=== PATIENT | male | born 1940 | race Caucasian/White ===

== ENCOUNTER 2019-07-31 06:43 | Inpatient (IN) ==
[2019-07-31 07:33] LABS: BASO# 0.02 X1000 (0.0-0.2); BASO% 0.3 % (0.0-0.8); EOS# 0.06 X1000 (0.0-0.7); EOS% 0.9 % (0.0-10.0); HEMATOCRIT 27.9 % (42.0-52.0); IMM GRAN# 0.03 X1000 (0.0-0.04); IMM GRAN% 0.4 % (0.0-0.5); LYMPH# 0.63 X1000 (1.2-3.4); LYMPH% 9.3 % (20.5-51.1); MCH 22.9 PG (27-31); MCHC 28.7 g/dL (33-37); MCV 79.7 FL (81-99); MONO# 0.43 X1000 (0.11-0.59); MONO% 6.3 % (1.7-9.3); MPV 9.4 FL (7.4-10.4); NEUT# 5.62 X1000 (1.4-6.5); NEUT% 82.8 % (42.2-75.2); PLT 240 X1000 (130-400); RDW 16.1 % (11.5-14.5); WBC 6.79 X1000 (4.8-10.8)
[2019-07-31 07:47] LABS: AGAP 15; ALBUMIN 4.1 g/dL (3.5-5.0); ALKALINE PHOSPHATASE 143 U/L (32-122); BUN 10 mg/dL (8-22); CALCIUM 9.1 mg/dL (8.8-10.2); CHLORIDE 101 mmol/L (98-107); COSMO 281; CREATININE 0.9 mg/dL (0.7-1.2); ESTIMATED GFR > 60; GLUCOSE 211 mg/dL (70-104); GOT 110 U/L (10-34); GPT 36 U/L (10-44); LIPASE 82 U/L (13-60); POTASSIUM 3.7 mmol/L (3.5-5.1); SODIUM 138 mmol/L (136-145); TCO2 22 mmol/L (25-35); TOTAL PROTEIN 7.9 g/dL (6.3-8.3)
[2019-07-31] MEDS ORDERED: PHENERGAN IV ONE ×2 (07:57→11:27)
[2019-07-31] MEDS ORDERED: SODIUM CHLORIDE 0.9% INJ ONE ×2 (07:57→11:27)
[2019-07-31] MEDS ORDERED: DEMEROL IV ONE ×2 (07:58→11:27)
--- NOTE | 2019-07-31 08:03 | PROVIDER DOCUMENTATION ---
HPI-Abdominal Pain/GI Problem - General Chief Complaint: Abdominal Pain Stated Complaint: INDIGESTION Time Seen by Provider: 07/31/19 07:41 Source: patient, family Allergies/Adverse Reactions: Patient Allergies Allergy/AdvReac Type Severity Reaction Status Date / Time No Known Allergies Allergy Verified 07/31/19 07:40 Home Medications: Home Medication List Medication Instructions Recorded Confirmed Last Taken Type Allopurinol [Zyloprim] 300 mg PO HS 07/19/12 07/31/19 12/20/13 07:00 History Metoprolol [Lopressor] 50 mg PO DAILY 07/19/12 07/31/19 12/20/13 07:00 History Omeprazole [Prilosec] 20 mg PO DAILY@0700 07/19/12 07/31/19 12/20/13 07:00 Histo ry PRAVAstatin [Pravachol] 40 mg PO DAILY 12/14/12 07/31/19 12/19/13 17:00 History Acetaminophen with Codeine 1 ea PO Q6H PRN PRN #30 tab 07/18/17 07/31/19 Unknown Rx [Tylenol with Codeine #3 Tablet] Cilostazol 100 mg PO DAILY 10/17/17 07/31/19 Unknown History Amlodipine Besylate 2.5 mg PO DAILY 07/31/19 07/31/19 Unknown History Apixaban [Eliquis] 5 mg PO BID 07/31/19 07/31/19 Unknown History - History of Present Illness-ABD Nature of Presenting Problems: had diarrhea a couple of daysmthen went to bed last night fine woke up with gaseous ness and pain Abdominal Pain Onset Location: reports: epigastric Pain Radiation: reports: no radiation Quality of Pain: reports: fullness, pressure Severity in ED: reports: moderate Onset/Duration: reports: 4-6 hours ago Timing: reports: still present Activities at Onset: reports: sleep Exposure to sick contacts?: No Associated Symptoms: reports: loss of appetite, nausea, weakness Last BM: 24 hours ago Dark Stools Present?: reports: none noticed Rectal Bleeding: reports: none # of Diarrhea Episodes: 0 Rectal Pain: reports: none # of Vomiting Episodes: 0 Emesis Description: reports: none Bruising or Bleeding Gums?: No Similar Symptoms Previously?: No Recently seen or treated by another doctor?: No Review of Systems - Adult - REVIEW OF SYSTEMS - ADULT Constitutional: reports: no symptoms reported Eyes: reports: no symptoms reported Ears, Nose, Mouth & Throat: reports: no symptoms reported Cardiovascular: denies: chest pain Respiratory: denies: cough, shortness of breath, wheezing Gastrointestinal: reports: abdominal pain, nausea Genitourinary: reports: no symptoms reported Musculoskeletal: reports: no symptoms reported Integumentary: reports: no symptoms reported Neurological: reports: no symptoms reported Psychiatric: reports: no symptoms reported Endocrine: reports: no symptoms reported Hematologic/Lymphatic: reports: no symptoms reported Allergic/Immunologic: reports: no symptoms reported Past History - Adult - PAST MEDICAL HISTORY-ADULT Review of Records: reports: Old Records Reviewed, Nursing Assessment Review, Medications Reviewed, Social history reviewed & non-contributory. Major Childhood Illnesses: reports: denies history Cardiovascular: reports: CAD - IMMUNIZATION STATUS Childhood Immunizations: See Nurse Assessment Flu Vaccine: See Nurse Assessment Physical Exam-General - PHYSICAL EXAM-ADULT Initial Vital Signs Reviewed: Yes - CONSTITUTIONAL General Appearance: moderate distress - EYES Eyes: pale conjunctivae - HEAD, EARS, NOSE, MOUTH & THROAT HENMT: normocephalic/atraumatic - NECK Neck: supple - RESPIRATORY Respiratory: lungs clear, decreased breath sounds - CARDIOVASCULAR Cardiovascular: regular rate, rhythm - GASTROINTESTINAL (ABDOMEN) Abdominal Exam: soft, distended, tenderness. negative: guarding, rigid, rebound - LYMPHATIC Lymphatic: no adenopathy - MUSCULOSKELETAL Back Exam: normal inspection, no CVA tenderness Extremity: normal range of motion, non-tender, normal gait - SKIN Integumentary: normal color, normal turgor - NEUROLOGIC Neurologic: grossly normal - PSYCHIATRIC Psych/Mental Status: oriented x 3 Progress - PLAN OF CARE/RESULTS Progress/Plan/Lab Results: Vital Signs - 8 hr 07/31/19 06:50 Temperature 97.6 F Pulse Rate 80 Respiratory Rate 16 Blood Pressure 134/69 O2 Sat by Pulse Oximetry 99 Laboratory Results - last 24 hr 07/31/19 07/31/19 07/31/19 07:08 07:08 07:08 WBC 6.79 RBC 3.50 L Hgb 8.0 L Hct 27.9 L MCV 79.7 L MCH 22.9 L MCHC 28.7 L RDW Std Deviation 16.1 H Plt Count 240 MPV 9.4 Immature Gran % (Auto) 0.4 Neut % (Auto) 82.8 H Lymph % (Auto) 9.3 L [place] % (Auto) 6.3 Eos % (Auto) 0.9 Baso % (Auto) 0.3 Immature Gran # (Auto) 0.03 Neut # (Auto) 5.62 Lymph # (Auto) 0.63 L [place] # (Auto) 0.43 Eos # (Auto) 0.06 Baso # (Auto) 0.02 Segmented Neutrophils Not Reportable Sodium Potassium Chloride Carbon Dioxide Anion Gap BUN Creatinine Estimated GFR/1.73 m2 BUN/Creatinine Ratio Glucose Calculated Osmolality Calcium Total Bilirubin AST ALT Alkaline Phosphatase Creatine Kinase 128 Troponin T High Sens Total Protein Albumin Globulin Albumin/Globulin Ratio Amylase 157 Lipase 07/31/19 07/31/19 07:08 07:08 WBC RBC Hgb Hct MCV MCH MCHC RDW Std Deviation Plt Count MPV Immature Gran % (Auto) Neut % (Auto) Lymph % (Auto) [place] % (Auto) Eos % (Auto) Baso % (Auto) Immature Gran # (Auto) Neut # (Auto) Lymph # (Auto) [place] # (Auto) Eos # (Auto) Baso # (Auto) Segmented Neutrophils Sodium 138 Potassium 3.7 Chloride 101 Carbon Dioxide 22 L Anion Gap 15 BUN 10 Creatinine 0.9 Estimated GFR/1.73 m2 > 60 BUN/Creatinine Ratio 11 Glucose 211 H Calculated Osmolality 281 Calcium 9.1 Total Bilirubin 1.70 H AST 110 H ALT 36 Alkaline Phosphatase 143 H Creatine Kinase Troponin T High Sens 19 Total Protein 7.9 Albumin 4.1 Globulin 4.0 Albumin/Globulin Ratio 1.0 Amylase Lipase 82 H Orders Category Date Time Status AMYLASE [CHEM] Stat Lab 07/31/19 07:08 Completed CBC WITH DIFF [HEME] Stat Lab 07/31/19 07:08 Completed CK PROFILE [SP CHEM] Stat Lab 07/31/19 07:08 Completed COMPREHENSIVE METABOLIC PANEL [CHEM] Stat Lab 07/31/19 07:08 Completed LIPASE [CHEM] Stat Lab 07/31/19 07:08 Completed TROPONIN T HIGH SENSITIVITY Stat Lab 07/31/19 07:08 Completed EKG [EKG] Stat Ther 07/31/19 06:59 Ordered Result Diagrams: 07/31/19 07:08 07/31/19 07:08 - EKG 1 Time of EKG reading by physician:: 06:57 EKG Read and Signed by:: Cristhian Bardales EKG Interpretation (*Must complete 3 of following elements*): Abnormal Rate: 78 Rhythm: Afib [place]: normal QRS: other (possible inferior infarct) MI Interval: normal ST Wave: normal - CT/MRI 1 CT Study: Abdomen, Pelvis Impression: See EMR Report ([facility] - [address], [address], [place] [address] [facility] - [address] [place] [address] Department of Imaging Patient: KEVIN BRYAN Date: 07/31/19MR#: [id number] : 1940DM Status: REG [facility]#: [id number] Age/Sex: 78/MRoom/Bed: Loc: P.ED Ordering Physician: Juan Bardales MD Family Physician: Cristhian Bardales MD Reason for Procedure: pain Signed EXAM: CT ABD/PELVIS W/IV CONT ONLY INDICATION: pain TECHNIQUE: This exam was performed using automated exposure control, adjustment of mA or kV according to patient size, and/or use of iterative reconstruction technique. COMPARISON: 12/13/2012 FINDINGS: There is right basilar atelectasis +/- superimposed mild infiltrate. The liver is enlarged, heterogeneous, and exhibits a nodular contour consistent with cirrhosis. No well-defined hepatic mass can be identified on this study. There are multiple layering stones in the gallbladder lumen. There is no pericholecystic inflammatory change. The spleen is mildly prominent measuring up to 14.6 cm craniocaudally. The pancreas, adrenal glands, kidneys, and urinary bladder are essentially unremarkable. There is uncomplicated sigmoid colonic diverticulosis. There is no focal bowel wall thickening or bowel obstruction. The remainder of the GI tract is essentially unremarkable. No focal inflammatory changes, significant free fluid, or free abdominal gas is appreci ated. There is fairly extensive aortoiliac atherosclerotic disease and upper lower extremity atherosclerotic disease similar to the previous study. There is no evidence of acute osseous abnormality. IMPRESSION: 1.Focal atelectasis +/- mild infiltrate at the right lung base. 2.Cirrhotic liver. 3.Mild hepatomegaly. 4.Cholelithiasis. 5.Uncomplicated diverticulosis coli. 6.No definite acute abdominal or pelvic pathology by CT. Electronically signed by Raman Jiang 07/31/2019 9:01 AM 07/31/19 0901 Interpreting Physician: Raman Jiang MD Dictated Date/Time: 07/31/19 0852 cc: Cristhian Bardales MD; Cristhian Bardales MD) - ULTRASOUND (By Radiology) 1 US Study: Gallbladder Impression: See EMR Report ([facility] - [address] [facility] [address], [place] [address] [facility] - [address] [place] [address] Department of [facility] Date: 07/31[facility]MR#: [id number] : 1940DM Status: [facility] ERAcct#: [id number] Age/Sex: 78/MRoom/Bed: Loc: P.ED Ordering Physician: Cristhian Bardales MD Family Physician: Cristhian Bardales MD Reason for Procedure: pain Signed EXAM: US GB < RUQ (LIMITED) INDICATION: pain COMPARISON: None. FINDINGS: The gallbladder is somewhat obscured. However, there is evidence of layering gallbladder sludge and stones in the gallbladder lumen. There is no gallbladder wall thickening and no evidence of pericholecystic fluid. The common bile duct is normal in diameter. Sonographic Davis's sign was reported to be negative. The liver echotexture is vaguely heterogeneous suggesting cirrhosis. No discrete hepatic mass is identified. Portal venous flow is hepatopetal. The pancreas is largely obscured. The aorta is obscured. The visualized portion of the IVC is unremarkable. The right kidney is grossly unremarkable. IMPRESSION: 1.Sludge and stones in the lumen of the gallbladder but no wall thickening is appreciated. 2.Daily heterogeneous liver echotexture suggesting cirrhosis. Electronically signed by Raman Jiang 07/31/2019 11:29 AM 07/31/19 1129 Interpreting Physician: Raman Jiang MD Dictated Date/Time: 07/31/19 1126 cc: Cristhian Bardales MD; Cristhian Bardales MD) - CONSULTS/PCP/HOSPITALIST Notification #1 *Consult/PCP/Hospitalist*: Dr. Murphy Time Discussed: 12:00 Reason/Comments: ruq pain; + davis's sign; cholelithiasis Consult Disposition: Admit (at [facility]) #2 Consult: Dr. Rodríguez Time Discussed: 12:01 Reason/Comments: liver cirrhosis; ruq pain; + davis's sign; cholelithiasis Consult Disposition: Admit (at [facility]) Departure - Departure Date of Disposition Decision: 07/31/19 Time of Disposition Decision: 12:02 DIAGNOSIS: Liver cirrhosis, RUQ abdominal pain, Cholelithiasis, History of atrial fibrillation Disposition: ADMITTED INPATIENT 09 Certified Medical Emergency: Emergent Condition: Stable Referrals and Follow-Ups: Cristhian Bardales MD [Primary Care Provider] - - Critical Care Note This patient required my direct & personal management of CC.: No Attestation - Physician/ MIKE Attestation The physician spent face to face time with patient:: Yes Advanced Practice Provider documentation review:: Supervising physician onsite and consulted in the evaluation and care of this patient. The physician did have a face to face encounter with the patient.
[2019-07-31 08:11] LABS: OCCULT BLOOD 1 POSITIVE (NEGATIVE)
--- NOTE | 2019-07-31 09:03 | Diag Imaging Result Doc PS360 ---
EXAM: CT ABD/PELVIS W/IV CONT ONLY INDICATION: pain TECHNIQUE: This exam was performed using automated exposure control, adjustment of mA or kV according to patient size, and/or use of iterative reconstruction technique. COMPARISON: 12/13/2012 FINDINGS: There is right basilar atelectasis +/- superimposed mild infiltrate. The liver is enlarged, heterogeneous, and exhibits a nodular contour consistent with cirrhosis. No well-defined hepatic mass can be identified on this study. There are multiple layering stones in the gallbladder lumen. There is no pericholecystic inflammatory change. The spleen is mildly prominent measuring up to 14.6 cm craniocaudally. The pancreas, adrenal glands, kidneys, and urinary bladder are essentially unremarkable. There is uncomplicated sigmoid colonic diverticulosis. There is no focal bowel wall thickening or bowel obstruction. The remainder of the GI tract is essentially unremarkable. No focal inflammatory changes, significant free fluid, or free abdominal gas is appreciated. There is fairly extensive aortoiliac atherosclerotic disease and upper lower extremity atherosclerotic disease similar to the previous study. There is no evidence of acute osseous abnormality. IMPRESSION: 1.Focal atelectasis +/- mild infiltrate at the right lung base. 2.Cirrhotic liver. 3.Mild hepatomegaly. 4.Cholelithiasis. 5.Uncomplicated diverticulosis coli. 6.No definite acute abdominal or pelvic pathology by CT. Electronically signed by Raman Jiang 07/31/2019 9:01 AM
--- NOTE | 2019-07-31 10:24 | EKG Report ---
Test Performed on : 07/31/2019 06:57:16 AM Test Reason : Indigestion Blood Pressure : / mmHG Vent. Rate : 078 BPM Atrial Rate : 258 BPM P-R Int : 000 ms QRS Dur : 090 ms QT Int : 408 ms P-R-T Axes : 000 -07 019 degrees QTc Int : 465 ms Atrial fibrillation. Possible Inferior infarct (cited on or before 19-JUL-2012) Abnormal ECG When compared with ECG of 20-JUL-2012 14:52, Atrial fibrillation. has replaced Sinus rhythm. Unconfirmed Result
--- NOTE | 2019-07-31 11:32 | Diag Imaging Result Doc PS360 ---
EXAM: US GB < RUQ (LIMITED) INDICATION: pain COMPARISON: None. FINDINGS: The gallbladder is somewhat obscured. However, there is evidence of layering gallbladder sludge and stones in the gallbladder lumen. There is no gallbladder wall thickening and no evidence of pericholecystic fluid. The common bile duct is normal in diameter. Sonographic Davis's sign was reported to be negative. The liver echotexture is vaguely heterogeneous suggesting cirrhosis. No discrete hepatic mass is identified. Portal venous flow is hepatopetal. The pancreas is largely obscured. The aorta is obscured. The visualized portion of the IVC is unremarkable. The right kidney is grossly unremarkable. IMPRESSION: 1.Sludge and stones in the lumen of the gallbladder but no wall thickening is appreciated. 2.Daily heterogeneous liver echotexture suggesting cirrhosis. Electronically signed by Raman Jiang 07/31/2019 11:29 AM
[2019-07-31] MEDS ORDERED: TYLENOL WITH CODEINE #3 PO PRN (12:24)
[2019-07-31] MEDS ORDERED: ZOFRAN IV PRN ×2 (12:25→22:42)
[2019-07-31] MEDS ORDERED: NS 1,000 ML IV SCH (12:30)
[2019-07-31] MEDS: ZOSYN 3.375 GM in NS 50 ML IV SCH ×2 (12:55→20:21)
--- NOTE | 2019-07-31 14:18 | HISTORY AND PHYSICAL ---
CHIEF COMPLAINT: Abdominal pain. HISTORY OF PRESENT ILLNESS: The patient is a pleasant, elderly male, who presented to the hospital with chief complaint of abdominal pain, nausea. He has had some indigestion and diarrhea for the past several days to a week. Continues to get worse. He has had increased gas, increased bloating in his abdomen, decreased oral intake. ALLERGIES: No known drug allergies. MEDICATIONS: Allopurinol 300, Lopressor 50, Prilosec 20, Pravachol 40, Pletal 100, amlodipine 2.5, and Eliquis 5 b.i.d., although he has been off Eliquis for, I believe, 3 days. REVIEW OF SYSTEMS: As noted above. Denies any fevers, chills, cough, congestion. Does have abdominal pain with distention. Denies hematemesis, hematochezia, or melena, but does have diarrhea and has increased nausea, increased vomiting, and abdominal pain with some bloating. Denies any weight loss, but also notes he has not checked his weight in some time. Denies headaches, blurred vision, change in vision. Denies focalized numbness, tingling, weakness in his extremities PAST MEDICAL HISTORY: Significant for coronary artery disease, high cholesterol, chronic reflux, and hypertension. FAMILY HISTORY: Noncontributory. SOCIAL HISTORY: The patient does not smoke or drink. He lives at home. He is cared for by his family. PHYSICAL EXAMINATION: VITAL SIGNS: Reviewed. Temp 97.6 degrees, pulse 80, respiratory rate 16, BP 134/69, satting 99% on room air. GENERAL: The patient is pleasant. He is lying in the bed. He has received pain medicine, so the history basically is per his family. HEENT: Normocephalic. NECK: Supple. CARDIOVASCULAR: Regular rate. CHEST: Clear. Nonlabored. No wheezing. ABDOMEN: Soft, slightly distended, slightly tender diffusely. Decreased bowel sounds times all 4 quadrants. EXTREMITIES: Moves all extremities. NEUROLOGIC: No focal neurological changes. SKIN: Warm and dry. No rashes. IMAGING AND LABORATORY DATA: CBC, CMP effectively normal with glucose 211. CT abnormal as noted below. ASSESSMENT: 1. Bibasilar atelectasis versus infiltrate. 2. Multiple gallstones. 3. Cirrhosis. 4. Abdominal distention with pain. 5. History of atrial fibrillation. 6. Hypertension. 7. Known coronary artery disease. 8. High cholesterol. PLAN: We are going to admit the patient to the hospital. Given that he has sludge and stones in his gallbladder, we are going to ask Surgery to evaluate. He does have cirrhosis. We are going to ask GI to evaluate his persistent nausea as he certainly may need an EGD as well. We are going to continue his home medications, place him on Zosyn, and will follow. cc: Pepe Rodríguez MD
[2019-07-31] MEDS ORDERED: DEMEROL IV PRN ×2 (20:39→22:41)
[2019-07-31] MEDS ORDERED: PHENERGAN IV PRN ×3 (20:40→22:43)
[2019-07-31] MEDS ORDERED: SODIUM CHLORIDE 0.9% INJ PRN ×2 (20:40→22:43)
[2019-07-31] MEDS ORDERED: OFIRMEV 1000 MG/ISOTONIC SOLN 1,000 MG/100 ML BOTTLE IV ONE (20:42)
[2019-07-31] MEDS ORDERED: ZYLOPRIM PO SCH (21:00)
[2019-08-01] MEDS: ZOSYN 3.375 GM in NS 50 ML IV SCH ×2 (03:04→07:43)
[2019-08-01] MEDS: NS 1,000 ML IV SCH ×3 (03:04→17:30)
[2019-08-01] MEDS ORDERED: PRILOSEC PO SCH (07:00)
[2019-08-01 07:42] LABS: AGAP 16; ALBUMIN 3.6 g/dL (3.5-5.0); ALKALINE PHOSPHATASE 182 U/L (32-122); BUN 12 mg/dL (8-22); CHLORIDE 100 mmol/L (98-107); COSMO 281; ESTIMATED GFR > 60; GLUCOSE 162 mg/dL (70-104); GOT 310 U/L (10-34); GPT 218 U/L (10-44); MAGNESIUM 1.7 mg/dL (1.5-2.7); POTASSIUM 3.8 mmol/L (3.5-5.1); SODIUM 139 mmol/L (136-145); TCO2 23 mmol/L (25-35); TOTAL BILIRUBIN 6.12 mg/dL (0.20-1.00); TOTAL PROTEIN 7.3 g/dL (6.3-8.3)
[2019-08-01] MEDS: PRILOSEC PO SCH (07:43)
[2019-08-01] MEDS: PLETAL PO SCH ×2 (07:56→09:30)
[2019-08-01] MEDS: LOPRESSOR PO SCH ×2 (07:56→09:29)
[2019-08-01] MEDS: TYLENOL WITH CODEINE #3 PO PRN (07:57)
[2019-08-01] MEDS: NORVASC PO SCH ×2 (07:57→09:30)
[2019-08-01 08:01] LABS: HEMATOCRIT 30.9 % (42.0-52.0); HEMOGLOBIN 8.9 g/dL (14.0-18.0); MCH 22.6 PG (27-31); MCHC 28.8 g/dL (33-37); MCV 78.6 FL (81-99); MPV 9.3 FL (7.4-10.4); RBC 3.93 XMIL (4.7-6.1); RDW 16.6 % (11.5-14.5); WBC 22.44 X1000 (4.8-10.8)
[2019-08-01] MEDS ORDERED: LOPRESSOR PO SCH (09:00)
[2019-08-01] MEDS ORDERED: NORVASC PO SCH (09:00)
[2019-08-01] MEDS ORDERED: PLETAL PO SCH (09:00)
[2019-08-01] MEDS ORDERED: VANCOMYCIN IV PER PHARMACY MISC SCH (09:30)
[2019-08-01] MEDS: DILAUDID IV PRN ×2 (09:42→20:18)
[2019-08-01] MEDS: SODIUM CHLORIDE 0.9% INJ SCH (09:45)
[2019-08-01] MEDS: PEPCID IV SCH ×2 (09:45→20:19)
[2019-08-01] MEDS: MERREM 1 GM in NS 50 ML IV SCH ×2 (09:48→18:49)
--- NOTE | 2019-08-01 09:55 | PROGRESS NOTE ---
DATE: 08/01/2019 SUBJECTIVE: The patient reports still having abdominal pain in the right upper quadrant that was getting worse in the last few hours. Also started spiking fever yesterday. Not nauseated at this point. OBJECTIVE: Vital Signs: Temperature 98.6 degrees this morning at 7 a.m., but last night he was spiking 101.0 and 101.1 at 8 and 9 p.m., heart rate 104, respiratory rate 18, blood pressure 146/71, O2 saturation 96% on 2 L nasal cannula. General: This is a 78-year-old, male, lying in bed in no acute distress. HEENT: Head is normocephalic, atraumatic. Icteric sclerae. Face is also jaundiced. Mucous membranes dry. Neck: No JVD noted. No carotid bruits. No lymphadenopathy. No thyromegaly. Cardiovascular: S1, S2 heard. Tachycardic, but no murmurs, gallops, or rubs noted. Respiratory: Clear bilaterally to auscultation. Minimal coarse breath sounds in the right base. The patient is not using any accessory muscles or having work of breathing. Abdomen: Soft. Very tender to palpation in the right upper quadrant. Davis positive. Bowel sounds present, but decreased. No organomegaly noted. Extremities: No clubbing, cyanosis, or edema. Peripheral pulses present in both legs. Neurological: The patient is alert and oriented x3. Moves all 4 extremities. LABORATORY DATA: White cell count 22.44, hemoglobin 8.9, hematocrit 30.9, platelets 256,000. BMP remarkable for total bilirubin of 6.12, AST 310, ALT 218, alkaline phosphatase 182. ASSESSMENT AND PLAN: 1. Ascending cholangitis. The patient started having fever, right upper quadrant pain, and bilirubin is elevated. I think he has passed one stone into the common bile duct, so bilirubin is much more elevated today with elevation of transaminases and also alkaline phosphatase. At this time, I am planning to change antibiotics to meropenem 1 gram intravenously every 8 hours. General Surgery and Gastroenterology have been consulted, and will follow recommendations. The patient has gallstone and sludge in the gallbladder. Will continue to monitor. 2. Right lower lobe pneumonia. Will continue with current antibiotics, and will add vancomycin to his current treatment. White cell count is very elevated today in comparing with yesterday. Will continue to monitor. 3. Paroxysmal atrial fibrillation. At this point, the patient is in sinus rhythm. He is supposed to be on Eliquis, but he has been off of that for the last 3 to 4 days. 4. Hypertension. Blood pressure is under control. Will continue with the same management. 5. Coronary artery disease. The patient is not complaining of any chest pain. Will continue to monitor. 6. Hypercholesteremia. Aware. Will continue home medications. 7. Disposition. At this point, we are awaiting consult from General Surgery and Gastroenterology. Will see what they have to say. cc: aDve Benson MD
[2019-08-01] MEDS ORDERED: VANCOMYCIN 2,000 MG in NS 500 ML IV ONE ×2 (10:00→11:00)
--- NOTE | 2019-08-01 10:58 | GENERAL SURGERY CONSULTATION ---
DATE: 08/01/2019 TIME: 1017 hours. HISTORY OF PRESENT ILLNESS: Mr. Iqbal is a 78-year-old gentleman who presents yesterday with abdominal pain and nausea. He was found to have multiple gallstones. Upon admission, his white count was normal. His total bilirubin was 1.7, alkaline phosphatase 143. Since last night, he has developed fever. His white count has gone to 22,000; his bilirubin has jumped to 6, AST up to 310, ALT up to 218, alkaline phosphatase up to 182. He continues to be tender in his right upper quadrant. PAST MEDICAL AND SURGICAL HISTORY: Pertinent for coronary disease, hypercholesterolemia, chronic gastroesophageal reflux, and hypertension. He has had peripheral vascular disease. He has had a previous incarcerated hernia repair. MEDICATIONS: His medications at home include Allopurinol, Lopressor, Prilosec, Pravachol, Pletal, amlodipine, Eliquis, but he has been off Eliquis for 3 days. ALLERGIES: He has no known drug allergies. FAMILY HISTORY: Unknown. SOCIAL HISTORY: He denies smoking, currently denies drinking. He is . He is cared for by his family. REVIEW OF SYSTEMS: Negative in all 14 subsystems except as noted in his history of present illness. PHYSICAL EXAMINATION: Vital Signs: He is currently afebrile. Heart rate 104, blood pressure 146/71. Neck: No cervical adenopathy. Lungs: Bilateral breath sounds. Heart: Regular rate and rhythm. Abdomen: He is tender in the right upper quadrant. His abdomen is somewhat distended. Extremities: No peripheral edema. Neurologic: He is awake and alert. He is comfortable after having had pain medicine. DIAGNOSTIC DATA: White count 22,000, hemoglobin 8.9, hematocrit 30. Bilirubin 6.1, AST 310, ALT 218, alkaline phosphatase 182. ASSESSMENT: Acute calculous cholecystitis with cholangitis. PLAN: A laparoscopic cholecystectomy with cholangiogram. I have discussed the benefits and risks. They understand and agree to proceed. cc: Mason Murphy MD
[2019-08-01] MEDS ORDERED: DIPRIVAN 1% ONE (11:15)
[2019-08-01] MEDS ORDERED: FENTANYL ONE (11:15)
[2019-08-01] MEDS ORDERED: XYLOCAINE-MPF 2% ONE (11:16)
[2019-08-01] MEDS ORDERED: ROBINUL ONE (11:16)
[2019-08-01] MEDS ORDERED: QUELICIN (DOSE) ONE (11:16)
[2019-08-01] MEDS ORDERED: LR 1,000 ML ONE (11:42)
[2019-08-01] MEDS ORDERED: SENSORCAINE 0.25%/EPI 1:200,000 ONE (11:42)
[2019-08-01] MEDS ORDERED: SODIUM CHLORIDE 0.9% ONE (11:42)
[2019-08-01] MEDS ORDERED: EPHEDRINE ONE (12:18)
[2019-08-01] MEDS ORDERED: ZEMURON ONE (12:18)
[2019-08-01] MEDS ORDERED: KETAMINE ONE (12:26)
[2019-08-01] MEDS ORDERED: VENTOLIN HFA ONE (12:29)
[2019-08-01] MEDS ORDERED: NEO-SYNEPHRINE ONE (12:29)
[2019-08-01] MEDS ORDERED: ZOFRAN ONE (12:30)
[2019-08-01] MEDS ORDERED: DECADRON ONE (12:30)
--- NOTE | 2019-08-01 12:41 | Diag Imaging Result Doc PS360 ---
EXAM: OPERATIVE CHOLANGIOGRAM HISTORY: CHO TECHNIQUE: Two films submitted COMPARISON: None. FINDINGS: Contrast fills the common bile duct and has emptied into the duodenum. On one of the views there appears to be an air bubble or stone in the common bile duct. No abnormality identified on the other view. IMPRESSION: Apparent air bubble in the common bile duct. Electronically signed by Xavier Valladares 08/01/2019 12:39 PM
[2019-08-01] MEDS ORDERED: BRIDION ONE (12:44)
[2019-08-01] MEDS ORDERED: ALBUMIN 25% ONE (12:44)
[2019-08-01] MEDS: DILAUDID ONE ×2 (13:50→15:22)
--- NOTE | 2019-08-01 13:55 | Diag Imaging Result Doc PS360 ---
EXAM: CHEST-PORTABLE 08/01/2019 HISTORY: POST OP TECHNIQUE: AP portable upright at 1347 COMMENT: The inspiration is less optimal than on 12/13/2012. The pulmonary vascularity is prominent. Otherwise are has been no significant change in the appearance of the chest considering differences in technique and inspiration. IMPRESSION: Pulmonary vascular prominence. Electronically signed by Jude Conley 08/01/2019 1:53 PM
--- NOTE | 2019-08-01 13:58 | OPERATIVE NOTE ---
PROCEDURE DATE: 08/01/2019 NAME OF PROCEDURE PERFORMED: Laparoscopic cholecystectomy with operative cholangiogram. SURGEON: Mason Murphy MD. MARKET RISK ANALYST: Dr. Bustamante. PREOPERATIVE DIAGNOSES: 1. Acute and chronic calculous cholecystitis with acute cholangitis. 2. Cirrhosis. POSTOPERATIVE DIAGNOSES: 1. Acute and chronic calculous cholecystitis with acute cholangitis. 2. Cirrhosis. FINDINGS: No intraluminal filling defects were seen. There was free flow into the duodenum. DESCRIPTION OF PROCEDURE: Satisfactory general endotracheal anesthesia was achieved. The abdomen was prepped and draped in a sterile fashion. We anesthetized the skin in the right mid abdomen and midaxillary line. Used a 5 trocar Optiview technique to enter the abdominal cavity. We insufflated through this trocar. We looked underneath the umbilicus and there was noted a PTFE mesh so we went outside that mesh and inferior to it, and introduced a 5 trocar there. We then switched our 5 camera to that trocar and then used put an 11 trocar in the midepigastrium and another 5 trocar near the anterior axillary line. We placed the patient in reverse Trendelenburg and turned him to the left. The gallbladder was very dilated. It was distended and discolored. We had to aspirate it in order to decompress it enough to grab it. The liver was very cirrhotic and abnormal-appearing. We then grasped the fundus of the gallbladder, reflected it cephalad, and began dissecting the triangle of Calot. We identified the cystic duct and was able to clip it, incised the cystic duct, introduced a Jenn catheter, and shot the cholangiogram. The findings above were noted. We then removed the cholangiogram catheter, clipped the cystic duct on the opposite side of the cystic duct ductotomy, and transected the cystic duct. The cystic artery was identified. It was clipped proximally x2, distally x1, and divided. We then basically bluntly dissected the gallbladder out of the gallbladder fossa. We did make a hole in the gallbladder and some stones escaped. We were able to just basically peel the gallbladder out of the gallbladder fossa. We introduced the EndoCatch through the epigastric trocar site, placed the gallbladder within it, and delivered it out of the abdominal cavity. We had to enlarge the fascial incision enough to deliver it from the abdominal cavity. We then switched to a 15 trocar. We placed a pursestring around it in the epigastrium to try to get another seal. We then spent the next amount of time aspirating the blood from the gallbladder fossa and removing the stones that had spilled out of the gallbladder. We used large suction cannulas as well as a stone cup to remove all the stones we could identify. We irrigated out the gallbladder fossa and achieved acceptable hemostasis with electrocautery. Then we used 3 g of Chan into the gallbladder fossa. I felt that the hemostasis was acceptable. I chose not to do a liver biopsy because it was obviously cirrhotic and then the risk of bleeding was high. I then placed a Tacho drain within the abdominal cavity, bringing it out the mid axillary, midclavicular line trocar site and positioning in the right upper quadrant. All the trocars were removed and desufflation was accomplished. Then 3-0 nylon was used to secure the drain at the skin level. We closed the fascia at the epigastrium with a 2-0 Polysorb running stitch. Then 4-0 Polysorb subcuticular stitches were used to close the skin at each of the other trocar sites. Sterile dressings were applied. He tolerated it well, was sent to the recovery room in satisfactory condition. cc: Mason Murphy MD MTDVivienne
--- NOTE | 2019-08-01 14:28 | GASTROENTEROLOGY CONSULTATION ---
DATE: 08/01/2019 REASON FOR CONSULT: Nausea and abdominal pain. HISTORY OF PRESENT ILLNESS: Mr. Mcgowan is a 78-year-old, male with a history of cirrhosis of the liver, gallstones, gout. He had been to [facility] yesterday morning with complaints of abdominal pain and nausea. The patient was then sent to [facility] last night. He has denied any fever but he does complain of shortness of breath and chills. The patient says that for the last 2 days onwards, he has been having diarrhea. The patient does take Tylenol with codeine for his gout. He was also started on Eliquis for his atrial fibrillation in January but he has mentioned that he has not been taking it from 07/14/2019 onwards. He has been complaining of itching on his abdomen. The patient's hemoglobin and hematocrit on admission were 8.0 and 27.9. Today, they are 8.9 and 30.9. The patient's abdomen and pelvis CT has shown that he has focal atelectasis plus/minus mild infiltrates at the right lung base, cirrhotic liver, mild hepatomegaly, cholelithiasis, uncomplicated diverticulosis coli, and no acute abdomen or pelvic pathology. His abdominal ultrasound has showed sludge and stones in the lumen of the gallbladder but no wall thickening and daily heterogenous liver echotexture suggesting cirrhosis. The patient's cholangiogram has shown apparent air bubbles in the common bile duct. The patient's liver enzymes were elevated on admission. Total bilirubin was 1.70, AST 110, ALT 36, alkaline phosphatase is 143. Today, they have all trended upwards. His total bilirubin is 6.12, AST 310, ALT 218, alkaline phosphatase is 182. The patient's abdomen is distended and it is tender all over. He is a patient of Dr. Hernandez, and was las seen by him on 12/26/13. He had a colonoscopy done and it showed diverticulosis, and a single polyp, polypectomy was done, biopsy revealed tubular adenoma with no high-grade dysplasia. PAST MEDICAL HISTORY: Cirrhosis of the liver, hyperlipidemia, chronic reflux, hypertension, gout and atrial fibrillation. ALLERGIES: No known drug allergies. PAST SURGICAL HISTORY: Hernia repair and polypectomy FAMILY HISTORY: Dad had lung cancer and her mom had heart problems. PAST SOCIAL HISTORY: Patient is , has 3 kids. He used to smoke and drink in the past, but denies any illicit drug use. REVIEW OF SYSTEMS: As per HPI. Otherwise, 12 point review of systems is negative. PHYSICAL EXAMINATION: Vital Signs: Temperature 98.6 degrees, pulse 104, respirations 18, blood pressure 146/71, oxygen saturation 96% on 2 L nasal cannula. The patient's weight is 168 pounds. BMI is 26.3 kg/m2. General: He is alert, oriented x3, in no acute distress. HEENT: Pale conjunctivae. Scleral icterus. PERRL. Neck: Supple. Lungs: Clear to auscultation. Cardiovascular: Patient is tachycardic. Abdomen: Firm, distended, tender. Hypoactive bowel sounds heard in all 4 quadrants. Extremities: No clubbing, no cyanosis, no edema. Pedal pulses 2+ present bilaterally. Neurologic: He is alert, oriented x3. Nonfocal. Cranial nerves 2-12 grossly intact. LABORATORY DATA: WBCs are 22.44, RBCs 3.93, hemoglobin 8.9, hematocrit is 30.9, platelet count is 256,000. Sodium 139, potassium 3.8, chloride 100, carbon dioxide 23, anion gap 16, BUN 12, creatinine 1.0, glucose 162, calcium 9.0, magnesium 1.7. Total bilirubin 6.12, AST 310, ALT 218, alkaline phosphatase is 182, albumin is 3.6. TSH is 2.4. Stool for occult blood is positive. IMPRESSION AND PLAN: 1. Gallstones. 2. 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 3. Abdominal pain. 4. Coronary artery disease. 5. History of atrial fibrillation. 6. Anemia. 7. Elevated liver enzymes. PLAN: Mr. Mcgowan is a 78-year-old, male with a history of cirrhosis of the liver, gout, and atrial fibrillation. GI has been consulted for his nausea and abdominal pain. We currently do not plan to do any EGD or colonoscopy. Surgery has been consulted for his gallbladder. They plan to do a laparoscopic cholecystectomy with intra-operative cholangiogram. The patient is currently receiving IV fluids at 75 mL per hour. He is on Pepcid 20 mg IV. He is receiving antibiotic Merrem 100 mL per hour. The patient can follow up for his cirrhosis workup as an outpatient with Dr. Hernandez in 4 to 6 weeks. This plan has been discussed with Dr. Aldrich. Thank you for the consult and please call us for any further questions or concerns. Dictated by PEGGY Gomez for Elder Aldrich MD cc: Elder Aldrich MD I have seen and examined the patient myself and I agree with the above plan of care. Please call us with any questions or concerns. LUZ
[2019-08-01] MEDS ORDERED: NS 1,000 ML ONE (15:10)
[2019-08-01 15:57] LABS: ALLEN TEST YES; BLOOD TYPE ARTERIAL; HCO3-(ACT) 19.3 mmoll (20.0-26.0); METHB 0.4 % (0.0-1.5); O2(CT) 14.7 mL/dL (15.0-23.0); O2HB 91.6 % (95.0-99.0); PCO2(98.6) 41 mmHg (35-45); PO2(98.6) 72 mmHg (60-100); SAMPLE BLOOD; SAO2 93.9 % (95.0-100.0); THB 11.4 g/dL (11.5-17.4); pH(98.6) 7.28 (7.35-7.45)
[2019-08-01 15:58] LABS: MODALITY NRB
[2019-08-01] MEDS ORDERED: NORCO-10 PO PRN (17:19)
[2019-08-01 18:00] LABS: INR 1.65; PROTIME 19.8 Seconds (11.0-16.0)
[2019-08-01 18:01] LABS: PTT 45.7 Seconds (22.3-41.8)
[2019-08-01] MEDS: ZYLOPRIM PO SCH (20:19)
[2019-08-02] MEDS: PEPCID IV SCH ×3 (00:45→20:58)
[2019-08-02] MEDS: MERREM 1 GM in NS 50 ML IV SCH ×3 (00:56→17:39)
[2019-08-02] MEDS: DILAUDID IV PRN ×2 (06:22→20:47)
[2019-08-02] MEDS: NS 1,000 ML IV SCH ×3 (06:22→20:50)
[2019-08-02] MEDS: PRILOSEC PO SCH (06:23)
[2019-08-02 06:47] LABS: ALB/GLOB RATIO 1.1; CREATININE 2.6 mg/dL (0.7-1.2); POTASSIUM 4.5 mmol/L (3.5-5.1); TOTAL BILIRUBIN 3.9 mg/dL (0.20-1.00); TOTAL PROTEIN 5.8 g/dL (6.3-8.3)
--- NOTE | 2019-08-02 07:44 | Diag Imaging Result Doc PS360 ---
CHEST-PORTABLE - 08/02/2019 INDICATION: poss. aspiration COMPARISON: 08/01/2019 FINDINGS: There is new dense bilateral perihilar infiltrates. Stable right hemidiaphragm elevation. Stable small bilateral pleural effusions. Stable cardiomegaly. IMPRESSION: New dense central infiltrates concerning for aspiration. Electronically signed by Max Andre 08/02/2019 7:42 AM
[2019-08-02] MEDS: NORVASC PO SCH (08:29)
[2019-08-02] MEDS: LOPRESSOR PO SCH (08:30)
[2019-08-02 10:31] LABS: HEMATOCRIT 21.4 % (42.0-52.0); HEMOGLOBIN 6.1 g/dL (14.0-18.0); IMM GRAN# 0.02 X1000 (0.0-0.04); IMM GRAN% 0.2 % (0.0-0.5); LYMPH# 0.32 X1000 (1.2-3.4); LYMPH% 2.9 % (20.5-51.1); MCH 22.4 PG (27-31); MCHC 28.5 g/dL (33-37); MCV 78.7 FL (81-99); MONO% 8.1 % (1.7-9.3); MPV 9.2 FL (7.4-10.4); NEUT# 9.88 X1000 (1.4-6.5); NEUT% 88.8 % (42.2-75.2); PLT 191 X1000 (130-400); RBC 2.72 XMIL (4.7-6.1); RDW 16.6 % (11.5-14.5); WBC 11.12 X1000 (4.8-10.8)
[2019-08-02 10:53] LABS: ANISOCYTOSIS 1+; BANDS 14 % (0-1); HYPOCHROM 1+; LYMPHS 6 % (21-51); MONO 6 % (1-9); POIKILOCYTOSIS 1+; SEGS 74 % (42-75)
[2019-08-02] MEDS ORDERED: VANCOMYCIN 1,700 MG in NS 250 ML IV SCH (11:00)
[2019-08-02] MEDS ORDERED: DULCOLAX PR PRN (11:49)
[2019-08-02] MEDS ORDERED: NS 500 ML IV ONE (12:16)
--- NOTE | 2019-08-02 12:38 | PROGRESS NOTE ---
DATE: 08/02/2019 SUBJECTIVE: This morning Mr. Iqbal refers to be doing slightly better. He said he is not hurting like before. Mr. Iqbal got admitted 3 days ago through [facility] because of severe abdominal pain, was found to have multiple gallstones with acute on chronic cholecystitis and possible choledocholithiasis with cholangitis. He was sent to OR yesterday by Dr. Murphy. laparoscopic cholecystectomy with intraoperative cholangiogram was done. This morning he feels a lot better. OBJECTIVE: Vital Signs: Blood pressure is 102/64, pulse of 90 to 110, respirations 17, temperature is 98.1 degrees, patient is saturating 98%. General: Mr. Iqbal is a 78-year-old gentleman. He is in bed. HEENT: Mucosa is slightly pale. Anicteric. Acyanotic. Neck: Supple. Chest: Good air entry bilaterally. There are no crepitations, no rhonchi. Cardiovascular: Irregularly irregular. I think there is a 2/6 TR murmur and possibly 2/6 AR murmur as well. Gastrointestinal: The abdomen is soft. It is distended. There is a MARY drain on the right upper quadrant. There is also some incision on the lower abdomen from the laparoscopic procedure. Bowel sounds are somehow hypoactive. Central Nervous System: The patient is awake, alert, oriented to person and to place. Patient follows commands. LABORATORY DATA: WBC is down to 11.12, hemoglobin is 6.1, platelet count 191,000. There is 14% of bands on the peripheral smear. Chemistry is also reviewed. Creatinine is up to 2.6. Total bilirubin is 3.9, AST is 96, ALT is 108. IMAGING STUDIES: The patient had a CT scan of the abdomen and pelvis with IV contrast at the beginning, which was 07/31/2019. A chest x-ray this morning seems to show new dense central infiltrates concerning for aspiration. ASSESSMENT AND PLAN: 1. Abdominal pain on admission secondary to cholelithiasis with choledocholithiasis associated with ascending cholangitis. The patient is status post laparoscopic cholecystectomy with intraoperative cholangiogram, which seems to have shown free flowing contrast into the duodenum. However, the intraoperative cholangiogram separate report seems to document air bubble in the common bile duct. The patient's liver enzymes are trending down, and he feels much better. 2. Acute on chronic anemia. Patient's hemoglobin is down to 6.1 this morning. According to the , Mr. Iqbal normally gets iron infusion with Dr. Yoon almost on yearly basis. He is known to have chronic anemia. However, this seems to have worsened probably with blood loss during surgery and dilution as well. We are going to give him 2 units of packed red blood cells today. 3. History of paroxysmal atrial fibrillation. The patient is currently in atrial fibrillation, and the rate goes anywhere between 93 to about 110. I understand when he gets up and moves, it goes up to even 140. He is on metoprolol. We are going to add Cardizem to it. 4. Eliquis anticoagulant therapy. This has been withheld after the surgery, but we will reinitiate this maybe tomorrow. 5. Hypertension. 6. History of coronary artery disease. The patient is currently asymptomatic. 7. Acute kidney injury. The patient's creatinine has gone up to 2.6. He has gotten IV contrast, so contrast-induced could be possible. We are going to check a CK level as well to rule out any rhabdomyolysis, and we will also do an ultrasound of the abdomen to rule out any obstructive uropathy, and urinalysis have all been ordered, and we will consult Nephrology tomorrow if there is no significant improvement. The patient tells me that he has been making adequate urine. cc: Nithin Lyons MD
[2019-08-02] MEDS: ZYVOX 600 MG/D5W 600 MG/300 ML IVPB IV SCH (13:23)
[2019-08-02] MEDS: CARDIZEM PO SCH ×2 (13:24→20:58)
[2019-08-02 13:35] LABS: UR CREAT RANDOM 74.2 mg/dL (14-26)
--- NOTE | 2019-08-02 14:58 | GASTROENTEROLOGY PROGRESS NOTE ---
DATE: 08/02/2019 SUBJECTIVE: Mr. Mcgowan is a 78-year-old male resting in bed. Family is at the bedside. The patient had a laparoscopic cholecystectomy done yesterday. He has some tenderness in the incision area. The patient has denied having any bowel movements today and denied any nausea or vomiting. OBJECTIVE: Vital Signs: Temperature 98.1 degrees, pulse 90, respirations 17, blood pressure 102/64, oxygen saturation 98%. He is on a nonrebreather mask. The patient's weight is 168 pounds, BMI is 26.3 kg/m2. General: He is alert, oriented x3, and in no acute distress. HEENT: Pale conjunctivae. No icterus. PERRL. Neck: Supple. Lungs: Clear to auscultation. Cardiovascular: Regular rate and rhythm. Abdomen: Mildly distended, tender. two small incisions in the mid abdominal area and Steri-Strips intact and he has a MARY drain on the right quadrant draining serosanguineous fluid. Active bowel sounds heard in all 4 quadrants. Extremities: No clubbing, no cyanosis, no edema. Pedal pulses 2+ present bilaterally. Neurologic: He is alert, oriented x3. LABORATORY DATA: WBCs 11.12, RBCs 2.72, hemoglobin 6.1, hematocrit is 21.4, Sodium 138, potassium 4.5, chloride 103, carbon dioxide 22, anion gap 13, BUN 32, creatinine 2.6, glucose 177, calcium 8.0, total bilirubin is 3.90, AST 96, ALT 108, alkaline phos 94. IMAGING: Chest x-ray today showed new dense central infiltrates concerning for aspiration. IMPRESSION AND PLAN: - Decompensated ETOH cirrhosis with PSE - Acute cholecystitis s/p CCY - AFIB - Acute blood loss abemia - MEDARDO - Hepatic encephalopathy - Abnormal LFTs PLAN: Mr. Mcgowan is a 78-year-old male with a history of cirrhosis of the liver. We are following him for his abdominal pain and nausea. The patient had a laparoscopic cholecystectomy done yesterday. His hemoglobin and hematocrit today is 6.1 and 21.4. It has trended downward. We will transfuse 1 unit of blood with a goal of 7 to 8 g/dL. The patient is currently on normal saline at 75 mL/hour. He is receiving Prilosec 20 mg p.o. daily. He is also on antibiotic Merrem at 100 mL/hour and Zyvox. We will continue to monitor his hemoglobin and hematocrit, and follow the plan of care per PCP. This plan was discussed with Dr. Arriola. Please call us for any further questions or concerns. Dictated by PEGGY Gomez for Cristhian Arriola MD Physician Attestation I have seen and examined the patient. I have discussed and reviewed the note by Loni WOODS and agree with findings and plan as documented. In brief Mr. Mcgowan is a 78 year old man admitted with acute cholecystitis s/p CCY who presents to GI service with decompensated ETOH cirrhosis with PSE and MEDARDO. He was given albumin and lasix. Recommend holding diuretics and giving albumin 25g q6h. Starting lactulose, titrate to 2-3 BMs daily, and transfusing for goal hgb 7-8. Minimize sedating meds. Trend Cr, LFTs, CBC, INR daily. MTDD
--- NOTE | 2019-08-02 15:46 | Diag Imaging Result Doc PS360 ---
US RENAL 2 (RETROPER) COMPLETE - 08/02/2019 INDICATION: saturnino/arf TECHNIQUE: COMPARISON: CT with contrast from 07/31/2019 FINDINGS: The kidneys are normal and unchanged from prior. The right kidney measures 11.1 x 5.2 x 5.6 cm. The left kidney measures 11.7 x 5.5 x 5.6 cm. IMPRESSION: Negative exam. Electronically signed by Max Andre 08/02/2019 3:43 PM
[2019-08-02] MEDS: TYLENOL WITH CODEINE #3 PO PRN (17:38)
--- NOTE | 2019-08-02 20:37 | GENERAL SURGERY PROGRESS NOTE ---
DATE: 08/02/2019 He is afebrile. Heart rate 90. Blood pressure 102/64. States he feels a little bit better. His drain put out about 80 mL of mostly serous fluid. He has taken some liquids. White count is down to 11,000, hemoglobin fell to 6.1, hematocrit 21.4. BUN jumped up to 32, creatinine 2.6, bilirubin down to 3.9. AST, ALT, alkaline phosphatase all improved. This is probably typical for a mild hepatic renal syndrome. He is improved from his cholangitis. He is anemic and I ordered 2 units of blood. cc: Mason Murphy MD
[2019-08-02] MEDS: ZYLOPRIM PO SCH (20:58)
[2019-08-02] MEDS: SODIUM CHLORIDE 0.9% INJ SCH (20:59)
[2019-08-03] MEDS: ZYVOX 600 MG/D5W 600 MG/300 ML IVPB IV SCH ×3 (00:05→23:45)
[2019-08-03] MEDS: MERREM 1 GM in NS 50 ML IV SCH ×3 (02:07→17:16)
[2019-08-03] MEDS: CARDIZEM PO SCH ×2 (02:48→09:46)
[2019-08-03] MEDS: PRILOSEC PO SCH ×2 (06:22→06:24)
[2019-08-03 06:58] LABS: EOS# 0.03 X1000 (0.0-0.7); EOS% 0.2 % (0.0-10.0); HEMOGLOBIN 8.9 g/dL (14.0-18.0); IMM GRAN# 0.03 X1000 (0.0-0.04); IMM GRAN% 0.2 % (0.0-0.5); LYMPH# 0.29 X1000 (1.2-3.4); MCH 24.7 PG (27-31); MCHC 30.7 g/dL (33-37); MCV 80.3 FL (81-99); MONO# 1.08 X1000 (0.11-0.59); MONO% 7.5 % (1.7-9.3); MPV 9.7 FL (7.4-10.4); NEUT# 12.99 X1000 (1.4-6.5); NEUT% 90.1 % (42.2-75.2); PLT 214 X1000 (130-400); RBC 3.61 XMIL (4.7-6.1); RDW 17.9 % (11.5-14.5); WBC 14.42 X1000 (4.8-10.8)
[2019-08-03 07:23] LABS: ALB/GLOB RATIO 0.7; ALBUMIN 2.9 g/dL (3.5-5.0); CALCIUM 8.4 mg/dL (8.8-10.2); CREATININE 3.8 mg/dL (0.7-1.2); TOTAL BILIRUBIN 3.15 mg/dL (0.20-1.00); TOTAL PROTEIN 6.8 g/dL (6.3-8.3)
[2019-08-03 07:48] LABS: ALLEN TEST YES; BE -7.1 mmoll (-3.0-3.0); BLOOD TYPE ARTERIAL; HCO3-(ACT) 19.3 mmoll (20.0-26.0); METHB 0.2 % (0.0-1.5); MODALITY NRB; O2(CT) 12.2 mL/dL (15.0-23.0); O2HB 90.6 % (95.0-99.0); PCO2(98.6) 30 mmHg (35-45); PO2(98.6) 61 mmHg (60-100); SAMPLE BLOOD; SAO2 92.4 % (95.0-100.0); THB 9.5 g/dL (11.5-17.4); pH(98.6) 7.37 (7.35-7.45)
--- NOTE | 2019-08-03 07:53 | Diag Imaging Result Doc PS360 ---
EXAM: CHEST-1 VIEW HISTORY: low oxygen sat TECHNIQUE: Single view COMPARISON: 08/02/2019 FINDINGS: Poor inspiratory effort although the lungs are better expanded than on the prior study. There are dense midlung infiltrates. The heart is enlarged. There are tiny pleural effusions. IMPRESSION: Persistent dense bilateral infiltrates. Electronically signed by Xavier Valladares 08/03/2019 7:51 AM
[2019-08-03] MEDS ORDERED: LASIX IV ONE (08:31)
[2019-08-03] MEDS ORDERED: ALBUMIN 25% IV ONE (08:34)
[2019-08-03] MEDS ORDERED: ELIQUIS PO SCH (09:00)
--- NOTE | 2019-08-03 09:26 | EKG Report ---
Test Performed on : 08/03/2019 09:16:59 AM Test Reason : Afib Blood Pressure : / mmHG Vent. Rate : 101 BPM Atrial Rate : 096 BPM P-R Int : 000 ms QRS Dur : 078 ms QT Int : 328 ms P-R-T Axes : 000 -05 001 degrees QTc Int : 425 ms Atrial fibrillation. with rapid ventricular response. Cannot rule out Inferior infarct (cited on or before 19-JUL-2012) Abnormal ECG When compared with ECG of 31-JUL-2019 06:57, (Unconfirmed) No significant change was found Confirmed by Keny ZAMBRANO MAcosta Pulido ([id number]) on 08/03/2019 12:16:28 PM
--- NOTE | 2019-08-03 09:29 | PROGRESS NOTE ---
DATE: 08/03/2019 SUBJECTIVE: This morning Mr. Iqbal refers to be doing okay. However, the nurses called early on and related that he has been quite lethargic and he was having more difficulty breathing. A colleague of vick (Dr. Chester) evaluated the patient early this morning, put him on BiPAP because of hypoxemia. When I came to evaluate him, he said he is doing well, but most of the encounter his eyes were closed. The was at the bedside. OBJECTIVE: Vital Signs: Current vital signs, blood pressure is 148/93, pulse of 98, respirations 20, temperature 98.3 degrees. General: Mr. Iqbal is a 78-year-old gentleman. He is in bed. He is on a non-rebreather. HEENT: Mucosa is pink and moist. Anicteric. Acyanotic. Neck: Supple. I did not see any JVD. Chest: Air entry is bilaterally reduced. There are crackles in posterior lung ventura and also expiratory wheezing and rhonchi. Cardiovascular: Irregularly irregular. There is a 2/6 TR murmur. Gastrointestinal: The abdomen is soft, is distended. There is a MARY drain in the right upper quadrant. There are also some laparoscopic incisions in the anterior abdominal wall. Central Nervous System: The patient is drowsy. Eyes closed, but he is easily arousable, and he will follow basic commands. He was able to recognize the . However, he said he was McMinemon III, and the said he is the first. LABORATORY DATA: WBC is up to 14.42, hemoglobin is 8.9, platelet count 214,000. Chemistry is also reviewed. Sodium is 134, potassium is 4, chloride 98, bicarbonate is 18, BUN is 55, and creatinine is up to 3.8. AST and ALT are trending down. The patient's input and output, urine output documented was 800. The patient is currently positive balance for 3952. IMAGING STUDIES: A chest x-ray this morning continues to show persistent dense bilateral infiltrates. There are tiny pleural effusions. A telemonitor trace yesterday continues to show atrial fibrillation, but rate controlled. ASSESSMENT AND PLAN: 1. Abdominal pain on admission secondary to cholelithiasis with choledocholithiasis associated with ascending cholangitis. The patient is status post laparoscopic cholecystectomy with intraoperative cholangiogram. The Rogelio-Cobb drain is still in place. The patient seems to be quite stable from the surgery standpoint. Liver enzymes are trending down. 2. Paroxysmal atrial fibrillation. The patient continues to be in atrial fibrillation, but rate controlled. He is on oral Cardizem and metoprolol. 3. Suspected ascending cholangitis. The patient was started on antibiotics. Initially, he was on vancomycin, but this has been discontinued. He is on meropenem and Zyvox. 4. Acute hypoxemic respiratory failure. The patient was started on Venturi mask/nonrebreather this morning saturations were in the lower 90s. It has improved with the measures that were taken. A chest x-ray shows bilateral dense infiltrates concerning for pulmonary edema; however, a superimposed pneumonia cannot be completely ruled out. The patient is on meropenem with Zyvox, and we will give him a dose of Lasix to see if that improves his respiration. 5. History of coronary artery disease. The patient is asymptomatic. Chest x-ray shows cardiomegaly. He seems to be in congestive heart failure at this point. We are going to do an echocardiogram, check on his pro-B, give the patient diuretics, and follow up accordingly. 6. Acute kidney injury. Creatinine is up to 3.8 this morning. We think this is acute tubular necrosis. The fraction excretion of sodium was above 2. Etiology could be contrast-induced medication. The patient also ran a couple episodes of low blood pressure, so it could be multifactorial. We are going to get a Ovalles catheter to measure strict input and output. We will give the patient a dose of Lasix to see if that challenges the kidney enough. Ultrasound yesterday of the kidneys did not show any obstructive uropathy. We are going to also consult Nephrology today. 7. Anticoagulation therapy. Eliquis will be started today at renal dose 2.5 twice daily. SUMMARY: So, in general, this morning I have discontinue the IV fluids. We will give him 40 mg of IV Lasix. We will put in a Ovalles catheter. We will get an echocardiogram and pro-B to check the heart status, and we will get Nephrology to evaluate Mr. Iqbal. I think from surgery standpoint, the patient is doing well. He is also being followed up by General Surgery. TIME SPENT: The critical time spent is 45 minutes. cc: Nithin Lyons MD
[2019-08-03] MEDS: PEPCID IV SCH ×2 (09:45→21:18)
[2019-08-03] MEDS: LOPRESSOR PO SCH (09:46)
[2019-08-03] MEDS ORDERED: VANCOMYCIN 1,700 MG in NS 250 ML IV SCH (12:00)
[2019-08-03] MEDS ORDERED: MORPHINE IV ONE (12:54)
[2019-08-03] MEDS: ATIVAN IV PRN ×2 (12:55→22:13)
--- NOTE | 2019-08-03 12:59 | GASTROENTEROLOGY PROGRESS NOTE ---
DATE: 08/03/2019 SUBJECTIVE: Mr. Mcgowan is a 78-year-old, male resting in bed. The patient is confused. He can say his name and date of . He has periods of confusion. He was angry that his MARY drain was taken out and he said that it was hurting too much. The patient is currently on a clear liquid diet and he is tolerating his diet well. He has some mild abdominal tenderness in the incisional area and at the site of the MARY drain. OBJECTIVE: Vital Signs: Temperature 98.1 degrees, pulse 88, respirations 28, blood pressure 115/64, oxygen saturation is 92% on a nonrebreather mask. The patient's weight is 168 pounds. BMI is 26.3 kg/m2. General: He is alert, oriented x1, has periods of confusion. HEENT: Pale conjunctivae. Mild icterus. PERRL. Neck: Supple. Lungs: Clear to auscultation. Cardiovascular: Regular rate and rhythm. Abdomen: Mildly distended. Tender. Midline incision with 2 small midline incisions with Steri-Strips on. The MARY drain has been removed with a dressing on it. Active bowel sounds heard in all 4 quadrants. Extremities: No clubbing, no cyanosis, no edema. Pedal pulses 2+ present bilaterally. Neurologic: He is alert, oriented x1. Laboratory Data: WBCs are 14.42, RBCs 3.61, hemoglobin 8.9, hematocrit 29.0, platelet count is 214,000. Sodium 134, potassium 4.0, chloride 98, carbon dioxide 18, anion gap is 18, BUN is 55, creatinine is 3.8, glucose is 114, calcium is 8.4. Total bilirubin is 3.15, AST is 51, ALT is 77, alkaline phosphatase is 105, albumin is 2.9. The patient's urinalysis yesterday showed that his random creatinine was 74.2 and his random sodium was 98. IMAGING: The patient's renal ultrasound showed negative exam. Chest x-ray has shown persistent dense bilateral infiltrates. IMPRESSION AND PLAN: - Decompensated ETOH cirrhosis - Hepatic encephalopathy - Acute cholecystitis s/p CCY - AFIB - Acute blood loss anemia - MEDARDO - Hepatic encephalopathy - Abnormal LFTs - Pneumonia PLAN: Mr. Mcgowan is a 78-year-old, male status post cholecystectomy. The patient's liver enzymes have been elevated but they are still trending downward. The patient is still having periods of confusion. We have started him on lactulose 3 times a day and we will hold the lactulose if he has greater than 3 bowel movements in 24 hours. The patient is receiving antibiotics, Merrem and Zyvox. He is on Pepcid 20 mg IV twice a day. We will continue to monitor the patient and follow the plan of care per PCP. This plan was discussed with Dr. Arriola. Please call us for any further questions or concerns. Dictated by PEGGY Gomez for Cristhian Arriola MD Physician Attestation I have seen and examined the patient. I have discussed and reviewed the note by Loni WOODS and agree with findings and plan as documented. In brief Mr. Mcgowan is a 78 year old man admitted with acute cholecystitis s/p CCY who presents to GI service with decompensated ETOH cirrhosis with PSE and MEDARDO. Recommend continue albumin for worsening MEDARDO. Continue lactulose, titrate to 2-3 BMs daily, and transfusing for goal hgb 7-8. Minimize sedating meds. Trend Cr, LFTs, CBC, INR daily. MTDD
[2019-08-03] MEDS ORDERED: ATIVAN ONE (13:00)
[2019-08-03] MEDS ORDERED: MORPHINE ONE (13:02)
[2019-08-03] MEDS: LACTULOSE PO SCH ×2 (14:35→17:15)
--- NOTE | 2019-08-03 15:12 | NEPHROLOGY CONSULTATION ---
DATE: 08/03/2019 REASON FOR ADMISSION: Nausea with diarrhea stools x3 days and abdominal pain. REASON FOR CONSULT: Acute kidney injury. CONSULTING PHYSICIAN: Dr. Lyons. HISTORY OF PRESENT ILLNESS: Mr. Iqbal is a 78-year-old, white male, who has a history of underlying cirrhosis of the liver, history of gallstones, and gout. The patient had presented to [facility] on Thursday morning secondary to severe nausea and abdominal discomfort. He was transferred to [facility] after having a CT scan that showed focal atelectasis, plus or minus infiltrates to the right lung base. It also showed cirrhotic liver, mild hepatomegaly, cholelithiasis, uncomplicated diverticulosis, and no acute abdominal or pelvic pathology. Ultrasound showed sludge and stones in the lumen of the gallbladder, no wall thickening, and heterogeneous liver echotexture suggesting cirrhosis. The patient had a cholangiogram that showed apparent air bubbles in the common bile duct. The patient's liver enzymes were elevated on admission. At that time, total bilirubin was 1.7, AST 110, ALT 36, alkaline phosphatase of 143, which trended upward prior to surgery. The patient's abdomen was extended and tender. Subsequently, the patient has undergone a laparoscopic cholecystectomy with operative cholangiogram, now suspected that he has cholangitis. Liver enzymes are starting to trend downward. The patient had IV infusion initially postop. This was stopped yesterday evening secondary to increased work of breathing with questionable infiltrates versus pneumonia. He was given a dose of Lasix yesterday evening. He was found to have a baseline creatinine, prior to hospitalization, of 0.9 to 1.0. Creatinine is now up to 3.8 with a BUN of 55. Urine output had dropped off during this period of time. Ovalles catheter was placed this morning. Upon arrival to his room, the patient had been on 100% nonrebreather, now he is currently on BiPAP secondary to desaturations. He is lethargic. He has recently received Ativan and pain medication. PAST MEDICAL HISTORY: As dictated, positive for cirrhosis of the liver, hyperlipidemia, chronic reflux, history of gout, chronic atrial fibrillation, hypertension, and a history of gallstones. PAST SURGICAL HISTORY: Hernia repair and polypectomy. He has had an EGD and a colonoscopy in the past. FAMILY HISTORY: Father had lung cancer, . Mother had heart problems, . SOCIAL HISTORY: He is . He has children who are attentive to his care. He is unable to give review of systems. His is present. states he used to smoke and drink in the past. Denies any illicit drug use. No current tobacco or alcohol at this time. ALLERGIES: Listed as no known drug allergies. HOME MEDICATIONS: Lopressor, Prilosec, Zyloprim, Pravachol, Tylenol with codeine, cilostazol, Eliquis, and amlodipine. REVIEW OF SYSTEMS: Unable to obtain per patient. Most information obtained per spouse at the bedside and review of charts. PHYSICAL EXAMINATION: Current Vital Signs: Temperature 98.3 degrees, blood pressure 148/93, heart rate 98, respirations 22. He is currently on BiPAP, 15 L. He is saturating 92% at the bedside. General: This is a 78-year-old, elderly male. He is very lethargic. He does open his eyes to verbal stimuli. Otherwise, drifts back off to sleep during exam. HEENT: Normocephalic, atraumatic. Conjunctiva is pale pink. He has HUMPHREY. Mucous membranes are dry. Neck: Supple. Trachea midline. No evidence of JVD in the upright position. Cardiovascular: Regular rate and rhythm. No appreciable murmur or gallop. Lungs: Poor inspiratory effort. Clear to auscultation anterior. Diminished posterior bases. Remains on O2 support. Abdomen: Tender to palpation. Quiet bowel sounds. Dressings remain intact to a five point area secondary to laparoscopic cholecystectomy. Genitourinary: Ovalles catheter is in place, dark yellow urine out. He has greater than 250 mL in the urometer at this time. Extremities: Have no edema, no clubbing or cyanosis. He does have some dependent hip edema, slightly pitting. Neurological: As mentioned above. LABORATORY DATA: This a.m. sodium 134, potassium 4, chloride 98, CO2 18, BUN 55, creatinine 3.8, glucose 114, anion gap 18, calcium 9.4, albumin 2.9. White count 14.4, hemoglobin 8.9, hematocrit is 29, platelet count 214,000. ABGs this a.m., pH 7.37, CO2 80, pO2 61, bicarb 19.3 with a plasma lactate of 1.7. ASSESSMENT AND PLAN: 1. Acute kidney injury (ATN) in the context of laparoscopic cholecystectomy with operative cholangitis. The patient has had a CT scan with contrast on 07/31/2019. He did appear to have a drop in his blood pressure on two separate episodes, one during surgery and one postop, possibly contributing to his acute kidney injury. Renal ultrasound is stable. We will check urine electrolytes and reevaluate if patient needs further fluid resuscitation. Continue to monitor labs. Check for any nephrotoxic medications. 2. Electrolytes. These are acceptable. 3. Acid-base balance. These are acceptable with a mild anion gap acidosis. 4. Anemia. This has remained stable. 5. Cholangitis. The patient's white count remains elevated at 14.4. He remains on renal dosed antibiotics. Now currently on Merrem and Zyvox. 6. Increased work of breathing. Patient's intravenous fluids have been stopped. He received a dose of Lasix yesterday evening. He is now on BiPAP 40%, saturations are stable. 7. Elevated liver function tests. These are currently trending downward with Gastroenterology and General Surgery following along with the primary care. 8. I think he is volume contracted. I will reevaluate and give IV fluids in the morning. I would like to thank you for allowing us to follow with this patient. Dictated by PEGGY Sandra for Moris Montero MD Face to face encounter, data reviewed, discussed with Grazyna Lazar on 08/03/19. I agree with the above assessment and plan of care. cc: PEGGY Sandra MD [facility]
[2019-08-03] MEDS: LOPRESSOR IV SCH ×2 (15:17→20:01)
[2019-08-03] MEDS ORDERED: XOPENEX NEB INH SCH (15:30)
[2019-08-03] MEDS: XOPENEX NEB INH PRN (16:04)
--- NOTE | 2019-08-03 16:11 | ECHO REPORT ---
ORDER DATE: 08/03/2019 INTERPRETING PHYSICIAN: Dr. Jose Freitas. ECHOCARDIOGRAPHIC MEASUREMENTS: 1. Interventricular septum: 1.0 cm. 2. Left ventricular posterior wall: 1.5 cm. 3. Diastolic diameter: 5.3 cm. 4. Left atrium: 3.9 cm. 5. Aorta: 2.5 cm. SUMMARY OF THE 2-DIMENSIONAL IMAGIN. Technically suboptimal study. Very poor acoustic window. 2. Aortic valve leaflets not well visualized, were calcified. 3. Pulmonic valve not well visualized. 4. Tricuspid valve was normal. 5. There is mitral annular calcification. 6. Mitral valve leaflet was normal. 7. There is left atrial enlargement. 8. There is mild tricuspid regurgitation. 9. Peak velocity across the tricuspid valve was 2.8 meters per second. 10. Pulmonary artery systolic pressure of 41 mmHg. 11. There is mild mitral regurgitation. 12. There is moderate mitral annular calcification. 13. Peak velocity across the aortic valve less than 2 meters per second. 14. There is no aortic stenosis or regurgitation. 15. Normal left ventricular cavity size. 16. Estimated ejection fraction of 50%. 17. Endocardium not well visualized in all views. 18. Technically suboptimal study. 19. There is anterior echo-free space suggestive of pericardial fat pad. There is no pericardial effusion. cc: MD Nithin Victoria MD
[2019-08-03] MEDS ORDERED: HALDOL IV ONE (17:03)
[2019-08-03] MEDS ORDERED: HALDOL ONE (17:19)
[2019-08-03 18:26] LABS: URINE SOURCE CATH
[2019-08-03 18:32] LABS: BILIRUBIN URINE NEGATIVE (NEGATIVE); BLOOD URINE MODERATE (NEGATIVE); COLOR YELLOW; GLUCOSE URINE NEGATIVE (NEGATIVE); KETONE URINE NEGATIVE (NEGATIVE); LEUKOCYTES URINE NEGATIVE (NEGATIVE); NITRITE URINE NEGATIVE (NEGATIVE); PROTEIN URINE TRACE mg/dL (NEGATIVE); TURBIDITY URINE HAZY (CLEAR); UROBILINOGEN URINE NORMAL (NORMAL)
[2019-08-03 18:35] LABS: UR EPITHELIAL CELLS <10 /HPF (<10); URINE BACTERIA NEGATIVE /HPF; URINE RBC TNTC /HPF (<10); URINE WBC <10 /HPF (<10)
[2019-08-03 18:42] LABS: URINE YEAST NONE SEEN
[2019-08-03 18:47] LABS: UR CREAT RANDOM 32.8 mg/dL (14-26)
[2019-08-03 19:34] LABS: IRON SATURATION 10 %; TIBC 218 ug/dL; TOTAL IRON 22 ug/dL (53-167); UNBOUND IRON 196 ug/dL (112-346)
[2019-08-03] MEDS: ELIQUIS PO SCH (20:16)
[2019-08-03] MEDS: ZYLOPRIM PO SCH (20:17)
[2019-08-03] MEDS: SODIUM CHLORIDE 0.9% INJ SCH (21:18)
[2019-08-04] MEDS: MORPHINE IV PRN ×3 (01:51→09:33)
[2019-08-04] MEDS ORDERED: LASIX IV ONE (01:55)
[2019-08-04] MEDS ORDERED: DUONEB (A & A) INH ONE (01:55)
[2019-08-04] MEDS ORDERED: MUCOMYST 20% INH ONE (01:55)
[2019-08-04] MEDS ORDERED: ATIVAN IV ONE ×2 (01:56→09:46)
[2019-08-04] MEDS ORDERED: LASIX ONE (02:06)
[2019-08-04] MEDS: MERREM 1 GM in NS 50 ML IV SCH ×4 (02:54→17:11)
[2019-08-04] MEDS: LOPRESSOR IV SCH ×4 (02:54→21:41)
[2019-08-04] MEDS: ATIVAN IV PRN (05:21)
[2019-08-04 06:09] LABS: HEMATOCRIT 28.1 % (42.0-52.0); HEMOGLOBIN 8.8 g/dL (14.0-18.0); MCHC 31.3 g/dL (33-37); MCV 79.8 FL (81-99); MPV 9.4 FL (7.4-10.4); RBC 3.52 XMIL (4.7-6.1); RDW 18.9 % (11.5-14.5); WBC 16.63 X1000 (4.8-10.8)
[2019-08-04 06:10] LABS: ALLEN TEST YES; BE -8.2 mmoll (-3.0-3.0); BLOOD TYPE ARTERIAL; HCO3-(ACT) 18.5 mmoll (20.0-26.0); METHB 0.4 % (0.0-1.5); MODALITY BI PAP; O2(CT) 9.5 mL/dL (15.0-23.0); O2HB 94.4 % (95.0-99.0); PCO2(98.6) 29 mmHg (35-45); PO2(98.6) 73 mmHg (60-100); SAMPLE BLOOD; THB 7.1 g/dL (11.5-17.4); pH(98.6) 7.36 (7.35-7.45)
[2019-08-04] MEDS: PRILOSEC PO SCH (06:14)
[2019-08-04 06:30] LABS: ALBUMIN 3.1 g/dL (3.5-5.0); CALCIUM 8.7 mg/dL (8.8-10.2); CREATININE 4.9 mg/dL (0.7-1.2); PHOSPHORUS 5.9 mg/dL (2.7-4.5); POTASSIUM 3.9 mmol/L (3.5-5.1)
--- NOTE | 2019-08-04 06:34 | Diag Imaging Result Doc PS360 ---
CHEST-PORTABLE - 08/04/2019 INDICATION: dyspnea COMPARISON: 08/03/2019 FINDINGS: There is minimal change in the dense bilateral infiltrates. Stable right hemidiaphragm elevation. Heart size remains top normal. No pneumothorax or large pleural effusion. IMPRESSION: No significant change from prior. Electronically signed by Max Andre 08/04/2019 6:31 AM
[2019-08-04] MEDS: XOPENEX NEB INH PRN (08:13)
[2019-08-04] MEDS: ALBUMIN 25% IV SCH ×3 (08:32→17:49)
[2019-08-04] MEDS: ELIQUIS PO SCH (08:33)
[2019-08-04] MEDS: LACTULOSE PO SCH (08:34)
[2019-08-04] MEDS: PEPCID IV SCH ×2 (09:52→21:51)
[2019-08-04] MEDS ORDERED: DIPRIVAN 1% ONE (10:25)
[2019-08-04] MEDS ORDERED: QUELICIN (DOSE) ONE (10:26)
[2019-08-04] MEDS: DIPRIVAN 1% 1,000 MG/100 ML BOTTLE IV SCH ×2 (10:40→16:23)
[2019-08-04] MEDS ORDERED: NS 1,000 ML IV ONE (10:46)
--- NOTE | 2019-08-04 10:50 | Diag Imaging Result Doc PS360 ---
CHEST-PORTABLE - 08/04/2019 10:39 AM INDICATION: ETT placement COMPARISON: 08/04/2019 5:44 AM FINDINGS: There has been placement of an endotracheal tube in good position at T4-T5. There has been severe worsening in the dense central alveolar infiltrates/pulmonary edema. There are small pleural effusions. There is cardiomegaly. IMPRESSION: Good endotracheal tube placement. Severe worsening infiltrates. Electronically signed by Max Andre 08/04/2019 10:48 AM
--- NOTE | 2019-08-04 10:57 | PROGRESS NOTE ---
DATE: 08/04/2019 SUBJECTIVE: This morning Mr. Iqbal continues to be quite agitated. He is not tolerating very well the BiPAP. Per the family, he has been like this throughout the night. He was evaluated early on by Nephrology, discussed with Dr. Montero, who also think that at this point it would be reasonable to intubate Mr. Iqbal and protect his airway. OBJECTIVELY: Vital Signs: Current vital signs, blood pressure is 97/55, pulse of 99, respiration is 18, temperature is 99.1 degrees. General: Mr. Iqbal is a 78-year-old elderly gentleman. He is in bed. He is very agitated and thrashing extremities all over. HEENT: Mucosa is slightly dry. Anicteric. Acyanotic. Neck: Supple. Chest: Air entry is reduced. I did not hear any transmitted sounds or crackles. Cardiovascular: Irregularly irregular. There is a 2/6 TR murmur. Gastrointestinal: Abdomen is soft. MARY drain is still in the right upper quadrant. There are some laparoscopic incisions in the anterior abdominal wall. Central Nervous System: Patient is lethargic and drowsy. Will not really follow any commands. LABORATORY DATA: WBC is 16.63, hemoglobin is 8.8, platelet count of 222. Chemistry is also reviewed. Creatinine continues to go up to 4.9. DIAGNOSTIC STUDIES: Chest x-ray this morning continues to show minimally changed dense bilateral infiltrate, stable right hemidiaphragm elevation. No pneumothorax or large pleural effusion. ASSESSMENT AND PLAN: 1. Altered mental status, multifactorial. It looks more of a global encephalopathy with no focalization. 2. Respiratory failure. Patient will be intubated and also to protect the airway. 3. Abdominal pain on admission secondary to cholelithiasis with choledocholithiasis associated with ascending cholangitis. The patient is status post laparoscopic cholecystectomy with intraoperative cholangiogram. 4. History of coronary artery disease. 5. Acute kidney injury. This continues to be worsen. Nephrology is on board. 6. Mild gap acidosis. SUMMARY: In general, Mr. Iqbal looks more confused, agitated, is not tolerating the BiPAP. Chest x-ray continues to show diffuse bilateral infiltrate concerning for aspiration pneumonitis. We are going to get him intubated to protect the airway and also to continue with his critical care management. Nephrology is on board and we will consult Pulmonary Medicine. TIME SPENT: Critical care time is 1 hour. cc: Nithin Lyons MD
[2019-08-04] MEDS: NS 1,000 ML IV ONE ×2 (11:07→17:54)
[2019-08-04] MEDS: NS 1,000 ML IV SCH ×2 (11:07→17:55)
[2019-08-04] MEDS: ZYVOX 600 MG/D5W 600 MG/300 ML IVPB IV SCH (11:18)
--- NOTE | 2019-08-04 11:29 | Diag Imaging Result Doc PS360 ---
CHEST/ABD TUBE PLACEMENT - 08/04/2019 11:14 AM INDICATION: ngt placement COMPARISON: 10:39 AM FINDINGS: There is a nasogastric tube in good position with the tip in the stomach. IMPRESSION: Nasogastric tube in the stomach. Electronically signed by Max Andre 08/04/2019 11:27 AM
--- NOTE | 2019-08-04 11:29 | NEPHROLOGY PROGRESS NOTE ---
DATE: 08/04/2019 DATE AND TIME SEEN: On 08/04/2019 at 0700 hours. SUBJECTIVE: Mr. Iqbal has just been sedated at 0530 hours this morning with Ativan and morphine. He is very restless. His O2 saturations had dropped into the 88 to 91 range. He remains on 100% BiPAP. He is receiving a breathing treatment. Family states that he has been restless all evening long and all night. OBJECTIVE: Vital signs: Temperature 98.3 degrees, blood pressure 120/77, heart rate 98, respirations 23. He is currently on 100% BiPAP. Last recorded saturation is 92%. He has had 0 recorded in; he has had 1100 out to Ovalles catheter. LABORATORY DATA: Sodium 137, potassium 3.9, chloride 99, CO2 of 17, BUN 73, creatinine 4.9, glucose 127 anion gap 21, calcium is 8.7 phosphorus 5.9, albumin 3.1. White count 16.67, hemoglobin 8.8, hematocrit 28.1, with a platelet count of 222,000. The patient had iron studies indicating a total saturation iron 10% with a ferritin of 133. FENa score was 7.87% based upon his urine electrolytes. ABGs, pH 7.36, CO2 of 29, PO2 of 73, bicarbonate 18.5 with a lactate of 1.1 on 100% BiPAP. PHYSICAL EXAMINATION: General: This is a 78-year-old white male. He opens his eyes randomly. He is unable to follow commands. His restless in bed. HEENT: Normocephalic, atraumatic. Conjunctiva is pale pink. Mucous membranes are dry. Neck: Supple. Trachea midline. No evidence of JVD. Cardiovascular: Regular rate and rhythm with ectopy noted on the monitor. Lungs: Coarse breath sounds bilateral. Equal excursion. Remains on BiPAP support. Abdomen: Tender to palpation. Quiet bowel sounds. Dressing remains dry and intact at 5 point areas. Genitourinary: Not inspected. Ovalles catheter is in place. Extremities: Have no edema. No clubbing or cyanosis. Neurological: As mentioned above. ASSESSMENT AND PLAN: 1. Acute kidney injury, Acute tubular necrosis in the context of laparoscopic cholecystectomy with operative cholangitis. The patient did have a CT with intravenous contrast on 07/31/2019. We had discussed possible infusion of intravenous fluid today. Unfortunately, the patient has respiratory distress. We have contacted Dr. Lyons for transfer to the intensive care unit for possible intubation. Family is at the bedside. They are in agreement. Once he is intubated, then we will attempt resuscitation with intravenous fluids. Chest x-ray shows no changes. Will require dialysis. rg 2. Electrolytes and acid-base balance. The patient has a widening anion gap with continued metabolic acidosis. Will require dialysis. 3. Anemia. This remains low but stable. 4. Cholangitis. The patient's white count remains elevated now at 16.6. He remains on renal dosed antibiotics of Merrem and Zyvox. 5. Respiratory distress. We have spoken with the primary care. The patient received Lasix during the night. No changes to his urinary output. No changes to his respiratory status. We will attempt to move him to the intensive care unit for possible intubation this morning. 6. Elevated liver function tests. They continue to trend downward, followed by gastroenterology and primary and surgery. I would like to thank you for allowing us to follow with this patient. Dictated by PEGGY Sandra for Moris Montero MD Face to face encounter, data reviewed, discussed with Grazyna Lazar on 08/04/19. I agree with the above assessment and plan of care. rg cc: PEGGY Sandra MD [facility]
[2019-08-04 11:34] LABS: ALLEN TEST YES; BE -8.9 mmoll (-3.0-3.0); BLOOD TYPE ARTERIAL; METHB 1.3 % (0.0-1.5); O2(CT) 7.3 mL/dL (15.0-23.0); O2HB 92.8 % (95.0-99.0); PCO2(98.6) 33 mmHg (35-45); PO2(98.6) 71 mmHg (60-100); SAMPLE BLOOD; SRATE 15 BPM; THB 5.5 g/dL (11.5-17.4); TVOL 500 mL; pH(98.6) 7.31 (7.35-7.45)
[2019-08-04 11:35] LABS: MODALITY VENTILATOR
[2019-08-04 11:42] LABS: HEPATITIS PROFILE ACUTE SEE COMMENTS
--- NOTE | 2019-08-04 13:49 | CARDIOLOGY CONSULTATION ---
DATE: 08/04/2019 CHIEF COMPLAINT ON PRESENTATION: Abdominal pain. HISTORY OF PRESENT ILLNESS: Mr. Iqbal is a 78-year-old, white male with a history of hypertension and hyperlipidemia who presented for evaluation of abdominal pain on the . He subsequently was evaluated by surgery, felt to have acute calculous cholecystitis. He subsequently had an operative intervention with a laparoscopic cholecystectomy on the . Since that time, he has developed worsening renal function, worsening hypoxia resulting in intubation today. His proBNP yesterday was checked and was 10,000. He has had limited urine output over the last several days with 780 mL out on the , 950 mL out on the , and 1100 mL out today. He is not able to provide any history today as he is currently intubated and sedated. PAST MEDICAL HISTORY: 1. Through chart review is significant for reported coronary artery disease. I do not have any objective data to support this. 2. Hypertension. 3. Hyperlipidemia. 4. Peripheral vascular disease. 5. Gastroesophageal reflux. SOCIAL HISTORY: Per chart review, does not smoke cigarettes or drink alcohol. FAMILY HISTORY: Unable to be obtained secondary to the patient's current intubated and sedated status. REVIEW OF SYSTEMS: Unable to be obtained secondary to the patient's current intubated and sedated status. PHYSICAL EXAMINATION: He has been afebrile more recently. Last fever was on the at 101.1. His heart rate is in the 90s to low 100s. His blood pressure is 98/57. General: He is sedated. He responds to physical stimuli with generalized movements. HEENT: Oropharynx is moist. Poor dentition. Eye examination shows pink conjunctivae and white sclerae. Neck: Examination shows no obvious thyromegaly or thyroid tenderness. Cardiovascular: He is in a regular rate and rhythm. He has a soft 2/6 systolic murmur heard diffusely throughout the chest. He has warm and well perfused extremities. Chest: Examination has wheezes heard throughout the chest. He has mechanical breath sounds heard throughout as well as crackles. Abdomen: Protuberant. Laparoscopic incision sites are noted and bandaged. Skin Examination: Warm and dry throughout. Neurological: He is responding to physical stimuli but, again, is sedated. PERTINENT DATA: His chest x-ray shows endotracheal tube interval placement, severe worsening infiltrates. He had an echocardiogram on the demonstrating an ejection fraction of 50%. It was a poor study. Mild mitral regurgitation. No evidence of significant aortic valve disease. No pericardial effusion. His white count is 16.6, his hematocrit is 28, his platelet count is 222,000. His ABG shows a pH of 7.31, pCO2 of 33, PO2 of 71. That is on an FiO2 of 75%, giving him an A-a gradient of 423. His lactate was 2. His sodium is 137, potassium is 3.9, his bicarb level was 17, his BUN and creatinine are 73 and 4.9 which have steadily increased since the 3rd when they were 12 and 1.0. His LFTs yesterday demonstrated an AST and ALT of 51 and 77 respectively. His albumin today is 31. His proBNP yesterday was 10,919. ASSESSMENT: Mr. Iqbal is a 78-year-old gentleman who presented with cholecystitis and subsequently underwent laparoscopic cholecystectomy. He since appears to be septic, has had issues with hypotension as well as hypoxia. He has been intubated and has developed progressive renal failure. PLAN: At this point, this clinically does not appear to be heart failure. His ejection fraction is preserved and considering that finding, it would not support heart failure as the etiology of these issues. His volume status seems to be elevated given his Is and Os which are 2.8 L positive this hospitalization, as well as his chest x-ray findings. He is acidotic and has worsening renal function. Will discuss with nephrology regarding further plans. At this point, I do not have any acute cardiovascular recommendations. cc: Antonio Cantu MD
--- NOTE | 2019-08-04 14:06 | GASTROENTEROLOGY PROGRESS NOTE ---
DATE: 08/04/2019 SUBJECTIVE: Mr. Mcgowan is a 77-year-old, male. confused and agitated. nursing staff was at the bedside trying to calm the patient. He is on a BiPAP machine. He was receiving Ativan to calm him down and there was transfer orders for him to go to the ICU. OBJECTIVE: Vital Signs: Temperature 99.1 degrees, pulse 94, respirations 15, blood pressure 98/57, oxygen saturation 95%. He is on BiPAP machine. General: Patient is confused, agitated. Unable to assess. HEENT: Pale conjunctivae, no icterus. PERRL. Neck: Supple. Lungs: Diminished breath sounds heard in the anterior ventura. Cardiovascular: Patient is tachycardic. Abdomen: Mildly distended, has a dressing that is dry and intact where the MARY drain was removed. He has got 2 small incisions with Steri-Strips on it. Extremities: No clubbing, no cyanosis. Generalized edema in the lower extremities. Neurologic: The patient is confused, agitated and lethargic. LABORATORY DATA: WBC are 16.63, RBC is 3.52, hemoglobin is 8.8, hematocrit is 28.1, platelet count is 222,000. Sodium is 137, potassium is 3.9, chloride is 99, carbon dioxide is 17, anion gap is 21, BUN is 73, creatinine is 4.9, glucose is 127, calcium is 8.7, phosphorus is 5.9, albumin is 3.1. IMPRESSION AND PLAN: Gallstones status post cholecystectomy Alcoholic cirrhosis A-fib Abdominal pain Confusion likely Delirium Anemia Leukocytosis-? stress reponse vs sepsis PLAN: Mr. Mcgowan is a 78 year male with s/p cholecystomy. He is being followed by General surgery and primary care team. We have ordered the chronic liver disease panel and so far the patient's hepatitis panel was nonreactive. His SAULO with reflex antibodies was negative. The patient is currently transferred to the ICU. We will continue him with PPI's twice a day. Patient has anemia and may need transfusion as needed. No evidence of overt GI bleeding. He is also on antibiotics, Zyvox and Merrem for possible sepsis. This plan was discussed with Dr. Aldrich. We will sign off for now. Patient will follow up in clinic in 4-6 weeks to discuss the lab results from chronic liver disease work up. Please call us for any further questions or concerns. Dictated by PEGGY Gomez for Elder Aldrich MD cc: Elder Aldrich MD I have seen and examined the patient myself and I agree with the above plan of care. Spoke in detail with the patient's family at bedside. Please call us with any questions or concerns.Follow up in clinic in 4-6 weeks. MTDD
[2019-08-04 14:21] LABS: URINE SOURCE CATH
[2019-08-04 14:28] LABS: BILIRUBIN URINE NEGATIVE (NEGATIVE); BLOOD URINE MODERATE (NEGATIVE); COLOR YELLOW; GLUCOSE URINE NEGATIVE (NEGATIVE); KETONE URINE NEGATIVE (NEGATIVE); LEUKOCYTES URINE NEGATIVE (NEGATIVE); NITRITE URINE NEGATIVE (NEGATIVE); PH URINE 5.5; PROTEIN URINE 30 mg/dL (NEGATIVE); SP GRAVITY URINE 1.014; TURBIDITY URINE HAZY (CLEAR); UROBILINOGEN URINE 4 mg/dL (NORMAL)
[2019-08-04 14:31] LABS: UR EPITHELIAL CELLS <10 /HPF (<10); URINE BACTERIA NEGATIVE /HPF; URINE RBC TNTC /HPF (<10); URINE WBC TNTC /HPF (<10)
[2019-08-04 14:33] LABS: URINE YEAST NONE SEEN
[2019-08-04] MEDS: ZYLOPRIM PO SCH (21:50)
[2019-08-04] MEDS: HEPARIN SUBQ SCH (21:50)
--- NOTE | 2019-08-04 23:17 | CONSULTATION ---
DATE OF CONSULTATION: 08/04/2019 CHIEF COMPLAINT: Abdominal pain. HISTORY OF PRESENT ILLNESS: This is a 78-year-old male with a history of coronary artery disease, hypertension, hyperlipidemia and a recent diagnosis of heart failure with proBNP being more than 10,000. Recent chest x-ray reveals persistent dense bilateral infiltrates. ALLERGIES: No known drug allergies. MEDICATIONS: Please see home reconciliation list. REVIEW OF SYSTEMS: A 10-point review of systems was obtained and the pertinent is listed within the HPI, otherwise noncontributory. PAST MEDICAL HISTORY: Significant for coronary artery disease, high cholesterol, chronic reflux and hypertension. FAMILY HISTORY: Noncontributory. SOCIAL HISTORY: Does not smoke or drink. Lives at home. His family takes care of him. PHYSICAL EXAMINATION: VITAL SIGNS: Temperature 98.9, pulse rate 85, respiratory rate 17, blood pressure 92/52, O2 saturation 94 is on ventilatory support. HEENT: Head is atraumatic, normocephalic. NECK: Supple. CARDIOVASCULAR: Regular rate and rhythm. CHEST: Reduced air entry. ABDOMEN: Soft, slightly distended. Decreased bowel sounds in all 4 quadrants. EXTREMITIES: Without edema. No cyanosis. SKIN: Warm and dry. No rashes. LABORATORY DATA: White blood cells 16.63. Red blood cells 3.52. Hemoglobin 8.8. Hematocrit 28.1. Platelets 222. Blood gases: pH 7.31, PCO2 of 33, PO2 of 71, HCO3 of 18.0, oxyhemoglobin 92.8. Sodium 137. Potassium 3.9. Chloride 99. Carbon dioxide 17. BUN 73. Creatinine 4.9. Glucose 127. Calcium 8.7. Phosphorus 5.9. Albumin 3.1. Urine lab showed moderate blood. DIAGNOSTIC DATA: Chest x-ray mentioned in the HPI. ASSESSMENT AND PLAN: 1. Bilateral pneumonia. Continue antibiotics and bronchodilators. 2. Acute respiratory failure. Continue ventilatory support. We will titrate according to patient response and condition per protocol. 3. Congestive heart failure. We will consult Cardiology. We will discontinue IV fluids. 4. Ascending cholangitis. 5. Continue gastrointestinal prophylaxis with Pepcid 20 mg intravenous every 12 hours. TIME: Spent 35 minutes on this patient. Thank you for the courtesy of this consult. Dictated by PEGGY Neil for Baltazar Roth MD cc: PEGGY Neil MD
[2019-08-05] MEDS: ALBUMIN 25% IV SCH ×4 (01:30→17:38)
[2019-08-05] MEDS: ZYVOX 600 MG/D5W 600 MG/300 ML IVPB IV SCH ×3 (01:30→22:33)
[2019-08-05] MEDS: MERREM 1 GM in NS 50 ML IV SCH ×3 (01:30→17:38)
[2019-08-05] MEDS: DIPRIVAN 1% 1,000 MG/100 ML BOTTLE IV SCH ×4 (02:29→22:48)
[2019-08-05] MEDS: LOPRESSOR IV SCH ×4 (02:30→20:32)
[2019-08-05 04:42] LABS: ALLEN TEST YES; BE -6.8 mmoll (-3.0-3.0); BLOOD TYPE ARTERIAL; HCO3-(ACT) 19.6 mmoll (20.0-26.0); METHB 0.7 % (0.0-1.5); O2(CT) 7.6 mL/dL (15.0-23.0); O2HB 93.4 % (95.0-99.0); PCO2(98.6) 30 mmHg (35-45); PO2(98.6) 67 mmHg (60-100); SAMPLE BLOOD; SAO2 95.7 % (95.0-100.0); SRATE 15 BPM; THB 5.7 g/dL (11.5-17.4); TVOL 500 mL; pH(98.6) 7.38 (7.35-7.45)
[2019-08-05 04:43] LABS: MODALITY VENTILATOR
--- NOTE | 2019-08-05 06:37 | Diag Imaging Result Doc PS360 ---
CHEST-1 VIEW - 08/05/2019 INDICATION: SOB COMPARISON: 08/04/2019 FINDINGS: Support tubes are stable and in good position. There has been perhaps slight improvement in the dense central infiltrates. Stable cardiomegaly. Stable small pleural effusions. IMPRESSION: Slight improvement in the dense central infiltrates/pulmonary edema. Electronically signed by Max Andre 08/05/2019 6:35 AM
[2019-08-05 07:01] LABS: ALBUMIN 3.1 g/dL (3.5-5.0); CALCIUM 7.8 mg/dL (8.8-10.2); CREATININE 5.5 mg/dL (0.7-1.2); PHOSPHORUS 6.3 mg/dL (2.7-4.5); POTASSIUM 3.7 mmol/L (3.5-5.1)
[2019-08-05] MEDS: PRILOSEC PO SCH (07:09)
[2019-08-05] MEDS ORDERED: NS 2,000 ML MISC PRN (07:14)
[2019-08-05 07:52] LABS: HEMATOCRIT 22.8 % (42.0-52.0); HEMOGLOBIN 7.1 g/dL (14.0-18.0); MCH 24.8 PG (27-31); MCHC 31.1 g/dL (33-37); MCV 79.7 FL (81-99); MPV 10.1 FL (7.4-10.4); RBC 2.86 XMIL (4.7-6.1); RDW 18.9 % (11.5-14.5); WBC 7.95 X1000 (4.8-10.8)
[2019-08-05] MEDS: XOPENEX NEB INH PRN ×5 (08:07→23:22)
[2019-08-05] MEDS: PEPCID IV SCH ×2 (08:26→20:31)
[2019-08-05] MEDS: HEPARIN SUBQ SCH ×2 (08:26→22:44)
[2019-08-05] MEDS: MORPHINE IV PRN ×3 (08:26→18:29)
[2019-08-05] MEDS ORDERED: NS 500 ML IV ONE (10:38)
--- NOTE | 2019-08-05 13:33 | ECHO REPORT ---
ORDER DATE: 08/05/2019 INDICATION: Evaluate the ejection fraction and IVC. Patient with respiratory failure. Evaluate volume status. This is a limited study. Limited Doppler evaluation was performed. FINDINGS: 1. the left ventricle appears to have normal LV systolic function with an estimated EF greater than or equal to 55%. This was a limited study. Wall motion analysis was challenging in this patient. 2. The right ventricle on some views appeared to be somewhat enlarged but overall there appears to be normal RV systolic function from the subcostal views. 3. There is mitral annular calcification noted. 4. No pericardial effusion seen. 5. The IVC appears to be normal to slightly enlarged. The patient is on the ventilator so assessment for collapse is challenging but it did appear to a partially collapse during respirations. 6. Again, this is a limited study. cc: Antonio Cantu MD
--- NOTE | 2019-08-05 15:05 | PROGRESS NOTE ---
DATE: 08/05/2019 SUBJECTIVE: This morning Mr. Iqbal is in the Critical Care Unit, continues to be intubated and sedated on propofol. OBJECTIVE: Vital signs: Blood pressure is 101/53, pulse of 92, respiration is 16, temperature 97.8 degrees. Patient was saturating 95% on mechanical ventilation. General: Mr. Iqbal is a 78-year-old elderly gentleman. He is in bed, currently intubated and sedated. HEENT: Mucosa is pink and moist. Anicteric. Acyanotic. Neck: Supple. No JVD. Chest: Air entry is bilaterally reduced. Some crackles in the posterior lung ventura. There is also some transmitted sounds from the ventilator. Cardiovascular: Regular rate with extrasystolic beats. There is a 2/6 TR murmur. GI/Abdomen: Soft. There is a MARY drain in the right upper quadrant. Laparoscopic scars on the anterior abdominal wall have been noted. GOLF RANGE ATTENDANT: Patient will grimace to painful stimulation. Will withdraw to pain. Pupils are pinpoint, but they are reactive. LABORATORY DATA: WBC is down to 7.95, hemoglobin is 7.1, platelet count of 115. Chemistry is also reviewed. Creatinine is 5.5 with a BUN of 85. IMAGING STUDIES: A chest x-ray this morning shows slight improvement in the dense central infiltrates/pulmonary edema. INTAKE/OUTPUT: Urine output was 970; is currently positive balance of 4161. ASSESSMENT: 1. Altered mental status due to global encephalopathy. Etiology multifactorial, including toxic metabolic encephalopathy. 2. Acute hypoxemic respiratory failure. Patient is currently intubated. Today is day 1 on the ventilator. 3. Abdominal pain on admission secondary to cholelithiasis with choledocholithiasis associated with mild ascending cholangitis. The patient is status post laparoscopic cholecystectomy with intraoperative cholangiogram. 4. History of coronary artery disease. 5. Acute kidney injury, presumably acute tubular necrosis. Kidney function continues to be worsening. The patient is positive balance. I have spoken with Dr. Montero this morning. The plan will be to get him a vascular access for slow, low efficiency dialysis. 6. Mild gap acidosis secondary to the degree of acute kidney failure. 7. Pulmonary edema secondary to a combination of possible diastolic heart failure and worsening kidney failure. The patient has not responded to diuretics. There is a plan to ultrafiltrate today. There is also concern that the patient could have developed a superimposed pneumonia. He is being empirically treated with Zyvox and meropenem. 8. Microcytic anemia with underlying iron deficiency. Patient has acutely dropped his hemoglobin and hematocrit to about 7.1 from yesterday. He has been group and crossmatched for 2 units packed red blood cells today. The concern will also be if he is bleeding in the abdomen. We are going to keep a very close eye on the hemoglobin and hematocrit. If there is no adequate response after the transfusion, we will scan his abdomen. 9. Hypotension over the course of last night seems to have improved. So far repeat blood cultures from 3 days ago has been negative. Urine culture has also been negative. This could be related to the sedative that we are using. The patient will put Levophed on standby if needed. cc: Nithin Lyons MD critical time : 45 minutes [facility]
--- NOTE | 2019-08-05 18:02 | NEPHROLOGY PROGRESS NOTE ---
DATE: 08/05/2019 SUBJECTIVE: He is sedated on the ventilator. OBJECTIVE: Vital Signs: Blood pressure 85/50, heart rate 87, respirations 17, afebrile. Intake. 2.3 L. Output 1 L. General: Again, sedated. Unresponsive. Skin: Warm and dry. Pale. Eyes: Conjunctivae are pale. Neck: Neck veins are not visible. Trachea is midline. Mouth: Oropharynx is dry. Heart: Regular. No gallops. Lungs: Equal. Crackles are present throughout. Abdomen: Soft, nontender. Bowel sounds are present. Extremities: With trace edema. No clubbing or cyanosis. IMPRESSION: Acute kidney injury. Ischemic acute tubular necrosis in the context of cholangitis. No improvement. Nonoliguric. Given his progression we will proceed with dialysis today. Dr. Sanders has been consulted for access placement. I discussed volume status with Dr. Cantu and based on echocardiographic findings we believe his volume status is at least euvolemic or perhaps moderately volume expanded. We will not therefore add any further intravenous fluids. 4K bath, 30 bicarbonate. His hemoglobin is. 7.1 today so we will plan for two units packed red blood cells. cc: Moris Montero MD
[2019-08-05] MEDS: ZYLOPRIM PO SCH (20:31)
--- NOTE | 2019-08-05 20:47 | CARDIOLOGY PROGRESS NOTE ---
DATE: 08/05/2019 SUBJECTIVE: Mr. Iqbal continues on the ventilator with sedation. OBJECTIVE: Vital signs: He is afebrile. His heart rate presently is 95, blood pressure 94/49. General: He is in no acute distress. Cardiovascular: He sounds to be in a rate controlled rhythm. He is irregular consistent with his history of atrial fibrillation. He has warm and well perfused extremities. Respiratory: His chest exam is coarse with rales noted throughout all lung ventura. He has no increased work of breathing. Gastrointestinal: His abdomen is soft, nontender. PERTINENT DATA: His white count is 7.9, which is significantly improved. His hematocrit is 22.8, which has dropped since 29 on the fifth. His platelet count is 115,000, which is down from 222. His sodium is 138, potassium 3.7, his BUN and creatinine are 85 and 5.5, which are up from 73 and 4.9 and have steadily climbed since the . ASSESSMENT: Mr. Iqbal is a 78-year-old gentleman who is septic and has acute kidney injury. PLAN: His heart failure is not the etiology of his volume overload. He does have evidence of volume overload based on his echocardiogram and the appearance of the IVC. At this point, he is undergoing hemodialysis. He continues on full ventilatory support. Presently, I do not have any acute cardiovascular recommendations. cc: Antonio Cantu MD
--- NOTE | 2019-08-05 20:55 | OPERATIVE NOTE ---
PROCEDURE DATE: 08/05/2019 PREOPERATIVE DIAGNOSIS: Hepatorenal syndrome. POSTOPERATIVE DIAGNOSIS: Hepatorenal syndrome. PROCEDURE PERFORMED: Ultrasound-guided left femoral vein Vas-Cath placement. ANESTHESIA: ICU sedation protocol. FINDINGS: Ultrasound the left groin showed a compressible femoral vein with no evidence of intraluminal thrombus. OPERATIVE NOTE: Risks, benefits, and alternatives were discussed with patient's family and they consented to the procedure. His legs were secured and his left groin was prepped with chlorhexidine solution and draped in the usual fashion. After time-out, focused ultrasound was performed, and after a satisfactory conduit, we accessed the femoral vein on first pass. Dark, nonpulsatile venous blood was noted on return. The wire threaded easily and was confirmed with ultrasound to course directly into the vein. At this point, we made a skin mimi, serially dilated the tract, and placed a preflushed triple-lumen Trialysis catheter, removing the wire, securing it with silk suture, and confirmed that all ports withdrew blood and flushed without resistance. Sterile cap and sterile dressing were applied. He tolerated it well. No complications. cc: Gela Sanders MD
[2019-08-05 21:51] LABS: EOS# 0.13 X1000 (0.0-0.7); EOS% 1.6 % (0.0-10.0); HEMATOCRIT 25.8 % (42.0-52.0); HEMOGLOBIN 8.1 g/dL (14.0-18.0); IMM GRAN# 0.05 X1000 (0.0-0.04); IMM GRAN% 0.6 % (0.0-0.5); LYMPH# 0.37 X1000 (1.2-3.4); LYMPH% 4.7 % (20.5-51.1); MCHC 31.4 g/dL (33-37); MCV 79.6 FL (81-99); MONO# 0.49 X1000 (0.11-0.59); MONO% 6.2 % (1.7-9.3); MPV 9.6 FL (7.4-10.4); NEUT# 6.86 X1000 (1.4-6.5); NEUT% 86.9 % (42.2-75.2); PLT 116 X1000 (130-400); RBC 3.24 XMIL (4.7-6.1); RDW 18.8 % (11.5-14.5)
--- NOTE | 2019-08-05 22:07 | GENERAL SURGERY PROGRESS NOTE ---
DATE: 08/05/2019 SUBJECTIVE: No acute events recorded today. He remains intubated and not able to follow commands. OBJECTIVE: Temperature 98.2 degrees, pulse is in the 90s, blood pressure 104/58, O2 saturation 98%. General: He is awake. He does seem to respond to verbal stimuli, but not able to track with his eyes or follow commands. CV: Tachycardic. GI: Soft, mildly distended. Incisional dressings are clean and dry. LABORATORY: White blood cell count is normal, hemoglobin 7.1, hematocrit 22.8, platelet count 115,000. PH 7.38, pCO2 30, PaO2 67, bicarb 19.6, BUN 85, creatinine 5.5. Liver function tests are not checked today. IMAGING: Chest x-ray this morning shows dense central infiltrates or pulmonary edema and stable small pleural effusions. ASSESSMENT AND PLAN: 78-year-old male status post laparoscopic cholecystectomy for acute cholecystitis and possible cholangitis. He has subsequently had multiple organ failure, now intubated. He has encephalopathy. He has acute kidney injury. He is making urine. It appears probably acute tubular necrosis. Tomorrow we will recheck his liver function tests and follow that trend as they had not normalized yet. Any increasing liver function test abnormalities may require further biliary imaging to rule out ongoing cholangitis. cc: Luciano Cervantes MD
--- NOTE | 2019-08-05 22:43 | PROGRESS NOTE ---
DATE: 08/05/2019 We appreciated progress of care, complications, change in diagnosis and instructions to the patient. SUBJECTIVE: We note the level of consciousness, bed/chair position, family presence if any, level of lethargy, feelings of symptoms and changes from baseline condition/symptoms. OBJECTIVE: Patient is lying in bed receiving mechanical ventilatory support, sedated. Vital Signs: Temperature 98.2, blood pressure 131/84, pulse 106, respirations 21, O2 saturation 96 per mechanical ventilation. We reviewed EMR, current values for pulse rate, blood pressure, respiratory rate and pulse oximetry. Also noted other values and trends if present. HEENT: Head is atraumatic, normocephalic. Neck: Supple. Cardiovascular: Regular rate and rhythm. Chest: Reduced air entry. Abdomen: Soft, slightly distended, decreased bowel sounds in all 4 quadrants. Extremities: Without edema. No cyanosis. Skin: Warm, dry. No rashes. MANAGEMENT: Anpc-np-lakt evaluation completed by Dr. Roth. SOCIAL SERVICE DIRECTOR did scribing only. LABORATORY DATA: White blood cells 7.95. Red blood cells 2.86. Hemoglobin 7.1. Hematocrit 22.8. MCV 79.7. Platelet count 115. PH 7.38. PCO2 of 30. PO2 of 67. HCO3 of 19.6. Base excess -6.8. Oxyhemoglobin 93.4. Total hemoglobin 5.7. AC settings: FIO2 percent 65.0, tidal volume 500, PEEP 5.0, spontaneous rate 15. Sodium 138. Potassium 3.7. Chloride 101. Carbon dioxide 17. BUN 85. Creatinine 5.5. Glucose 105. Calcium 7.8. Albumin 3.1. DIAGNOSTICS: Chest x-ray impression revealed slight improvement in the dense central infiltrate/pulmonary edema, stable cardiomegaly, stable small pleural effusions. PLAN: Continue current treatment and supportive care per admitting and other teams on the case. Continue AC as tolerated. Ventilator settings checked and titrated to patient's needs for clinical protocols with close monitoring. Pressors also titrated to patient needs per clinical protocols and close monitoring. May require pressors on dialysis, if happens discontinue Diprivan. Continue antibiotics and bronchodilators. Cardiology following. Continue gastrointestinal prophylaxis with Pepcid 20 mg IV every 12 hours. TIME: Spent 34 minutes on this patient. Input was appreciated from admitting MD and other teams on the case. Dictated by PEGGY Neil for Baltazar Roth MD cc: PEGGY Neil MD
[2019-08-06] MEDS: ALBUMIN 25% IV SCH ×4 (01:51→18:53)
[2019-08-06] MEDS: LOPRESSOR IV SCH ×5 (01:52→20:39)
[2019-08-06] MEDS: DIPRIVAN 1% 1,000 MG/100 ML BOTTLE IV SCH ×5 (03:25→22:20)
[2019-08-06 04:30] LABS: ALLEN TEST YES; BE -6.7 mmoll (-3.0-3.0); BLOOD TYPE ARTERIAL; HCO3-(ACT) 19.7 mmoll (20.0-26.0); METHB 0.5 % (0.0-1.5); O2(CT) 5.4 mL/dL (15.0-23.0); O2HB 95.5 % (95.0-99.0); PCO2(98.6) 27 mmHg (35-45); PO2(98.6) 69 mmHg (60-100); SAMPLE BLOOD; SAO2 98.5 % (95.0-100.0); SRATE 15 BPM; THB 3.9 g/dL (11.5-17.4); TVOL 500 mL; pH(98.6) 7.42 (7.35-7.45)
[2019-08-06 04:31] LABS: MODALITY VENTILATOR
[2019-08-06] MEDS: MERREM 500 MG in NS 50 ML IV SCH ×2 (05:26→17:31)
--- NOTE | 2019-08-06 05:51 | Diag Imaging Result Doc PS360 ---
EXAM: CHEST-1 VIEW HISTORY: SOB TECHNIQUE: Single view COMPARISON: 08/05/2019 FINDINGS: No change in the endotracheal tube or nasogastric tube. There are dense bilateral infiltrates. These are fairly stable on the left, but have worsened on the right. Small pleural effusions. IMPRESSION: Mild interval worsening Electronically signed by Xavier Valladares 08/06/2019 5:49 AM
[2019-08-06] MEDS: PRILOSEC PO SCH (06:33)
[2019-08-06 07:29] LABS: ALB/GLOB RATIO 1.8; TOTAL BILIRUBIN 1.88 mg/dL (0.20-1.00); TOTAL PROTEIN 6.2 g/dL (6.3-8.3)
[2019-08-06 07:31] LABS: CALCIUM 8.6 mg/dL (8.8-10.2); CREATININE 3.4 mg/dL (0.7-1.2)
[2019-08-06] MEDS: NS NEB INH SCH ×3 (07:33→15:39)
[2019-08-06] MEDS: XOPENEX NEB INH PRN ×4 (07:33→19:29)
[2019-08-06] MEDS ORDERED: NS 2,000 ML MISC PRN (08:04)
[2019-08-06] MEDS ORDERED: HEPARIN IV PRN ×2 (08:04)
[2019-08-06] MEDS: SODIUM CHLORIDE 0.9% INJ SCH (08:22)
[2019-08-06] MEDS: HEPARIN SUBQ SCH ×2 (08:23→20:38)
[2019-08-06] MEDS: PEPCID IV SCH ×2 (08:23→20:38)
[2019-08-06 08:26] LABS: HEMATOCRIT 24.4 % (42.0-52.0); HEMOGLOBIN 7.7 g/dL (14.0-18.0); MCH 25.5 PG (27-31); MCHC 31.6 g/dL (33-37); MCV 80.8 FL (81-99); MPV 10.7 FL (7.4-10.4); RBC 3.02 XMIL (4.7-6.1); RDW 19.3 % (11.5-14.5); WBC 7.43 X1000 (4.8-10.8)
[2019-08-06] MEDS: ZYVOX 600 MG/D5W 600 MG/300 ML IVPB IV SCH ×2 (10:15→23:24)
--- NOTE | 2019-08-06 13:21 | PROGRESS NOTE ---
DATE: 08/06/2019 SUBJECTIVE: I have seen and examined Mr. Iqbal today. He continues to be in the Critical Care Unit. He is intubated and sedated. Per the nursing staff, the night was uneventful. Mr. Iqbal got dialyzed yesterday and I understand 3000 mL of fluid was ultrafiltrated and he did tolerate it well. OBJECTIVE: Vital signs: Blood pressure is 119/63, pulse of 91, respiration is 26, temperature is 99.0 degrees. General exam: Mr. Iqbal is a 78-year-old elderly gentleman. He is in bed, currently intubated and sedated on propofol. He is synchronizing well with the ventilator. HEENT: Mucosa is pink and moist. Anicteric. Acyanotic. Neck: Supple. No JVD. Chest: There is good air entry bilateral, some transmitted sounds from the ventilator. Cardiovascular: Regular rate and rhythm. There is a 2/6 TR murmur. GI/Abdomen: Soft, minimally distended, but nontender. Bowel sounds present, but hypoactive. MARY drain has been removed. There are some laparoscopic scars on anterior abdominal wall. There is a left femoral Vas-Cath catheter noted. The patient will grimace to painful stimulation and will withdraw to pain. Ovalles catheter is also in place. Intake/output: Urine output was 550. The patient was ultrafiltrated 3000, currently positive balance of 2257. IMAGING STUDIES: A chest x-ray showed mild interval worsening. CULTURES: [place] blood cultures have been 48 hours negative. Urine culture is negative. CURRENT MEDICATIONS: 1. Albumin. 2. Pepcid 20 mg IV q. 12 hours. 3. Dilaudid p.r.n. as needed. 4. Zyvox 600 mg IV q. 12 hours; today is day 4. 5. Meropenem 500 q. 12 hours, renally dosed. 6. Lopressor 5 mg IV q. 6 hours. 7. Morphine. ASSESSMENT: 1. Acute hypoxemic respiratory failure, patient is intubated. Today is day 2 under the ventilator. 2. Altered mental status secondary to global encephalopathy. Etiologies include toxic metabolic encephalopathy. 3. Abdominal pain on admission secondary to cholelithiasis with choledocholithiasis associated with mild ascending cholangitis. The patient is status post laparoscopic cholecystectomy with intraoperative cholangiogram. Today is day 5 postoperatively. This was done by Dr. Murphy. 4. Acute kidney injury, presumably acute tubular necrosis. Nephrology is on board. The patient has been started on renal replacement therapy since yesterday. 5. Pulmonary edema secondary to a combination of diastolic heart failure and worsening kidney function. The patient's chest x-ray this morning continues to show some mild worsening. We will continue to follow further recommendations from Nephrology. 6. Microcytic anemia with underlying iron deficiency anemia. The patient is status post 2 packed red blood cell transfusions. Hemoglobin and hematocrit this morning is up to 8.1. The patient is not showing any obvious signs of external bleeding. 7. Levophed for hypotension, improved. PLAN: So, in general, I think Mr. Iqbal continues to be critically sick, but stable. He continues to be under the ventilator. He is on antimicrobial support, and he started on renal replacement therapy yesterday. Will be pending further recommendations from the other subspecialties involved. cc: Nithin Lyons MD
--- NOTE | 2019-08-06 16:01 | PROVIDER PROGRESS NOTE ---
Progress Note Progress Note Dr. Roth Progress Note/Pulmonary and or critical care We appreciated progress of care, Complications, change in diagnosis, and instructions to patient. Subjective: We note the level of consciousness, bed (chair) position, family presence (if any), level of lethargy, feeling of symptoms, and changes from baseline condition/symptom. Patient is lying in bed. Ventilatory support. Receiving dialysis. Objective: Vital Signs: We reviewed EMR current values for Pulse rate, Blood pressure, Pulse rate, respiratory rate and Pulse oximetry. Also noted other values and trends if present (e.g. I/O, CVP). T 98.0 , FL 105 , RR 24 , BP 112/60, and SaO2 100% with mechanical ventilation. Physical Examination: General: Lying in bed having sleeping with no acute distress noted. Family at bedside. HEENT: Normocephalic. Trachea midline. ETT in place. Mucosa pink and moist. Chest: Reduced entry. Symmetrical chest movement. On AC. CVS: S1 and S2 appreciated. Abdomen: soft, bowel sounds present x4. Extremities: without edema,clubbing or cyanosis. Neuro: Sedated. Management, face to face evaluation by Dr. Roth. PEGGY Neil did scribing only. Labs and Radiology: Reviewed available labs and radiology values available at time of EMR reviewed Laboratory Results 08/02/19 08/03/19 08/03/19 12:55 19:30 19:30 WBC RBC Hgb Hct MCV MCH MCHC RDW Std Deviation Plt Count MPV Immature Gran % (Auto) Neut % (Auto) Lymph % (Auto) Swain % (Auto) Eos % (Auto) Baso % (Auto) Immature Gran # (Auto) Neut # (Auto) Lymph # (Auto) Swain # (Auto) Eos # (Auto) Baso # (Auto) PTT (Actin FS) Specimen Type Sample Site pH pCO2 pO2 HCO3 Base Excess Oxyhemoglobin ABG O2 Sat (Calculated) ABG O2 Saturation ABG Carboxyhemoglobin ABG Methemoglobin Hunter Test A-a O2 Difference Total Hemoglobin Lactate Blood Gas Modality Spontaneous Rate FiO2 % Tidal Volume PEEP Sodium Potassium Chloride Carbon Dioxide Anion Gap BUN Creatinine Estimated GFR/1.73 m2 BUN/Creatinine Ratio Glucose Calculated Osmolality Calcium Phosphorus Total Bilirubin Direct Bilirubin AST ALT Alkaline Phosphatase Total Protein Albumin Globulin Albumin/Globulin Ratio [id number] SEE COMMENTS Anti-Smooth Muscle Ab SEE COMMENTS Crossmatch See Detail 08/05/19 08/06/19 08/06/19 21:37 04:15 05:30 WBC 7.90 RBC 3.24 L Hgb 8.1 L Hct 25.8 L MCV 79.6 L MCH 25.0 L MCHC 31.4 L RDW Std Deviation 18.8 H Plt Count 116 L MPV 9.6 Immature Gran % (Auto) 0.6 H Neut % (Auto) 86.9 H Lymph % (Auto) 4.7 L Swain % (Auto) 6.2 Eos % (Auto) 1.6 Baso % (Auto) 0.0 Immature Gran # (Auto) 0.05 H Neut # (Auto) 6.86 H Lymph # (Auto) 0.37 L Swain # (Auto) 0.49 Eos # (Auto) 0.13 Baso # (Auto) 0.00 PTT (Actin FS) Specimen Type ARTERIAL Sample Site R RADIAL pH 7.42 pCO2 27 L pO2 69 HCO3 19.7 L Base Excess -6.7 L Oxyhemoglobin 95.5 ABG O2 Sat (Calculated) 5.4 L ABG O2 Saturation 98.5 ABG Carboxyhemoglobin 2.40 ABG Methemoglobin 0.5 Hunter Test YES A-a O2 Difference 182.0 Total Hemoglobin 3.9 L Lactate 1.60 Blood Gas Modality VENTILATOR Spontaneous Rate 15 FiO2 % 40.0 Tidal Volume 500 PEEP 5.0 Sodium 141 Potassium 4.0 Chloride 105 Carbon Dioxide 17 L Anion Gap 19 BUN 51 H Creatinine 3.4 H Estimated GFR/1.73 m2 18 BUN/Creatinine Ratio 15 Glucose 103 Calculated Osmolality 295 Calcium 8.6 L Phosphorus 4.0 Total Bilirubin Direct Bilirubin AST ALT Alkaline Phosphatase Total Protein Albumin 4.0 Globulin Albumin/Globulin Ratio [id number] Anti-Smooth Muscle Ab Crossmatch 08/06/19 08/06/19 08/06/19 05:30 05:30 07:50 WBC 7.43 RBC 3.02 L Hgb 7.7 L Hct 24.4 L MCV 80.8 L MCH 25.5 L MCHC 31.6 L RDW Std Deviation 19.3 H Plt Count 105 L MPV 10.7 H Immature Gran % (Auto) Neut % (Auto) Lymph % (Auto) Swain % (Auto) Eos % (Auto) Baso % (Auto) Immature Gran # (Auto) Neut # (Auto) Lymph # (Auto) Swain # (Auto) Eos # (Auto) Baso # (Auto) PTT (Actin FS) 45.0 H Specimen Type Sample Site pH pCO2 pO2 HCO3 Base Excess Oxyhemoglobin ABG O2 Sat (Calculated) ABG O2 Saturation ABG Carboxyhemoglobin ABG Methemoglobin Hunter Test A-a O2 Difference Total Hemoglobin Lactate Blood Gas Modality Spontaneous Rate FiO2 % Tidal Volume PEEP Sodium Potassium Chloride Carbon Dioxide Anion Gap BUN Creatinine Estimated GFR/1.73 m2 BUN/Creatinine Ratio Glucose Calculated Osmolality Calcium Phosphorus Total Bilirubin 1.88 H Direct Bilirubin 1.00 H AST 21 ALT 11 Alkaline Phosphatase 68 Total Protein 6.2 L Albumin 4.0 Globulin 2.2 Albumin/Globulin Ratio 1.8 [id number] Anti-Smooth Muscle Ab Crossmatch 08/06/19 09:23 WBC RBC Hgb Hct MCV MCH MCHC RDW Std Deviation Plt Count MPV Immature Gran % (Auto) Neut % (Auto) Lymph % (Auto) Swain % (Auto) Eos % (Auto) Baso % (Auto) Immature Gran # (Auto) Neut # (Auto) Lymph # (Auto) Swain # (Auto) Eos # (Auto) Baso # (Auto) PTT (Actin FS) 46.1 H Specimen Type Sample Site pH pCO2 pO2 HCO3 Base Excess Oxyhemoglobin ABG O2 Sat (Calculated) ABG O2 Saturation ABG Carboxyhemoglobin ABG Methemoglobin Hunter Test A-a O2 Difference Total Hemoglobin Lactate Blood Gas Modality Spontaneous Rate FiO2 % Tidal Volume PEEP Sodium Potassium Chloride Carbon Dioxide Anion Gap BUN Creatinine Estimated GFR/1.73 m2 BUN/Creatinine Ratio Glucose Calculated Osmolality Calcium Phosphorus Total Bilirubin Direct Bilirubin AST ALT Alkaline Phosphatase Total Protein Albumin Globulin Albumin/Globulin Ratio [id number]-[id number] Anti-Smooth Muscle Ab Crossmatch ASSESSMENT/ PLAN: Respiratory failure acute and multifactorial ARF on HD Sepsis Volume overload Cholangitis Metabolic acidosis Continue current treatment and supportive care per admitting and other teams on the case. Continue AC as tolerated. Ventilator settings checked and titrated to patient's needs for clinical protocols with close monitoring. Pressors also titrated to patient needs per clinical protocols and close monitoring. May require pressors on dialysis, if happens discontinue Diprivan. Continue antibiotics and bronchodilators. Cardiology following. Continue gastrointestinal prophylaxis with Pepcid 20 mg IV every 12 hours. TIME: Spent 35 minutes on this patient. Input was appreciated from admitting MD and other teams on the case.
[2019-08-06] MEDS: ZYLOPRIM PO SCH (20:39)
--- NOTE | 2019-08-06 22:30 | GENERAL SURGERY PROGRESS NOTE ---
DATE: 08/06/2019 SUBJECTIVE: The patient remains intubated and sedated overnight. No other acute events. OBJECTIVE: He is afebrile. Pulse 90s to 100s, blood pressure 115/65, O2 saturation 100%.General: He is sedated. Cardiovascular: Tachycardic and regular. Respiratory: Coarse bilateral breath sounds. GI: Soft, nondistended. Incisional dressing is clean and dry. IMAGING: His chest x-ray this morning shows dense bilateral infiltrates, worsening on the right. ASSESSMENT AND PLAN: A 78-year-old male status post laparoscopic cholecystectomy for acute cholecystitis and possible cholangitis. He has had multiple organ failure postoperatively with encephalopathy, acute kidney injury and respiratory failure. Of note, his liver function tests today did show a continued trend toward normal, so I do not think he has ongoing cholangitis. Continue supportive care. cc: Luciano Cervantes MD
--- NOTE | 2019-08-06 23:43 | NEPHROLOGY PROGRESS NOTE ---
DATE: 08/06/2019 SUBJECTIVE: He is sedated on the ventilator. OBJECTIVE: Vital Signs: Blood pressure 111/61, heart rate 95, respirations 24, afebrile. Intake 1.9 L. Output 3.8 L with 500 mL of urine output. General: No acute distress. Skin: Warm and dry. Neck: Neck veins are not appreciated. Heart: Regular. Lungs: Equal, no crackles. Abdomen: Soft, decreased bowel sounds, distended. Extremities: No edema, clubbing or cyanosis. IMPRESSION: Acute kidney injury. No recovery. Sustained low-efficiency dialysis (SLED) today, 8 hour treatment, 4K bath, 30 bicarbonate. Goal of 4 L ultrafiltration. cc: Moris Montero MD
[2019-08-07] MEDS: ALBUMIN 25% IV SCH ×5 (00:05→23:17)
[2019-08-07] MEDS: LOPRESSOR IV SCH ×4 (02:36→23:17)
[2019-08-07] MEDS: DIPRIVAN 1% 1,000 MG/100 ML BOTTLE IV SCH ×3 (03:23→15:08)
[2019-08-07] MEDS: XOPENEX NEB INH PRN ×6 (03:32→22:56)
[2019-08-07 05:14] LABS: ALLEN TEST YES; BE -7.3 mmoll (-3.0-3.0); BLOOD TYPE ARTERIAL; HCO3-(ACT) 19.2 mmoll (20.0-26.0); METHB 0.6 % (0.0-1.5); O2(CT) 16.4 mL/dL (15.0-23.0); O2HB 95.3 % (95.0-99.0); PCO2(98.6) 27 mmHg (35-45); PO2(98.6) 88 mmHg (60-100); SAMPLE BLOOD; SAO2 97.7 % (95.0-100.0); SRATE 15 BPM; THB 12.2 g/dL (11.5-17.4); TVOL 500 mL; pH(98.6) 7.39 (7.35-7.45)
[2019-08-07 05:15] LABS: MODALITY VENTILATOR
[2019-08-07] MEDS: MERREM 500 MG in NS 50 ML IV SCH ×2 (05:25→17:50)
[2019-08-07] MEDS: PRILOSEC PO SCH (06:28)
--- NOTE | 2019-08-07 07:11 | Diag Imaging Result Doc PS360 ---
EXAM: CHEST-1 VIEW 08/07/2019 HISTORY: SOB TECHNIQUE: AP portable at 0518 COMMENT: There is an endotracheal tube with its tip 2 cm above the kael. There is an NG tube which passes below the diaphragm. Compared to 08/06/2019 there has been some clearing of the alveolar opacities present in both upper lobes. There is also some clearing of the lower lobes particularly the right lower lobe. There may be less pleural fluid. IMPRESSION: Generally improved pulmonary edema and pleural effusions. Electronically signed by Jude Conley 08/07/2019 7:09 AM
[2019-08-07] MEDS: NS NEB INH SCH (07:25)
[2019-08-07 07:36] LABS: HEMATOCRIT 25.5 % (42.0-52.0); MCH 25.7 PG (27-31); MCHC 31.4 g/dL (33-37); MPV 10.6 FL (7.4-10.4); RBC 3.11 XMIL (4.7-6.1); RDW 19.7 % (11.5-14.5); WBC 7.29 X1000 (4.8-10.8)
[2019-08-07 08:04] LABS: ALBUMIN 4.5 g/dL (3.5-5.0); CALCIUM 9.1 mg/dL (8.8-10.2); CREATININE 2.5 mg/dL (0.7-1.2); PHOSPHORUS 3.8 mg/dL (2.7-4.5); POTASSIUM 4.2 mmol/L (3.5-5.1)
[2019-08-07] MEDS: SODIUM CHLORIDE 0.9% INJ SCH (08:24)
[2019-08-07] MEDS: PEPCID IV SCH ×2 (08:24→20:05)
[2019-08-07] MEDS: HEPARIN SUBQ SCH ×2 (08:24→20:05)
[2019-08-07] MEDS: ZYVOX 600 MG/D5W 600 MG/300 ML IVPB IV SCH ×2 (10:30→23:17)
--- NOTE | 2019-08-07 12:09 | PROGRESS NOTE ---
DATE: 08/07/2019 SUBJECTIVE: I have seen and examined Mr. Iqbal today. He continues to be in the critical care unit, intubated and sedated. The was at the bedside at the time of the encounter. Per the nursing staff, the night was uneventful. OBJECTIVE: Vital Signs: Blood pressure is 120/67, pulse of 100, respirations are 23, the patient is saturating 98% on mechanical ventilation, temperature is 98.2 degrees. General Examination: Mr. Iqbal is a 78-year-old, elderly, gentleman. He is in bed. He is currently intubated and sedated. HEENT: Mucosa is pink and moist. Anicteric. Acyanotic. Neck: Supple. No JVD. Respiratory System: Air entry is bilaterally reduced. There are transmitted sounds from the ventilator. There is also rhonchi. Cardiovascular: Regular rate and rhythm with occasional extrasystolic beats. There is a 2/6 TR murmur. GI: Abdomen is soft. Bowel sounds present. No hepatosplenomegaly. There is a left femoral Vas-Cath noted. SCIENTIFIC RESEARCH ASSOCIATE: The patient will grimace to painful stimulation and withdraw lower extremities. Lower Extremities: Distal pulses are remarkably low. 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 Laboratory Data: WBC is 7.29, hemoglobin is 8.0, platelet count of 111,000. ABGs have also been reviewed. Chemistry is stable. Patient's creatinine is 2.5. Is and Os: Urine output was only 95. The patient was dialyzed yesterday and 4000 were removed. Mr. Iqbal is currently negative balance of 644. Imaging Studies: A chest x-ray this morning shows generally improved pulmonary edema and pleural effusions. Medications have all been reviewed and no changes. ASSESSMENT: 1. Acute hypoxemic respiratory failure. The patient is day 3 under mechanical ventilation. Pulmonary medicine is on board. 2. Altered mental status secondary to global encephalopathy, presumably toxic metabolic encephalopathy. 3. Abdominal pain on admission secondary to cholelithiasis with choledocholithiasis, associated with ascending cholangitis. The patient is status post laparoscopic cholecystectomy with intraoperative cholangiogram. Today is day 6 postop. 4. Acute kidney injury secondary to acute tubular necrosis. Nephrology is on board. Patient has been started on renal replacement therapy. He has undergone 2 sessions already. 5. Pulmonary edema, improved. 6. Microcytic anemia. Patient is status post 2 units of packed red blood cell transfusion. Hemoglobin is 8.0. 7. Hypotension, improved. PLAN: In general, Mr. Iqbal continues to be critically sick. He is still under the mechanical ventilation. So far, his blood cultures have been 48 hours negative. Sputum culture is also negative. We are going to continue with ventilator support, antimicrobial therapy. We will address with pulmonary medicine if he has not been extubated soon, then we will start him on tube feedings. We will continue with DVT prophylaxis with heparin and GI prophylaxis with Protonix. cc: Nithin Lyons MD
--- NOTE | 2019-08-07 15:22 | GENERAL SURGERY PROGRESS NOTE ---
DATE: 08/07/2019 SUBJECTIVE: No acute changes or events overnight are recorded. OBJECTIVE: Vital Signs: He is afebrile. Pulse 90s to 100, blood pressure 112-120 systolic. O2 saturation 98 100%. General: He is sedated on propofol. Cardiovascular: Tachycardic and regular. Respiratory: Coarse bilateral breath sounds. He remains on the ventilator with FiO2 setting of 30%. Gastrointestinal: Soft, nondistended. Incisional dressings clean and dry. LABORATORY: White cell count 7, hemoglobin 8, hematocrit 25. ABG is reviewed and notable for bicarbonate of 19, base deficit -7 with a normal pH. Metabolic profile reviewed and notable for BUN 38, creatinine 2.5, potassium 4.2. ASSESSMENT AND PLAN: 78-year-old male status post laparoscopic cholecystectomy for acute cholecystitis and cholangitis. He has multiple organ failure postoperatively with respiratory failure acute kidney injury requiring dialysis and encephalopathy. We will continue to follow along. His abdominal exam is unremarkable at this time and again his liver function tests did show a trend toward normal yesterday. cc: Luciano Cervantes MD
--- NOTE | 2019-08-07 19:46 | PROVIDER PROGRESS NOTE ---
Progress Note Progress Note Dr. Roth Progress Note/Pulmonary and or critical care We appreciated progress of care, Complications, change in diagnosis, and instructions to patient. Subjective: We note the level of consciousness, bed (chair) position, family presence (if any), level of lethargy, feeling of symptoms, and changes from baseline condition/symptom. Patient is lying in bed. Ventilatory support. Receiving dialysis. Objective: Vital Signs: We reviewed EMR current values for Pulse rate, Blood pressure, Pulse rate, respiratory rate and Pulse oximetry. Also noted other values and trends if present (e.g. I/O, CVP). T 98.7 , DC 93 , RR 25 , BP 111/62 , and SaO2 98% with mechanical ventilation. Physical Examination: General: Lying in bed having sleeping with no acute distress noted. Family at bedside. HEENT: Normocephalic. Trachea midline. ETT in place. Mucosa pink and moist. Chest: Reduced entry. Symmetrical chest movement. On AC. CVS: S1 and S2 appreciated. Abdomen: soft, bowel sounds present x4. Extremities: without edema,clubbing or cyanosis. Neuro: Sedated. Management, face to face evaluation by Dr. Roth. PEGGY Neil did scribing only. Labs and Radiology: Reviewed available labs and radiology values available at time of EMR reviewed Laboratory Results 08/03/19 08/03/19 08/07/19 19:30 19:30 04:30 WBC RBC Hgb Hct MCV MCH MCHC RDW Std Deviation Plt Count MPV Specimen Type ARTERIAL Sample Site R RADIAL pH 7.39 pCO2 27 L pO2 88 HCO3 19.2 L Base Excess -7.3 L Oxyhemoglobin 95.3 ABG O2 Sat (Calculated) 16.4 ABG O2 Saturation 97.7 ABG Carboxyhemoglobin 1.90 ABG Methemoglobin 0.6 Hunter Test YES A-a O2 Difference 92.0 Total Hemoglobin 12.2 Lactate 2.00 Blood Gas Modality VENTILATOR Vent Mode A/C Spontaneous Rate 15 FiO2 % 30.0 Tidal Volume 500 PEEP 5.0 Sodium Potassium Chloride Carbon Dioxide Anion Gap BUN Creatinine Estimated GFR/1.73 m2 BUN/Creatinine Ratio Glucose Calculated Osmolality Calcium Phosphorus Albumin Ceruloplasmin SEE COMMENTS Anti-Mitochondrial Ab SEE COMMENTS 08/07/19 08/07/19 06:00 06:00 WBC 7.29 RBC 3.11 L Hgb 8.0 L Hct 25.5 L MCV 82.0 MCH 25.7 L MCHC 31.4 L RDW Std Deviation 19.7 H Plt Count 111 L MPV 10.6 H Specimen Type Sample Site pH pCO2 pO2 HCO3 Base Excess Oxyhemoglobin ABG O2 Sat (Calculated) ABG O2 Saturation ABG Carboxyhemoglobin ABG Methemoglobin Hunter Test A-a O2 Difference Total Hemoglobin Lactate Blood Gas Modality Vent Mode Spontaneous Rate FiO2 % Tidal Volume PEEP Sodium 138 Potassium 4.2 Chloride 101 Carbon Dioxide 18 L Anion Gap 19 BUN 38 H Creatinine 2.5 H Estimated GFR/1.73 m2 25 BUN/Creatinine Ratio 15 Glucose 109 H Calculated Osmolality 285 Calcium 9.1 Phosphorus 3.8 Albumin 4.5 Ceruloplasmin Anti-Mitochondrial Ab ASSESSMENT/ PLAN: Respiratory failure acute and multifactorial ARF on HD Sepsis Volume overload Cholangitis Metabolic acidosis Continue current treatment and supportive care per admitting and other teams on the case. Continue AC as tolerated. Ventilator settings checked and titrated to patient's needs for clinical protocols with close monitoring. Failed weaning trials. Pressors also titrated to patient needs per clinical protocols and close monitoring. May require pressors on dialysis, if happens discontinue Diprivan. Continue antibiotics and bronchodilators. Cardiology following. Continue gastrointestinal prophylaxis with Pepcid 20 mg IV every 12 hours. TIME: Spent 33 minutes on this patient. Input was appreciated from admitting MD and other teams on the case.
[2019-08-07] MEDS: ZYLOPRIM PO SCH (20:05)
[2019-08-08] MEDS: DIPRIVAN 1% 1,000 MG/100 ML BOTTLE IV SCH ×4 (00:46→19:20)
[2019-08-08] MEDS: LOPRESSOR IV SCH ×4 (02:48→20:49)
[2019-08-08] MEDS: XOPENEX NEB INH PRN ×4 (03:06→23:02)
[2019-08-08] MEDS: ALBUMIN 25% IV SCH ×3 (05:21→18:06)
[2019-08-08] MEDS: MERREM 500 MG in NS 50 ML IV SCH ×2 (05:21→17:12)
[2019-08-08] MEDS: PRILOSEC PO SCH (05:22)
[2019-08-08 05:51] LABS: ALLEN TEST YES; BE -11.1 mmoll (-3.0-3.0); BLOOD TYPE ARTERIAL; HCO3-(ACT) 16.3 mmoll (20.0-26.0); MODALITY VENTILATOR; O2(CT) 5.1 mL/dL (15.0-23.0); O2HB 97.1 % (95.0-99.0); PCO2(98.6) 24 mmHg (35-45); PO2(98.6) 81 mmHg (60-100); SAMPLE BLOOD; SAO2 98.1 % (95.0-100.0); SRATE 15 BPM; THB 3.6 g/dL (11.5-17.4); TVOL 500 mL; pH(98.6) 7.36 (7.35-7.45)
[2019-08-08 06:57] LABS: HEMOGLOBIN 8.3 g/dL (14.0-18.0); MCH 24.3 PG (27-31); MCHC 30.7 g/dL (33-37); MCV 79.2 FL (81-99); MPV 11.3 FL (7.4-10.4); RBC 3.41 XMIL (4.7-6.1); RDW 20.6 % (11.5-14.5); WBC 8.64 X1000 (4.8-10.8)
[2019-08-08] MEDS ORDERED: NS 2,000 ML MISC PRN (06:58)
[2019-08-08 07:43] LABS: ALBUMIN 4.5 g/dL (3.5-5.0); CALCIUM 9.2 mg/dL (8.8-10.2); PHOSPHORUS 7.4 mg/dL (2.7-4.5)
--- NOTE | 2019-08-08 07:56 | Diag Imaging Result Doc PS360 ---
EXAM: CHEST-1 VIEW INDICATION: SOB TECHNIQUE: One view COMPARISON: 08/07/2019 FINDINGS: Support tubes and lines are in stable positions. Interstitial and airspace infiltrates with a basilar predominance are approximately stable. No new consolidation is identified. Cardiac silhouette is stable. IMPRESSION: Stable chest. Electronically signed by Raman Jiang 08/08/2019 7:54 AM
[2019-08-08] MEDS: PEPCID IV SCH ×2 (08:43→20:49)
[2019-08-08] MEDS: HEPARIN SUBQ SCH ×2 (08:43→20:49)
[2019-08-08] MEDS: ZYVOX 600 MG/D5W 600 MG/300 ML IVPB IV SCH ×2 (11:07→23:45)
--- NOTE | 2019-08-08 11:09 | PROGRESS NOTE ---
DATE: 08/08/2019 SUBJECTIVE: This morning Mr. Iqbal continues to be intubated, sedated. He is still in the Critical Care Unit. was at the bedside at the time of the encounter. He was also going through a dialysis session. OBJECTIVE: Vital Signs: Blood pressure is 112/52, pulse of 92, respirations 12, temperature 98.2 degrees. General: Mr. Iqbal is a 78-year-old elderly gentleman. He is in bed, currently intubated and sedated. HEENT: Mucosa is pink and moist. Anicteric. Acyanotic. Neck: Supple. There is no JVD. Respiratory System: Good air entry bilateral. No crepitations. No rhonchi. Cardiovascular: Regular rate and rhythm. Occasional extrasystolic beat. There is a 2/6 TR murmur. Gastrointestinal: The abdomen is soft. Bowel sounds present. No hepatosplenomegaly. There is a left femoral vas catheter noted. Central Nervous System: The patient will grimace to painful stimulation and will withdraw lower extremities to pain. Extremities: Distal pulses are remarkably low. The left 3rd lower digit is surgically amputated. Input and Output: The patient's input and output, urine output was 95 in 24 hours and is currently a positive balance of 338. IMAGING STUDIES: Chest x-ray shows stable. No new consolidations. MEDICATIONS: Have all been reviewed. The patient is on Zyvox 600 every 24 hours, today is day 6; meropenem 500 every 12 hours, today is day 2 on the meropenem. ASSESSMENT: 1. Acute hypoxemic respiratory failure. The patient is day 4 on mechanical ventilation. Pulmonary Medicine is on board. 2. Altered mental status secondary to toxic metabolic encephalopathy. 3. Acute kidney injury secondary to acute tubular necrosis with no recovery yet. The patient is getting renal replacement therapy. Today will be the third session. Nephrology is on board. 4. Pulmonary edema, improved. 5. Microcytic anemia. Patient is status post 2 packed red blood cell transfusion. Hemoglobin and hematocrit are stable. 6. Transient Hypotension during the hospital course, resolved. 7. Abdominal pain on presentation secondary to cholelithiasis with choledocholithiasis. The patient is status post laparoscopic cholecystectomy with intraoperative cholangiogram. Today is day 7 postoperatively. Surgery is on board. PLAN: In general, Mr. McMinemon is critical but stable. He initially presented to the hospital because of abdominal pain, was found to have cholelithiasis with choledocholithiasis. He was started on Zosyn initially and underwent surgery post. After the surgery, he seems to be doing fairly stable. However, he began having altered mental status, developing respiratory symptoms and generalized pulmonary edema. He was transferred to the ICU and he was intubated today is day 4 on mechanical ventilation. His kidneys have not recover yet so he is on dialysis. Nephrology is on board. The patient is also being seen by Pulmonary Medicine and Surgery, and we will continue following their recommendations. We truly appreciate the input from the various subspecialties involved. Today we are going to start Mr. Iqbal on tube feedings. cc: Nithin Lyons MD MTDD
[2019-08-08 11:28] LABS: MAGNESIUM 2.4 mg/dL (1.5-2.7); PREALBUMIN 9.9 mg/dL (20-40)
--- NOTE | 2019-08-08 12:52 | GENERAL SURGERY PROGRESS NOTE ---
DATE: 08/08/2019 Mr. Iqbal is afebrile. He is sedated on the ventilator. His white count is 8600, hemoglobin is stable at 8.3, hematocrit 27. PH 7.36. Base excess negative 11. Lactate is 2.2. BUN 77, creatinine 4.0. He is being dialyzed regularly. His LFTs back on 08/06/2019 were essentially back to normal, indicating resolution of his cholangitis. His operative wounds look fine. No new recommendations. cc: Mason Murphy MD
--- NOTE | 2019-08-08 13:59 | PROVIDER PROGRESS NOTE ---
Progress Note Subjective: intubated and sedated. Objective: temperature 98.2, pulse 92, respirations 22, blood pressure 112/52, 02 sat 99% on 30% FiO2 mechanical ventilation. General: elderly white male lying in bed in no acute distress. HEENT: normocephalic, atraumatic. Pupils equal and reactive. Mucous membranes dry. Trachea midline. Skin: warm and dry. Multiple laparoscopic incisions on the abdomen. Neck: supple, 6 cm JVD Cardiovascular: distance heart tones. Regular rate and rhythm. No murmurs or gallops noted. Respiratory: coarse lung sounds anterioirly. Abdomen: slightly firm, nontender. protuberant. Scattered bowel sounds noted. : Ovalles in place with chuck urine. Extremities. No clubbing, sinuses, or edema noted. line placement left groin. Neurological: sedated with propofol. Labs: WBC 8.64, hemoglobin 8.3, hematocrit 27.0, platelet count 141, sodium 138, potassium 5.0, chloride 98, carbon dioxide 13, and I got 27, BUN 77, creatinine 4.0, intake 1192, output 210. Impression: Acute kidney injury without recovery. We will attempt slow low efficiency dialysis today, four hour treatment. Monitor for now. Blood pressure. Stable. Anemia. Low, does not mean transfusion criteria. Volume status. Euvolemic on exam. Metabolic acidosis. Stable. Management with SLED. rg Medication review. No changes
[2019-08-08 15:05] LABS: ALLEN TEST NO; BE -6.1 mmoll (-3.0-3.0); BLOOD TYPE ARTERIAL; HCO3-(ACT) 20.2 mmoll (20.0-26.0); METHB 1.1 % (0.0-1.5); MODALITY VENTILATOR; O2(CT) 12.6 mL/dL (15.0-23.0); O2HB 95.9 % (95.0-99.0); PCO2(98.6) 25 mmHg (35-45); PO2(98.6) 92 mmHg (60-100); SAMPLE BLOOD; SAO2 98.6 % (95.0-100.0); THB 9.2 g/dL (11.5-17.4); pH(98.6) 7.44 (7.35-7.45)
--- NOTE | 2019-08-08 17:51 | PROVIDER PROGRESS NOTE ---
Progress Note Dr. Roth Progress Note/Pulmonary and or critical care We appreciated progress of care, Complications, change in diagnosis, and instructions to patient. Subjective: We note the level of consciousness, bed (chair) position, family presence (if any), level of lethargy, feeling of symptoms, and changes from baseline condition/symptom. The patient is intubated and sedated with diprovan drip 45 mcg/kg/min. He is lying in bed with no acute distress noted. He failed weaning trials yesterday. He is currently on ventilator. Weaning trials will start soon. He is also on SLED at this time and is tolerating well. Family at the bedside. Objective: Vital Signs: We reviewed EMR current values for Pulse rate, Blood pressure, Pulse rate, respiratory rate and Pulse oximetry. Also noted other values and trends if present (e.g. I/O, CVP). T 97.6 (no fever in last 24 hours), MO 109, RR 20, BP 116/55 and SaO2 98% on AC 15, 30%, 500, 5. I/O +982 ml Physical Examination: General: Intubated. Lying in bed with no acute distress noted. HEENT: Normocephalic. Trachea midline. ET tube in place. Mucosa pink and moist. Chest: Mechanically ventilated. Symmetrical excursion. Clear to auscultation bilaterally. CVS: Tachycardia. Regular rate and rhythm with murmur noted. Abdomen: Soft. Bowel sounds in all 4 quadrants noted. Left femoral Vas-Cath in place and SLED on. Extremities: No pedal edema. No cyanosis. No clubbing. Dorsalis pedis diminished bilaterally. 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 Neuro: Sedated, but arousable with verbal stimuli. Facial grimacing with lower extremities withdrawal noted to painful stimuli. Not follow simple commands. Labs and Radiology: Reviewed available labs and radiology values available at time of EMR review. Laboratory Results 08/08/19 08/08/19 08/08/19 05:10 05:30 06:51 WBC RBC Hgb Hct MCV MCH MCHC RDW Std Deviation Plt Count MPV PTT (Actin FS) Specimen Type ARTERIAL Sample Site R RADIAL pH 7.36 pCO2 24 L pO2 81 HCO3 16.3 L Base Excess -11.1 L Oxyhemoglobin 97.1 ABG O2 Sat (Calculated) 5.1 L ABG O2 Saturation 98.1 ABG Carboxyhemoglobin 1.00 ABG Methemoglobin 0.0 Hunter Test YES A-a O2 Difference 103.0 Total Hemoglobin 3.6 L Lactate 2.20 Blood Gas Modality VENTILATOR Spontaneous Rate 15 FiO2 % 30.0 Tidal Volume 500 PEEP 5.0 Sodium 138 Potassium 5.0 D Chloride 98 Carbon Dioxide 13 L Anion Gap 27 BUN 77 H D Creatinine 4.0 H Estimated GFR/1.73 m2 15 BUN/Creatinine Ratio 19 Glucose 105 H Calculated Osmolality 299 Calcium 9.2 Phosphorus 7.4 H Magnesium 2.4 Albumin 4.5 Prealbumin 9.9 L 08/08/19 08/08/19 08/08/19 06:51 09:05 14:54 WBC 8.64 RBC 3.41 L Hgb 8.3 L Hct 27.0 L MCV 79.2 L MCH 24.3 L MCHC 30.7 L RDW Std Deviation 20.6 H Plt Count 141 MPV 11.3 H PTT (Actin FS) 40.6 Specimen Type ARTERIAL Sample Site R BRACHIAL pH 7.44 pCO2 25 L pO2 92 HCO3 20.2 Base Excess -6.1 L Oxyhemoglobin 95.9 ABG O2 Sat (Calculated) 12.6 L ABG O2 Saturation 98.6 ABG Carboxyhemoglobin 1.60 ABG Methemoglobin 1.1 Hunter Test NO A-a O2 Difference 162.0 Total Hemoglobin 9.2 L Lactate 1.70 Blood Gas Modality VENTILATOR Spontaneous Rate FiO2 % 40.0 Tidal Volume PEEP Sodium Potassium Chloride Carbon Dioxide Anion Gap BUN Creatinine Estimated GFR/1.73 m2 BUN/Creatinine Ratio Glucose Calculated Osmolality Calcium Phosphorus Magnesium Albumin Prealbumin Assessment: Acute respiratory failure. Intubated on 08/04/19. Pulmonary edema and pleural effusions. Improved. Acute kidney injury secondary to acute tubular necrosis. No recovery. On Sustained low-efficiency dialysis (SLED) since 08/05/[address] Montero. Altered mental status secondary to global encephalopathy. Cholelithiasis with choledocholithiasis, associated with ascending cholangitis. S/P laparoscopic cholecystectomy with operative cholangiogram on 08/01/19. Prognosis is guarded. Plan: Continue current treatment and supportive care per admitting and other teams on the case. Daily weaning trials started on 08/07/19. Ventilator settings checked and titrated to Patients needs per clinical protocols with closely monitoring. Sedation (Diprivan) titrated to the patients needs per clinical protocols with closely monitoring. Antibiotics, including Linezolid and Meropenem. Bronchodilators. Appropriate DVT and GI prophylaxis Discuss patient's condition and care plan with family at the bedside and all questions have been answered. Input was appreciated from Admitting MD and other teams on the case. Evaluation time in minutes: 33 minutes.
[2019-08-08] MEDS: ZYLOPRIM PO SCH (20:49)
--- NOTE | 2019-08-08 21:06 | CARDIOLOGY PROGRESS NOTE ---
DATE: 08/08/2019 SUBJECTIVE: Mr. Iqbal is sedated. He is on the ventilator. PHYSICAL EXAMINATION: Vital Signs: Afebrile. Heart rate is in the 90s to low 100s. Blood pressure 111/60. General: He is in no acute distress. Cardiovascular: He is in an irregularly irregular rhythm consistent with atrial fibrillation. He has warm and well perfused extremities with no edema. Chest: Coarse breath sounds diffusely. No increased work of breathing. Abdomen: Soft, nontender. PERTINENT DATA: Sodium is 138, potassium is 5, BUN 77, creatinine is 4. His hematocrit is 27. Platelet count 141,000. ASSESSMENT: Mr. Iqbal is a 78-year-old gentleman with respiratory failure, acute kidney injury, and cholecystitis with choledocholithiasis. PLAN: Patient continues on the ventilator. Volume status is being managed by Nephrology. He has a normal ejection fraction. His atrial fibrillation seems reasonably controlled at this point. I do not have any acute recommendations. We will plan on following him intermittently at this point. cc: Antonio Cantu MD
[2019-08-09] MEDS: ALBUMIN 25% IV SCH ×2 (00:48→06:19)
[2019-08-09] MEDS: DIPRIVAN 1% 1,000 MG/100 ML BOTTLE IV SCH ×2 (01:42→07:59)
[2019-08-09] MEDS: LOPRESSOR IV SCH ×2 (01:45→09:10)
[2019-08-09 05:06] LABS: ALLEN TEST YES; BE -9.5 mmoll (-3.0-3.0); BLOOD TYPE ARTERIAL; HCO3-(ACT) 17.5 mmoll (20.0-26.0); PCO2(98.6) 24 mmHg (35-45); PO2(98.6) 83 mmHg (60-100); SAMPLE BLOOD; SRATE 15 BPM; TVOL 500 mL; pH(98.6) 7.37 (7.35-7.45)
[2019-08-09 05:09] LABS: MODALITY VENTILATOR
[2019-08-09] MEDS: PRILOSEC PO SCH (06:19)
[2019-08-09] MEDS: MERREM 500 MG in NS 50 ML IV SCH ×2 (06:19→18:17)
[2019-08-09] MEDS ORDERED: NS 2,000 ML MISC PRN (06:42)
[2019-08-09 06:50] LABS: BASO# 0.02 X1000 (0.0-0.2); BASO% 0.2 % (0.0-0.8); EOS# 0.14 X1000 (0.0-0.7); EOS% 1.3 % (0.0-10.0); HEMATOCRIT 26.6 % (42.0-52.0); HEMOGLOBIN 8.4 g/dL (14.0-18.0); IMM GRAN# 0.05 X1000 (0.0-0.04); IMM GRAN% 0.5 % (0.0-0.5); LYMPH# 0.48 X1000 (1.2-3.4); LYMPH% 4.5 % (20.5-51.1); MCH 24.9 PG (27-31); MCHC 31.6 g/dL (33-37); MCV 78.7 FL (81-99); MONO# 0.76 X1000 (0.11-0.59); MONO% 7.2 % (1.7-9.3); MPV 10.8 FL (7.4-10.4); NEUT# 9.16 X1000 (1.4-6.5); NEUT% 86.3 % (42.2-75.2); PLT 131 X1000 (130-400); RBC 3.38 XMIL (4.7-6.1); RDW 20.6 % (11.5-14.5); WBC 10.61 X1000 (4.8-10.8)
--- NOTE | 2019-08-09 06:51 | Diag Imaging Result Doc PS360 ---
CHEST-1 VIEW - 08/09/2019 INDICATION: SOB COMPARISON: 08/08/2019 FINDINGS: Support tubes are stable. Stable cardiomegaly. Pulmonary vascularity remains grossly normal. There has been improvement in aeration of the right lower lobe with better visualization of the right hemidiaphragm. Stable opacification at the left lung base. Overall improvement in the background hazy interstitial pulmonary edema. IMPRESSION: Improvement from prior. Electronically signed by Max Andre 08/09/2019 6:48 AM
[2019-08-09 07:42] LABS: BANDS 2 % (0-1); LYMPHS 6 % (21-51); MONO 4 % (1-9); SEGS 86 % (42-75)
[2019-08-09 08:17] LABS: ALB/GLOB RATIO 1.6; ALBUMIN 4.9 g/dL (3.5-5.0); CALCIUM 9.9 mg/dL (8.8-10.2); CREATININE 3.6 mg/dL (0.7-1.2); POTASSIUM 4.6 mmol/L (3.5-5.1); TOTAL BILIRUBIN 1.42 mg/dL (0.20-1.00); TOTAL PROTEIN 7.9 g/dL (6.3-8.3)
[2019-08-09] MEDS: XOPENEX NEB INH PRN ×5 (08:32→23:33)
[2019-08-09] MEDS: HEPARIN SUBQ SCH ×2 (10:00→20:44)
[2019-08-09] MEDS: PEPCID IV SCH ×2 (10:00→20:44)
[2019-08-09] MEDS: SODIUM CHLORIDE 0.9% INJ SCH ×2 (10:00→20:44)
[2019-08-09] MEDS ORDERED: ATIVAN IV PRN (10:14)
[2019-08-09] MEDS ORDERED: MORPHINE IV PRN (10:14)
[2019-08-09] MEDS: ZYVOX 600 MG/D5W 600 MG/300 ML IVPB IV SCH ×2 (10:48→22:53)
[2019-08-09] MEDS: HALDOL IV PRN (10:49)
[2019-08-09] MEDS ORDERED: NEO-SYNEPHRINE 50 MG in NS 250 ML IV SCH (11:30)
[2019-08-09] MEDS: CARDIZEM 100 MG/NS 100 MG/100 ML IVPB IV SCH ×2 (11:38→19:32)
--- NOTE | 2019-08-09 12:23 | PROGRESS NOTE ---
DATE: 08/09/2019 OBJECTIVE: Vital Signs: Blood pressure is 81/52, heart rate of 90, respiratory rate 25, temperature was 99.2 degrees. She has been dialyzed. Urine output is still minimal, 110 to 150. Cardiovascular: Soft S1, S2 anteriorly. Pulmonary: Anterior breath sounds bilaterally, clear. GI: Soft, nontender. Some distention. Bowel sounds diminished. IMAGING AND LABORATORY DATA: White count is 10, hemoglobin and hematocrit 8 and 26, platelets 131,000. PH 7.37, pCO2 of 24, PaO2 of 83. Lactate 2.3. BUN and creatinine of 74 and 3.6. Total bilirubin 1.42, AST 47. Chest x-ray today showed improvement because he had diffuse interstitial infiltrates and elevated diaphragm on the right side. PROBLEM LIST: 1. Acute hypoxic respiratory failure, presumably due to flash pulmonary edema versus sepsis and acute lung injury. He is on very minimal settings. I think he has not tolerated weaning trials very well due to tachypnea, tachycardia, but hopefully we can progress towards that. They have stopped his propofol today because of hypotension, but he required propofol versus Ativan and morphine, which did not work apparently very well. 2. Acute kidney injury with oliguric acute tubular necrosis. We will continue to monitor. Urine output is still minimal. He is still on renal replacement therapy, which right now is continuous venovenous hemodialysis. 3. Microcytic anemia, stable. 4. Cholelithiasis, choledocholithiasis, and cholangitis. He is day 8 postoperative and doing well. Liver enzymes are trending downwards. 5. Disposition. Progressing next towards extubation. Hopefully, that will occur soon. cc: Earnest Blake MD
[2019-08-09] MEDS ORDERED: NARCAN IV ONE (12:33)
--- NOTE | 2019-08-09 12:38 | PROVIDER PROGRESS NOTE ---
Progress Note Subjective: intubated and sedated. Family at bedside and updated on plan of care. All questions were answered. Objective: temperature 98.2, pulse 92, respirations 22, blood pressure 112/52, 02 sat 99% on 30% FiO2 mechanical ventilation. General: elderly white male lying in bed in no acute distress. HEENT: normocephalic, atraumatic. Pupils equal and reactive. Mucous membranes dry. Trachea midline. Skin: warm and dry. Multiple laparoscopic incisions on the abdomen. Neck: supple, JVD noted on inspiration. Cardiovascular: distance heart tones. Regular rate and rhythm. No murmurs or gallops noted. Respiratory: coarse lung sounds anteriorly. Abdomen: slightly firm, nontender. protuberant. Scattered bowel sounds noted. : Ovalles in place with chuck urine. Extremities. No clubbing or cyanosis. Slight pitting to bilateral hips. Vas cath to the left groin. Neurological: sedated with propofol. Labs: WBC 10.61, hemoglobin 8.4, hematocrit 26.6, platelet count 131, sodium 140, potassium 4.6, chloride 100, carbon dioxide 13, anion gap 27, BUN 74, creatinine 3.6, intake 1998, output 2350. Impression: Acute kidney injury without recovery. Creatinine and BUN stable. He had a 2 L ultrafiltration yesterday with SLED and we will attempt another four hour treatment today for 2-4L as tolerated. Monitor for now. Blood pressure. Stable. Anemia. Low, does not mean transfusion criteria. Volume status. Euvolemic on exam. Metabolic acidosis. Stable. Managed with SLED. Medication review. Cardizem and haldol recently started. No changes.
[2019-08-09 13:27] LABS: ALLEN TEST YES; BE -9.1 mmoll (-3.0-3.0); BLOOD TYPE ARTERIAL; HCO3-(ACT) 17.8 mmoll (20.0-26.0); METHB 0.9 % (0.0-1.5); O2(CT) 13.6 mL/dL (15.0-23.0); O2HB 95.2 % (95.0-99.0); PCO2(98.6) 23 mmHg (35-45); PO2(98.6) 82 mmHg (60-100); SAMPLE BLOOD; SAO2 97.4 % (95.0-100.0); THB 10.1 g/dL (11.5-17.4)
[2019-08-09 13:29] LABS: MODALITY VENTILATOR
--- NOTE | 2019-08-09 15:38 | PROVIDER PROGRESS NOTE ---
Progress Note Dr. Roth Progress Note/Pulmonary and or critical care Subjective: The patient is intubated and sedated with diprovan drip. He has been on SLED about 2.5 hours with total of 4 hours. His blood pressure drops to 85/52. He is not on any pressor at this time. NG tube feeding is on with Ovalles and rectal tube in. He apparently developed some diarrhea since yesterday. at the bedside. Weaning trials will start after SLED completed. Objective: Vital Signs: T 99.2 (Highest temperature 99.8in last 24 hours), UT 90, RR 25, BP 81/52 and SaO2 97% on AC 15, 30%, 500, 5. I/O -351 ml Physical Examination: General: Intubated. Lying in bed with no acute distress noted. HEENT: Normocephalic. Trachea midline. ET tube in place. Mucosa pink and moist. Chest: Mechanically ventilated. Mild tachypnea. Symmetrical excursion. Clear to auscultation bilaterally. CVS: Regular rate and rhythm with murmur noted. Abdomen: Soft. Bowel sounds in all 4 quadrants noted. Left femoral Vas-Cath in place and SLED on. Extremities: No pedal edema. No cyanosis. No clubbing. Dorsalis pedis diminished bilaterally. 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 Neuro: Sedated. Unresponsive to verbal stimuli. Grimacing and withdrawal noted to painful stimuli. Labs and Radiology: Laboratory Results 08/09/19 08/09/19 08/09/19 04:56 06:00 06:00 WBC 10.61 RBC 3.38 L Hgb 8.4 L Hct 26.6 L MCV 78.7 L MCH 24.9 L MCHC 31.6 L RDW Std Deviation 20.6 H Plt Count 131 MPV 10.8 H Immature Gran % (Auto) 0.5 Neut % (Auto) 86.3 H Lymph % (Auto) 4.5 L [place] % (Auto) 7.2 Eos % (Auto) 1.3 Baso % (Auto) 0.2 Immature Gran # (Auto) 0.05 H Neut # (Auto) 9.16 H Lymph # (Auto) 0.48 L [place] # (Auto) 0.76 H Eos # (Auto) 0.14 Baso # (Auto) 0.02 Segmented Neutrophils 86 H Band Neutrophils 2 H Lymphocytes 6 L Monocytes 4 Unidentified Cells 2.0 PTT (Actin FS) Specimen Type ARTERIAL Sample Site R RADIAL pH 7.37 pCO2 24 L pO2 83 HCO3 17.5 L Base Excess -9.5 L Oxyhemoglobin ABG O2 Sat (Calculated) ABG O2 Saturation ABG Carboxyhemoglobin ABG Methemoglobin Hunter Test YES A-a O2 Difference 101.0 Total Hemoglobin Lactate 2.30 H Blood Gas Modality VENTILATOR Vent Mode A/C Spontaneous Rate 15 FiO2 % 30.0 Tidal Volume 500 PEEP 5.0 Pressure Support CPAP Sodium 140 Potassium 4.6 Chloride 100 Carbon Dioxide 13 L Anion Gap 27 BUN 74 H Creatinine 3.6 H Estimated GFR/1.73 m2 17 BUN/Creatinine Ratio 21 Glucose 129 H Calculated Osmolality 303 Calcium 9.9 Total Bilirubin 1.42 H AST 47 H ALT 9 L Alkaline Phosphatase 115 Total Protein 7.9 Albumin 4.9 Globulin 3.0 Albumin/Globulin Ratio 1.6 08/09/19 08/09/19 08:43 13:20 WBC RBC Hgb Hct MCV MCH MCHC RDW Std Deviation Plt Count MPV Immature Gran % (Auto) Neut % (Auto) Lymph % (Auto) [place] % (Auto) Eos % (Auto) Baso % (Auto) Immature Gran # (Auto) Neut # (Auto) Lymph # (Auto) [place] # (Auto) Eos # (Auto) Baso # (Auto) Segmented Neutrophils Band Neutrophils Lymphocytes Monocytes Unidentified Cells PTT (Actin FS) 36.7 Specimen Type ARTERIAL Sample Site L RADIAL pH 7.40 pCO2 23 L pO2 82 HCO3 17.8 L Base Excess -9.1 L Oxyhemoglobin 95.2 ABG O2 Sat (Calculated) 13.6 L ABG O2 Saturation 97.4 ABG Carboxyhemoglobin 1.50 ABG Methemoglobin 0.9 Hunter Test YES A-a O2 Difference 103.0 Total Hemoglobin 10.1 L Lactate 2.10 Blood Gas Modality VENTILATOR Vent Mode CPAP Spontaneous Rate FiO2 % 30.0 Tidal Volume PEEP Pressure Support 5.00 CPAP 5.0 Sodium Potassium Chloride Carbon Dioxide Anion Gap BUN Creatinine Estimated GFR/1.73 m2 BUN/Creatinine Ratio Glucose Calculated Osmolality Calcium Total Bilirubin AST ALT Alkaline Phosphatase Total Protein Albumin Globulin Albumin/Globulin Ratio Assessment: Acute respiratory failure. Intubated on 08/04/19. Pulmonary edema and pleural effusions. CXR this morning shows improving background hazy interstitial pulmonary edema. Acute kidney injury secondary to acute tubular necrosis. No recovery. On Sustained low-efficiency dialysis (SLED) since 08/05/[address] Montero. Altered mental status secondary to global encephalopathy. Cholelithiasis with choledocholithiasis, associated with ascending cholangitis. S/P laparoscopic cholecystectomy with operative cholangiogram on 08/01/19. Atrial fibrillation. High anion-gap metabolic acidosis and metabolic acidosis, compensated with respiratory alkalosis. Prognosis is guarded. Plan: Continue current treatment and supportive care per admitting and other teams on the case. Daily weaning trials started on 08/07/19. Ventilator settings checked and titrated to Patients needs per clinical protocols with closely monitoring. Sedation (discontinue Diprivan; start prn Ativan, Morphine and Haldol) titrated to the patients needs per clinical protocols with closely monitoring. Antibiotics, including Linezolid and Meropenem. Bronchodilators. Appropriate DVT and GI prophylaxis Discuss patients condition and care plan with Patients and daughter at the bedside. All questions have been answered. Evaluation time in minutes: 32 minutes.
[2019-08-09] MEDS ORDERED: OFIRMEV 1000 MG/ISOTONIC SOLN 1,000 MG/100 ML BOTTLE IV PRN (18:23)
[2019-08-09] MEDS: DILAUDID IV PRN ×2 (18:31→22:47)
[2019-08-09] MEDS ORDERED: DIPRIVAN 1% 1,000 MG/100 ML BOTTLE IV SCH (18:45)
[2019-08-09] MEDS: NS NEB INH SCH ×2 (19:19→23:33)
[2019-08-09] MEDS: ZYLOPRIM PO SCH (20:44)
[2019-08-10] MEDS: XOPENEX NEB INH PRN ×4 (03:14→23:08)
[2019-08-10] MEDS: NS NEB INH SCH (03:14)
[2019-08-10] MEDS: MERREM 500 MG in NS 50 ML IV SCH ×2 (04:50→18:30)
[2019-08-10] MEDS ORDERED: NS 50 ML ONE (04:51)
[2019-08-10 05:10] LABS: BASO# 0.03 X1000 (0.0-0.2); BASO% 0.2 % (0.0-0.8); EOS# 0.06 X1000 (0.0-0.7); EOS% 0.4 % (0.0-10.0); HEMATOCRIT 28.3 % (42.0-52.0); HEMOGLOBIN 8.9 g/dL (14.0-18.0); IMM GRAN# 0.07 X1000 (0.0-0.04); IMM GRAN% 0.4 % (0.0-0.5); LYMPH# 0.62 X1000 (1.2-3.4); LYMPH% 3.8 % (20.5-51.1); MCH 24.9 PG (27-31); MCHC 31.4 g/dL (33-37); MCV 79.1 FL (81-99); MONO# 1.03 X1000 (0.11-0.59); MONO% 6.3 % (1.7-9.3); MPV 10.4 FL (7.4-10.4); NEUT# 14.44 X1000 (1.4-6.5); NEUT% 88.9 % (42.2-75.2); PLT 137 X1000 (130-400); RBC 3.58 XMIL (4.7-6.1); RDW 20.8 % (11.5-14.5); WBC 16.25 X1000 (4.8-10.8)
[2019-08-10] MEDS: DILAUDID IV PRN (05:12)
[2019-08-10 05:25] LABS: CALCIUM 9.3 mg/dL (8.8-10.2); CREATININE 4.3 mg/dL (0.7-1.2)
[2019-08-10 05:26] LABS: ALLEN TEST YES; BE -12.9 mmoll (-3.0-3.0); BLOOD TYPE ARTERIAL; HCO3-(ACT) 14.9 mmoll (20.0-26.0); METHB 0.7 % (0.0-1.5); O2(CT) 15.8 mL/dL (15.0-23.0); O2HB 96.4 % (95.0-99.0); PCO2(98.6) 31 mmHg (35-45); PO2(98.6) 113 mmHg (60-100); SAMPLE BLOOD; SAO2 98.5 % (95.0-100.0); SRATE 15 BPM; THB 11.5 g/dL (11.5-17.4); TVOL 500 mL; pH(98.6) 7.24 (7.35-7.45)
[2019-08-10 05:29] LABS: MODALITY VENTILATOR
[2019-08-10] MEDS ORDERED: NS 2,000 ML MISC PRN (05:57)
[2019-08-10] MEDS: PRILOSEC PO SCH (06:07)
[2019-08-10] MEDS: CARDIZEM 100 MG/NS 100 MG/100 ML IVPB IV SCH ×2 (06:36→19:00)
--- NOTE | 2019-08-10 07:05 | Diag Imaging Result Doc PS360 ---
EXAM: CHEST-1 VIEW 08/10/2019 HISTORY: SOB TECHNIQUE: AP portable at 0451 COMMENT: There is an endotracheal tube with its tip 1 cm above the kael. There is an NG tube which passes below the diaphragm. Compared to 08/09/2019 there is clearing of the left lower lobe and the hemidiaphragm is now mostly visible. There is some atelectatic car changer the right base which is slightly worse than on the previous study however. The heart size remains enlarged. IMPRESSION: Improved atelectasis or pneumonia in the left lower lobe. Slightly worsened right basilar atelectasis. Electronically signed by Jude Conley 08/10/2019 7:03 AM
[2019-08-10] MEDS: HALDOL IV PRN ×2 (08:15→18:59)
[2019-08-10] MEDS: HEPARIN SUBQ SCH ×2 (10:00→20:32)
[2019-08-10] MEDS: SODIUM CHLORIDE 0.9% INJ SCH (10:00)
[2019-08-10] MEDS: ZYVOX 600 MG/D5W 600 MG/300 ML IVPB IV SCH ×2 (10:00→22:55)
[2019-08-10] MEDS: PEPCID IV SCH ×2 (10:00→21:00)
[2019-08-10] MEDS ORDERED: SODIUM BICARBONATE 8.4% 100 MEQ in D5W 500 ML IV SCH (12:45)
--- NOTE | 2019-08-10 13:33 | PROGRESS NOTE ---
DATE: 08/10/2019 SUBJECTIVE: Patient has no major complaints but he is intubated and sedated. OBJECTIVE: Cardiovascular: Regular rate and rhythm. Pulmonary: Bilateral breath sounds with rhonchi. Gastrointestinal: Soft, nontender, nondistended. Bowel sounds are positive. LABORATORY DATA: White count has jumped up to 16, hemoglobin and hematocrit 8.9 and 28, platelets 137,000. pH 7.24, pCO2 31, PaO2 113, bicarb is 13. BUN and creatinine is 93 and 4.6. Urine output is very small. PROBLEM LIST: 1. Acute hypoxic respiratory failure. We will continue weaning. He is not on a lot of support, but he is failing his spontaneous breathing trials because of tachycardia, tachypnea, agitation. 2. Acute kidney injury. We will continue to follow. He is still has acute tubular necrosis, oliguric. He is on renal replacement therapy. Nephrology is following. 3. Cholelithiasis, choledocholithiasis, ascending cholangitis. He is status post laparoscopic cholecystectomy and following, postop day 9. 4. Atrial fibrillation with rapid ventricular response which is not rate controlled. He is on Cardizem and we had to re-initiate Juwan-Synephrine, but he is not completely under control and he is not on Juwan-Synephrine now. 5. Biliary sepsis. He is on Merrem. He has been on that since the and he is also on Zyvox and that is been since the . We will continue to follow. His new white count is a bit concerning. We will continue to monitor. Chest x-ray looks about the same. Urine is minimal. We will continue to monitor closely. cc: Earnest Blake MD
--- NOTE | 2019-08-10 13:48 | PROVIDER PROGRESS NOTE ---
Progress Note Dr. Roth Progress Note/Pulmonary and or critical care Subjective: The patient is still intubated and weaning trials start several minutes ago. He underwent SLEDD this morning. He is tachycardiac and tachypneic with RR up to high 30s at this time. He is lethargic with eyes closed and unresponsive to verbal stimuli. I am aborting weaning trials now. There is no family at the bedside. Input is appreciated from Dr. Blake and other teams on the case. Objective: Vital Signs: T 97.3 (Low grade fever at 100.3 yesterday 1945), CA 112, RR 34, BP 150/73 and SaO2 97% on spontaneous breathing trials with PEEP 5 and FiO2 30%. I/O -958 ml Physical Examination: General: Intubated. Lying in bed with moderate cardiac and respiratory distress noted. HEENT: Normocephalic. Trachea midline. ET tube in place. Mucosa pink and moist. Chest: Tachypnea with increased work of breathing, but no accessory muscle use. Symmetrical excursion. Clear to auscultation bilaterally. CVS: Regular rate and rhythm with murmur noted. Abdomen: Soft. Bowel sounds in all 4 quadrants noted. Left femoral Vas-Cath in place and SLED on. Small amount of serosanguineous drainage continuously leaks out of the surgical incision on the right midabdominal area. Extremities: No pedal edema. No cyanosis. No clubbing. Dorsalis pedis diminished bilaterally. 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 Neuro: Sedated. Unresponsive to verbal stimuli. Grimacing and withdrawal noted t o painful stimuli. Labs and Radiology: Laboratory Results 08/10/19 08/10/19 08/10/19 04:00 04:00 05:15 WBC 16.25 H RBC 3.58 L Hgb 8.9 L Hct 28.3 L MCV 79.1 L MCH 24.9 L MCHC 31.4 L RDW Std Deviation 20.8 H Plt Count 137 MPV 10.4 Immature Gran % (Auto) 0.4 Neut % (Auto) 88.9 H Lymph % (Auto) 3.8 L [place] % (Auto) 6.3 Eos % (Auto) 0.4 Baso % (Auto) 0.2 Immature Gran # (Auto) 0.07 H Neut # (Auto) 14.44 H Lymph # (Auto) 0.62 L [place] # (Auto) 1.03 H Eos # (Auto) 0.06 Baso # (Auto) 0.03 PTT (Actin FS) Specimen Type ARTERIAL Sample Site R RADIAL pH 7.24 L pCO2 31 L pO2 113 H HCO3 14.9 L Base Excess -12.9 L Oxyhemoglobin 96.4 ABG O2 Sat (Calculated) 15.8 ABG O2 Saturation 98.5 ABG Carboxyhemoglobin 1.40 ABG Methemoglobin 0.7 Hunter Test YES A-a O2 Difference 62.0 Total Hemoglobin 11.5 Lactate 2.30 H Blood Gas Modality VENTILATOR Vent Mode A/C Spontaneous Rate 15 FiO2 % 30.0 Tidal Volume 500 PEEP 5.0 Sodium 135 L Potassium 5.0 Chloride 96 L Carbon Dioxide 13 L Anion Gap 26 BUN 93 H Creatinine 4.3 H Estimated GFR/1.73 m2 13 BUN/Creatinine Ratio 22 Glucose 169 H Calculated Osmolality 303 Calcium 9.3 08/10/19 06:15 WBC RBC Hgb Hct MCV MCH MCHC RDW Std Deviation Plt Count MPV Immature Gran % (Auto) Neut % (Auto) Lymph % (Auto) [place] % (Auto) Eos % (Auto) Baso % (Auto) Immature Gran # (Auto) Neut # (Auto) Lymph # (Auto) [place] # (Auto) Eos # (Auto) Baso # (Auto) PTT (Actin FS) 39.2 Specimen Type Sample Site pH pCO2 pO2 HCO3 Base Excess Oxyhemoglobin ABG O2 Sat (Calculated) ABG O2 Saturation ABG Carboxyhemoglobin ABG Methemoglobin Hunter Test A-a O2 Difference Total Hemoglobin Lactate Blood Gas Modality Vent Mode Spontaneous Rate FiO2 % Tidal Volume PEEP Sodium Potassium Chloride Carbon Dioxide Anion Gap BUN Creatinine Estimated GFR/1.73 m2 BUN/Creatinine Ratio Glucose Calculated Osmolality Calcium Assessment: Acute respiratory failure. Intubated on 08/04/19. Pulmonary edema and pleural effusions. CXR today shows improved atelectasis or pneumonia in the left lower lobe and slightly worsened right basilar atelectasis. Acute kidney injury secondary to acute tubular necrosis. No recovery. On Sustained low-efficiency dialysis (SLED) since 08/05/[address] Montero. Altered mental status secondary to global encephalopathy. Cholelithiasis with choledocholithiasis, associated with ascending cholangitis. S/P laparoscopic cholecystectomy with operative cholangiogram on 08/01/19. Atrial fibrillation. High anion-gap metabolic acidosis and metabolic acidosis, partially compensated with respiratory alkalosis. Prognosis is guarded. Plan: Continue current treatment and supportive care per admitting and other teams on the case. Daily weaning trials started on 08/07/19. Abort weaning trials today as patient is too acidotic and lethargic. If patient keeps acidotic, we will consider to repeat abdomen/pelvic CT scan. We check Ventilator settings and titrate to Patients needs per clinical protocols. We will keep closely monitoring patients clinical response. We titrate Sedation (prn Dilaudid and Haldol, discontinue prn Ativan and Morph ine) to the patients needs per clinical protocols. We will keep closely monitoring patients clinical response. Antibiotics, including Linezolid and Meropenem. Bronchodilators. Appropriate DVT and GI prophylaxis Evaluation time in minutes: 31 minutes.
--- NOTE | 2019-08-10 15:52 | PROVIDER PROGRESS NOTE ---
Progress Note Subjective: intubated and sedated. at bedside and updated on plan of care. All questions were answered. Objective: temperature 97.3, pulse 92, respirations 28, blood pressure 124/68, 02 sat 91% on 30% FiO2 mechanical ventilation. General: elderly white male lying in bed in no acute distress. HEENT: normocephalic, atraumatic. Pupils equal and reactive. Mucous membranes dry. Trachea midline. Skin: warm and dry. Multiple laparoscopic incisions on the abdomen. Neck: supple, JVD noted on inspiration. Cardiovascular: distance heart tones. Regular rate and rhythm. No murmurs or gallops noted. Respiratory: coarse lung sounds anteriorly. Improved from yesterday. Abdomen: slightly firm, nontender. protuberant. Scattered bowel sounds noted. : Ovalles in place with chuck urine. Extremities. No clubbing or cyanosis. Slight pitting to bilateral hips. Vas cath to the left groin. Neurological: sedated with propofol. Labs: WBC 16.25, hemoglobin 8.9, hematocrit 28.3, count 137, sodium 135, potassium 5.0, chloride 96, carbon dioxide 13, BUN 93, creatinine 4.3. Intake 1763, outfit 2721. Impression: Acute kidney injury without recovery. Creatinine and BUN stable. He had a 2.2 L ultrafiltration yesterday with SLED. He appears Euvolemic so we will not attempt any ultrafiltration today. Atrial fibrillation with recent RVR. Cardizem drip in place with current heart rate 70-90s. Blood pressure. Stable. Anemia. Low, does not mean transfusion criteria. Volume status. Euvolemic on exam. Anion gap acidosis. We will check an acetone level. Help with management with Hemodialysis. Medication reviewed.
--- NOTE | 2019-08-10 18:25 | GENERAL SURGERY PROGRESS NOTE ---
DATE: 08/10/2019 SUBJECTIVE: He is now 9 days after his laparoscopic cholecystectomy for cholangitis and cholecystitis. OBJECTIVE: He remains afebrile. Heart rate 104, blood pressure 126/68. Abdomen: Distended due to ascites. He remains on the ventilator and undergoing dialysis. LABORATORY DATA: White count is 16,000 today. ASSESSMENT/PLAN: I have no new surgical recommendations. We will be available if needed. cc: Mason Murphy MD
[2019-08-10] MEDS: ZYLOPRIM PO SCH (20:31)
[2019-08-10] MEDS: MYCOSTATIN POWDER TOP SCH (20:33)
[2019-08-11] MEDS: DILAUDID IV PRN ×2 (00:12→04:40)
[2019-08-11] MEDS: XOPENEX NEB INH PRN ×4 (03:25→15:39)
[2019-08-11] MEDS: MERREM 500 MG in NS 50 ML IV SCH ×2 (04:45→05:08)
[2019-08-11 05:06] LABS: BASO# 0.02 X1000 (0.0-0.2); BASO% 0.1 % (0.0-0.8); EOS# 0.13 X1000 (0.0-0.7); EOS% 0.9 % (0.0-10.0); HEMATOCRIT 25.5 % (42.0-52.0); HEMOGLOBIN 8.1 g/dL (14.0-18.0); IMM GRAN# 0.06 X1000 (0.0-0.04); IMM GRAN% 0.4 % (0.0-0.5); LYMPH% 3.6 % (20.5-51.1); MCH 24.7 PG (27-31); MCHC 31.8 g/dL (33-37); MCV 77.7 FL (81-99); MONO# 0.92 X1000 (0.11-0.59); MONO% 6.6 % (1.7-9.3); MPV 9.9 FL (7.4-10.4); NEUT# 12.21 X1000 (1.4-6.5); NEUT% 88.4 % (42.2-75.2); PLT 128 X1000 (130-400); RBC 3.28 XMIL (4.7-6.1); WBC 13.84 X1000 (4.8-10.8)
[2019-08-11 05:09] LABS: ALLEN TEST YES; BLOOD TYPE ARTERIAL; HCO3-(ACT) 22.6 mmoll (20.0-26.0); O2(CT) 5.2 mL/dL (15.0-23.0); O2HB 98.2 % (95.0-99.0); PCO2(98.6) 31 mmHg (35-45); PO2(98.6) 123 mmHg (60-100); SAMPLE BLOOD; SRATE 15 BPM; THB 3.5 g/dL (11.5-17.4); TVOL 500 mL; pH(98.6) 7.44 (7.35-7.45)
[2019-08-11 05:10] LABS: MODALITY VENTILATOR
[2019-08-11 05:35] LABS: CALCIUM 9.5 mg/dL (8.8-10.2); CREATININE 3.9 mg/dL (0.7-1.2)
[2019-08-11 05:44] LABS: SEGS 96 % (42-75)
[2019-08-11] MEDS: CARDIZEM 100 MG/NS 100 MG/100 ML IVPB IV SCH ×2 (06:09→11:28)
[2019-08-11] MEDS: PRILOSEC PO SCH (06:15)
[2019-08-11] MEDS ORDERED: NS 2,000 ML MISC PRN (06:21)
--- NOTE | 2019-08-11 06:46 | Diag Imaging Result Doc PS360 ---
CHEST-1 VIEW - 08/11/2019 INDICATION: SOB COMPARISON: 08/10/2019 FINDINGS: Support lines and tubes are stable. Stable severely low lung volumes. Stable hazy infiltrate in the left lower lobe. New opacity in the right lung apex appears to be artifactual. Heart size remains normal. IMPRESSION: No change from prior. Electronically signed by Max Andre 08/11/2019 6:44 AM
[2019-08-11] MEDS: HEPARIN SUBQ SCH (08:21)
[2019-08-11] MEDS: MYCOSTATIN POWDER TOP SCH (08:21)
[2019-08-11] MEDS: SODIUM CHLORIDE 0.9% INJ SCH (08:21)
[2019-08-11] MEDS: PEPCID IV SCH (08:21)
[2019-08-11 10:45] LABS: ALLEN TEST YES; BE 0.5 mmoll (-3.0-3.0); BLOOD TYPE ARTERIAL; HCO3-(ACT) 25.3 mmoll (20.0-26.0); O2(CT) 12.9 mL/dL (15.0-23.0); O2HB 97.5 % (95.0-99.0); PCO2(98.6) 29 mmHg (35-45); PO2(98.6) 100 mmHg (60-100); SAMPLE BLOOD; SAO2 100.4 % (95.0-100.0); THB 9.3 g/dL (11.5-17.4); pH(98.6) 7.51 (7.35-7.45)
[2019-08-11 10:47] LABS: MODALITY VENTILATOR
[2019-08-11] MEDS: ZYVOX 600 MG/D5W 600 MG/300 ML IVPB IV SCH (11:04)
[2019-08-11] MEDS ORDERED: DILAUDID IV PRN (12:34)
[2019-08-11 14:22] LABS: ALLEN TEST YES; BE 0.6 mmoll (-3.0-3.0); BLOOD TYPE ARTERIAL; HCO3-(ACT) 25.4 mmoll (20.0-26.0); METHB 0.8 % (0.0-1.5); O2(CT) 12.3 mL/dL (15.0-23.0); O2HB 95.5 % (95.0-99.0); PCO2(98.6) 30 mmHg (35-45); PO2(98.6) 80 mmHg (60-100); SAMPLE BLOOD; SAO2 98.2 % (95.0-100.0); THB 9.1 g/dL (11.5-17.4)
[2019-08-11 14:23] LABS: MODALITY COOL AEROSOL
--- NOTE | 2019-08-11 16:16 | PROVIDER PROGRESS NOTE ---
Progress Note Dr. Roth Progress Note/Pulmonary and or critical care Subjective: The patient is still intubated and has been on CPAP trial since 929. He is undergoing SLEDD at this time. He is mildly tachycardiac and tachypneic with RR up to low 30s at this time. He is lethargic with eyes closed and unresponsive to verbal stimuli. ABG at 10:35 shows some respiratory alkalosis. We do suction at the bedside and patient shows good cough effort. We are deciding to extubate him and will recheck ABG 2 hours later. Family at the bedside. Input is appreciated from Dr. Blake and other teams on the case. Objective: Vital Signs: T 99.9 (the highest temperature in last 24 hours), MI 110, RR 22, BP 130/70 and SaO2 100% on AC 15, 28%, 500, 5. I/O +1105 ml Physical Examination: General: Intubated. Lying in bed with moderate cardiac and respiratory distress noted. HEENT: Normocephalic. Trachea midline. ET tube in place. Mucosa pink and moist. Chest: Tachypnea with increased work of breathing, but no accessory muscle use. Symmetrical excursion. Clear to auscultation bilaterally. CVS: Regular rate and rhythm with murmur noted. Abdomen: Soft. Bowel sounds in all 4 quadrants noted. Left femoral Vas-Cath in place and SLED on. Dry and clean dressing on the surgical incision on the right midabdominal area. Extremities: No pedal edema. No cyanosis. No clubbing. Dorsalis pedis diminished bilaterally. 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 Neuro: Sedated. Unresponsive to verbal stimuli. Grimacing and withdrawal noted to painful stimuli. Labs and Radiology: Laboratory Results 08/11/19 08/11/19 08/11/19 04:45 04:45 04:45 WBC 13.84 H RBC 3.28 L Hgb 8.1 L Hct 25.5 L MCV 77.7 L MCH 24.7 L MCHC 31.8 L RDW Std Deviation 21.0 H Plt Count 128 L MPV 9.9 Immature Gran % (Auto) 0.4 Neut % (Auto) 88.4 H Lymph % (Auto) 3.6 L [place] % (Auto) 6.6 Eos % (Auto) 0.9 Baso % (Auto) 0.1 Immature Gran # (Auto) 0.06 H Neut # (Auto) 12.21 H Lymph # (Auto) 0.50 L [place] # (Auto) 0.92 H Eos # (Auto) 0.13 Baso # (Auto) 0.02 Segmented Neutrophils 96 H Unidentified Cells 4.0 PTT (Actin FS) Specimen Type Sample Site pH pCO2 pO2 HCO3 Base Excess Oxyhemoglobin ABG O2 Sat (Calculated) ABG O2 Saturation ABG Carboxyhemoglobin ABG Methemoglobin Hunter Test A-a O2 Difference Total Hemoglobin Lactate Liter Flow Blood Gas Modality Vent Mode Spontaneous Rate FiO2 % Tidal Volume PEEP Pressure Support CPAP Sodium 134 L Potassium 4.0 D Chloride 92 L Carbon Dioxide 19 L Anion Gap 23 BUN 92 H Creatinine 3.9 H Estimated GFR/1.73 m2 15 BUN/Creatinine Ratio 24 Glucose 169 H Calculated Osmolality 300 Calcium 9.5 Acetone Level NEGATIVE 08/11/19 08/11/19 08/11/19 04:59 07:35 10:35 WBC RBC Hgb Hct MCV MCH MCHC RDW Std Deviation Plt Count MPV Immature Gran % (Auto) Neut % (Auto) Lymph % (Auto) [place] % (Auto) Eos % (Auto) Baso % (Auto) Immature Gran # (Auto) Neut # (Auto) Lymph # (Auto) [place] # (Auto) Eos # (Auto) Baso # (Auto) Segmented Neutrophils Unidentified Cells PTT (Actin FS) 42.4 H Specimen Type ARTERIAL ARTERIAL Sample Site R RADIAL L RADIAL pH 7.44 7.51 H pCO2 31 L 29 L pO2 123 H 100 HCO3 22.6 25.3 Base Excess -3.0 0.5 Oxyhemoglobin 98.2 97.5 ABG O2 Sat (Calculated) 5.2 L 12.9 L ABG O2 Saturation 100.0 100.4 H ABG Carboxyhemoglobin 1.80 2.80 H ABG Methemoglobin 0.0 0.0 Hunter Test YES YES A-a O2 Difference 52.0 78.0 Total Hemoglobin 3.5 L 9.3 L Lactate 2.40 H 1.70 Liter Flow Blood Gas Modality VENTILATOR VENTILATOR Vent Mode A/C CPAP Spontaneous Rate 15 FiO2 % 30.0 30.0 Tidal Volume 500 PEEP 5.0 Pressure Support 5.00 CPAP 5.0 Sodium Potassium Chloride Carbon Dioxide Anion Gap BUN Creatinine Estimated GFR/1.73 m2 BUN/Creatinine Ratio Glucose Calculated Osmolality Calcium Acetone Level 08/11/19 14:10 WBC RBC Hgb Hct MCV MCH MCHC RDW Std Deviation Plt Count MPV Immature Gran % (Auto) Neut % (Auto) Lymph % (Auto) [place] % (Auto) Eos % (Auto) Baso % (Auto) Immature Gran # (Auto) Neut # (Auto) Lymph # (Auto) [place] # (Auto) Eos # (Auto) Baso # (Auto) Segmented Neutrophils Unidentified Cells PTT (Actin FS) Specimen Type ARTERIAL Sample Site L RADIAL pH 7.50 H pCO2 30 L pO2 80 HCO3 25.4 Base Excess 0.6 Oxyhemoglobin 95.5 ABG O2 Sat (Calculated) 12.3 L ABG O2 Saturation 98.2 ABG Carboxyhemoglobin 2.00 ABG Methemoglobin 0.8 Hunter Test YES A-a O2 Difference 168.0 Total Hemoglobin 9.1 L Lactate 2.70 H Liter Flow 10.0 Blood Gas Modality COOL AEROSOL Vent Mode Spontaneous Rate FiO2 % 40.0 Tidal Volume PEEP Pressure Support CPAP Sodium Potassium Chloride Carbon Dioxide Anion Gap BUN Creatinine Estimated GFR/1.73 m2 BUN/Creatinine Ratio Glucose Calculated Osmolality Calcium Acetone Level Assessment: Acute respiratory failure. Intubated on 08/04/19. Pulmonary edema and pleural effusions. CXR today shows stable severe low lung volume, stable hazy LLL infiltrate and new opacity in the right lung apex which appears to artifactual. Acute kidney injury secondary to acute tubular necrosis. No recovery. On Sustained low-efficiency dialysis (SLED) since 08/05/[address] Montero. Altered mental status secondary to global encephalopathy. Cholelithiasis with choledocholithiasis, associated with ascending cholangitis. S/P laparoscopic cholecystectomy with operative cholangiogram on 08/01/19. Atrial fibrillation. High anion-gap metabolic acidosis and metabolic alkalosis, compensated with respiratory alkalosis. Improving. Prognosis is guarded. Plan: Continue current treatment and supportive care per admitting and other teams on the case. Daily weaning trials started on 08/07/19. We are going to extubate the patient and will recheck ABG 2 hours later. We also decrease the frequency of IV Dilaudid. Antibiotics, including Linezolid and Meropenem. Bronchodilators. Appropriate DVT and GI prophylaxis We discuss patients condition and care plan with family at the bedside and all questions have been answered. Evaluation time in minutes: 32 minutes.
--- NOTE | 2019-08-11 18:16 | PROGRESS NOTE ---
DATE: 08/11/2019 SUBJECTIVE: Patient has no major complaints. OBJECTIVE: Blood pressure is 145/73, heart rate 115, respiratory rate of 31, temp was 99.8 degrees.Cardiovascular: Regular rate and rhythm. Pulmonary: Bilateral breath sounds clear to auscultation. GI: Soft, nontender, nondistended. Bowel sounds are positive. LABORATORY DATA: White count is 13 which is down from 16, hemoglobin and hematocrit are 8 and 25 which are down a little bit from yesterday but stable from August 09. Platelets are down to 128,000. PH 7.51, pCO2 29, PaO2 100, that is on 30%. BUN and creatinine are 92 and 3.9. Acetone is negative. His bicarb has come up a bit to 19, but his BUN is 92, so I think azotemia is most likely the cause of his acidosis but in any case. PROBLEM LIST: 1. Acute hypoxic respiratory failure. We will plan to extubate today. He is not really awake, but certainly his spontaneous breathing trial is stable and blood gases look okay, so the plan is most likely to extubate today. 2. Acute kidney injury, oliguric, likely acute tubular necrosis from sepsis. Kidney function is still poor. No urine output. He is on renal replacement therapy. 3. Ascending cholangitis with biliary sepsis, status post laparoscopic cholecystectomy and I believe endoscopic retrograde cholangiopancreatography, postop day 10. He is getting tube feeds. Continue to monitor. 4. Atrial fibrillation. We will continue Cardizem until his blood pressure stabilizes. 5. Biliary sepsis. He is on Merrem which is day 5 and Zyvox is day 9. White count has come down. 6. Metabolic acidosis. Again, I do not think this is hyperglycemia. His blood sugars have been fine, but his BUN is 92 and it has climbed from 74, 77, 38, that is despite dialysis. Certainly need to make sure there is no evidence of GI bleed, but we will continue to monitor closely. I am going to switch him from Pepcid to Protonix and we will follow. cc: Earnest Blake MD
--- NOTE | 2019-08-11 20:27 | PROVIDER PROGRESS NOTE ---
Progress Note Subjective: intubated without sedation. No family at bedside. Objective: temperature 99.9, pulse 110, respirations 22, blood pressure 130/70, O2 sat 100% on 30% FiO2 mechanical ventilation. General: elderly white male lying in bed in no acute distress. HEENT: normocephalic, atraumatic. Pupils equal and reactive. Mucous membranes dry. Trachea midline. Skin: warm and dry. Multiple laparoscopic incisions on the abdomen. Neck: supple, JVD noted with hepatojugular reflux. Cardiovascular: distance heart tones. Irregular rate and rhythm. No murmurs or gallops noted. Respiratory: clear lung sounds anteriorly. Abdomen: slightly firm, nontender. protuberant. Hypoactive bowel sounds noted. Rectal tube in place with brown liquid output. : Ovalles in place with chuck urine. Extremities. No clubbing or cyanosis. Slight pitting to bilateral hips. Vas cath to the left groin. Neurological: received a dose of dilaudid a few hours ago. He is off sedation but drowsy. Aroused to verbal and tactile stimuli. Remains intubated. Labs: WBC 13.84, hemoglobin 8.1, hematocrit 25.5, platelet count 128, sodium 134, Potassium 4.0, chloride 92, carbon dioxide 19, BUN 92, creatinine 3.9, acetone level negative, intake 2335, output 1230. Impression: Acute kidney injury without recovery. Creatinine and BUN slightly improved. He had an 828mL ultrafiltration yesterday with SLED. We will attempt SLED today with a 3K bath and 2L ultrafiltration. Atrial fibrillation with recent RVR. Cardizem drip in place with current heart rate 110s. Blood pressure. Stable. Anemia. Low, does not mean transfusion criteria. Volume status. Slightly expanded. Management with SLED. Anion gap acidosis. Resolved. Medication reviewed. Propofol discontinued, PRN dilaudid started.
[2019-08-12] MEDS: HEPARIN SUBQ SCH ×3 (00:41→20:00)
[2019-08-12] MEDS: PROTONIX IV SCH ×2 (00:42→20:00)
[2019-08-12] MEDS: SODIUM CHLORIDE 0.9% INJ SCH (00:42)
[2019-08-12] MEDS: CARDIZEM 100 MG/NS 100 MG/100 ML IVPB IV SCH ×2 (00:43→14:41)
[2019-08-12] MEDS: ZYLOPRIM PO SCH ×2 (00:49→20:00)
[2019-08-12] MEDS: ZYVOX 600 MG/D5W 600 MG/300 ML IVPB IV SCH ×3 (00:51→23:13)
[2019-08-12] MEDS: MYCOSTATIN POWDER TOP SCH ×3 (00:52→20:06)
[2019-08-12] MEDS: MERREM 500 MG in NS 50 ML IV SCH ×2 (04:44→18:17)
[2019-08-12 05:49] LABS: BASO# 0.02 X1000 (0.0-0.2); BASO% 0.2 % (0.0-0.8); EOS# 0.14 X1000 (0.0-0.7); EOS% 1.1 % (0.0-10.0); HEMATOCRIT 25.9 % (42.0-52.0); HEMOGLOBIN 8.1 g/dL (14.0-18.0); IMM GRAN# 0.06 X1000 (0.0-0.04); IMM GRAN% 0.5 % (0.0-0.5); LYMPH# 0.57 X1000 (1.2-3.4); LYMPH% 4.3 % (20.5-51.1); MCH 24.5 PG (27-31); MCHC 31.3 g/dL (33-37); MCV 78.5 FL (81-99); MONO# 1.21 X1000 (0.11-0.59); MONO% 9.1 % (1.7-9.3); MPV 10.6 FL (7.4-10.4); NEUT# 11.32 X1000 (1.4-6.5); NEUT% 84.8 % (42.2-75.2); PLT 154 X1000 (130-400); RDW 20.9 % (11.5-14.5); WBC 13.32 X1000 (4.8-10.8)
[2019-08-12] MEDS ORDERED: NS 2,000 ML MISC PRN (05:54)
[2019-08-12 06:48] LABS: ALLEN TEST YES; BE -2.6 mmoll (-3.0-3.0); BLOOD TYPE ARTERIAL; HCO3-(ACT) 22.9 mmoll (20.0-26.0); PCO2(98.6) 36 mmHg (35-45); PO2(98.6) 95 mmHg (60-100); SAMPLE BLOOD; pH(98.6) 7.39 (7.35-7.45)
[2019-08-12 06:49] LABS: MODALITY COOL AEROSOL
--- NOTE | 2019-08-12 07:25 | Diag Imaging Result Doc PS360 ---
EXAM: CHEST-1 VIEW INDICATION: SOB TECHNIQUE: One view COMPARISON: 08/11/2019 FINDINGS: There has been interval extubation. The NG tube is in stable position. There has been interval development of platelike atelectasis at the right lung base. The left lower lobe opacity has improved. No new consolidation is identified. Cardiac silhouette is stable. IMPRESSION: Improvement of left basilar opacity and development of platelike atelectasis at the right lung base. Electronically signed by Raman Jiang 08/12/2019 7:23 AM
[2019-08-12] MEDS: XOPENEX NEB INH PRN ×4 (07:48→19:37)
[2019-08-12 07:58] LABS: CALCIUM 9.5 mg/dL (8.8-10.2); CREATININE 3.6 mg/dL (0.7-1.2); POTASSIUM 3.9 mmol/L (3.5-5.1)
[2019-08-12] MEDS ORDERED: ZOFRAN IV PRN (12:04)
--- NOTE | 2019-08-12 12:51 | PROGRESS NOTE ---
DATE: 08/12/2019 SUBJECTIVE: He is still very lethargic, very confused, but overall improved. OBJECTIVE: Vital Signs: Blood pressure is 116/66, heart rate of 90, respiratory rate 26, temperature 97.6 degrees, 100% on 40%. Cardiovascular: Regular rate and rhythm. Pulmonary: Bilateral breath sounds clear to auscultation. GI: Soft, nontender, nondistended. Bowel sounds are positive. LABORATORY DATA: White count 13, hemoglobin and hematocrit 8 and 25, platelets 154,000. The pH was 7.39, pCO2 36, PaO2 95. Lactate is up a little at 2.9. BUN and creatinine are down fortunately, 85 and 3.6. Bicarb is up to 20. Acetone is still negative. I am wondering if maybe we could stop that. PROBLEM LIST: 1. Acute hypoxic respiratory failure. He is better. He has been extubated, although he still fairly confused. 2. Acute kidney injury/acute tubular necrosis. Kidney function is still poor. No urine output. He is on renal replacement therapy. 3. Ascending cholangitis with biliary sepsis, status post ERCP, laparoscopic cholecystectomy. He is still on antibiotics. This is postop day 11. We will need to advance diet when his mental status is better. 4. Atrial fibrillation. He is stable on Cardizem. Holding anticoagulation, but this will need to be resumed at some point. 5. Metabolic acidosis. Anion gap positive. I think it may be multifactorial, but I think most of it is azotemia. He does have a little bit of lactate acidosis. Sugars are not elevated enough for me to consider ketoacidosis. We will continue to follow. cc: Earnest Blake MD
--- NOTE | 2019-08-12 14:36 | Diag Imaging Result Doc PS360 ---
CT HEAD W/O CONTRAST - 08/12/2019 INDICATION: encephalopathy COMPARISON: None FINDINGS: There is moderate diffuse cerebral atrophy. No intracranial mass or hemorrhage. The skull is intact. The sinuses, mastoids, and middle ears are clear. There is dense vascular calcification of the carotid siphons bilaterally. IMPRESSION: Moderate cerebral atrophy. No acute process. This exam was performed using automated exposure control, adjustment of mA or kV according to patient size, and/or use of iterative reconstruction technique Electronically signed by Max Andre 08/12/2019 2:34 PM
[2019-08-12] MEDS ORDERED: BLISTEX MEDICATED BERRY LIP BALM TOP PRN (15:27)
--- NOTE | 2019-08-12 17:58 | PULMONOLOGY PROGRESS NOTE ---
DATE: 08/12/2019 SUBJECTIVE: The patient's eyes are open. He is arousable but does not follow commands. OBJECTIVE: The patient has been afebrile for the last 24 hours. Blood pressure 116/66, heart rate 90, respiratory rate 26, oxygen saturation 100% on 40% face mask. HEENT: Pupils are equal. Oropharynx appears dry but clear. Neck is supple. Chest reveals rhonchi bilaterally. Cardiac exam: S1, S2. Abdomen is soft. Extremities without edema. LABORATORY DATA: White blood count 13.3, hemoglobin 8.1, platelet count 154,000. Sodium 138, potassium 3.9, chloride 95, bicarbonate 20, BUN 85, creatinine 3.6. DIAGNOSTIC DATA: Chest x-ray reveals mild improvement in the left basilar opacity with new platelike atelectasis on the right. IMPRESSION: A 78-year-old with: 1. Acute hypoxemic respiratory failure, status post intubation and extubation. 2. Pneumonia. 3. Acute renal failure on replacement therapy. 4. Encephalopathy. 5. Ascending cholangitis, status post laparoscopic cholecystectomy. DISCUSSION: A 78-year-old with problems outlined above. He currently has no increased work of breathing but his cough effort appears to be diminished. Hopefully, with improving status his mental status will also improve. RECOMMENDATIONS: 1. Continue ICU monitoring pending improvement in mental status. 2. Continue current antibiotics. 3. Continue bronchial hygiene. 4. Continue DVT prophylaxis. cc: Familia Hinojosa MD
--- NOTE | 2019-08-12 18:00 | NEPHROLOGY PROGRESS NOTE ---
DATE: 08/12/2019 SUBJECTIVE: His states that he does make some purposeful movements and attempts to verbalize. At the time of my exam, he is staring off to the left, did not respond verbally. OBJECTIVE: Vital Signs: Blood pressure 116/66, heart rate 90, respirations 26, afebrile. General: No acute distress. Skin: Warm and dry. Neck: Veins are not appreciated. Heart: Regular. No gallops. Lungs: Equal. No crackles. Abdomen: Soft. Minimal bowel sounds. Nontender. Extremities: No edema. IMPRESSION/PLAN: Acute kidney injury. No recovery thus far. He had dialysis this morning, and we will hold this over the weekend and observe his response. Volume status, electrolytes acid- base, etc., all are in target. cc: Moris Montero MD
[2019-08-13] MEDS: XOPENEX NEB INH PRN ×5 (02:36→22:53)
[2019-08-13 04:48] LABS: ALLEN TEST YES; BE -2.3 mmoll (-3.0-3.0); BLOOD TYPE ARTERIAL; HCO3-(ACT) 23.1 mmoll (20.0-26.0); METHB 0.2 % (0.0-1.5); MODALITY ROOM AIR; O2(CT) 15.4 mL/dL (15.0-23.0); PCO2(98.6) 30 mmHg (35-45); PO2(98.6) 87 mmHg (60-100); SAMPLE BLOOD; SAO2 98.3 % (95.0-100.0); THB 11.3 g/dL (11.5-17.4); pH(98.6) 7.45 (7.35-7.45)
[2019-08-13] MEDS: CARDIZEM 100 MG/NS 100 MG/100 ML IVPB IV SCH ×2 (05:23→20:31)
[2019-08-13] MEDS: MERREM 500 MG in NS 50 ML IV SCH ×2 (05:36→18:14)
[2019-08-13 05:51] LABS: BASO# 0.03 X1000 (0.0-0.2); BASO% 0.3 % (0.0-0.8); EOS# 0.15 X1000 (0.0-0.7); EOS% 1.3 % (0.0-10.0); HEMATOCRIT 26.9 % (42.0-52.0); HEMOGLOBIN 8.3 g/dL (14.0-18.0); IMM GRAN# 0.05 X1000 (0.0-0.04); IMM GRAN% 0.4 % (0.0-0.5); LYMPH# 0.42 X1000 (1.2-3.4); LYMPH% 3.6 % (20.5-51.1); MCH 24.3 PG (27-31); MCHC 30.9 g/dL (33-37); MCV 78.7 FL (81-99); MONO# 1.11 X1000 (0.11-0.59); MONO% 9.5 % (1.7-9.3); MPV 10.1 FL (7.4-10.4); NEUT# 9.91 X1000 (1.4-6.5); NEUT% 84.9 % (42.2-75.2); PLT 164 X1000 (130-400); RBC 3.42 XMIL (4.7-6.1); RDW 21.2 % (11.5-14.5); WBC 11.67 X1000 (4.8-10.8)
[2019-08-13 06:35] LABS: CALCIUM 9.9 mg/dL (8.8-10.2); CREATININE 3.9 mg/dL (0.7-1.2); PHOSPHORUS 5.5 mg/dL (2.7-4.5); POTASSIUM 3.7 mmol/L (3.5-5.1)
--- NOTE | 2019-08-13 07:34 | Diag Imaging Result Doc PS360 ---
EXAM: CHEST-1 VIEW HISTORY: SOB TECHNIQUE: Single view COMPARISON: 08/12/2019 FINDINGS: No change in the nasogastric tube. Heart is borderline mildly prominent. Mild central vascular distention. There is atelectasis in the lung bases. There may be underlying infiltrates as well. Tiny effusions. IMPRESSION: No interval change. Electronically signed by Xavier Valladares 08/13/2019 7:32 AM
[2019-08-13] MEDS: HEPARIN SUBQ SCH ×2 (08:30→20:12)
[2019-08-13] MEDS: MYCOSTATIN POWDER TOP SCH ×2 (08:30→20:13)
[2019-08-13] MEDS: ZYVOX 600 MG/D5W 600 MG/300 ML IVPB IV SCH ×2 (11:42→22:43)
--- NOTE | 2019-08-13 14:11 | PULMONOLOGY PROGRESS NOTE ---
DATE: 08/13/2019 SUBJECTIVE: The patient is awake. He will intermittently answer questions. OBJECTIVE: Vital signs: The patient has been afebrile for the last 24 hours. Blood pressure 121/65, heart rate 100, respiratory rate 25, oxygen saturation 96%. HEENT: Pupils are equal and reactive. Oropharynx appears clear. Neck: Supple. Chest: Crackles bilaterally. Cardiac exam: S1, S2. Abdomen: Soft with no bowel sounds present. Extremities: Without edema. LABORATORY AND DIAGNOSTIC DATA: Chest x-ray reveals shallow inspiration with mild bibasilar infiltrates. Microbiology reveals no new data. Arterial blood gas reveals pH 7.45, pCO2 of 30, PO2 of 87. White blood count 11.67, hemoglobin 8.3, platelet count 164,000. Sodium 140, potassium 3.7, chloride 97, bicarbonate 20, BUN 81, creatinine 3.9. IMPRESSION: A 78-year-old with: 1. Acute hypoxemic respiratory failure. 2. Mild pneumonia. 3. Acute renal failure. 4. Encephalopathy with fluctuating mental status. 5. Ascending cholangitis status post laparoscopic cholecystectomy. PLAN: 1. Continue bronchial hygiene. 2. Continue current antibiotic regimen. 3. Continue DVT prophylaxis. 4. Discontinue daily arterial blood gases. cc: Familia Hinojosa MD
--- NOTE | 2019-08-13 14:38 | NEPHROLOGY PROGRESS NOTE ---
DATE: 08/13/2019 SUBJECTIVE: He is more alert today. Nods to my questions. Trying to talk but I cannot understand him. OBJECTIVE: Vital Signs: Blood pressure 109/56, heart rate 105, respirations 24, afebrile. General: No acute distress. Skin: Warm and dry. Neck: Neck veins are not distended. Heart: Regular and tachycardic. Lungs: Equal, no crackles, shallow. Abdomen: Soft. Bowel sounds are present. Extremities: Trace edema. No clubbing or cyanosis. IMPRESSION: Acute kidney injury. No recovery. Urine output is still very low. Holding dialysis over the weekend. cc: Moris Montero MD
--- NOTE | 2019-08-13 14:51 | PROGRESS NOTE ---
DATE: 08/13/2019 SUBJECTIVE: Patient has no major complaints, but he is awake today. He is at least following commands, although not speaking much. He is attempting to speak. I think some of this is just profound weakness. OBJECTIVE: Vital Signs: Blood pressure 109/56, heart rate of 105--he is still on a very low-dose Cardizem drip, respiratory rate of 24, temperature--I think he was afebrile, yes, temperature is 98 degrees. Cardiovascular: Regular rate and rhythm. Pulmonary: Bilateral breath sounds clear to auscultation. GI: Soft, nontender, nondistended. Bowel sounds are positive. LABORATORY DATA: White count 11, hemoglobin and hematocrit 8 and 26, platelets 164,000, pH 7.45, pCO2 30, PaO2 87, BUN and creatinine of 81 and 3.9, phos of 5.5, bicarb of 20. His acetone is negative. IMAGING: Chest x-ray is stable. Head CT showed atrophy, but no acute process. PROBLEM LIST: 1. Acute hypoxic respiratory failure. He has been extubated. He is very weak, but he is more arousable. 2. Acute kidney injury, acute tubular necrosis, dependent on renal replacement. We are holding off this weekend. His urine output though is marginal--he put out 40, 85, 20, there is just no urine output so he is still oliguric, so we will continue to monitor that. 3. Ascending cholangitis with sepsis, status post ERCP, laparoscopic cholecystectomy. He is on antibiotics, this is postop day 11. His antibiotics, he has been on linezolid since the August 02 11 days, and meropenem since August 06 for 7 days. DISPOSITION: He is still profoundly weak, we have not been able to sit him up or anything. I will get PT to see him and start working some passive resistance in the bed and follow. He will likely need rehab at discharge assuming he continues to progress. Prognosis still guarded. cc: Earnest Blake MD [facility]
[2019-08-13] MEDS: DILAUDID IV PRN (16:15)
[2019-08-13] MEDS: PROTONIX IV SCH (20:12)
[2019-08-13] MEDS: ZYLOPRIM PO SCH (20:12)
[2019-08-14] MEDS: CARDIZEM 100 MG/NS 100 MG/100 ML IVPB IV SCH (02:34)
[2019-08-14] MEDS: MERREM 500 MG in NS 50 ML IV SCH ×2 (04:55→16:51)
[2019-08-14 05:42] LABS: BASO# 0.04 X1000 (0.0-0.2); BASO% 0.4 % (0.0-0.8); EOS# 0.18 X1000 (0.0-0.7); EOS% 1.6 % (0.0-10.0); HEMATOCRIT 25.1 % (42.0-52.0); IMM GRAN# 0.06 X1000 (0.0-0.04); IMM GRAN% 0.5 % (0.0-0.5); LYMPH# 0.82 X1000 (1.2-3.4); LYMPH% 7.3 % (20.5-51.1); MCHC 31.9 g/dL (33-37); MCV 78.4 FL (81-99); MONO# 0.52 X1000 (0.11-0.59); MONO% 4.6 % (1.7-9.3); MPV 10.2 FL (7.4-10.4); NEUT# 9.59 X1000 (1.4-6.5); NEUT% 85.6 % (42.2-75.2); PLT 170 X1000 (130-400); RDW 21.1 % (11.5-14.5); WBC 11.21 X1000 (4.8-10.8)
[2019-08-14 06:19] LABS: ALBUMIN 3.9 g/dL (3.5-5.0); CALCIUM 9.9 mg/dL (8.8-10.2); CREATININE 5.4 mg/dL (0.7-1.2); PHOSPHORUS 7.1 mg/dL (2.7-4.5); POTASSIUM 3.4 mmol/L (3.5-5.1)
--- NOTE | 2019-08-14 07:42 | Diag Imaging Result Doc PS360 ---
EXAM: CHEST-1 VIEW 08/14/2019 HISTORY: SOB TECHNIQUE: AP portable at 0508 COMMENT: There is an NG tube with its tip below the diaphragm. There is minimal platelike atelectasis over the lung bases. The appearance of the chest has not changed appreciably since 08/13/2019. IMPRESSION: Stable chest. Electronically signed by Jude Conley 08/14/2019 7:39 AM
[2019-08-14] MEDS: XOPENEX NEB INH PRN ×3 (07:46→19:42)
[2019-08-14] MEDS: MYCOSTATIN POWDER TOP SCH ×2 (09:12→20:04)
[2019-08-14] MEDS: HEPARIN SUBQ SCH ×2 (09:12→20:04)
[2019-08-14] MEDS: ZYVOX 600 MG/D5W 600 MG/300 ML IVPB IV SCH ×2 (12:11→23:38)
[2019-08-14] MEDS ORDERED: RISPERDAL M-TAB PO PRN (14:29)
--- NOTE | 2019-08-14 14:49 | PROGRESS NOTE ---
DATE: 08/14/2019 SUBJECTIVE: Today, he seems like he is doing better. He is much more awake. He actually is a bit agitated and he is confused but he is much more awake. It looks like he has got strength. OBJECTIVE: Blood pressure 126/72, heart rate of 95, respiratory rate of 24, temperature 98 degrees, 97% on room air. Cardiovascular: Regular rate and rhythm. Pulmonary: Bilateral breath sounds clear to auscultation. GI: Soft, nontender, nondistended. Bowel sounds were positive. White count 11, hemoglobin and hematocrit 8 and 25, platelets 170,000. Potassium 3.4, BUN and creatinine 111 and 5.4. PROBLEM LIST: 1. Acute hypoxic respiratory failure. He seems better. Chest x-ray improving. 2. Acute kidney injury due to acute tubular necrosis but he is dialysis-dependent now. His BUN is up to 111. I think that is at least partially contributing to his confusion so plan most likely on dialysis. His urine output still has not picked up. 3. Ascending cholangitis, sepsis, status post laparoscopic cholecystectomy. He is on antibiotics, postoperative day 12. He is on linezolid 12 days and meropenem 8 days. 4. Encephalopathy, is likely multifactorial. PLAN: I think he is probably getting close to being able to get out of here. The only thing, the family is concerned that if he is not watched, he will have issues which is a concern but I also explained he may be able to rest a bit better out of the unit. We will continue to work with physical therapy and see how he does. cc: Earnest Blake MD
--- NOTE | 2019-08-14 15:06 | PULMONOLOGY PROGRESS NOTE ---
DATE: 08/14/2019 SUBJECTIVE: The patient is awake and alert. He is conversant for the 1st time. He denies specific complaints. OBJECTIVE: Vital Signs: The patient has been afebrile for the last 24 hours. Blood pressure 115/69, heart rate 90, respiratory rate 20, oxygen saturation 96% on room air. HEENT: Pupils are equal and reactive. Oropharynx appears clear. Neck: Supple. Chest: Reveals crackles in the lung bases. Cardiac: S1-S2. Abdomen: Soft with positive bowel sounds. Extremities: Without edema. LABORATORIES: Chest x-ray reveals mild atelectasis/residual infiltrates in the lung bases. IMPRESSION: A 78-year-old with: 1. Acute hypoxemic respiratory failure. This has resolved. 2. Mild bibasilar pneumonia with stable x-ray. 3. Acute renal failure. 4. Encephalopathy with clinical improvement. 5. Status post cholecystectomy for ascending cholangitis. PLAN: 1. Continue bronchial hygiene. 2. Agree with physical therapy evaluation and mobilize as tolerated. 3. Continue DVT prophylaxis. cc: Familia Hinojosa MD
[2019-08-14] MEDS: CARDIZEM PO SCH (16:19)
[2019-08-14] MEDS: PROTONIX IV SCH (20:04)
[2019-08-14] MEDS: ZYLOPRIM PO SCH (20:04)
[2019-08-14] MEDS: DILAUDID IV PRN (20:06)
[2019-08-15] MEDS: ZYVOX 600 MG/D5W 600 MG/300 ML IVPB IV SCH ×4 (00:15→22:47)
[2019-08-15] MEDS: XOPENEX NEB INH PRN (03:27)
[2019-08-15] MEDS: MERREM 500 MG in NS 50 ML IV SCH ×2 (04:40→17:28)
[2019-08-15 06:05] LABS: BASO# 0.03 X1000 (0.0-0.2); BASO% 0.3 % (0.0-0.8); EOS# 0.14 X1000 (0.0-0.7); EOS% 1.5 % (0.0-10.0); HEMATOCRIT 25.5 % (42.0-52.0); HEMOGLOBIN 8.1 g/dL (14.0-18.0); IMM GRAN# 0.06 X1000 (0.0-0.04); IMM GRAN% 0.6 % (0.0-0.5); LYMPH# 0.41 X1000 (1.2-3.4); LYMPH% 4.2 % (20.5-51.1); MCH 24.7 PG (27-31); MCHC 31.8 g/dL (33-37); MCV 77.7 FL (81-99); MONO# 0.76 X1000 (0.11-0.59); MONO% 7.9 % (1.7-9.3); MPV 10.2 FL (7.4-10.4); NEUT# 8.25 X1000 (1.4-6.5); NEUT% 85.5 % (42.2-75.2); PLT 180 X1000 (130-400); RBC 3.28 XMIL (4.7-6.1); WBC 9.65 X1000 (4.8-10.8)
[2019-08-15] MEDS ORDERED: NS 2,000 ML MISC PRN (06:24)
[2019-08-15] MEDS ORDERED: HEPARIN IV PRN (06:24)
[2019-08-15] MEDS ORDERED: TIGHT: 0.2 ML/HR FOR DIALYSIS MISC PRN (06:24)
[2019-08-15 06:40] LABS: ALBUMIN 3.8 g/dL (3.5-5.0); CALCIUM 9.4 mg/dL (8.8-10.2); PHOSPHORUS 7.1 mg/dL (2.7-4.5); POTASSIUM 3.1 mmol/L (3.5-5.1)
[2019-08-15 07:23] LABS: EOS 1 % (1-10); LYMPHS 6 % (21-51); MONO 8 % (1-9); SEGS 85 % (42-75)
[2019-08-15] MEDS: HEPARIN SUBQ SCH ×2 (07:59→20:20)
[2019-08-15] MEDS: CARDIZEM PO SCH ×3 (07:59→18:13)
[2019-08-15] MEDS: MYCOSTATIN POWDER TOP SCH ×2 (08:00→20:20)
--- NOTE | 2019-08-15 15:00 | PROGRESS NOTE ---
DATE: 08/15/2019 SUBJECTIVE: The patient has no major complaints but he seems very lethargic today. OBJECTIVE: Blood pressure 132/67, heart rate 109, respiratory rate of 24, temperature 97.6 degrees.Cardiovascular: Regular rate and rhythm. Pulmonary: Bilateral breath sounds clear to auscultation. GI: Soft, nontender, nondistended. Bowel sounds are positive. LABORATORY DATA: White count 9, hemoglobin and hematocrit 8 and 25, platelets 180,000. Potassium 3.1, creatinine 6.0 and a BUN of 140. PROBLEM LIST: 1. Acute kidney injury, acute tubular necrosis. I do think he needs dialysis. I think the azotemia is probably causing a lot of his confusion but that is just my opinion. We will see how he does after dialysis today. 2. Acute hypoxic respiratory failure. He is improving. That seems to be doing better, I think with continued ultrafiltration, volume removal that should get better. 3. Ascending cholangitis status post laparoscopic cholecystectomy, he is doing okay. He is on day 13 of linezolid. I think we could probably stop after 14 days. He is on meropenem. This will be day 9. We will consider continuing for 10 to 14 days. 4. Encephalopathy seems to be stable DISPOSITION: I think he is slowly progressing. I think once we kind of optimize his electrolytes I think his mental status should improve. I am going to continue watching him in the unit for the time being. cc: Earnest Blake MD [facility]
[2019-08-15] MEDS: DILAUDID IV PRN (17:29)
--- NOTE | 2019-08-15 19:22 | PROVIDER PROGRESS NOTE ---
Progress Note Subjective: patient opens his eyes to verbal stimuli however he does not speak. No family at bedside. Objective: temperature 97.6, pulse 109, respirations 24, blood pressure 132/67, 02 sat 97% on 2 L nasal cannula. General: elderly white male lying in bed in no acute distress. HEENT: normocephalic, atraumatic. Pupils equal and reactive. Mucous membranes dry. Trachea midline. NG tube in place with tube feeding on hold. Skin: warm and dry. Multiple bruises. Neck: supple, No JVD observed. Cardiovascular: distance heart tones. Tachycardic rate and rhythm. No murmurs or gallops noted. Respiratory: coarse lung sounds anteriorly. Abdomen: soft, nontender. protuberant. Hyperactive bowel sounds noted. Rectal tube in place with brown liquid output. : Ovalles in place with chuck urine. Extremities. No clubbing, cyanosis, or edema. Vas cath to the left groin. Neurological: DroWsy, Unable to assess Labs: WBC 9.65, hemoglobin 8.1, Hematocrit 25.5, platelet count 180, sodium 139, potassium 3.1, chloride 93, carbon dioxide 19, BUN 140, creatinine 6.0. Intake 930, output 770. Impression: Acute kidney injury without recovery. Creatinine and BUN tianna without dialysis. He will have hemodialysis with a 3K bath and attempt a 2 L ultrafiltration. Blood pressure. Stable. Anemia. Low, does not mean transfusion criteria. Volume status. Euvolemic. Anion gap acidosis. Related to his renal failure. Nutrition. Tube feeding in place. Medication reviewed. No changes.
[2019-08-15] MEDS: ZYLOPRIM PO SCH (20:19)
[2019-08-15] MEDS: SODIUM CHLORIDE 0.9% INJ SCH (20:19)
[2019-08-15] MEDS: PROTONIX IV SCH (20:19)
[2019-08-16] MEDS: ZYVOX 600 MG/D5W 600 MG/300 ML IVPB IV SCH ×4 (01:51→22:04)
[2019-08-16] MEDS: DILAUDID IV PRN ×2 (01:52→08:22)
[2019-08-16] MEDS: MERREM 500 MG in NS 50 ML IV SCH ×2 (05:22→16:48)
[2019-08-16 06:17] LABS: BASO# 0.03 X1000 (0.0-0.2); BASO% 0.3 % (0.0-0.8); EOS# 0.19 X1000 (0.0-0.7); HEMATOCRIT 26.3 % (42.0-52.0); HEMOGLOBIN 8.2 g/dL (14.0-18.0); IMM GRAN# 0.05 X1000 (0.0-0.04); IMM GRAN% 0.5 % (0.0-0.5); LYMPH# 0.59 X1000 (1.2-3.4); LYMPH% 6.2 % (20.5-51.1); MCH 24.6 PG (27-31); MCHC 31.2 g/dL (33-37); MCV 78.7 FL (81-99); MONO# 0.81 X1000 (0.11-0.59); MONO% 8.5 % (1.7-9.3); NEUT# 7.81 X1000 (1.4-6.5); NEUT% 82.5 % (42.2-75.2); PLT 193 X1000 (130-400); RBC 3.34 XMIL (4.7-6.1); RDW 21.1 % (11.5-14.5); WBC 9.48 X1000 (4.8-10.8)
[2019-08-16 07:02] LABS: ALBUMIN 3.9 g/dL (3.5-5.0); CALCIUM 9.5 mg/dL (8.8-10.2); CREATININE 4.5 mg/dL (0.7-1.2); PHOSPHORUS 6.6 mg/dL (2.7-4.5); POTASSIUM 3.7 mmol/L (3.5-5.1)
--- NOTE | 2019-08-16 07:02 | Diag Imaging Result Doc PS360 ---
EXAM: CHEST-PORTABLE HISTORY: abnormal exam TECHNIQUE: Single view COMPARISON: 08/14/2019 FINDINGS: Poor inspiratory effort. No change in the nasogastric tube. No consolidation. Tiny left pleural effusion. Atelectasis or scarring in the left base. IMPRESSION: Stable exam Electronically signed by Xavier Valladares 08/16/2019 6:50 AM
[2019-08-16] MEDS: HEPARIN SUBQ SCH ×2 (08:22→20:12)
[2019-08-16] MEDS: CARDIZEM PO SCH ×3 (08:23→16:48)
[2019-08-16] MEDS: MYCOSTATIN POWDER TOP SCH ×2 (08:23→20:12)
--- NOTE | 2019-08-16 13:50 | PROGRESS NOTE ---
DATE: 08/16/2019 SUBJECTIVE: Patient has no major complaints. OBJECTIVE: Vital Signs: Blood pressure is 115/75, heart rate of 109, respiratory rate 16, temperature was 97.5 degrees. Cardiovascular: Regular rate and rhythm. Pulmonary: Bilateral breath sounds diminished at bases. Gastrointestinal: Abdomen soft, nontender, nondistended. Bowel sounds are positive. LABORATORY DATA: White count is 9, hemoglobin and hematocrit 8 and 26, platelets 193,000. BUN and creatinine are 101 and 4.5. PROBLEM LIST: 1. Acute kidney injury due to acute tubular necrosis. He is still dialysis dependent. He is fairly profoundly azotemic, it is resolving. Dr. Montero is following. 2. Acute hypoxic respiratory failure that is also improving. 3. Ascending cholangitis. He is status post laparoscopic cholecystectomy. He is on day 14 of linezolid. He is on meropenem, which I think is day 10. Will finish 14 days. 4. Encephalopathy. I think it is related to electrolyte imbalance azotemia that should prove improve. We will continue PT and follow. He is probably getting close to being able to go to the floor, but we will continue to monitor. cc: Earnest Blake MD
--- NOTE | 2019-08-16 18:02 | PROVIDER PROGRESS NOTE ---
Progress Note Subjective: patient opens his eyes to verbal stimuli however he does not speak. No family at bedside. Objective: temperature 97.5, pulse 108, respirations 15, blood pressure 105/62, 02 sat 96% on room air. General: elderly white male lying in bed in no acute distress. HEENT: normocephalic, atraumatic. Pupils equal and reactive. Mucous membranes dry. Trachea midline. NG tube in place with tube feeding infusing. Skin: warm and dry. Multiple bruises. Neck: supple, No JVD observed. Cardiovascular: distance heart tones. Tachycardic rate and rhythm. No murmurs or gallops noted. Respiratory: coarse lung sounds anteriorly. Abdomen: soft, nontender. protuberant. Hyperactive bowel sounds noted. Rectal tube in place with brown liquid output. : Ovalles in place with chuck urine. Extremities. No clubbing, cyanosis, or edema. Vas cath to the left groin. Neurological: DroWsy, Unable to assess Labs: WBC 9.48, hemoglobin 8.2, hematocrit 26.3, platelet count 193, sodium 138, potassium 3.7, chloride 94, carbon dioxide 19, BUN 101, creatinine 4.5. Intake 1615, output 2498. Impression: Acute kidney injury without recovery. Creatinine and BUN improved with hemodialysis. 1893 ml ultrafiltration noted. No changes. Blood pressure. Stable. Anemia. Low, does not mean transfusion criteria. Volume status. Euvolemic. Anion gap acidosis. Related to his renal failure. Nutrition. Tube feeding in place. Elevated residuals noted. Medication reviewed. PO cardizem started.
--- NOTE | 2019-08-16 19:47 | PROVIDER PROGRESS NOTE ---
Progress Note Dr. Roth Progress Note/Pulmonary and or critical care Subjective: The patient is lying in bed on room air with no acute distress noted. He is on NG tube feeding. He is awake, not answering questions, but following simple commands. Patients at the bedside. Input is appreciated from Dr. Blake and other teams on the case. Objective: Vital Signs: T 97.5 (no fever in last 24 hours), SD 108, RR 15, BP 105/62 and SaO2 96% on room air. I/O -883 ml Physical Examination: General: Lying in bed with no acute distress noted. HEENT: Normocephalic. Trachea midline. Mucosa pink and moist. Chest: Even and unlabored. Symmetrical excursion. Good air entry. CVS: Regular rate and rhythm with murmur noted. Abdomen: Soft. Diminished bowel sounds noted. Left femoral Vas-Cath in place. Extremities: No pedal edema. 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 Neuro: Awake. Not answering simple questions, but following simple commands. Labs and Radiology: Laboratory Results 08/16/19 08/16/19 05:30 05:30 WBC 9.48 RBC 3.34 L Hgb 8.2 L Hct 26.3 L MCV 78.7 L MCH 24.6 L MCHC 31.2 L RDW Std Deviation 21.1 H Plt Count 193 MPV 10.0 Immature Gran % (Auto) 0.5 Neut % (Auto) 82.5 H Lymph % (Auto) 6.2 L [place] % (Auto) 8.5 Eos % (Auto) 2.0 Baso % (Auto) 0.3 Immature Gran # (Auto) 0.05 H Neut # (Auto) 7.81 H Lymph # (Auto) 0.59 L [place] # (Auto) 0.81 H Eos # (Auto) 0.19 Baso # (Auto) 0.03 Sodium 138 Potassium 3.7 D Chloride 94 L Carbon Dioxide 19 L Anion Gap 25 BUN 101 H Creatinine 4.5 H Estimated GFR/1.73 m2 13 BUN/Creatinine Ratio 22 Glucose 156 H Calculated Osmolality 310 Calcium 9.5 Phosphorus 6.6 H Albumin 3.9 Assessment: Acute respiratory failure. Intubated on 08/04/19. Extubated on 08/11/19. Resolved. Mild bibasilar pneumonia. CXR today shows poor inspiratory effort and stable tiny left pleural effusion with atelectasis/scarring in the left base. Acute kidney injury secondary to acute tubular necrosis. No recovery. On Sustained low-efficiency dialysis (SLED) since 08/05/[address] Montero. Altered mental status secondary to global encephalopathy. Cholelithiasis with choledocholithiasis, associated with ascending cholangitis. S/P laparoscopic cholecystectomy with operative cholangiogram on 08/01/19. Prognosis is guarded. Plan: Extubated recently and will continue to monitor O2 needs Dialysis judgment per Renal Continue current treatment and supportive care per admitting and other teams on the case. Antibiotics, including Linezolid and Meropenem. Bronchodilators. Appropriate DVT and GI prophylaxis Physical therapy is seeing. Case was discussed with his and RN. Evaluation time in minutes: 34 minutes.
[2019-08-16] MEDS: ZYLOPRIM PO SCH (20:12)
[2019-08-16] MEDS: PROTONIX IV SCH (20:14)
[2019-08-17] MEDS: MERREM 500 MG in NS 50 ML IV SCH (05:38)
[2019-08-17 06:21] LABS: BASO# 0.03 X1000 (0.0-0.2); BASO% 0.3 % (0.0-0.8); EOS# 0.14 X1000 (0.0-0.7); EOS% 1.5 % (0.0-10.0); HEMATOCRIT 24.9 % (42.0-52.0); IMM GRAN# 0.03 X1000 (0.0-0.04); IMM GRAN% 0.3 % (0.0-0.5); LYMPH% 6.3 % (20.5-51.1); MCH 25.1 PG (27-31); MCHC 32.1 g/dL (33-37); MCV 78.1 FL (81-99); MONO# 0.62 X1000 (0.11-0.59); MONO% 6.5 % (1.7-9.3); MPV 9.9 FL (7.4-10.4); NEUT# 8.13 X1000 (1.4-6.5); NEUT% 85.1 % (42.2-75.2); PLT 186 X1000 (130-400); RBC 3.19 XMIL (4.7-6.1); RDW 21.2 % (11.5-14.5); WBC 9.55 X1000 (4.8-10.8)
[2019-08-17] MEDS ORDERED: NS 2,000 ML MISC PRN (06:34)
[2019-08-17 06:59] LABS: ALBUMIN 3.5 g/dL (3.5-5.0); CALCIUM 9.4 mg/dL (8.8-10.2); CREATININE 4.1 mg/dL (0.7-1.2); PHOSPHORUS 6.4 mg/dL (2.7-4.5); POTASSIUM 3.2 mmol/L (3.5-5.1)
[2019-08-17] MEDS: HEPARIN SUBQ SCH (08:58)
[2019-08-17] MEDS: CARDIZEM PO SCH ×4 (08:58→23:58)
[2019-08-17] MEDS: MYCOSTATIN POWDER TOP SCH ×2 (08:59→21:00)
[2019-08-17] MEDS ORDERED: CATHFLO IV ONE ×2 (09:54)
[2019-08-17] MEDS ORDERED: STERILE WATER INJ. INJ ONE (09:54)
[2019-08-17] MEDS: ZYVOX 600 MG/D5W 600 MG/300 ML IVPB IV SCH (10:38)
[2019-08-17] MEDS ORDERED: CARDIZEM IV ONE (13:59)
--- NOTE | 2019-08-17 14:15 | PROGRESS NOTE ---
DATE: 08/17/2019 SUBJECTIVE: The patient is still weak but awakens. Answers questions but he is still very confused. OBJECTIVE: Blood pressure 124/60, heart rate of 121, respiratory rate of 20, temperature was 97.6 degrees, afebrile. Cardiovascular: Tachycardic. Pulmonary: Bilateral breath sounds clear to auscultation. GI: Soft, nontender, nondistended. Bowel sounds were positive. Extremity Examination: No clubbing or cyanosis. Lymphatic Examination: No peripheral edema. Neurological: Examination was nonfocal. Laboratory Data: White count is 9, hemoglobin and hematocrit 8 and 24, platelets 186,000. PTT 70. Potassium 3.4, BUN and creatinine 123 and 4.1. PROBLEM LIST: 1. Acute kidney injury due to acute tubular necrosis. He is still dialysis dependent. He is getting sustained low-efficiency dialysis currently. His azotemia is still fairly profound, improved since its peak of 140 but worse than yesterday. I think he got dialyzed yesterday too, so it will be a slower process presumably because he is on the sustained low-efficiency dialysis. 2. Acute hypoxic respiratory failure due to sepsis. He is stable currently. 3. Ascending cholangitis, status post laparoscopic cholecystectomy, endoscopic retrograde cholangiopancreatography. He is on day 14 of linezolid and day 11 of meropenem now. I think per pharmacology notes, he has had 14 days of Merrem and Zyvox. I think we can probably stop his antibiotics and monitor. 4. Atrial fibrillation. He is still not rate controlled so we will continue to monitor. I have increased his Cardizem. He may need some additional beta teddy and we will see how he does. DISPOSITION: Pending his cardiac issue, he most likely will need rehab at discharge. He is just not able to cc: Earnest Blake MD [facility]
--- NOTE | 2019-08-17 15:06 | PROVIDER PROGRESS NOTE ---
Progress Note Dr. Roth Progress Note/Pulmonary and or critical care Subjective: The patient is lying in bed on room air with no acute distress noted. He is on NG tube feeding. He is awake with eyes chasing us when we move in the room, but he does not answer questions. Patients at the bedside reports patient was talkative last night, but keeps quiet this morning. Input is appreciated from Dr. Blake and other teams on the case. Objective: Vital Signs: T 97.6 (no fever in last 24 hours), WY 114, RR 22, BP 112/81 and SaO2 98% on room air. I/O +1125 ml Physical Examination: General: Lying in bed with no acute distress noted. HEENT: Normocephalic. Trachea midline. Mucosa pink and moist. NG tube in place. Chest: Even and unlabored. Symmetrical excursion. Decreased air entry in the right side of lung ventura. CVS: Tachycardia. Regular rate and rhythm with murmur noted. Abdomen: Soft. Normoactive bowel sounds noted. Left femoral Vas-Cath in place. Extremities: No pedal edema. Chronic stasis dermititis noted. Left 3rd toe ampu tated. Neuro: Awake. Eyes chasing us when we move in the room. Not answering simple questions, but following simple commands. Labs and Radiology: Laboratory Results 08/17/19 08/17/19 08/17/19 05:40 05:40 08:15 WBC 9.55 RBC 3.19 L Hgb 8.0 L Hct 24.9 L MCV 78.1 L MCH 25.1 L MCHC 32.1 L RDW Std Deviation 21.2 H Plt Count 186 MPV 9.9 Immature Gran % (Auto) 0.3 Neut % (Auto) 85.1 H Lymph % (Auto) 6.3 L Posey % (Auto) 6.5 Eos % (Auto) 1.5 Baso % (Auto) 0.3 Immature Gran # (Auto) 0.03 Neut # (Auto) 8.13 H Lymph # (Auto) 0.60 L Posey # (Auto) 0.62 H Eos # (Auto) 0.14 Baso # (Auto) 0.03 PTT (Actin FS) > 215.0 H* Sodium 136 Potassium 3.2 L Chloride 94 L Carbon Dioxide 20 L Anion Gap 22 BUN 123 H Creatinine 4.1 H Estimated GFR/1.73 m2 14 BUN/Creatinine Ratio 30 Glucose 128 H Calculated Osmolality 313 Calcium 9.4 Phosphorus 6.4 H Albumin 3.5 08/17/19 10:35 WBC RBC Hgb Hct MCV MCH MCHC RDW Std Deviation Plt Count MPV Immature Gran % (Auto) Neut % (Auto) Lymph % (Auto) Posey % (Auto) Eos % (Auto) Baso % (Auto) Immature Gran # (Auto) Neut # (Auto) Lymph # (Auto) Posey # (Auto) Eos # (Auto) Baso # (Auto) PTT (Actin FS) 70.9 H D Sodium Potassium Chloride Carbon Dioxide Anion Gap BUN Creatinine Estimated GFR/1.73 m2 BUN/Creatinine Ratio Glucose Calculated Osmolality Calcium Phosphorus Albumin Assessment: Acute respiratory failure. Intubated on 08/04/19. Extubated on 08/11/19. Resolved. Mild bibasilar pneumonia. Acute kidney injury secondary to acute tubular necrosis. No recovery. On Sustained low-efficiency dialysis (SLED) since 08/05/[address] Montero. Altered mental status secondary to global encephalopathy. Cholelithiasis with choledocholithiasis, associated with ascending cholangitis. S/P laparoscopic cholecystectomy with operative cholangiogram on 08/01/19. Prognosis is guarded. Plan: Continue current treatment and supportive care per admitting and other teams on the case. Antibiotics, including Linezolid and Meropenem. Bronchodilators. Appropriate DVT and GI prophylaxis Physical therapy. We order bedside swallow evaluation. Evaluation time in minutes: 32 minutes.
[2019-08-17] MEDS: SODIUM CHLORIDE 0.9% INJ SCH (20:08)
[2019-08-17] MEDS: PROTONIX IV SCH (20:08)
[2019-08-17] MEDS: ZYLOPRIM PO SCH (20:09)
--- NOTE | 2019-08-17 21:46 | PROVIDER PROGRESS NOTE ---
Progress Note Subjective: Pt voices no complaints. He was more alert and oriented today. Objective: temperature 97.7, pulse 121, respirations 23, blood pressure 116/60, 02 sat 96% on room air. General: elderly white male lying in bed in no acute distress. HEENT: normocephalic, atraumatic. Pupils equal and reactive. Mucous membranes dry. Trachea midline. NG tube in place with tube feeding infusing. Skin: warm and dry. Multiple bruises. Neck: supple, No JVD observed. Cardiovascular: distance heart tones. Tachycardic rate and rhythm. Systolic murmur. No gallop noted. Respiratory: coarse lung sounds anteriorly. Abdomen: soft, nontender, nondistended. Active bowel sounds noted. Rectal tube in place with brown liquid output. : Ovalles in place with chuck urine. Extremities. No clubbing, cyanosis, or edema. Vas cath to the left groin. Neurological: Alert and oriented to person and place. Labs: WBC 9.5, hemoglobin 8.0, hematocrit 24.9, platelet count 186, PTT greater than 215, sodium 136, potassium 3.2, chloride 94, carbon dioxide 20, BUN 123, creatinine 4.1. Intake 2340, output 1215. Impression: Acute kidney injury without recovery. Creatinine and BUN stable. He will receive SLED with a 4K bath with a 2 L ultrafiltration over 8 hours as tolerated. Blood pressure. Stable. Anemia. Low, does not mean transfusion criteria. Volume status. Euvolemic. Anion gap acidosis. Related to his renal failure. Improving. Nutrition. Tube feeding in place. Continues to have elevated residuals. Medication reviewed.
[2019-08-18] MEDS: MORPHINE IV PRN ×2 (02:44→08:17)
[2019-08-18] MEDS: HALDOL IV PRN (02:45)
[2019-08-18] MEDS: CARDIZEM PO SCH (05:39)
[2019-08-18 05:48] LABS: BASO# 0.04 X1000 (0.0-0.2); BASO% 0.3 % (0.0-0.8); EOS% 0.7 % (0.0-10.0); HEMATOCRIT 27.2 % (42.0-52.0); HEMOGLOBIN 8.5 g/dL (14.0-18.0); IMM GRAN# 0.11 X1000 (0.0-0.04); IMM GRAN% 0.8 % (0.0-0.5); LYMPH# 0.92 X1000 (1.2-3.4); LYMPH% 6.4 % (20.5-51.1); MCH 25.3 PG (27-31); MCHC 31.3 g/dL (33-37); MONO# 0.85 X1000 (0.11-0.59); MONO% 5.9 % (1.7-9.3); MPV 9.8 FL (7.4-10.4); NEUT# 12.46 X1000 (1.4-6.5); NEUT% 85.9 % (42.2-75.2); PLT 235 X1000 (130-400); RBC 3.36 XMIL (4.7-6.1); RDW 21.6 % (11.5-14.5); WBC 14.48 X1000 (4.8-10.8)
[2019-08-18 06:07] LABS: ALBUMIN 3.5 g/dL (3.5-5.0); CALCIUM 9.1 mg/dL (8.8-10.2); CREATININE 2.2 mg/dL (0.7-1.2); PHOSPHORUS 3.9 mg/dL (2.7-4.5); POTASSIUM 4.3 mmol/L (3.5-5.1)
[2019-08-18 06:22] LABS: LYMPHS 7 % (21-51); MONO 3 % (1-9); SEGS 90 % (42-75)
[2019-08-18] MEDS ORDERED: NS 2,000 ML MISC PRN (06:31)
[2019-08-18] MEDS: XOPENEX NEB INH PRN ×5 (07:39→22:53)
[2019-08-18] MEDS: NS NEB INH SCH ×3 (07:40→15:15)
[2019-08-18] MEDS: MYCOSTATIN POWDER TOP SCH ×2 (08:17→20:51)
[2019-08-18] MEDS ORDERED: STERILE WATER INJ. INJ ONE (08:51)
[2019-08-18] MEDS ORDERED: CATHFLO IV ONE (08:51)
[2019-08-18] MEDS: HEPARIN SUBQ SCH ×2 (09:23→22:45)
[2019-08-18] MEDS ORDERED: CARDIZEM 100 MG/NS 100 MG/100 ML IVPB IV SCH (12:15)
--- NOTE | 2019-08-18 12:59 | GENERAL SURGERY PROGRESS NOTE ---
DATE: 08/18/2019 SUBJECTIVE: The patient remains in the ICU with renal failure, requiring dialysis. His hemodynamics remain somewhat variable with tachycardia and hyper and hypotension. Apparently, his Vas-Cath is now nonfunctional, and dialysis is not able to be accomplished. OBJECTIVE: Vital Signs: He is afebrile. Vital signs as noted above in HPI. General: He is somnolent, but arousable. Appears to be ill and deconditioned. CV: Tachycardic and regular. Respiratory: He is not tachypneic. No increased work of breathing. LABORATORY DATA: White blood cell count 14,000, hemoglobin 8, hematocrit 27. Electrolytes were reviewed and unremarkable. BUN 65, creatinine 2.2, potassium 4.3. ASSESSMENT AND PLAN: A 78-year-old male with acute kidney injury without recovery, recent laparoscopic cholecystectomy for cholangitis, respiratory failure, bibasilar pneumonia, encephalopathy. We are planning removal of his Vas-Cath tomorrow, and placement of a tunneled dialysis catheter in the operating room. I have explained the risks, benefits, and alternatives with his family, including bleeding, infection, catheter malfunction, deep venous thrombosis, pneumothorax, and other imponderables. They understand and agree to proceed. cc: Luciano Cervantes MD
--- NOTE | 2019-08-18 13:51 | PROVIDER PROGRESS NOTE ---
Progress Note Subjective: Pt voices no complaints. He was drowsy but had recently received IV morphine, no family at bedside. Objective: temperature 97.1, pulse 101, respirations 18, blood pressure 125/53, 02 sat 95% on room air. General: elderly white male lying in bed in no acute distress. HEENT: normocephalic, atraumatic. Pupils equal and reactive. Mucous membranes dry. Trachea midline. NG tube in place with tube feeding infusing. Skin: warm and dry. Multiple bruises. Neck: supple, Less than 6cm JVD observed. Cardiovascular: distance heart tones. Tachycardic rate and rhythm. Systolic murmur. No gallop noted. Respiratory: lung sounds clear anteriorly. Abdomen: soft, nontender, nondistended. Active bowel sounds noted. Rectal tube in place with brown liquid output. Bruising to laparoscopic incision sites. : Ovalles in place with chuck urine. Extremities: Trace hip edema. Vas cath to the left groin. Neurological: Alert and oriented to person and place. Labs: WBC 14.48, hemoglobin 8.5, hematocrit 27.2, platelet count 235, sodium 136, potassium 4.3, chloride 102, carbon dioxide 19, BUN 65, creatinine 2.2, intake 1730, output 2501. Impression: Acute kidney injury without recovery. Creatinine and BUN improved with SLED. He will receive SLED again today with a 4K bath and a 1L ultrafiltration over 8 hours as tolerated. Blood pressure. Stable. Anemia. Low, does not mean transfusion criteria. Volume status. Euvolemic. Anion gap acidosis. Related to his renal failure. Continues to improve. Nutrition. Tube feeding in place. Last residual 200ml. Medication reviewed. No changes Dr Cervantes will replace vascath with tunneled dialysis catheter.
[2019-08-18] MEDS: LOPRESSOR PO SCH ×2 (14:59→22:45)
--- NOTE | 2019-08-18 16:02 | PROVIDER PROGRESS NOTE ---
Progress Note Dr. Roth Progress Note/Pulmonary and or critical care Subjective: The patient is lying in bed on VM 40%. He appears lethargic with eye closed and unresponsive to verbal stimuli. He apparently has SLED at an earlier time. And during SLED, he once became desaturated down to 70s. He is mildly hypotensive, tachycardiac and tachypneic at this time. Family at the bedside. Input is appreciated from Dr. Blake and other teams on the case. Objective: Vital Signs: T 97.8 (no fever in last 24 hours), WY 124, RR 25, BP 88/57 and SaO2 95% on room air. I/O -711 ml Physical Examination: General: Lying in bed with no acute distress noted. Rectal tubing on. HEENT: Normocephalic. Trachea midline. Mucosa pink and moist. NG tube in place. Chest: Even and unlabored. Symmetrical excursion. Decreased air entry in the right side of lung ventura. CVS: Tachycardia. Regular rate and rhythm with murmur noted. Abdomen: Soft. Normoactive bowel sounds noted. Left femoral Vas-Cath in place. Extremities: No pedal edema. 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 Neuro: Lethargic. Labs and Radiology: Laboratory Results 08/18/19 08/18/19 08/18/19 04:30 04:30 06:40 WBC 14.48 H RBC 3.36 L Hgb 8.5 L Hct 27.2 L MCV 81.0 MCH 25.3 L MCHC 31.3 L RDW Std Deviation 21.6 H Plt Count 235 MPV 9.8 Immature Gran % (Auto) 0.8 H Neut % (Auto) 85.9 H Lymph % (Auto) 6.4 L [place] % (Auto) 5.9 Eos % (Auto) 0.7 Baso % (Auto) 0.3 Immature Gran # (Auto) 0.11 H Neut # (Auto) 12.46 H Lymph # (Auto) 0.92 L [place] # (Auto) 0.85 H Eos # (Auto) 0.10 Baso # (Auto) 0.04 Segmented Neutrophils 90 H Lymphocytes 7 L Monocytes 3 PTT (Actin FS) 42.7 H Sodium 136 Potassium 4.3 D Chloride 102 Carbon Dioxide 19 L Anion Gap 15 BUN 65 H Creatinine 2.2 H Estimated GFR/1.73 m2 29 BUN/Creatinine Ratio 30 Glucose 186 H Calculated Osmolality 296 Calcium 9.1 Phosphorus 3.9 Albumin 3.5 Assessment: Acute respiratory failure. Intubated on 08/04/19. Extubated on 08/11/19. Mild bibasilar pneumonia. s/p antibiotics including Meropenem and Linezolid. Acute kidney injury secondary to acute tubular necrosis. No recovery. On Sustained low-efficiency dialysis (SLED) since 08/05/[address] Montero. Altered mental status secondary to global encephalopathy. Cholelithiasis with choledocholithiasis, associated with ascending cholangitis. S/P laparoscopic cholecystectomy with operative cholangiogram on 08/01/19. Prognosis is guarded. Plan: Bronchodilators. Supplemental oxygen as needed. Appropriate DVT and GI prophylaxis Physical therapy. Bedside swallow evaluation ordered. Evaluation time in minutes: 31 minutes.
[2019-08-18] MEDS: TYLENOL LIQUID PO PRN (16:22)
--- NOTE | 2019-08-18 17:29 | PROGRESS NOTE ---
DATE: 08/18/2019 SUBJECTIVE: Patient has no major complaints. OBJECTIVE: Blood pressure 93/61, heart rate of 99, respiratory rate of 22, temperature of 97.8 degrees.Cardiovascular: Regular rate and rhythm. Pulmonary: Bilateral breath sounds. Clear to auscultation. Gastrointestinal: Soft, nontender, nondistended. Bowel sounds are positive. LABORATORY DATA: White count 14, hemoglobin and hematocrit 8 and 27, platelets 235,000. Creatinine 2.2. PTT 42. PROBLEM LIST: 1. Acute kidney injury, acute tubular necrosis, now dialysis dependent. He is improving. His azotemia was cut by half, so that is great, and now we are planning for hemodialysis, so we will continue to follow closely. 2. Acute hypoxic respiratory failure. That seems to be okay. 3. Ascending cholangitis, status post laparoscopic cholecystectomy, endoscopic retrograde cholangiopancreatography. He has had 14 days of linezolid and day 12 of meropenem. I think we could stop the antibiotics. 4. Atrial fibrillation. Not rate controlled, so we have put him back on Cardizem. I think we stopped the antibiotics actually. We will get Cardiology to check on him again. 5. Protein-calorie malnutrition. We are trying to progress towards letting him eat on his own, but he has not been doing that too too well, so will work on tube feeds until his mental status improves. cc: Earnest Blake MD
[2019-08-18] MEDS: ZYLOPRIM PO SCH (20:51)
[2019-08-18] MEDS: PROTONIX IV SCH (20:51)
[2019-08-18] MEDS: SODIUM CHLORIDE 0.9% INJ SCH (20:51)
[2019-08-19] MEDS: LOPRESSOR PO SCH ×4 (03:25→21:07)
[2019-08-19 06:22] LABS: BASO# 0.03 X1000 (0.0-0.2); BASO% 0.2 % (0.0-0.8); EOS# 0.16 X1000 (0.0-0.7); HEMATOCRIT 29.7 % (42.0-52.0); HEMOGLOBIN 9.3 g/dL (14.0-18.0); IMM GRAN# 0.07 X1000 (0.0-0.04); IMM GRAN% 0.5 % (0.0-0.5); LYMPH# 0.78 X1000 (1.2-3.4); MCH 25.6 PG (27-31); MCHC 31.3 g/dL (33-37); MCV 81.8 FL (81-99); MONO# 1.08 X1000 (0.11-0.59); MONO% 6.9 % (1.7-9.3); MPV 9.6 FL (7.4-10.4); NEUT# 13.43 X1000 (1.4-6.5); NEUT% 86.4 % (42.2-75.2); PLT 231 X1000 (130-400); RBC 3.63 XMIL (4.7-6.1); WBC 15.55 X1000 (4.8-10.8)
[2019-08-19 06:59] LABS: CALCIUM 9.2 mg/dL (8.8-10.2); MAGNESIUM 1.9 mg/dL (1.5-2.7); PHOSPHORUS 5.7 mg/dL (2.7-4.5); POTASSIUM 4.2 mmol/L (3.5-5.1)
[2019-08-19] MEDS: XOPENEX NEB INH PRN ×3 (07:27→19:50)
[2019-08-19] MEDS: NS NEB INH SCH ×2 (07:27→11:35)
--- NOTE | 2019-08-19 08:50 | Diag Imaging Result Doc PS360 ---
EXAM: CHEST-PORTABLE HISTORY: NG tube placement TECHNIQUE: Chest abdomen single view COMPARISON: 08/16/2019 FINDINGS: There is a nasogastric tube which overlies the esophagus and stomach and appears to be in good position. The appearance of the lung is unchanged. IMPRESSION: Nasogastric tube appears to be in good position Electronically signed by Xavier Valladares 08/19/2019 8:47 AM
[2019-08-19] MEDS: HEPARIN SUBQ SCH ×2 (09:03→21:07)
[2019-08-19] MEDS: MYCOSTATIN POWDER TOP SCH ×2 (09:13→21:06)
--- NOTE | 2019-08-19 13:44 | PROGRESS NOTE ---
DATE: 08/19/2019 SUBJECTIVE: The patient has no major complaints. He is still somewhat sedated. Apparently he has gotten very agitated, had to be given Haldol. OBJECTIVE: Blood pressure 113/69, heart rate 90, respiratory rate 22, temperature 97.1 degrees, 99% on room air.Cardiovascular: Regular rate and rhythm. Pulmonary: Bilateral breath sounds clear to auscultation. GI: Soft, nontender, nondistended. Bowel sounds are positive. LABS: White count up to 15, hemoglobin and hematocrit 9 and 29, platelets 231,000, BUN and creatinine 66 and 2, bicarb of 17. PROBLEM LIST: 1. Acute kidney injury due to acute tubular necrosis. Still not recovered. BUN has improved. He is going to get dialysis again today I think and he is going to have a permanent catheter placed. 2. Acute hypoxic respiratory failure. He is stable on current dose of oxygen. 3. History of ascending cholangitis and status post laparoscopic cholecystectomy, ERCP. He has had 14 days of linezolid. We stopped that. This will be day 13 of meropenem at least he had been I think we had stopped that yesterday but now he has a white count, he had a white count yesterday too. I am thinking it may be associated with his line but I have requested an Infectious Disease consult to evaluate that. 4. Atrial fibrillation is stable on metoprolol. Will stop drip and follow. 5. Severe protein-calorie malnutrition. He is still getting tube feeds. We are going to get a speech evaluation today, decide about being able to put him on a regular diet and taking out his NG tube. 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 He did receive chemo and radiation so he is certainly at risk for radiation esophagitis. I am going to start off with a barium swallow, see if there is any issues once he has been cleared by speech just to see if there is any issues with stricture, something to that effect. That being said, try and avoid EGD just because he is marginal but if we have to pursue that we will. DISPOSITION: We are still fairly weak. Will continue progress with PT and follow. cc: Earnest Blake MD
[2019-08-19] MEDS ORDERED: KEFZOL 1 GM/D5W 1 GM/50 ML IVPB ONE (13:51)
[2019-08-19] MEDS ORDERED: KEFZOL 1 GM/D5W 1 GM/50 ML IVPB IV ONE (14:00)
[2019-08-19] MEDS ORDERED: NS 250 ML ONE (14:14)
[2019-08-19] MEDS ORDERED: XYLOCAINE 1%/EPI 1:100,000 ONE (14:14)
[2019-08-19] MEDS ORDERED: DIPRIVAN 1% ONE (14:39)
--- NOTE | 2019-08-19 15:12 | NEPHROLOGY PROGRESS NOTE ---
DATE: 08/19/2019 SUBJECTIVE: About the same. No new complaints. OBJECTIVE: Vital Signs: Blood pressure 129/63, heart rate 104, respirations 20, afebrile. General: No acute distress. Thin, emaciated. Skin: Warm and dry. Pale. Neck: Neck veins are not distended. Heart: Regular and mildly tachycardic. Lungs: Equal with scattered rhonchi. Abdomen: Soft, nontender. Extremities: No edema, clubbing or cyanosis. IMPRESSION: Acute kidney injury. No recovery thus far. Electrolytes, acid base, volume status all in target. Next planned dialysis treatment tomorrow. cc: Moirs Montero MD
[2019-08-19] MEDS ORDERED: XYLOCAINE-MPF 2% ONE (15:20)
[2019-08-19] MEDS ORDERED: SODIUM CHLORIDE 0.9% 0 ML ONE (15:24)
[2019-08-19] MEDS ORDERED: NEO-SYNEPHRINE ONE (15:24)
[2019-08-19] MEDS: ZOSYN 2.25 GM in NS 50 ML IV SCH ×2 (16:26→21:07)
[2019-08-19] MEDS: CUBICIN 400 MG in NS 100 ML IV SCH (16:27)
[2019-08-19] MEDS: MYCOSTATIN SUSP PO SCH ×2 (16:27→21:06)
[2019-08-19] MEDS: MYCAMINE 100 MG in NS 100 ML IV SCH (16:30)
--- NOTE | 2019-08-19 18:51 | PROVIDER PROGRESS NOTE ---
Progress Note Dr. Roth Progress Note/Pulmonary and or critical care Subjective: The patient is lying in bed on room air with no acute distress noted. He is awake and alert. He answers questions by nodding head. He follows simple commands. Family at the bedside holding his hand. He apparently got agitated at an earlier time. He is going to have a permanent catheter placed today. Input is appreciated from Dr. Blake and other teams on the case. Objective: Vital Signs: T 98.7 (no fever in last 24 hours), [place] 93, RR 25, BP 110/54 and SaO2 100% on room air. I/O +738 ml Physical Examination: General: Lying in bed with no acute distress noted. Rectal tubing on. HEENT: Normocephalic. Trachea midline. Mucosa pink and moist. NG tube in place. Chest: Even and unlabored. Symmetrical excursion. Slight decreased air entry bilaterally. CVS: Tachycardia. Regular rate and rhythm with murmur noted. Abdomen: Soft. Normoactive bowel sounds noted. Left femoral Vas-Cath in place. Extremities: No pedal edema. 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 Neuro: Lethargic. Labs and Radiology: Laboratory Results 08/19/19 08/19/19 08/19/19 06:00 06:00 06:00 WBC 15.55 H RBC 3.63 L Hgb 9.3 L Hct 29.7 L MCV 81.8 MCH 25.6 L MCHC 31.3 L RDW Std Deviation 22.0 H Plt Count 231 MPV 9.6 Immature Gran % (Auto) 0.5 Neut % (Auto) 86.4 H Lymph % (Auto) 5.0 L Pierce % (Auto) 6.9 Eos % (Auto) 1.0 Baso % (Auto) 0.2 Immature Gran # (Auto) 0.07 H Neut # (Auto) 13.43 H Lymph # (Auto) 0.78 L Pierce # (Auto) 1.08 H Eos # (Auto) 0.16 Baso # (Auto) 0.03 Sodium 138 Potassium 4.2 Chloride 103 Carbon Dioxide 17 L Anion Gap 18 BUN 66 H Creatinine 2.0 H Estimated GFR/1.73 m2 33 BUN/Creatinine Ratio 33 Glucose 137 H Calculated Osmolality 297 Calcium 9.2 Phosphorus 5.7 H Magnesium 1.9 Prealbumin 19.7 L Assessment: Acute respiratory failure. Intubated on 08/04/19. Extubated on 08/11/19. Mild bibasilar pneumonia. s/p antibiotics including Meropenem and Linezolid. CXR today shows stable chest. Acute kidney injury secondary to acute tubular necrosis. No recovery. On Sustained low-efficiency dialysis (SLED) since 08/05/[address] Montero. Altered mental status secondary to global encephalopathy. Cholelithiasis with choledocholithiasis, associated with ascending cholangitis. S/P laparoscopic cholecystectomy with operative cholangiogram on 08/01/19. Prognosis is guarded. Plan: Bronchodilators. Supplemental oxygen as needed. Appropriate DVT and GI prophylaxis Physical therapy. Bedside swallow evaluation ordered, but pending secondary to NPO for scheduled surgery. Evaluation time in minutes: 32 minutes.
--- NOTE | 2019-08-19 19:54 | INFECTIOUS DISEASE CONSULT REP ---
DATE: 08/19/2019 CONCLUSION: Dr. Blake consulted me because the patient is having an increasing white blood cell count on the past 2 days. The etiology of the leukocytosis is uncertain to me at this time. Patient also is developing oral candidiasis. Yeast has been grown from the patient's sputum and in the patient's mouth it appears he has candidiasis. RECOMMENDATIONS: I have ordered blood cultures and a urine culture. I have started the patient on daptomycin and Zosyn pending culture results. The dose of Zosyn has been altered because of the patient's renal failure. If the patient's GFR drops below 30 then the dose of daptomycin should be cut back to be given every 48 hours instead of every 24 hours. I have also started the patient on nystatin and I have also ordered for Mycostatin to be painted in the patient's mouth and on his tongue every 6 hours. I have ordered blood and urine cultures. PAST MEDICAL HISTORY/REVIEW OF SYSTEMS: Eyes and ears: The patient's hearing is decreased. His vision is good. Neck: No stiffness. Respiratory: No cough or dyspnea. Cardiac: No chest pain or palpitations. The patient is in atrial fibrillation. Genitourinary: The patient has developed renal failure and decreased renal output. GI: The patient is status post laparoscopic cholecystectomy and he initially came in the hospital with abdominal pain and the patient has had a laparoscopic cholecystectomy. PRESENT ILLNESS: The patient was admitted to the hospital with abdominal pain. He has undergone laparoscopic cholecystectomy for cholecystitis. The patient's CBC shows a white count of 15,550, hemoglobin 9.3, and platelet count 231,000. Creatinine is 2. GFR is 33. Sputum is growing yeast and appears to me also that the patient's mouth has yeast on it. Blood and urine cultures are negative. Screen for influenza is negative. Chest x-ray shows no consolidation. I have ordered blood and urine cultures. The patient's chest x-ray shows no consolidation. PREVIOUS HOSPITALIZATIONS AND OPERATIONS: Patient has had abdominal surgery because of some obstruction to the bowel. He has had a right kian placed in his femur after he fractured his leg. He has had amputation of the left middle toe. He has had cataract surgeries of his eyes. MEDICAL DISEASES: Positive for eye cataracts, hypertension, laryngeal cancer which was treated with chemotherapy and radiation. INFECTIOUS DISEASE HISTORY: Negative for pneumonia and UTI. FAMILY HISTORY: Positive for hypertension and cancer. SOCIAL HISTORY: [place] He and his have cats for pets and there are ducks where they live too. The patient is a retired appliance repair person. He previously smoked and drank alcoholic beverages but he has stopped both of those activities. He does not use illicit drugs. PHYSICAL EXAMINATION: Vital Signs: Temperature is 98 degrees, pulse 93, respirations 22, blood pressure 126/64, patient is 5 feet 7 inches tall, weighs 151 pounds. General: This seems to be a chronically ill-appearing elderly male. He is in no acute distress. Head/eyes/ears/nose/throat: He was able to hear my spoken words and see near objects. He had a white coating on his tongue. Neck: No meningismus. Lungs: Clear to auscultation. Cardiovascular: Heart rate is irregular. According to the monitor the patient is in atrial fibrillation. Abdomen: Soft and nontender. The sites where the patient had laparoscopic incisions all appear to be healing well. There is no erythema or purulence. Neurologic: The patient is awake. He can move his extremities. There is no tremor. I was unable to test the patient's memory because he was being taken to surgery right away. Integument: No rash noted. Thank you for the consult. cc: Babar Taylor MD
[2019-08-19] MEDS: PROTONIX IV SCH (21:06)
[2019-08-19] MEDS: ZYLOPRIM PO SCH (21:08)
--- NOTE | 2019-08-19 21:43 | OPERATIVE NOTE ---
PROCEDURE DATE: 08/19/2019 PREOPERATIVE DIAGNOSIS: Acute kidney injury and dysfunctional dialysis catheter. POSTOPERATIVE DIAGNOSIS: Acute kidney injury and dysfunctional dialysis catheter. PROCEDURE: 1. Insertion of tunneled central venous dialysis catheter with fluoroscopic and ultrasound guidance. 2. Removal of left femoral vein Trialysis catheter. SURGEON: Luciano Cervantes MD DIAL REFINISHER: Monisha French MS 3. ANESTHESIA: General. ESTIMATED BLOOD LOSS: 3 mL. COMPLICATIONS: None apparent. FINDINGS: The right internal jugular vein was visualized with ultrasound. It was compressible and patent without thrombus. Fluoroscopy revealed proper placement of the wire followed by the catheter to the superior vena cava right atrial junction. TECHNIQUE: The patient was brought to the operating room and placed supine on the table. IV sedation induced. He was prepped and draped in usual sterile fashion. The right internal jugular vein was found with ultrasound. It was compressible and patent without thrombus. The skin over the vein was anesthetized with 1% lidocaine. A small incision was made with an 11 blade. The vein was accessed under ultrasound guidance with 1 stick. The wire passed through the needle easily and was confirmed to be in the right atrium with fluoroscopy. I then made a counterincision below the right clavicle and tunneled the catheter subcutaneously from the lower incision out through the neck incision. The tract over the wire was sequentially dilated, and the sheath was passed over the wire. The wire and internal dilator were removed. The catheter was passed into the sheath. The sheath was removed. The tip of the catheter was positioned correctly with fluoroscopy. Both ports dahlia back blood easily and were flushed with saline. Sterile caps were applied. The catheter was anchored to the skin with 3-0 nylon. A 3-0 subcuticular Polysorb was used to close the neck incision. I then cut the sutures to the groin Vas-Cath and pulled the Vas-Cath out without any difficulty. Pressure was held over the wound, and a dressing was applied. There were no apparent complications. cc: Luciano Cervantes MD
[2019-08-20] MEDS: LOPRESSOR PO SCH ×5 (02:48→21:11)
[2019-08-20] MEDS: ZOSYN 2.25 GM in NS 50 ML IV SCH ×4 (02:48→21:10)
[2019-08-20 06:24] LABS: BASO# 0.03 X1000 (0.0-0.2); BASO% 0.2 % (0.0-0.8); EOS# 0.23 X1000 (0.0-0.7); EOS% 1.4 % (0.0-10.0); HEMATOCRIT 26.6 % (42.0-52.0); HEMOGLOBIN 8.1 g/dL (14.0-18.0); IMM GRAN# 0.09 X1000 (0.0-0.04); IMM GRAN% 0.6 % (0.0-0.5); LYMPH# 1.01 X1000 (1.2-3.4); LYMPH% 6.3 % (20.5-51.1); MCH 25.2 PG (27-31); MCHC 30.5 g/dL (33-37); MCV 82.6 FL (81-99); MONO# 1.06 X1000 (0.11-0.59); MONO% 6.6 % (1.7-9.3); MPV 9.5 FL (7.4-10.4); NEUT# 13.59 X1000 (1.4-6.5); NEUT% 84.9 % (42.2-75.2); PLT 282 X1000 (130-400); RBC 3.22 XMIL (4.7-6.1); RDW 22.3 % (11.5-14.5); WBC 16.01 X1000 (4.8-10.8)
[2019-08-20 07:12] LABS: CALCIUM 9.2 mg/dL (8.8-10.2); CREATININE 2.1 mg/dL (0.7-1.2); POTASSIUM 3.7 mmol/L (3.5-5.1)
--- NOTE | 2019-08-20 07:28 | Diag Imaging Result Doc PS360 ---
EXAM: CHEST-1 VIEW HISTORY: SOB TECHNIQUE: Single view COMPARISON: 08/19/2019 FINDINGS: The lungs are well expanded. The heart is not enlarged. No change in the nasogastric tube. There is a right jugular catheter with the tip overlying the right atrium. No definite pneumothorax. The vessels are not distended. Mild increased markings in the left lung base remain. No effusion identified. IMPRESSION: Stable chest Electronically signed by Xavier Valladares 08/20/2019 7:25 AM
[2019-08-20 07:43] LABS: BANDS 1 % (0-1); LYMPHS 1 % (21-51); MONO 12 % (1-9); SEGS 86 % (42-75)
[2019-08-20 07:44] LABS: ANISOCYTOSIS 1+; HYPOCHROM 1+; POLYCHROM OCCASIONAL
[2019-08-20] MEDS: XOPENEX NEB INH PRN ×4 (07:49→19:25)
[2019-08-20] MEDS ORDERED: NS 2,000 ML MISC PRN (08:20)
[2019-08-20] MEDS ORDERED: HEPARIN IV PRN (08:20)
[2019-08-20] MEDS ORDERED: NS 1,000 ML IV ONE (09:00)
[2019-08-20] MEDS: HEPARIN SUBQ SCH ×2 (09:02→21:11)
[2019-08-20] MEDS: MYCOSTATIN SUSP PO SCH ×4 (09:02→21:10)
[2019-08-20] MEDS: MYCOSTATIN POWDER TOP SCH ×2 (09:16→21:13)
[2019-08-20] MEDS: HALDOL IV PRN (11:55)
[2019-08-20] MEDS: MYCAMINE 100 MG in NS 100 ML IV SCH (14:20)
--- NOTE | 2019-08-20 14:53 | PROGRESS NOTE ---
DATE: 08/20/2019 INTERVAL HISTORY: The patient on dialysis this morning. Had a significant drop in his blood pressure, although he was asymptomatic at the time. He stopped ultrafiltration and after that on last check, his blood pressure appeared to be improved. Respiratory status approximately stable. Remains in atrial fibrillation with marginal but acceptable heart rate. Afebrile overnight. Continues to have largely nonproductive cough. No other complaints. REVIEW OF SYSTEMS: Twelve point review of systems negative except as per interval history. LABS: WBC 16.0, hemoglobin 8.1, hematocrit 26.6, platelets 282,000. Sodium 137, potassium 3.7, BUN 77, creatinine 2.1, glucose 137, albumin 3.3. VITALS: T-max 98.7 degrees, pulse 103, respirations 22, blood pressure 109/87, O2 saturation 100% on room air. PHYSICAL EXAMINATION: General: No acute distress. Chronically ill-appearing. HEENT: Normocephalic, atraumatic. Moist mucous membranes. Some thrush noted. Cardiovascular: Minimally tachycardic. Irregular. 3/6 left upper sternal border murmur noted. Pulmonary: Essentially clear to auscultation. No wheezing and good air entry. Abdomen: Soft, nontender, nondistended. Bowel sounds positive. Extremities: Peripheral pulses intact. No clubbing, cyanosis. Neurologic: Cranial nerves grossly intact. Mild global weakness but no focal deficits identified. Psychiatric: Normal mood and affect. Cooperative. Awake, alert, asleep but easily arousable. ASSESSMENT AND PLAN: 1. Acute kidney injury, likely ATN. Has not had any renal recovery so far. Dialyzing again today. Has tunneled Vas-Cath now. Blood pressure dropped as above, but appears to be improved with cessation of ultrafiltration. 2. Cholecystitis, cholangitis. Status post laparoscopic cholecystectomy, ERCP. Completed 14 days of linezolid. Still on in 13 days of Merrem. Changed to daptomycin, Zosyn and micafungin per ID yesterday because of increasing leukocytosis of uncertain significance. Continue monitoring. 3. Atrial fibrillation. Remains rate controlled off Cardizem, but just barely. We will see what he does. If his blood pressure tolerates it we will continue on Toprol, but has held this morning because of hypotension associated with dialysis. If heart rate goes up higher or remains any kind of sustained low, may have to restart the Cardizem drip. 4. Pneumonia and acute hypoxic respiratory failure appears to be largely resolved at this point. 5. Malnutrition, history of throat cancer. Family does reports occasional difficulty with food getting stuck or with choking. Try to get a barium swallow to assess. Depending what that shows may end up needing EGD. Continue tube feeds for now. 6. Murmur, likely benign. The patient with echocardiogram on the , which showed some mild pulmonary hypertension but no major valvular pathology and essentially normal EF. Repeat limited echocardiogram on the again showed essentially normal EF. He had an elevated BNP but that was likely due to volume overload related to his kidney failure rather than heart failure.
[2019-08-20] MEDS: CUBICIN 400 MG in NS 100 ML IV SCH (17:11)
[2019-08-20] MEDS ORDERED: LOPRESSOR PO ONE (17:25)
--- NOTE | 2019-08-20 19:05 | PROVIDER PROGRESS NOTE ---
Progress Note Dr. Roth Progress Note/Pulmonary and or critical care Subjective: The patient is lying in bed on room air with no acute distress noted. He appears lethargic. He has mild tachycardia and tachypnea. SLED is going on. He is also on NG tube feeding. He apparently was restless and received IV Haldol at an earlier time. Family at the bedside. Input is appreciated from Dr. Weaver and other teams on the case. Objective: Vital Signs: T 97.7 (no fever in last 24 hours), ID 109, RR 30, BP 98/85 and SaO2 96% on room air. I/O -128 ml Physical Examination: General: Lying in bed with no acute distress noted. Rectal tubing on. HEENT: Normocephalic. Trachea midline. Mucosa pink and moist. NG tube in place. Chest: Mild tachypnea. Symmetrical excursion. Good air entry bilaterally. CVS: Tachycardia. Regular rate and rhythm with murmur noted. Abdomen: Soft. Normoactive bowel sounds noted. Left femoral Vas-Cath in place. Extremities: No pedal edema. 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 Neuro: Lethargic. Labs and Radiology: Laboratory Results 08/20/19 08/20/19 08/20/19 04:41 04:41 04:41 WBC 16.01 H RBC 3.22 L Hgb 8.1 L Hct 26.6 L MCV 82.6 MCH 25.2 L MCHC 30.5 L RDW Std Deviation 22.3 H Plt Count 282 MPV 9.5 Immature Gran % (Auto) 0.6 H Neut % (Auto) 84.9 H Lymph % (Auto) 6.3 L [place] % (Auto) 6.6 Eos % (Auto) 1.4 Baso % (Auto) 0.2 Immature Gran # (Auto) 0.09 H Neut # (Auto) 13.59 H Lymph # (Auto) 1.01 L [place] # (Auto) 1.06 H Eos # (Auto) 0.23 Baso # (Auto) 0.03 Segmented Neutrophils 86 H Band Neutrophils 1 Lymphocytes 1 L Monocytes 12 H Hypochromia 1+ Polychromasia OCCASIONAL Anisocytosis 1+ PTT (Actin FS) Sodium 137 Potassium 3.7 Chloride 106 Carbon Dioxide 10 L Anion Gap 21 BUN 77 H Creatinine 2.1 H Estimated GFR/1.73 m2 31 BUN/Creatinine Ratio 37 Glucose 137 H Calculated Osmolality 299 Calcium 9.2 Albumin 3.3 L 08/20/19 09:03 WBC RBC Hgb Hct MCV MCH MCHC RDW Std Deviation Plt Count MPV Immature Gran % (Auto) Neut % (Auto) Lymph % (Auto) [place] % (Auto) Eos % (Auto) Baso % (Auto) Immature Gran # (Auto) Neut # (Auto) Lymph # (Auto) [place] # (Auto) Eos # (Auto) Baso # (Auto) Segmented Neutrophils Band Neutrophils Lymphocytes Monocytes Hypochromia Polychromasia Anisocytosis PTT (Actin FS) 43.3 H Sodium Potassium Chloride Carbon Dioxide Anion Gap BUN Creatinine Estimated GFR/1.73 m2 BUN/Creatinine Ratio Glucose Calculated Osmolality Calcium Albumin Assessment: Acute respiratory failure. Intubated on 08/04/19. Extubated on 08/11/19. Improved. Patient has been on room air for several days and tolerates very well. Mild bibasilar pneumonia. s/p antibiotics including Meropenem and Linezolid. CXR today shows stable chest. WBC has been mildly elevated since 08/18/19. ID was reconsulted and patient has been put on antibiotics again. Acute kidney injury secondary to acute tubular necrosis. No recovery. On Sustained low-efficiency dialysis (SLED) since 08/05/[address] Montero. Altered mental status secondary to global encephalopathy. Cholelithiasis with choledocholithiasis, associated with ascending cholangitis. S/P laparoscopic cholecystectomy with operative cholangiogram on 08/01/19. Prognosis is guarded. Plan: Bronchodilators. Antibiotics including Daptomycin and Zosyn and Micafungin ordered. Supplemental oxygen as needed. Appropriate DVT and GI prophylaxis Physical therapy. Bedside swallow evaluation pending next Thursday. Evaluation time in minutes: 31 minutes.
[2019-08-20] MEDS: ZYLOPRIM PO SCH (21:11)
[2019-08-20] MEDS: PROTONIX IV SCH (21:12)
[2019-08-21] MEDS: LOPRESSOR PO SCH ×4 (01:56→20:08)
[2019-08-21] MEDS: ZOSYN 2.25 GM in NS 50 ML IV SCH ×4 (01:56→20:07)
[2019-08-21 07:17] LABS: CALCIUM 8.7 mg/dL (8.8-10.2); CREATININE 1.2 mg/dL (0.7-1.2); POTASSIUM 3.9 mmol/L (3.5-5.1)
[2019-08-21 07:18] LABS: BASO# 0.04 X1000 (0.0-0.2); BASO% 0.3 % (0.0-0.8); EOS% 2.2 % (0.0-10.0); HEMATOCRIT 23.8 % (42.0-52.0); HEMOGLOBIN 7.3 g/dL (14.0-18.0); IMM GRAN# 0.19 X1000 (0.0-0.04); IMM GRAN% 1.4 % (0.0-0.5); LYMPH# 1.65 X1000 (1.2-3.4); LYMPH% 12.1 % (20.5-51.1); MCH 25.8 PG (27-31); MCHC 30.7 g/dL (33-37); MCV 84.1 FL (81-99); MONO# 0.91 X1000 (0.11-0.59); MONO% 6.7 % (1.7-9.3); MPV 9.6 FL (7.4-10.4); NEUT# 10.58 X1000 (1.4-6.5); NEUT% 77.3 % (42.2-75.2); PLT 262 X1000 (130-400); RBC 2.83 XMIL (4.7-6.1); RDW 22.3 % (11.5-14.5); WBC 13.67 X1000 (4.8-10.8)
[2019-08-21] MEDS: XOPENEX NEB INH PRN ×5 (07:49→23:25)
[2019-08-21 09:03] LABS: ANISOCYTOSIS 3+; EOS 2 % (1-10); HYPOCHROM 2+; LYMPHS 13 % (21-51); MICROCYTOSIS 3+; MONO 7 % (1-9); POIKILOCYTOSIS 1+; POLYCHROM 2+; SEGS 78 % (42-75)
[2019-08-21] MEDS: HEPARIN SUBQ SCH ×2 (09:03→20:07)
[2019-08-21] MEDS: MYCOSTATIN SUSP PO SCH ×4 (09:03→20:08)
[2019-08-21] MEDS: MYCOSTATIN POWDER TOP SCH ×2 (09:03→20:08)
[2019-08-21] MEDS ORDERED: NS 250 ML ONE (10:51)
[2019-08-21] MEDS: MYCAMINE 100 MG in NS 100 ML IV SCH (13:49)
--- NOTE | 2019-08-21 15:25 | PROGRESS NOTE ---
DATE: 08/21/2019 INTERVAL HISTORY: Patient became agitated last night, was pulling at lines and dialysis catheter. Given Haldol which did settle him down but still pretty somnolent this morning. No other acute events. Patient's previously noted hypotension with dialysis resolved spontaneously once they stopped ultrafiltrate him. REVIEW OF SYSTEMS: Unable to obtain secondary to patient mental status. LABS: WBC 13.6, hemoglobin 7.3, hematocrit 23.8, platelets 262,000. Sodium 140, potassium 3.9, BUN 27, creatinine 1.2, glucose 163. VITAL SIGNS: Temperature 98.4 degrees, pulse 106, respirations 22, blood pressure 104/56, O2 saturation 99% on room air. PHYSICAL EXAMINATION: General: No acute distress. Ill appearing. Vital signs: As above. HEENT: Normocephalic, atraumatic. Thrush appears to be improving. Cardiovascular: Remains minimally tachycardic and irregular. A 3/6 left upper sternal border, stable. Pulmonary: Essentially clear to auscultation bilaterally. Abdomen: Soft, nontender, nondistended. Bowel sounds positive. Extremities: Peripheral pulses intact. No clubbing or cyanosis. Neurologic: Limited by patient mental status but pupils remain equal, round, reactive to light. Globally weak, but no clear focal deficits. Psychiatric: Somnolent but does arouse briefly. Occasionally will answer 1 word questions but pretty difficult to get him to follow commands right now. ASSESSMENT AND PLAN: 1. Acute kidney injury, likely acute tubular necrosis. Had dialysis again yesterday. Has a tunneled Vas-Cath. Had a bit of a blood pressure drop with dialysis but that yesterday but that resolved spontaneously. Blood pressure has been low but stable since then. Continue monitoring and we will see what his labs do. 2. Cholecystitis, cholangitis. Status post laparoscopic cholecystectomy, ERCP. He has completed 14 days of linezolid and Merrem. Change to daptomycin, Zosyn, and micafungin per ID on 08/19 because of increasing leukocytosis of continued uncertain significance. Monitor. Leukocytosis does appear to be improving on those antibiotics, although source is still unclear. 3. Atrial fibrillation. Remains largely rate controlled off Cardizem with Toprol. Still just barely controlled, however. Continue to monitor and if heart rate increases, then may have to restart Cardizem. 4. Pneumonia and acute hypoxic respiratory failure. The patient is still saturating pretty well off of oxygen, so this appears to still be resolved. Repeat chest x-ray yesterday did not show any worsening to suggest a new pneumonia. 5. Malnutrition, history of throat cancer. Family did report that patient occasionally has difficulty with food getting stuck or with choking. If his mental status will allow, we will try to get a barium swallow tomorrow for further assessment. Continue tube feeds for now. 6. Murmur, elevated BNP. Patient does have a bit of a murmur, but recent echocardiogram showed no major valvular pathology and essentially normal EF. Suspect elevated BNP was due to volume issues secondary to his kidney injury rather than any true heart failure. Monitor volume status. 7. Cirrhosis. Cause uncertain as patient does not have any known history of cirrhosis, but a CT of his abdomen on admission did show a cirrhotic liver. Exercise caution with medications. Will recheck bilirubin in the morning, but on last check it was only minimally elevated and ammonia was within normal limits, so low suspicion for cirrhosis playing a significant role in his current illness.
[2019-08-21] MEDS: CUBICIN 400 MG in NS 100 ML IV SCH (17:09)
--- NOTE | 2019-08-21 17:23 | PROVIDER PROGRESS NOTE ---
Progress Note Dr. Roth Progress Note/Pulmonary and or critical care Subjective: The patient is lying in bed with no acute distress noted. He appears tired and weak. He had an uneven night with restless and agitation. Currently SLED is on. He was a little bit hypotensive at an early time, but no pressor needed. He has mild tachypnea and tachycardia at this time. Family at the bedside. Input is appreciated from Dr. Weaver and other teams on the case. Objective: Vital Signs: T 98.3 (no fever in last 24 hours), NH 107, RR 25, BP 115/61 and SaO2 100% on room air. I/O +1175 ml Physical Examination: General: Lying in bed with no acute distress noted. Rectal tubing on. HEENT: Normocephalic. Trachea midline. Mucosa pink and moist. NG tube in place. Chest: Mild tachypnea. Symmetrical excursion. Good air entry bilaterally. CVS: Tachycardia. Regular rate and rhythm with murmur noted. Abdomen: Soft. Normoactive bowel sounds noted. Left femoral Vas-Cath in place. Extremities: No pedal edema. 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 Neuro: Awake and alert, but not answer questions or follow commands. Labs and Radiology: Laboratory Results 08/02/19 08/21/19 08/21/19 12:55 05:42 05:42 WBC 13.67 H RBC 2.83 L Hgb 7.3 L Hct 23.8 L MCV 84.1 MCH 25.8 L MCHC 30.7 L RDW Std Deviation 22.3 H Plt Count 262 MPV 9.6 Immature Gran % (Auto) 1.4 H Neut % (Auto) 77.3 H Lymph % (Auto) 12.1 L Trigg % (Auto) 6.7 Eos % (Auto) 2.2 Baso % (Auto) 0.3 Immature Gran # (Auto) 0.19 H Neut # (Auto) 10.58 H Lymph # (Auto) 1.65 Trigg # (Auto) 0.91 H Eos # (Auto) 0.30 Baso # (Auto) 0.04 Segmented Neutrophils 78 H Lymphocytes 13 L Monocytes 7 Eosinophils 2 Hypochromia 2+ Polychromasia 2+ Poikilocytosis 1+ Anisocytosis 3+ Microcytosis 3+ Sodium 140 Potassium 3.9 Chloride 108 H Carbon Dioxide 19 L Anion Gap 13 BUN 27 H D Creatinine 1.2 Estimated GFR/1.73 m2 59 BUN/Creatinine Ratio 23 Glucose 163 H Calculated Osmolality 288 Calcium 8.7 L Blood Type Antibody Screen Crossmatch See Detail 08/21/19 08:19 WBC RBC Hgb Hct MCV MCH MCHC RDW Std Deviation Plt Count MPV Immature Gran % (Auto) Neut % (Auto) Lymph % (Auto) Trigg % (Auto) Eos % (Auto) Baso % (Auto) Immature Gran # (Auto) Neut # (Auto) Lymph # (Auto) Trigg # (Auto) Eos # (Auto) Baso # (Auto) Segmented Neutrophils Lymphocytes Monocytes Eosinophils Hypochromia Polychromasia Poikilocytosis Anisocytosis Microcytosis Sodium Potassium Chloride Carbon Dioxide Anion Gap BUN Creatinine Estimated GFR/1.73 m2 BUN/Creatinine Ratio Glucose Calculated Osmolality Calcium Blood Type O POSITIVE Antibody Screen NEGATIVE Crossmatch See Detail Assessment: Acute respiratory failure. Intubated on 08/04/19. Extubated on 08/11/19. Resolved. Patient has been on room air for several days and tolerates very well. Mild bibasilar pneumonia. s/p antibiotics including Meropenem and Linezolid. CXR today shows stable chest. WBC has been mildly elevated since 08/18/19. ID was reconsulted and patient has been put on antibiotics again since 08/19/19. Acute kidney injury secondary to acute tubular necrosis. No recovery. On Sustained low-efficiency dialysis (SLED) since 08/05/[address] Montero. Altered mental status secondary to global encephalopathy. Cholelithiasis with choledocholithiasis, associated with ascending cholangitis. S/P laparoscopic cholecystectomy with operative cholangiogram on 08/01/19. Severe normocytic anemia. Hgb 7.3 this morning. Prognosis is guarded. Plan: Bronchodilators. Antibiotics including Daptomycin and Zosyn. Micafungin. Appropriate DVT and GI prophylaxis Physical therapy. Bedside swallow evaluation tomorrow. One unit PRBD transfusion ordered. We keep watching patients blood pressure closely. Evaluation time in minutes: 32 minutes.
[2019-08-21] MEDS: PROTONIX IV SCH (20:07)
[2019-08-21] MEDS: ZYLOPRIM PO SCH (20:08)
[2019-08-22] MEDS: LOPRESSOR PO SCH ×4 (01:06→20:29)
[2019-08-22] MEDS: ZOSYN 2.25 GM in NS 50 ML IV SCH ×4 (01:15→20:30)
[2019-08-22] MEDS: XOPENEX NEB INH PRN (03:20)
[2019-08-22] MEDS: TYLENOL LIQUID PO PRN (03:23)
[2019-08-22 06:07] LABS: CALCIUM 8.6 mg/dL (8.8-10.2); CREATININE 1.4 mg/dL (0.7-1.2); POTASSIUM 3.6 mmol/L (3.5-5.1)
[2019-08-22 06:23] LABS: BASO# 0.05 X1000 (0.0-0.2); BASO% 0.4 % (0.0-0.8); EOS# 0.27 X1000 (0.0-0.7); EOS% 2.1 % (0.0-10.0); HEMATOCRIT 26.7 % (42.0-52.0); HEMOGLOBIN 8.5 g/dL (14.0-18.0); IMM GRAN# 0.52 X1000 (0.0-0.04); LYMPH# 0.89 X1000 (1.2-3.4); LYMPH% 6.9 % (20.5-51.1); MCH 27.2 PG (27-31); MCHC 31.8 g/dL (33-37); MCV 85.3 FL (81-99); MONO# 1.46 X1000 (0.11-0.59); MONO% 11.3 % (1.7-9.3); MPV 9.8 FL (7.4-10.4); NEUT# 9.71 X1000 (1.4-6.5); NEUT% 75.3 % (42.2-75.2); PLT 298 X1000 (130-400); RBC 3.13 XMIL (4.7-6.1); RDW 21.3 % (11.5-14.5)
[2019-08-22] MEDS ORDERED: NS 2,000 ML MISC PRN (07:02)
--- NOTE | 2019-08-22 07:26 | Diag Imaging Result Doc PS360 ---
CHEST-PORTABLE - 08/22/2019 INDICATION: dyspnea COMPARISON: 08/20/2019 FINDINGS: Support lines and tubes are stable. Stable right hemidiaphragm elevation. No infiltrates. Heart size remains normal. IMPRESSION: No acute disease. Electronically signed by Max Andre 08/22/2019 7:24 AM
[2019-08-22 07:54] LABS: ALB/GLOB RATIO 0.8; DIRECT BILIRUBIN 0.2 mg/dL (0.00-0.20); TOTAL BILIRUBIN 0.8 mg/dL (0.20-1.00)
[2019-08-22] MEDS: MYCOSTATIN SUSP PO SCH ×4 (08:11→20:29)
[2019-08-22] MEDS: HEPARIN SUBQ SCH ×2 (08:11→20:30)
[2019-08-22] MEDS: MYCOSTATIN POWDER TOP SCH ×2 (08:12→20:30)
--- NOTE | 2019-08-22 11:19 | NEPHROLOGY PROGRESS NOTE ---
DATE: 08/22/2019 SUBJECTIVE: The patient is resting in bed. His eyes are open. He will make eye contact but minimal movement. OBJECTIVE: Vital Signs: Temperature 100.5 degrees, pulse 100, respiratory rate 23, blood pressure 114/75. Intake 2.8 L, output 1.4 L. General: Chronically ill- appearing elderly gentleman, thin man, wasted appearance. HEENT: Normocephalic, atraumatic. His conjunctivae are pale. His oral mucosa is dry. Neck: Supple without JVD. Cardiovascular: Regular rate and rhythm. He is slightly tachycardic. Pulmonary: Rhonchi bilaterally. No wheezes. Abdomen: Flat, positive bowel sounds. Genitourinary: Ovalles catheter, scant urine. Extremities: No edema, clubbing, cyanosis. Integumentary: Skin is warm and dry. LABORATORY DATA: WBC of 12.9, hemoglobin 8.5. Sodium 144, potassium 3.6, CO2 of 20, creatinine 1.4. ASSESSMENT AND PLAN: 1. Acute kidney injury. The patient may be the beginnings of recovery. His creatinine yesterday was 1.2 after his dialysis treatment on Thursday. He has had minimal rise in the creatinine overnight. He is about 1.5 liters positive fluid-villegas. We will go ahead and run on sustained low-efficiency dialysis (SLED) and a 4-potassium bath, 0.5 liters ultrafiltration removal as tolerated. Once the patient is able to move to a regular room, we will try to transition him over to a 3 time a week dialysis treatment. I stopped his SLED after 4 hours. He seems to be recovering. rg 2. Electrolytes, acid-base balance. These are stable. 3. Anemia followed by primary. We will defer. 4. Hypertension, controlled. 5. Fluid volume. See above for plan. Dictated by PEGGY Walker for Moris Montero MD Face to face encounter, data reviewed, discussed with Michele Nation on 08/22/19. I agree with the above assessment and plan of care. jonny cc: Moris Montero MD [facility]
--- NOTE | 2019-08-22 12:56 | PROGRESS NOTE ---
DATE: 08/22/2019 SUBJECTIVE: The patient is still very weak, tired, but he is trying to communicate. OBJECTIVE: Vital Signs: Blood pressure 113/66, heart rate of 102, respiratory rate of 21, T-max 100.5 degrees and current was 99. Cardiovascular: Regular rate and rhythm. Pulmonary: Bilateral breath sounds. Clear to auscultation. GI: Soft, nontender, nondistended. Bowel sounds are positive. PROBLEM LIST: 1. Acute kidney injury with acute tubular necrosis. I spoke with Dr. Montero. He is actually going to stop dialysis. He has had about 2 liters of urine output out, so this seems to be resolving finally, which is a good progression. 2. Cholecystitis, cholangitis, status post laparoscopic cholecystectomy, endoscopic retrograde cholangiopancreatography. He has completed 2 weeks of linezolid and Merrem, but now he is on daptomycin, Zosyn and micafungin per Infectious Disease starting on the , so this will be day 3. His white count is better, although we do not really have a source, but it is coming down. He did have some fever, but that is also coming down. It certainly could be sinusitis, but perhaps today we will be able to get his nasogastric tube out. 3. Atrial fibrillation. He is on Cardizem and Toprol. Seems to be doing okay. 4. History of pneumonia, respiratory failure, but that is resolved, and again he has completed antibiotics, 2 weeks of. 5. Throat cancer. There is some concern over dysphagia. We are doing a barium swallow tomorrow just to see if there is dysphagia before putting him through an esophagogastroduodenoscopy, and we will continue proton pump inhibitor and monitor. 6. Murmur. I do not think his echocardiogram showed significant pathology. 7. Cirrhosis, again appears to be compensated, but we will continue to monitor and support nutrition. DISPOSITION: Pending his clinical status. We will continue to monitor. cc: Earnest Blake MD
[2019-08-22] MEDS: MYCAMINE 100 MG in NS 100 ML IV SCH (14:35)
[2019-08-22] MEDS: CUBICIN 400 MG in NS 100 ML IV SCH (18:27)
--- NOTE | 2019-08-22 18:38 | PROVIDER PROGRESS NOTE ---
Progress Note Dr. Roth Progress Note/Pulmonary and or critical care Subjective: The patient is lying in bed on room air. His eyes are closed initially. He opens eyes when we call his name. He nods his head to answer questions, but stay nonverbal. He denies any pain at this time. SLED is going on at this time. No family at the bedside. Input is appreciated from Dr. Blake and other teams on the case. Objective: Vital Signs: T 98.5 (fever 100.5 this morning at 0400), NC 107, RR 25, BP 115/61 and SaO2 100% on room air. I/O +1365 ml Physical Examination: General: Lying in bed with no acute distress noted. Rectal tubing on. HEENT: Normocephalic. Trachea midline. Mucosa pink and moist. NG tube in place. Chest: Mild tachypnea. Symmetrical excursion. Good air entry bilaterally. CVS: Tachycardia. Regular rate and rhythm with murmur noted. Abdomen: Soft. Normoactive bowel sounds noted. Left femoral Vas-Cath in place. Extremities: No pedal edema. 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 Neuro: Awake and alert, but not answer questions or follow commands. Labs and Radiology: Laboratory Results 08/22/19 08/22/19 08/22/19 04:09 04:09 04:09 WBC 12.90 H RBC 3.13 L Hgb 8.5 L D Hct 26.7 L MCV 85.3 MCH 27.2 MCHC 31.8 L RDW Std Deviation 21.3 H Plt Count 298 MPV 9.8 Immature Gran % (Auto) 4.0 H Neut % (Auto) 75.3 H Lymph % (Auto) 6.9 L Wilson % (Auto) 11.3 H Eos % (Auto) 2.1 Baso % (Auto) 0.4 Immature Gran # (Auto) 0.52 H Neut # (Auto) 9.71 H Lymph # (Auto) 0.89 L Wilson # (Auto) 1.46 H Eos # (Auto) 0.27 Baso # (Auto) 0.05 PTT (Actin FS) Sodium 144 Potassium 3.6 Chloride 108 H Carbon Dioxide 20 L Anion Gap 16 BUN 34 H Creatinine 1.4 H Estimated GFR/1.73 m2 49 BUN/Creatinine Ratio 24 Glucose 204 H Calculated Osmolality 300 Calcium 8.6 L Total Bilirubin 0.80 Direct Bilirubin 0.20 AST 45 H ALT 25 Alkaline Phosphatase 207 H Total Protein 7.0 Albumin 3.0 L Globulin 4.0 Albumin/Globulin Ratio 0.8 08/22/19 08:10 WBC RBC Hgb Hct MCV MCH MCHC RDW Std Deviation Plt Count MPV Immature Gran % (Auto) Neut % (Auto) Lymph % (Auto) Wilson % (Auto) Eos % (Auto) Baso % (Auto) Immature Gran # (Auto) Neut # (Auto) Lymph # (Auto) Wilson # (Auto) Eos # (Auto) Baso # (Auto) PTT (Actin FS) 38.9 Sodium Potassium Chloride Carbon Dioxide Anion Gap BUN Creatinine Estimated GFR/1.73 m2 BUN/Creatinine Ratio Glucose Calculated Osmolality Calcium Total Bilirubin Direct Bilirubin AST ALT Alkaline Phosphatase Total Protein Albumin Globulin Albumin/Globulin Ratio Assessment: Acute respiratory failure. Intubated on 08/04/19. Extubated on 08/11/19. Resolved. Patient has been on room air for 10 days and tolerates very well. Mild bibasilar pneumonia. s/p antibiotics including Meropenem and Linezolid. CXR today shows stable chest. WBC has been mildly elevated since 08/18/19. ID was reconsulted and patient has been put on antibiotics again since 08/19/19. CXR today shows no acute disease. Acute kidney injury secondary to acute tubular necrosis. No recovery. On Sustained low-efficiency dialysis (SLED) since 08/05/[address] Montero. Altered mental status secondary to global encephalopathy. Cholelithiasis with choledocholithiasis, associated with ascending cholangitis. S/P laparoscopic cholecystectomy with operative cholangiogram on 08/01/19. Severe normocytic anemia. s/p 1 unit of pheresis RBC transfusion yesterday. Hgb 8.5 this morning. Prognosis is guarded. Plan: Bronchodilators. Antibiotics including Daptomycin and Zosyn. Micafungin. Appropriate DVT and GI prophylaxis Physical therapy. Bedside swallow evaluation this afternoon. It was held this morning secondary to SLED dialysis. We keep watching patients blood pressure closely especially during SLED dialysis. Evaluation time in minutes: 32 minutes.
[2019-08-22] MEDS: PROTONIX IV SCH (20:29)
[2019-08-22] MEDS: SODIUM CHLORIDE 0.9% INJ SCH (20:29)
[2019-08-22] MEDS: ZYLOPRIM PO SCH (20:29)
[2019-08-23] MEDS: ZOSYN 2.25 GM in NS 50 ML IV SCH ×4 (04:14→20:03)
[2019-08-23] MEDS: LOPRESSOR PO SCH ×4 (04:15→20:03)
[2019-08-23 06:23] LABS: BASO# 0.08 X1000 (0.0-0.2); BASO% 0.6 % (0.0-0.8); EOS# 0.36 X1000 (0.0-0.7); EOS% 2.5 % (0.0-10.0); HEMATOCRIT 27.2 % (42.0-52.0); HEMOGLOBIN 8.5 g/dL (14.0-18.0); IMM GRAN# 0.95 X1000 (0.0-0.04); IMM GRAN% 6.7 % (0.0-0.5); LYMPH# 1.12 X1000 (1.2-3.4); LYMPH% 7.9 % (20.5-51.1); MCHC 31.3 g/dL (33-37); MCV 86.3 FL (81-99); MONO# 1.32 X1000 (0.11-0.59); MONO% 9.3 % (1.7-9.3); MPV 9.9 FL (7.4-10.4); NEUT# 10.31 X1000 (1.4-6.5); PLT 323 X1000 (130-400); RBC 3.15 XMIL (4.7-6.1); RDW 21.4 % (11.5-14.5); WBC 14.14 X1000 (4.8-10.8)
[2019-08-23 06:57] LABS: BANDS 4 % (0-1); LYMPHS 6 % (21-51); MONO 4 % (1-9); SEGS 79 % (42-75)
[2019-08-23 07:12] LABS: CALCIUM 8.9 mg/dL (8.8-10.2); CREATININE 1.2 mg/dL (0.7-1.2); POTASSIUM 3.6 mmol/L (3.5-5.1)
[2019-08-23] MEDS: HEPARIN SUBQ SCH ×2 (09:29→21:59)
[2019-08-23] MEDS: MYCOSTATIN POWDER TOP SCH ×2 (09:30→20:04)
[2019-08-23] MEDS: MYCOSTATIN SUSP PO SCH ×4 (09:30→20:03)
--- NOTE | 2019-08-23 11:41 | PROGRESS NOTE ---
DATE: 08/23/2019 SUBJECTIVE: The patient has no major complaints, but he is still very confused and lethargic, and I really do not have a great explanation for it. He is just very confused and disoriented. He got Haldol on Thursday, but he has not gotten anything in days. He got a dose of Risperdal on 08/15/2019, a dose of Haldol on Thursday. It almost looks like he has got some sort of tardive dyskinesia. He has kind of got this rhythmic movement of his jaw, but I cannot imagine he would have symptoms with the medication he took 4 days ago. OBJECTIVE: Vital Signs: Blood pressure is stable at 110/60, heart rate is in the 110s, afebrile, respiratory rate 18, sats 99% on room air. Cardiovascular: Regular rate and rhythm. Pulmonary: Bilateral breath sounds. Clear to auscultation. GI: Soft, nontender, nondistended. Bowel sounds were positive. Extremities: No clubbing or cyanosis. Lymphatic: No peripheral edema. Neurological: Nonfocal. LABORATORY DATA: White count is 14, hemoglobin and hematocrit 8 and 27, platelets 323,000. BUN and creatinine 13 and 1.2. PROBLEM LIST: 1. Acute kidney injury. That seems to be resolving. Actually, his creatinine has normalized, and his urine output is adequate. He has put out 510, 490, not a ton of urine, but in any case, he seems to be doing okay from that perspective. He is off dialysis. 2. Status post laparoscopic cholecystectomy, endoscopic retrograde cholangiopancreatography for cholecystitis. He seems to be doing okay. He is still on tube feeds because we still have not completely resolved his swallowing issues. He is now for a modified barium swallow. My only concern about that, if he does not have dysphagia, he is still going to have to have a barium swallow to evaluate for esophageal dysmotility, which I do not think we are going to see on a modified barium, but apparently the wrong test was ordered, so will see how he does. If his swallowing is okay, will take out his nasogastric tube. 3. Atrial fibrillation. He is on Lopressor today, and that is it alone. No further Cardizem. 4. History of throat cancer. I am concerned that he may have esophageal stricture or radiation esophagitis, but we will follow. Continue proton pump inhibitor. 5. Cirrhosis. Unclear completely of that diagnosis. However, that being said, I will go ahead and check an ammonia because that may be contributing to his encephalopathy. cc: Earnest Blake MD
--- NOTE | 2019-08-23 14:03 | Diag Imaging Result Doc PS360 ---
BA SWALLOW W/VIDEO SPEECH THER - 08/23/2019 INDICATION: dysphagia TECHNIQUE: Total fluoroscopy time was 21 seconds. 117 images were obtained. COMPARISON: None FINDINGS: There is a nasogastric tube in place. There was significant penetration with thin liquid ingestion. No large volume aspiration. No strictures. The esophagus appears grossly normal in contour. IMPRESSION: Dysphagia, with significant penetration while ingesting thin liquids. Electronically signed by Max Andre 08/23/2019 2:01 PM
--- NOTE | 2019-08-23 14:34 | PROVIDER PROGRESS NOTE ---
Progress Note Subjective: Pt alert and would focus on my face with verbal stimuli. However, he would not follow commands or answer questions. No family at bedside. Objective: temperature 99.2, pulse 101, respirations 27, blood pressure 147/92, 02 sat 99% on room air. General: elderly white male lying in bed in no acute distress. HEENT: normocephalic, atraumatic. Pupils equal and reactive. Mucous membranes dry. Trachea midline. NG tube in place with tube feeding infusing. Skin: warm and dry. Multiple bruises. Neck: supple, No JVD observed. Cardiovascular: distance heart tones. Tachycardic rate and rhythm. No murmur or gallop noted. Respiratory: lung sounds clear anteriorly. Abdomen: soft, nontender, nondistended. Active bowel sounds noted. Rectal tube in place with brown liquid output. Bruising to laparoscopic incision sites. : Ovalles in place with chuck urine. Extremities: No edema. Vas cath to the left groin. Neurological: Alert, not following commands. Labs: WBC 14.14, hemoglobin 8.5, hematocrit 27.2, platelet count 323, sodium 142, potassium 3.6, chloride 107, carbon dioxide 22, do you win 31, creatinine 1.2. Intake 2080, output 2669. Impression: Acute kidney injury without recovery. Creatinine and BUN stable. He tolerated SLED yesterday with a 519 mL ultrafiltration. Excellent urine output. He does not require sled today. We will reevaluate him in the morning. Blood pressure. Stable. Anemia. Low, does not mean transfusion criteria. Volume status. Euvolemic. Electrolytes. Stable. Acid base balance. Stable. Nutrition. Tube feeding in place. Medication reviewed. No changes
[2019-08-23] MEDS: MYCAMINE 100 MG in NS 100 ML IV SCH (14:45)
[2019-08-23] MEDS: CUBICIN 400 MG in NS 100 ML IV SCH (18:18)
--- NOTE | 2019-08-23 18:56 | NEUROLOGY CONSULTATION ---
DATE: 08/23/2019 REASON FOR CONSULTATION: Altered mental status. HISTORY OF PRESENT ILLNESS: This is a 79-year-old male with history of reported coronary disease, hyperlipidemia, hypertension, atrial fibrillation, reported cirrhosis, and throat cancer.. He presented on 07/31/2019 with reports of abdominal pain and nausea. He underwent a laparoscopic cholecystectomy on 08/01/2019. In the days following that, he began to have respiratory difficulty and acute renal failure requiring SLED, and was ultimately intubated on 08/04/2019. His sedation was held, and he was extubated on 08/11/2019. Since that time, he has remained confused and lethargic. He intermittently answers questions, and at times he will open his eyes and watch TV, but at other times he seems a bit more sleepy and confused. There has not been observed seizure activity. He has no history of seizure, stroke or major neurologic event. At times he is agitated. He did receive a dose of Risperdal on 08/15.1010 and 1 dose of Haldol 3 days ago. Family has noticed occasional quivering of his jaw and shoulder or hand. In reviewing his labs, his BUN peaked at 140 on 08/15/2019 and has gradually trended down. Today it is 31. Sodium has been normal for the most part. Blood glucose recently 160 to 204. Calcium is 8.9. AST of 45, ALT 25. The former peaked at 310 on 08/01/2019, and the latter at 218 on 08/01/2019. Ammonia is normal today. Head CT was performed on 08/12/2019, which did not show acute findings, though it did show moderate cerebral atrophy. The family reports the patient's memory is very good at baseline. They report no difficulties with remote or recent events. He is up to date on recent current events. He manages his own finances and drives. He still does some mechanical-type work. He is very active. PAST MEDICAL HISTORY: Reported coronary artery disease, hyperlipidemia, hypertension, reported liver cirrhosis, throat cancer, atrial fibrillation. ALLERGIES: No known drug allergies listed. MEDICATIONS: Current, reviewed in the chart. I believe he may have been taking Eliquis as an outpatient. I could not confirm that. FAMILY HISTORY: Noncontributory. SOCIAL HISTORY: No tobacco, alcohol or illicits. He lives at home. He is . REVIEW OF SYSTEMS: Unobtainable due to patient's mental status. PHYSICAL EXAMINATION: Vital Signs: He is currently afebrile. He had a temperature in the early hours of this morning of 100.5. Blood pressure most recently was 95/52, and before that 176/65. Pulse 119, respirations 29, saturation 97% on room air. General: Mr. Iqbal is supine in bed with eyes closed. At times he shifts around a little bit in bed. Neurologic: He appears to have some minor spontaneous movement of his limbs, and I did not detect an obvious asymmetry there. He did not follow commands for me initially. For most of the encounter he kept his eyes closed, but at the very end he opened his eyes and looked around seem to regard his family and myself. He did not follow my commands. At 1 point, he spoke a sentence that was audible. I am not certain it pertained to anything current. His pupils are equal, round, and reactive. Gaze is conjugate. He had lateral eye movement with passive head turning. There was not a blink to threat. He grimaced with noxious stimuli applied over all the limbs, and he withdrew the upper extremities perhaps a bit more briskly than the lower extremities. All of this seemed symmetric. Corneal reflexes were intact bilaterally. Face appeared symmetric with equal activation. Reflexes were absent in the lower extremities, trace at the biceps. No clonus. Plantar response was silent. IMAGING: Head CT on 08/12 showing no acute findings. Moderate cerebral atrophy. LABORATORY DATA: White count 14. BUN of 31, creatinine of 1.2. Blood glucose 160 to 204. Calcium 8.9. AST 45, ALT 25, ammonia normal. ASSESSMENT/PLAN: Global encephalopathy without definite focal feature. This may be multifactorial. Recommend continued management of his medical problems and correction of any electrolyte abnormalities. While I do not see any definite focal findings, his history of atrial fibrillation and possibly being on an outpatient Eliquis is noted. I would recommend an MRI of the brain just to be certain there has not been a multifocal embolic stroke. We might also consider a routine EEG if his mental status does not improve. Agree with withholding sedating medications as able. cc: Kena Giles MD
[2019-08-23] MEDS: XOPENEX NEB INH PRN (19:50)
[2019-08-23] MEDS: ZYLOPRIM PO SCH (20:03)
--- NOTE | 2019-08-23 20:11 | PROVIDER PROGRESS NOTE ---
Progress Note Dr. Roth Progress Note/Pulmonary and or critical care Subjective: The patient is lying in bed on room air. He appears lethargic. He has tachypnea and tachycardia at this time. He also had two episodes of low-grade fever in last 24 hours. He has NG tube feeding on. He also has PICC line, tunneled central venous dialysis catheter, zhong and rectal tube. No family at the bedside. Input is appreciated from Dr. Blake and other teams on the case. Objective: Vital Signs: fever in last 24 hours. NJ 105, RR 24, BP 123/73 and SaO2 98% on room air. I/O -589 ml Physical Examination: General: Lying in bed with no acute distress noted. Rectal tubing on. HEENT: Normocephalic. Trachea midline. Mucosa pink and moist. NG tube in place. Chest: Mild tachypnea. Symmetrical excursion. Good air entry bilaterally. CVS: Tachycardia. Regular rate and rhythm with murmur noted. Abdomen: Soft. Normoactive bowel sounds noted. Left femoral Vas-Cath in place. Extremities: No pedal edema. 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 Neuro: Awake and alert, but not answer questions or follow commands. Labs and Radiology: Laboratory Results 08/23/19 08/23/19 08/23/19 06:00 06:00 11:31 WBC 14.14 H RBC 3.15 L Hgb 8.5 L Hct 27.2 L MCV 86.3 MCH 27.0 MCHC 31.3 L RDW Std Deviation 21.4 H Plt Count 323 MPV 9.9 Immature Gran % (Auto) 6.7 H Neut % (Auto) 73.0 Lymph % (Auto) 7.9 L [place] % (Auto) 9.3 Eos % (Auto) 2.5 Baso % (Auto) 0.6 Immature Gran # (Auto) 0.95 H Neut # (Auto) 10.31 H Lymph # (Auto) 1.12 L [place] # (Auto) 1.32 H Eos # (Auto) 0.36 Baso # (Auto) 0.08 Segmented Neutrophils 79 H Band Neutrophils 4 H Lymphocytes 6 L Monocytes 4 Metamyelocytes 2.0 Myelocytes 5.0 Sodium 142 Potassium 3.6 Chloride 107 Carbon Dioxide 22 L Anion Gap 13 BUN 31 H Creatinine 1.2 Estimated GFR/1.73 m2 59 BUN/Creatinine Ratio 26 Glucose 162 H Calculated Osmolality 293 Calcium 8.9 Ammonia 46 Assessment: Acute respiratory failure. Intubated on 08/04/19. Extubated on 08/11/19. Resolved. Patient has been on room air for 11 days and tolerates very well. Mild bibasilar pneumonia. s/p antibiotics including Meropenem and Linezolid. CXR today shows stable chest. WBC has been mildly elevated since 08/18/19. ID was reconsulted and patient has been put on antibiotics again since 08/19/19. Acute kidney injury secondary to acute tubular necrosis. No recovery. On Sustained low-efficiency dialysis (SLED) since 08/05/[address] Montero. Altered mental status secondary to global encephalopathy. Neurology consultation ordered. Cholelithiasis with choledocholithiasis, associated with ascending cholangitis. S/P laparoscopic cholecystectomy with operative cholangiogram on 08/01/19. Severe normocytic anemia. Stable. Hgb 8.5 this morning. Protein calorie malnutrition. Patient stays on NG tube feeding. Modified barium swallow study today shows dysphagia with significant penetration while ingesting thin liquids. Prognosis is guarded. Plan: Bronchodilators. Antibiotics including Daptomycin and Zosyn. Micafungin. Appropriate DVT and GI prophylaxis Physical therapy. Continue NG tube feeding. Neurology consultation ordered. We ordered to repeat blood culture and urine culture. Evaluation time in minutes: 31 minutes.
[2019-08-23] MEDS: PROTONIX IV SCH (20:26)
[2019-08-24] MEDS: ZOSYN 2.25 GM in NS 50 ML IV SCH ×2 (02:02→08:39)
[2019-08-24] MEDS: LOPRESSOR PO SCH ×5 (02:02→21:46)
[2019-08-24] MEDS: MORPHINE IV PRN (02:58)
--- NOTE | 2019-08-24 06:33 | Diag Imaging Result Doc PS360 ---
CHEST-PORTABLE - 08/24/2019 INDICATION: NG tube placement COMPARISON: 08/22/2019 FINDINGS: The nasogastric tube is in good position in the stomach. There is a stable right dialysis catheter in good position. The lungs are grossly clear. Heart size is normal. There is probably a trace left pleural effusion. IMPRESSION: Nasogastric tube in good position. Electronically signed by Max Andre 08/24/2019 6:31 AM
[2019-08-24 06:38] LABS: HEMATOCRIT 27.8 % (42.0-52.0); HEMOGLOBIN 8.5 g/dL (14.0-18.0); MCH 26.7 PG (27-31); MCHC 30.6 g/dL (33-37); MCV 87.4 FL (81-99); MPV 9.9 FL (7.4-10.4); RBC 3.18 XMIL (4.7-6.1); RDW 22.1 % (11.5-14.5); WBC 14.11 X1000 (4.8-10.8)
[2019-08-24 06:48] LABS: ALB/GLOB RATIO 0.8; ALBUMIN 3.2 g/dL (3.5-5.0); CALCIUM 8.9 mg/dL (8.8-10.2); CREATININE 1.3 mg/dL (0.7-1.2); DIRECT BILIRUBIN 0.2 mg/dL (0.00-0.20); POTASSIUM 3.3 mmol/L (3.5-5.1); TOTAL BILIRUBIN 0.7 mg/dL (0.20-1.00); TOTAL PROTEIN 7.1 g/dL (6.3-8.3)
[2019-08-24] MEDS: XOPENEX NEB INH PRN ×3 (07:59→19:50)
[2019-08-24] MEDS: MYCOSTATIN POWDER TOP SCH ×2 (08:39→22:18)
[2019-08-24] MEDS: HEPARIN SUBQ SCH ×2 (09:18→21:46)
[2019-08-24] MEDS: MYCOSTATIN SUSP PO SCH ×4 (09:29→22:29)
[2019-08-24 09:47] LABS: INR 1.23; PROTIME 15.7 Seconds (11.0-16.0)
[2019-08-24 09:48] LABS: PTT 38.9 Seconds (22.3-41.8)
[2019-08-24] MEDS: TYLENOL LIQUID PO PRN (10:37)
--- NOTE | 2019-08-24 12:45 | Diag Imaging Result Doc PS360 ---
EXAM: MRI BRAIN W/O CONTRAST 08/24/2019 HISTORY: CVA TECHNIQUE: T1 sagittal, axial, axial T2, FLAIR, DWI and coronal gradient echo. COMMENT: There are no previous MRI studies. There is some motion artifact. There is no evidence of bleed or abnormal extra-axial fluid collection. No mass effect is present. There is minimal periventricular white matter hyperintensity on T2. There is no evidence of restricted diffusion. IMPRESSION: No evidence of acute ischemia. Otherwise no evidence of acute intracranial disease. Electronically signed by Jude Conley 08/24/2019 12:43 PM
[2019-08-24] MEDS ORDERED: D5 1/2 NS 1,000 ML IV SCH (13:00)
--- NOTE | 2019-08-24 13:37 | NEUROLOGY PROGRESS NOTE ---
DATE: 08/24/2019 SUBJECTIVE: Mr. Iqbal was seen for initial neurology consultation by Dr. Giles yesterday. He had respiratory difficulty and acute renal failure and those problems have been managed. He required sedation and that was stopped. He has had some periods of restlessness, managed with haloperidol, last dose 5 mg 4 days ago. at the bedside reports he has seemed to tolerate haloperidol in the past. reports absolutely no baseline cognitive impairment or mental issue of any sort. There is no history of head injury, illicit drug use, recent alcohol use. There is remote history of alcohol use disorder. OBJECTIVE: On exam, Mr. Iqbal is asleep, easily waked, briefly alert. He did not answer my questions. He did not speak when I asked him to do so. He did not tell me his name. He did not follow commands. There is full lateral eye movement. Facial motility is symmetric. Limb tone is symmetric. Neck is supple. Plantar response is silent bilaterally. IMPRESSION: Global encephalopathy, uncertain etiology. I do not find evidence of increased intracranial pressure, central nervous system infection, seizure, focal central nervous system lesion. I do not have any urgent suggestion. I would continue current management and hope we see him improve. If his 's report is correct that there was no pre-existing cognitive impairment, we can be optimistic for recovery to baseline mentally. Thanks for asking Neurology to see Mr. Iqbal cc: MD LUZ Ybarra III
[2019-08-24] MEDS: MYCAMINE 100 MG in NS 100 ML IV SCH (13:41)
--- NOTE | 2019-08-24 14:20 | GASTROENTEROLOGY PROGRESS NOTE ---
DATE: 08/24/2019 SUBJECTIVE: Mr. Iqbal is a 79-year-old male resting in bed. The patient is alert, but he is unable to communicate and unable to follow commands or answer questions. His is at his bedside. The patient has an NG tube in place with tube feeding. The patient also has a rectal tube. OBJECTIVE: Vital Signs: Temperature 98.7 degrees, pulse 117, respirations 30, blood pressure 128/80, oxygen saturation 98% on room air. The patient's weight is 144 pounds. BMI is 22.6 kg/m2. General: Patient is awake, but not alert and oriented. HEENT: Pale conjunctivae. No icterus. NG tube is in place. Neck: Supple. Lungs: Clear to auscultation. Cardiovascular: Patient is tachycardic. Abdomen: Soft, nontender, distended. Active bowel heard in all 4 quadrants. Extremities: No clubbing. No cyanosis. No edema. Neurologic: The patient is awake but not alert and oriented. LABORATORY DATA: WBC is 14.11, RBCs 3.18, hemoglobin is 8.5, hematocrit is 27.8, platelet count is 336,000. Sodium 146 3.3, chloride 109, carbon dioxide 22, anion gap 13, BUN 39, creatinine 1.3, glucose 164, calcium 8.9, total bilirubin is 0.70, AST 61, ALT is 38, alkaline phosphatase is 193, albumin 3.2, plasma lactate is 2.3. The patient's chest x-ray showed NG tube in place. The patient's brain MRI has shown no evidence of acute ischemia and no evidence of acute intracranial disease. MBS WITH SPEECH EVALUATION: Barium swallow with speech evaluation was done and according to the speech therapist note, it appears that the patient was unable to adequately protect his airways when swallowing, and there is a high risk of aspiration and suggestions are to give medications and nutrition via nonoral means. Modified barium swallow showed that the patient has dysphagia with significant penetration while ingesting thin liquids. IMPRESSION AND PLAN: 1. Dysphagia. 2. Decompensated alcoholic cirrhosis. 3. Acute cholecystis otitis, status post cholecystectomy. 4. Abnormal liver function test. 5. Acute kidney injury. 6. Atrial fibrillation. PLAN: 79-year-old male with decompensated alcoholic cirrhosis. GI has been asked to evaluate the patient for a placement of a PEG tube. We have ordered an ultrasound of the abdomen to rule out ascites. The patient is currently receiving his feeding of Nepro 1.8 Omar 50 mL/hr through his NG tube. Patient's is reluctant to have the PEG placement. She will discuss it with her kids and make the decision. This plan was discussed with Dr. Arriola. Please call us with any further questions or concerns. Dictated by PEGGY Gomez for Cristhian Arriola MD [facility]
[2019-08-24] MEDS ORDERED: POTASSIUM CHLORIDE 20% LIQUID PO ONE (14:23)
[2019-08-24] MEDS ORDERED: ZOSYN 3.375 GM in NS 50 ML IV SCH (14:30)
--- NOTE | 2019-08-24 14:43 | INFECTIOUS DISEASE PROGRESS NO ---
DATE: 08/24/2019 PRESENT ILLNESS: Mr. Iqbal has a leukocytosis, the origin of which is uncertain at this point. He has grown a yeast with greater than 100,000 colonies in his urine, which we normally do not treat. However, in this situation, we are treating the yeast in his urine as a potential source of his leukocytosis when nothing else has grown. He also has an oral candidiasis. The patient is status post cholecystectomy done on August 01. MEDICATIONS: He is receivin. Daptomycin 400 mg IV daily. 2. Micafungin 100 mg IV daily. 3. Zosyn 2.25 g IV every 6 hours. 4. Nystatin suspension painted in his mouth 4 times a day. PHYSICAL EXAMINATION: Vital Signs: Temperature is 98.7 degrees, pulse rate 117, respiratory rate 30, blood pressure 128/86. O2 saturation is 98% on room air. General: This is a chronically ill- appearing, elderly gentleman. He is lying in the bed, lethargic, and in no acute distress. HEENT: Atraumatic, normocephalic. Oral mucous membranes are pink and moist. Conjunctivae are pale. There is an NG tube in place with tube feedings infusing. Cardiovascular: Irregularly irregular with atrial fibrillation on the monitor. Respiratory: Lung sounds have coarse wheezes bilaterally. He is tachypneic. Abdomen: Soft and round with active bowel sounds. There are areas of mild eschar, which are dry and intact without erythema or drainage. Integumentary: Skin is warm and dry. There is a tunneled central venous dialysis catheter to the right chest with Steri-Strips to the right lower neck. These sites are without edema, erythema or drainage. Neurologic: He is currently nonverbal, but will make eye contact, not responding to requests and closing his eyes most of the time. LABORATORY AND X-RAY: Today his white count is 14.11, hemoglobin 8.5, platelet count 336,000. Creatinine is 1.3 with a GFR of 53, total bilirubin is 0.7, a direct bilirubin is 0.2. AST 61, ALT 38, alkaline phosphatase 193. There are urine and blood cultures are pending. Brain MRI today shows no evidence of acute ischemia or intracranial disease. Chest x-ray shows that the lungs are grossly clear. ASSESSMENT AND PLAN: Mr. Iqbal is being treated for leukocytosis using broad-spectrum coverage of daptomycin and Zosyn. His creatinine has been better over the last couple of days, so we will increase his Zosyn to 3.375 grams intravenous every 6 hours, and we will also continue daptomycin as ordered. Also, the patient is receiving micafungin for the yeast in his urine, and nystatin painted in his mouth for the oral candidiasis. We will continue both of these. He does have a rectal tube with liquid brown stool draining into the bag. We will go ahead and order a Clostridium difficile toxin and antigen and await the most recent cultures that have been obtained. COMORBIDITIES: Comorbidities for the patient include that he is elderly with altered mentation, history of laryngeal cancer and atrial fibrillation. Dictated by PEGGY Monroe for Earnest Blake MD cc: Earnest Blake MD, Lauren Taylor MD MTDD
--- NOTE | 2019-08-24 14:51 | PROGRESS NOTE ---
DATE: 08/24/2019 REVIEW OF SYSTEMS: Cardiovascular: Regular rate and rhythm. Pulmonary: Diminished at bases. GI: Soft, nontender, nondistended. Bowel sounds are positive. LABORATORY DATA: White count is 14, hemoglobin and hematocrit 8 and 27, platelets 336. INR 1.2. Sodium 146, potassium 3.3, creatinine of 1.3, plasma lactate of 2.3, albumin is 3.2. PROBLEM LIST: 1. Acute kidney injury that is resolving. His urine output is stabilizing. Creatinine is stabilizing. He is off dialysis 2. Encephalopathy. I really am not entirely sure where this is coming from. His ammonia level was normal. He is just very delirious without a clear reason for it. His swallowing study showed significant aspiration risk, so if we are going to continue full court press, he will likely need a PEG tube. His is really not convinced that she is going to put him through that. We had a very long discussion about it. 3. When he had throat cancer/laryngeal cancer, he was adamant about not getting a feeding tube. We discussed this was kind of an option if we wanted to continue forward. She is concerned that he is not improving and not improving neurologically and, you know, putting in a feeding tube that would just be there to prolong his course without a guarantee that it would necessarily improve his course, is not something that she would want or that he would want. She is going to talk to the children (the children I think are from a different marriage) and decide about what to do long-term. I have put in a Palliative Care consult as well to address this. 4. Lap hue, ERCP, cholangitis. He seems to be doing okay. 5. Cardizem. He is on Lopressor, but he is still tachycardic, and he is on q. 6 hours Lopressor. His blood pressure is pretty stable, so we will probably titrate up on that. I am going to go up to 50. He is on 100 right now, so we will do 50 t.i.d. and that will be up to 150. DISPOSITION: 1. Prognosis is poor overall. We are looking at I think LTAC or rehab if anything. 2. Hypernatremia, hypokalemia. He seems to be doing okay. I do not know if there are issues there, but we will supplement and follow. cc: Earnest Blake MD
[2019-08-24 15:01] LABS: URINE SOURCE CATH
[2019-08-24 15:12] LABS: BILIRUBIN URINE NEGATIVE (NEGATIVE); BLOOD URINE MODERATE (NEGATIVE); COLOR YELLOW; GLUCOSE URINE NEGATIVE (NEGATIVE); KETONE URINE NEGATIVE (NEGATIVE); LEUKOCYTES URINE LARGE (NEGATIVE); NITRITE URINE NEGATIVE (NEGATIVE); PH URINE 5.5; PROTEIN URINE 70 mg/dL (NEGATIVE); SP GRAVITY URINE 1.021; TURBIDITY URINE TURBID (CLEAR); UROBILINOGEN URINE NORMAL (NORMAL)
--- NOTE | 2019-08-24 15:17 | Diag Imaging Result Doc PS360 ---
EXAM: US ABDOMEN-COMPLETE 08/24/2019 HISTORY: To r/o ascites TECHNIQUE: Abdominal ultrasound COMMENT: The spleen is enlarged measuring over 16.6 cm. The study is somewhat suboptimal due to the patient's body habitus. The kidneys are without evidence of hydronephrosis or mass. The visualized portions of the pancreatic body are normal in appearance remainder is obscured. The liver is very poorly demonstrated. There is apparent hepatic steatosis versus cirrhosis. The gallbladder is surgically absent. The aorta is obscured. IMPRESSION: Limited study. No evidence of ascites. Splenomegaly. Hepatic steatosis versus cirrhosis. Electronically signed by Jude Conley 08/24/2019 3:15 PM
[2019-08-24 15:23] LABS: UR EPITHELIAL CELLS <10 /HPF (<10); URINE BACTERIA NEGATIVE /HPF; URINE RBC <10 /HPF (<10); URINE WBC TNTC /HPF (<10)
[2019-08-24 15:41] LABS: URINE CASTS GRANULAR PRESENT; URINE CRYSTALS NONE SEEN; URINE SMALL ROUND CELLS NONE SEEN; URINE YEAST PRESENT
--- NOTE | 2019-08-24 16:25 | PROVIDER PROGRESS NOTE ---
Progress Note Dr. Roth Progress Note/Pulmonary and or critical care Subjective: The patient is lying in bed on room air. He appears lethargic, but easily arousable. He initially closed eyes. After we stepped in, he opened his eyes and looked around, but he did not answer questions or follow commands at this time. He has tachycardia. He is still on NG tube feeding. Swallow evaluation shows a high risk of aspiration. No family at the bedside. Input is appreciated from Dr. Blake and other teams on the case. Objective: Vital Signs: fever in last 24 hours. [place] 121, RR 20, BP 136/85 and SaO2 95% on room air. I/O +420 ml Physical Examination: General: Lying in bed with no acute distress noted. Rectal tubing on. HEENT: Normocephalic. Trachea midline. Mucosa pink and moist. NG tube in place. Chest: Mild tachypnea. Symmetrical excursion. Good air entry bilaterally. CVS: Tachycardia. Regular rate and rhythm with murmur noted. Abdomen: Soft. Normoactive bowel sounds noted. Left femoral Vas-Cath in place. Extremities: No pedal edema. 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 Neuro: Awake and alert, but not answer questions or follow commands. Labs and Radiology: Laboratory Results 08/24/19 08/24/19 08/24/19 06:06 06:06 09:15 WBC 14.11 H RBC 3.18 L Hgb 8.5 L Hct 27.8 L MCV 87.4 MCH 26.7 L MCHC 30.6 L RDW Std Deviation 22.1 H Plt Count 336 MPV 9.9 PT INR PTT (Actin FS) Sodium 146 H Potassium 3.3 L Chloride 109 H Carbon Dioxide 22 L Anion Gap 15 BUN 39 H Creatinine 1.3 H Estimated GFR/1.73 m2 53 BUN/Creatinine Ratio 30 Glucose 164 H Calculated Osmolality 304 Calcium 8.9 Total Bilirubin 0.70 Direct Bilirubin 0.20 AST 61 H ALT 38 Alkaline Phosphatase 193 H Creatine Kinase 87 Troponin T High Sens Total Protein 7.1 Albumin 3.2 L Globulin 3.9 Albumin/Globulin Ratio 0.8 Plasma Lactate Urine Source Urine Color Urine Turbidity Urine pH Ur Specific [place] Urine Protein Ur Glucose (Stick) Ur Ketones (Stick) Urine Blood Urine Nitrite Urine Bilirubin Urobilinogen Dipstick Urine Leukocytes Urine WBC (Auto) Urine RBC (Auto) U Epithel Cells (Auto) Urine Bacteria (Auto) Urine Crystals Small Round Cells Urine Casts Urine Yeast-like Cells 08/24/19 08/24/19 08/24/19 09:15 09:15 09:15 WBC RBC Hgb Hct MCV MCH MCHC RDW Std Deviation Plt Count MPV PT 15.7 INR 1.23 PTT (Actin FS) 38.9 Sodium Potassium Chloride Carbon Dioxide Anion Gap BUN Creatinine Estimated GFR/1.73 m2 BUN/Creatinine Ratio Glucose Calculated Osmolality Calcium Total Bilirubin Direct Bilirubin AST ALT Alkaline Phosphatase Creatine Kinase Troponin T High Sens 51 H Total Protein Albumin Globulin Albumin/Globulin Ratio Plasma Lactate 1.2 Urine Source Urine Color Urine Turbidity Urine pH Ur Specific [place] Urine Protein Ur Glucose (Stick) Ur Ketones (Stick) Urine Blood Urine Nitrite Urine Bilirubin Urobilinogen Dipstick Urine Leukocytes Urine WBC (Auto) Urine RBC (Auto) U Epithel Cells (Auto) Urine Bacteria (Auto) Urine Crystals Small Round Cells Urine Casts Urine Yeast-like Cells 08/24/19 08/24/19 08/24/19 11:21 13:42 14:15 WBC RBC Hgb Hct MCV MCH MCHC RDW Std Deviation Plt Count MPV PT INR PTT (Actin FS) Sodium Potassium Chloride Carbon Dioxide Anion Gap BUN Creatinine Estimated GFR/1.73 m2 BUN/Creatinine Ratio Glucose Calculated Osmolality Calcium Total Bilirubin Direct Bilirubin AST ALT Alkaline Phosphatase Creatine Kinase Troponin T High Sens Total Protein Albumin Globulin Albumin/Globulin Ratio Plasma Lactate 2.3 H 1.6 Urine Source CATH Urine Color YELLOW Urine Turbidity TURBID Urine pH 5.5 Ur Specific [place] 1.021 Urine Protein 70 A Ur Glucose (Stick) NEGATIVE Ur Ketones (Stick) NEGATIVE Urine Blood MODERATE A Urine Nitrite NEGATIVE Urine Bilirubin NEGATIVE Urobilinogen Dipstick NORMAL Urine Leukocytes LARGE A Urine WBC (Auto) TNTC A Urine RBC (Auto) <10 U Epithel Cells (Auto) <10 Urine Bacteria (Auto) NEGATIVE Urine Crystals NONE SEEN Small Round Cells NONE SEEN Urine Casts GRANULAR PRESENT Urine Yeast-like Cells PRESENT Assessment: Acute respiratory failure. Intubated on 08/04/19. Extubated on 08/11/19. Resolved. Patient stays on room air. Mild bibasilar pneumonia. s/p antibiotics including Meropenem and Linezolid on 08/17/19. WBC has been mildly elevated since 08/18/19. ID was reconsulted and patient has been put on antibiotics again since 08/19/19. CXR today shows grossly clear lungs with probably a trace left pleural effusion. Acute kidney injury secondary to acute tubular necrosis. No recovery. On Sustained low-efficiency dialysis (SLED) since 08/05/[address] Montero. Altered mental status secondary to global encephalopathy. Neurology consultation ordered. Cholelithiasis with choledocholithiasis, associated with ascending cholangitis. S/P laparoscopic cholecystectomy with operative cholangiogram on 08/01/19. Severe normocytic anemia. Stable. Hgb 8.5 this morning. Protein calorie malnutrition. Patient stays on NG tube feeding. Modified barium swallow study on 08/23/19 showed dysphagia with significant penetration while ingesting thin liquids. Prognosis is guarded. Plan: Bronchodilators. Antibiotics including Daptomycin and Zosyn (Zosyn dosage increased from 2.25 gm to 3.375 gm today per ID). Micafungin. Appropriate DVT and GI prophylaxis Physical therapy. Continue NG tube feeding. Palliative care consulted. No growth shown on repeated urine culture and blood cultures so far. Evaluation time in minutes: 34 minutes.
--- NOTE | 2019-08-24 17:05 | PROVIDER PROGRESS NOTE ---
Progress Note Subjective: Patient aroused to verbal stimuli. Does not follow commands. No family at bedside. Objective: temperature 98.8, pulse 118, blood pressure 87/61, respirations 23, 02 sat 97% on room air. General: elderly white male lying in bed in no acute distress. HEENT: normocephalic, atraumatic. Pupils equal and reactive. Mucous membranes dr y. Trachea midline. NG tube in place with tube feedings on hold. Skin: warm and dry. Multiple bruises. Neck: supple, No JVD observed. Cardiovascular: distance heart tones. Tachycardic rate and rhythm. No murmur or gallop noted. Respiratory: lung sounds coarse anteriorly. Use of accessory muscles noted. Abdomen: soft, nontender, nondistended. Active bowel sounds noted. Rectal tube in place with brown liquid output. Bruising to laparoscopic incision sites. : [place] in place with chuck urine. Extremities: No edema. Vas cath to the left groin. Neurological: Alert, not following commands. Labs: WBC 14.11, hemoglobin 8.5, hematocrit 27.8, platelet count 336, sodium 146, potassium 3.3, chloride 109, carbon dioxide 22, BUN 39, creatinine 1.3, albumin 3.2. Intake 1820, output 1400. Impression: Acute kidney injury with evidence of recovery. Creatinine and BUN stable. 1200ml urine made in 24 hours, We will hold off on SLED today. Blood pressure. Low, variable. Anemia. Low, does not meet transfusion criteria. Volume status. Euvolemic. Electrolytes. Stable. Acid base balance. Stable. Nutrition. Tube feeding in place. Medication reviewed. No changes
[2019-08-24] MEDS: CUBICIN 400 MG in NS 100 ML IV SCH (17:49)
[2019-08-24] MEDS ORDERED: NS 0 ML ONE ×2 (21:25→21:54)
[2019-08-24] MEDS: PROTONIX IV SCH (21:46)
[2019-08-24] MEDS: ZYLOPRIM PO SCH (21:46)
[2019-08-24] MEDS: ZOSYN 3.375 GM in NS 50 ML IV SCH (22:13)
[2019-08-25] MEDS: ZOSYN 3.375 GM in NS 50 ML IV SCH ×4 (03:15→21:23)
[2019-08-25 07:03] LABS: HEMATOCRIT 30.4 % (42.0-52.0); HEMOGLOBIN 9.3 g/dL (14.0-18.0); MCH 27.2 PG (27-31); MCHC 30.6 g/dL (33-37); MCV 88.9 FL (81-99); MPV 10.5 FL (7.4-10.4); RBC 3.42 XMIL (4.7-6.1); RDW 22.9 % (11.5-14.5); WBC 8.12 X1000 (4.8-10.8)
[2019-08-25 07:29] LABS: CALCIUM 8.9 mg/dL (8.8-10.2); CREATININE 1.2 mg/dL (0.7-1.2); POTASSIUM 3.4 mmol/L (3.5-5.1)
[2019-08-25] MEDS: XOPENEX NEB INH PRN ×2 (08:15→11:48)
[2019-08-25] MEDS: LOPRESSOR PO SCH ×3 (08:39→20:15)
[2019-08-25] MEDS: HEPARIN SUBQ SCH (08:39)
[2019-08-25] MEDS: MYCOSTATIN SUSP PO SCH ×4 (08:39→20:15)
[2019-08-25] MEDS: MYCOSTATIN POWDER TOP SCH ×2 (08:39→20:15)
--- NOTE | 2019-08-25 10:58 | NEUROLOGY PROGRESS NOTE ---
DATE: 08/25/2019 Mr. Iqbal is much brighter today, awake, alert, more spontaneous. He followed some simple commands inconsistently. He answered some of my questions and other questions did not get answered. He appears a little bit restless, moving all limbs. On review of his current medication list, I do not see anything that would be sedating or otherwise be likely to contribute to encephalopathy. Lab shows sodium up to 150 today with some other minor abnormalities but nothing that likely would contribute to encephalopathy. BUN is down to 35 today. He continues afebrile. Improved level of alertness is encouraging. I do not have any urgent suggestion from a neurology standpoint. We still might consider EEG. I hope he will continue to improve. 's reports that there was not a baseline cognitive impairment is encouraging. Thanks for asking Neurology to see Mr. Iqbal. cc: MD LUZ Ybarra III
[2019-08-25] MEDS: D5 1/4 NS 1,000 ML IV SCH ×2 (11:42→23:45)
[2019-08-25] MEDS: MYCAMINE 100 MG in NS 100 ML IV SCH (13:29)
--- NOTE | 2019-08-25 14:34 | GASTROENTEROLOGY PROGRESS NOTE ---
DATE: 08/25/2019 SUBJECTIVE: Mr. Mcgowan is a 79-year-old, male resting in bed. Family is at the bedside. The patient was wide awake today. He was responding when called by his name and was trying to speak but his speech was garbled. The patient has an NG tube in place with tube feeding going on. He also has a rectal tube. OBJECTIVE: Vital Signs: Temperature 98.0 degrees, pulse 118, respirations 18, blood pressure 134/74, oxygen saturation 99%. The patient's weight is 145 pounds. BMI is 22.7 kg/m2. General: He is awake and mumbling. HEENT: Pale conjunctivae. No icterus. PERRL. Neck: Supple. Lungs: Clear to auscultation. Cardiovascular: The patient is tachycardic. Abdomen: Soft, nontender, nondistended. Active bowel sounds heard in all 4 quadrants. Extremities: No clubbing, no cyanosis, no edema. Pedal pulses 1+ present. Neurologic: The patient is awake but not oriented. Laboratory Data: WBCs are 8.12, RBCs 3.42, hemoglobin is 9.3, hematocrit is 30.4, platelet count is 228,000. PT 15.7, INR is 1.23. Sodium is 150, potassium 3.4, chloride 114, carbon dioxide 24, anion gap is 12, BUN is 35, creatinine is 1.2, glucose is 153, calcium is 8.9. IMAGING: The patient's abdominal ultrasound yesterday showed no evidence of ascites, splenomegaly, hepatic steatosis versus cirrhosis. IMPRESSION AND PLAN: Anemia Acute cholecystitis and cholangitis s/p cholecystectomy Cirrhosis Splenomegaly Altered mental status Renal Failure - improving PLAN: Mr. Mcgowan is a 79 year old male who had a recent cholecystectomy. Patient currently has an NG tube with feeding, He is receiving Nepro. Patient is currently a DNR level I. Patient's and his kids have agreed to get the PEG tube placed. We plan to do an EGD with PEG tube placement tomorrow. We have discussed the risks, benefits and alternatives of the procedure to the family members. We will continue to monitor the patient and follow the plan of care per PCP. This plan was discussed with Dr. Aldrich. Please call us for any further questions or concerns. Dictated by PEGGY Gomez for Elder Aldrich MD cc: Elder Aldrich MD I have seen and examined the patient myself and I agree with the above plan of care. Please call us with any further questions or concerns. LUZ
--- NOTE | 2019-08-25 14:54 | INFECTIOUS DISEASE PROGRESS NO ---
DATE: 08/25/2019 PRESENT ILLNESS: Mr. Iqbal has been treated for a leukocytosis, which may have been related to the yeast in his urine. He is status post cholecystectomy done earlier this month. Today, his leukocytosis has resolved. The patient has an oral candidiasis, which is improving. MEDICATIONS: Today is day 6 of daptomycin 400 mg IV daily, micafungin 100 mg IV daily, and Zosyn IV which is now 3.375 grams IV every 6 hours. He is also receiving nystatin painted in his mouth 4 times a day. PHYSICAL EXAMINATION: Vital Signs: Temperature is 98 degrees, pulse rate 123, respiratory rate 18, blood pressure 134/74, O2 saturation is 99% on room air. General: This is a chronically ill- appearing, elderly gentleman. He is lying in the bed, more awake and alert today, and in no acute distress. HEENT: Atraumatic, normocephalic. Oral mucous membranes are pink and moist. Conjunctivae are pale. He has an NG tube with tube feedings infusing. Respiratory: Lung sounds are coarse bilaterally with no work of breathing noted. Cardiovascular: Irregularly irregular with atrial fibrillation on the monitor. Abdomen: Soft, round, and nontender. Bowel sounds are active. He has areas of mild eschar, which are dry and without erythema, to his abdomen. Integumentary: Skin is warm and dry with a tunneled central venous dialysis catheter on the right side with Steri-Strips and some mild bloody shadowing to the dressing from the site. Neurologic: He is more awake and alert today. He is answering some questions appropriately, but states he does not know where he is. He is following commands and able to move both upper extremities and wiggle the toes of his right foot. No movement of the left lower extremity was noted. IMAGING AND LABORATORY DATA: Today, his white count is 8.12, hemoglobin 9.3, platelet count 228,000. Creatinine is 1.2, GFR is 59. A urinalysis from yesterday shows WBCs too numerous to count, with negative urine bacteria. Urine culture is pending. Check of Clostridium difficile toxin and antigen were both negative. The most recent repeat urine showed yeast colonies have gone down to 10,000 to 20,000. Creatine kinase done yesterday was 87. No imaging reports today. ASSESSMENT AND PLAN: Mr. Iqbal is being treated for leukocytosis using daptomycin and Zosyn for broad-spectrum coverage. He is also receiving micafungin, which may be the cause for his leukocytosis. He also has oral candidiasis, which is improving. For now, we will go ahead and continue the daptomycin, Zosyn, and micafungin. COMORBIDITIES: for the patient include that he is elderly with altered mentation, atrial fibrillation, and history of laryngeal cancer. Dictated by PEGGY Monroe for Earnest Blake MD cc: Earnest Blake MD [facility]
--- NOTE | 2019-08-25 15:04 | PROVIDER PROGRESS NOTE ---
Progress Note Dr. Roth Progress Note/Pulmonary and or critical care Subjective: The patient is lying in bed on room air. He is awake and alert. He follows simple commands, but does not answer questions. He has some tachycardia and mild tachypnea, but no S&S of pain noted at this time. No family at the bedside. Input is appreciated from Dr. Blake and other teams on the case. Objective: Vital Signs: 97.1 (no fever in last 24 hours), SD 112, RR 26, BP 153/94 and SaO2 99% on room air. I/O +860 ml Physical Examination: General: Lying in bed with no acute distress noted. Rectal tubing on. HEENT: Normocephalic. Trachea midline. Mucosa pink and moist. NG tube in place. Chest: Mild tachypnea. Symmetrical excursion. Good air entry bilaterally. CVS: Tachycardia. Regular rate and rhythm with murmur noted. Abdomen: Soft. Normoactive bowel sounds noted. Extremities: No pedal edema. Chronic stasis noted. 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 Neuro: Awake and alert, but not answer questions or follow commands. Labs and Radiology: Laboratory Results 08/24/19 08/25/19 08/25/19 14:15 04:05 04:05 WBC 8.12 RBC 3.42 L Hgb 9.3 L Hct 30.4 L MCV 88.9 MCH 27.2 MCHC 30.6 L RDW Std Deviation 22.9 H Plt Count 228 D MPV 10.5 H Sodium 150 H Potassium 3.4 L Chloride 114 H Carbon Dioxide 24 L Anion Gap 12 BUN 35 H Creatinine 1.2 Estimated GFR/1.73 m2 59 BUN/Creatinine Ratio 29 Glucose 153 H Calculated Osmolality 309 Calcium 8.9 Urine Source CATH Urine Color YELLOW Urine Turbidity TURBID Urine pH 5.5 Ur Specific [place] 1.021 Urine Protein 70 A Ur Glucose (Stick) NEGATIVE Ur Ketones (Stick) NEGATIVE Urine Blood MODERATE A Urine Nitrite NEGATIVE Urine Bilirubin NEGATIVE Urobilinogen Dipstick NORMAL Urine Leukocytes LARGE A Urine WBC (Auto) TNTC A Urine RBC (Auto) <10 U Epithel Cells (Auto) <10 Urine Bacteria (Auto) NEGATIVE Urine Crystals NONE SEEN Small Round Cells NONE SEEN Urine Casts GRANULAR PRESENT Urine Yeast-like Cells PRESENT Assessment: Acute respiratory failure. Intubated on 08/04/19. Extubated on 08/11/19. Resolved. Patient stays on room air. Mild bibasilar pneumonia. s/p antibiotics including Meropenem and Linezolid on 08/17/19. WBC has been mildly elevated since 08/18/19. ID was reconsulted and patient has been put on antibiotics again since 08/19/19. CXR yesterday shows grossly clear lungs with probably a trace left pleural effusion. Acute kidney injury secondary to acute tubular necrosis. On Sustained low- efficiency dialysis (SLED) since 08/05/19, which has been held off since 08/23/[address] Montero. Candiduria. Urine culture both on 08/19/19 and 08/23/19 grows yeast. Patient has been on Micafungin since 08/19/19 per ID. Altered mental status secondary to global encephalopathy. Neurology consultation ordered. Cholelithiasis with choledocholithiasis, associated with ascending cholangitis. S/P laparoscopic cholecystectomy with operative cholangiogram on 08/01/19. Severe normocytic anemia. Stable. Hgb 8.5 this morning. s/p transfusion of 2 units of Leuk-reduced RBC and 2 units of Pheresis RBCs since admission. Protein calorie malnutrition. Patient stays on NG tube feeding. Modified barium swallow study on 08/23/19 showed dysphagia with significant penetration while ingesting thin liquids. PEG placement scheduled tomorrow per Dr. Aldrich. DNR 1. Prognosis is guarded. Plan: Bronchodilators. Antibiotics including Daptomycin and Zosyn. Micafungin. Appropriate DVT and GI prophylaxis Physical therapy. Continue NG tube feeding. EGD with PEG placement scheduled tomorrow per Dr. Aldrich. Evaluation time in minutes: 33 minutes.
--- NOTE | 2019-08-25 15:49 | PROGRESS NOTE ---
DATE: 08/25/2019 SUBJECTIVE: Patient has no major complaints. OBJECTIVE: Vital Signs: Blood pressure is 134/74, heart rate 118, respiratory rate 18, temperature 98 degrees Cardiovascular: Regular rate and rhythm. Pulmonary: Bilateral breath sounds clear to auscultation. Gastrointestinal: Abdomen soft, nontender, nondistended. Bowel sounds are positive. LABORATORY DATA: White count 8, hemoglobin and hematocrit 9 and 30, platelets 228,000. Sodium is up to 150, potassium 3.4, creatinine 1.2. PROBLEM LIST: 1. Acute kidney injury which has resolved. He is off dialysis. Catheter is being removed today. 2. Global encephalopathy with unclear source. His brain MRI was negative. It is really unclear exactly what is going on there from that standpoint. It does not look like he is encephalopathic, but he may have some ICU psychosis. We are looking at maybe getting him to the [facility] and following. 3. Severe dysphagia possibly from encephalopathy versus radiation esophagitis. In any case, he is too high an aspiration risk and we would like to pursue a PEG tube which we are going to do. 4. Status post laparoscopic cholecystectomy, ERCP cholangitis. That is resolving. 5. Atrial fibrillation with rapid ventricular response. He is on Lopressor which we have increased. 6. Prognosis is poor, generally speaking. I had a long discussion yesterday with the about PEG tube which she was electing to not do, but I think after discussion with the family they elected to go ahead and do it. We will continue to follow. 7. Leukocytosis. He has been on daptomycin since the , not sure if we could consider stopping antibiotics. His white count is normal today. Not really clear what we are treating. Infectious Disease says to go ahead and continue them. We may stop them after 7 to 10 days. I will discuss with them about that and follow. 8. Per discussion yesterday with palliative care nurse he is a Do Not Resuscitate 1, which is appropriate considering his prognosis. 9. Please note we will need to resume deep venous thrombosis prophylaxis tomorrow if we can get that reestablished. cc: Earnest Blake MD [facility]
--- NOTE | 2019-08-25 16:33 | PROVIDER PROGRESS NOTE ---
Progress Note Subjective: Patient awake and alert. Trying to reach over the side of the bed and requesting something to drink. Objective: temperature 97.1, pulse 115, respirations 20, blood pressure 126/39, 02 sat 96% on room air. General: elderly white male lying in bed in no acute distress. HEENT: normocephalic, atraumatic. Pupils equal and reactive. Mucous membranes dry. Trachea midline. NG tube in place with tube feedings infusing. Skin: warm and dry. Multiple bruises. Neck: supple, No JVD observed. Cardiovascular: distance heart tones. Tachycardic rate and rhythm. No murmur or gallop noted. Respiratory: lung sounds coarse posteriorly. Abdomen: soft, nontender, nondistended. Active bowel sounds noted. Rectal tube in place with brown liquid output. : Ovalles in place with chuck urine. Extremities: No edema. Vas cath to the left groin. Neurological: Alert, following some commands. Labs: WBC 8.12, hemoglobin 9.3, hematocrit 30.4, platelet count 228, sodium 150, potassium 3.4, chloride 114, carbon dioxide 24, BUN 35, creatinine 1.2, intake 2860, output 2000. Impression: Acute kidney injury with recovery. Creatinine and BUN stable over the last 5 days. He has not required dialysis since 08/22. We will plan to discontinue his tunnel catheter tomorrow. Blood pressure. Low, variable. Anemia. Low, does not mean transfusion criteria. Volume status. Euvolemic. Electrolytes. Mild hypernatremia/hyperchloremia. He is only receiving 360ml/day in flushes with his tube feeding. We will increase his flushes to 200ml every 2 hours. Acid base balance. Stable. Nutrition. Tube feeding in place. Medication reviewed. No changes
[2019-08-25] MEDS: CUBICIN 400 MG in NS 100 ML IV SCH (17:17)
[2019-08-25] MEDS: ZYLOPRIM PO SCH (20:14)
[2019-08-25] MEDS: PROTONIX IV SCH (20:42)
[2019-08-25] MEDS: MORPHINE IV PRN (20:51)
[2019-08-26] MEDS: ZOSYN 3.375 GM in NS 50 ML IV SCH (03:56)
[2019-08-26 06:34] LABS: HEMATOCRIT 25.9 % (42.0-52.0); MCH 27.3 PG (27-31); MCHC 30.9 g/dL (33-37); MCV 88.4 FL (81-99); MPV 10.2 FL (7.4-10.4); RBC 2.93 XMIL (4.7-6.1); RDW 21.8 % (11.5-14.5); WBC 7.39 X1000 (4.8-10.8)
[2019-08-26 06:41] LABS: AGAP 15; BUN 26 mg/dL (8-22); CALCIUM 8.5 mg/dL (8.8-10.2); CHLORIDE 114 mmol/L (98-107); COSMO 307; ESTIMATED GFR > 60; GLUCOSE 138 mg/dL (70-104); POTASSIUM 2.7 mmol/L (3.5-5.1); SODIUM 151 mmol/L (136-145); TCO2 22 mmol/L (25-35)
--- NOTE | 2019-08-26 10:58 | GASTROENTEROLOGY PROGRESS NOTE ---
DATE: 08/26/2019 SUBJECTIVE: Mr. Mcgowan is a 79-year-old male. He was resting in bed. Family is at the bedside. The patient is awake, alert, but is not able to tell his name or date of . The patient's speech is fluent. He pulled out his NG tube last night. OBJECTIVE: Vital Signs: Temperature 97.8 degrees, pulse 108, respirations 16, blood pressure 138/83, oxygen saturation 99% on room air. The patient's weight is 145 pounds. BMI is 22.7 kg/m2. General: He is awake, alert, but not oriented. HEENT: Pale conjunctivae, no icterus. PERRL. Neck: Supple. Lungs: Clear to auscultation. Cardiovascular: Patient is tachycardic. Abdomen: Soft, nontender, nondistended. Active bowel sounds heard in all 4 quadrants. Extremities: No clubbing, no cyanosis, no edema. Pedal pulses 1+ present bilaterally. Neurologic: He is awake, but not oriented. LABORATORY DATA: WBCs of 7.39, RBCs 2.93, hemoglobin is 8.0, hematocrit is 25.9, platelet count is 10.2. Sodium 151, potassium 2.7, chloride 114, carbon dioxide 22, anion gap 15. BUN 26, creatinine is 1.0, calcium is 8.5. IMPRESSION AND PLAN: 1. Anemia. 2. Acute cholecystitis. 3. Cholangitis, status post cholecystectomy. 4. Cirrhosis. 5. Splenomegaly. 6. Altered mental status. 7. Renal failure, improving. PLAN: Mr. Mcgowan is a 79-year-old male, who had a recent cholecystectomy. GI is following him for his PEG tube placement. Today we were supposed to put the PEG placement, but the family refused. They still want to evaluate if he can swallow, so we have ordered a modified barium swallow test. We will wait for the results of the MBS, and we will continue to monitor the patient and follow the plan of care per PCP. This plan was discussed with Dr. Arriola. Please call us for any further questions or concerns. Dictated by PEGGY Gomez for Cristhian Arriola MD [facility]
--- NOTE | 2019-08-26 11:58 | INFECTIOUS DISEASE PROGRESS NO ---
DATE: 08/26/2019 PRESENT ILLNESS: Mr. Iqbal has been treated for leukocytosis which has resolved. At this point, it seems as though it was probably related to the yeast in his urine which has now cleared. He is status post cholecystectomy done earlier this month, and also has an oral candidiasis, which is improving. MEDICATIONS: Today is day 7 of daptomycin 400 IV daily and IV Zosyn. He has also had 1 week of micafungin 100 mg IV daily with nystatin painted in his mouth 4 times a day. PHYSICAL EXAMINATION: Vital Signs: Temperature is 97.8 degrees, pulse rate 108, respiratory rate 16, blood pressure 138/83, O2 saturation is 99% on room air. General: This is a confused, elderly, chronically ill-appearing gentleman. He is lying in bed, currently in no acute distress. HEENT: Atraumatic, normocephalic. Oral mucous membranes are pink and dry. Conjunctivae are pale. The NG tube has been removed. Cardiovascular: Irregularly irregular with atrial fibrillation on the monitor. Respiratory: Lung sounds have coarse wheezes bilaterally. No work of breathing is noted. Abdomen: Soft, round and nontender. Bowel sounds are active. Integumentary: Skin is warm and dry. There are mild areas of eschar to his abdomen from his previous surgery. There is no redness or drainage to the sites. There is a tunneled central venous catheter to the right chest with Steri-Strips in place. Neurologic: He is awake, alert and making eye contact. He will follow commands appropriately and will say a few words. He is moving all 4 extremities independently in the bed. LABORATORY AND X-RAY: Today his white count is 7.39, hemoglobin 8, platelet count 245,000. Creatinine is 1. Estimated GFR is greater than 60. His most recent urine culture has shown no growth. No imaging reports today. ASSESSMENT AND PLAN: Mr. Iqbal is being for his leukocytosis. At this point, it seems as though it may be the yeast in his urine that caused the leukocytosis. After 1 week of micafungin, he has had a normal WBC count for the last 2 days, so we will go ahead and continue the micafungin for 1 more week for a total 14 days. We will also continue the nystatin painted in his mouth, which is improving the oral candidiasis. I have spoke with Dr. Blake and we will go ahead and discontinue daptomycin and Zosyn today since he is afebrile with a normal white count. If these antibiotics are what has been suppressing his leukocytosis, then we will probably see a re-emergence of his elevated white blood cell count. I have spoken with his and for now, we are hopeful that all infection is gone and that we will just need to continue the micafungin for one more week to make sure the yeast is completely eliminated. COMORBIDITIES: Include that he is elderly with altered mentation, atrial fibrillation, and history of laryngeal cancer. Dictated by PEGGY Monroe for Earnest Blake MD cc: Earnest Blake MD [facility]
--- NOTE | 2019-08-26 12:08 | Diag Imaging Result Doc PS360 ---
BA SWALLOW W/VIDEO SPEECH THER - 08/26/2019 INDICATION: r/o oropharyngeal dysphagia TECHNIQUE: Total fluoroscopy time was 89 seconds. 334 images were obtained. COMPARISON: 08/23/2019 FINDINGS: The nasogastric tube has been removed. With thin liquids, there were several penetrations and a few aspirations. This was improved with thickened liquids. There was some moderate penetration with pureed solid consistencies as well. IMPRESSION: Nasogastric tube removed. Otherwise, no change in the dysphagia with several penetrations and aspiration. Electronically signed by Max Andre 08/26/2019 12:06 PM
[2019-08-26] MEDS: D5W 1,000 ML IV SCH ×2 (12:18→22:13)
[2019-08-26] MEDS: MYCOSTATIN POWDER TOP SCH ×2 (12:18→21:22)
[2019-08-26] MEDS: LOPRESSOR IV SCH ×3 (12:18→22:13)
[2019-08-26] MEDS: MYCOSTATIN SUSP PO SCH ×4 (12:19→21:22)
[2019-08-26] MEDS: MYCAMINE 100 MG in NS 100 ML IV SCH (14:15)
--- NOTE | 2019-08-26 18:49 | PULMONOLOGY PROGRESS NOTE ---
DATE: 08/26/2019 SUBJECTIVE: Patient is lying in the bed awake and alert. He will follow simple commands. He will not answer questions. There is no family at the bedside at this time. OBJECTIVE: Vital Signs: Blood pressure is 115/57 with a heart rate of 93, respirations are 16, temperature is 99 degrees with room air saturations 96 to 98% . HEENT: Pupils are equal, round, react to light. EOMs are intact. Sclerae are anicteric. Head is normocephalic, atraumatic. Mucous membranes are dry. Neck: Supple with trachea midline. Cardiovascular: Regular rate and rhythm. S1 and S2 are appreciated. He has no lower extremity edema. Peripheral pulses are palpable x4 extremities. Pulmonary: Breath sounds are coarse throughout. Chest rises and falls symmetric with respiration. Gastrointestinal: Abdomen soft, nontender, nondistended with bowel sounds in all 4 quadrants. Rectal tube is noted with brown liquid draining. : Ovalles is patent with chuck urine noted. Extremities: Vas-Cath is noted to left groin. Site is clear. LABS: WBC is 7.3 with hemoglobin 8, hematocrit 25.9 and platelets of 245,000. Sodium 151, potassium 2.7, BUN 26, creatinine 1 with a glucose of 138. Swallow eval is pending. ASSESSMENT AND PLAN: 1. Acute respiratory failure. The patient was intubated on August 04 and extubated on August 11. He is maintaining good saturations on room air. 2. Bibasilar pneumonia. Chest x-ray 08/24 revealed lungs are grossly clear. Daptomycin and Zosyn have been discontinued per Infectious Disease. 3. Urinary tract infection, yeast. Continue micafungin as per Infectious Disease. 4. Acute kidney injury secondary to acute tubular necrosis. The patient is currently on SLED followed by Dr. Montero, Nephrology. 5. Altered mental status secondary global encephalopathy. Neuro is following. 6. Cholelithiasis with choledocholithiasis status post lap cholecystectomy and operative cholangiogram on 08/01/2019, general surgery is following. 7. Protein calorie malnutrition. Patient discontinued his nasogastric tube. Barium swallow on August 23 showed dysphagia with significant penetration while ingesting thin liquids. PEG placement scheduled for today. 8. Code status. Patient is do not resuscitate level 1. Prognosis is guarded. Dictated by PEGGY Garg for Familia Hinojosa MD cc: PEGGY Garg MD
--- NOTE | 2019-08-26 20:56 | NEPHROLOGY PROGRESS NOTE ---
DATE: 08/26/2019 SUBJECTIVE: He is more interactive. When asked he said he is "doing great". OBJECTIVE: Vital Signs: Blood pressure 134/72, heart rate 93, respirations 20, afebrile. Intake 2.2 L. Output 1.6 L. General: No acute distress. Chronically ill, thin. Neck: Neck veins are not distended. Heart: Regular. No gallops. Lungs: Equal. No crackles. Abdomen: Soft, nontender. Bowel sounds are present. Extremities: No edema, clubbing or cyanosis. IMPRESSION: 1. Acute kidney injury. Resolved. 2. Hypernatremia. I had increased his NG tube flushes. He apparently pulled his NG tube out overnight. Dr. Blake has started D5 water at 100 mL an hour. I expect that this will be adequate. I will sign off at this time. If I can be of further assistance, please do not hesitate to call. cc: Moris Montero MD
[2019-08-26] MEDS: PROTONIX IV SCH (21:22)
[2019-08-26] MEDS: ZYLOPRIM PO SCH (21:22)
[2019-08-26] MEDS: SODIUM CHLORIDE 0.9% INJ SCH (21:22)
[2019-08-27] MEDS: LOPRESSOR IV SCH ×2 (05:35→11:14)
[2019-08-27 06:51] LABS: BASO# 0.03 X1000 (0.0-0.2); BASO% 0.5 % (0.0-0.8); EOS# 0.16 X1000 (0.0-0.7); EOS% 2.5 % (0.0-10.0); HEMATOCRIT 27.8 % (42.0-52.0); HEMOGLOBIN 8.3 g/dL (14.0-18.0); IMM GRAN# 0.05 X1000 (0.0-0.04); IMM GRAN% 0.8 % (0.0-0.5); LYMPH# 0.86 X1000 (1.2-3.4); LYMPH% 13.3 % (20.5-51.1); MCH 26.3 PG (27-31); MCHC 29.9 g/dL (33-37); MCV 88.3 FL (81-99); MONO# 0.43 X1000 (0.11-0.59); MONO% 6.6 % (1.7-9.3); MPV 10.5 FL (7.4-10.4); NEUT# 4.96 X1000 (1.4-6.5); NEUT% 76.3 % (42.2-75.2); PLT 230 X1000 (130-400); RBC 3.15 XMIL (4.7-6.1); RDW 20.9 % (11.5-14.5); WBC 6.49 X1000 (4.8-10.8)
[2019-08-27 07:24] LABS: AGAP 15; BUN 19 mg/dL (8-22); CALCIUM 7.9 mg/dL (8.8-10.2); CHLORIDE 107 mmol/L (98-107); COSMO 287; CREATININE 0.8 mg/dL (0.7-1.2); ESTIMATED GFR > 60; GLUCOSE 121 mg/dL (70-104); POTASSIUM 3.4 mmol/L (3.5-5.1); SODIUM 142 mmol/L (136-145); TCO2 20 mmol/L (25-35)
[2019-08-27] MEDS: MYCOSTATIN POWDER TOP SCH ×2 (08:47→23:02)
[2019-08-27] MEDS: D5W 1,000 ML IV SCH (08:47)
[2019-08-27] MEDS: MYCOSTATIN SUSP PO SCH ×2 (08:48→12:06)
[2019-08-27] MEDS: POTASSIUM CHLORIDE 20 MEQ/SWI 20 MEQ/100 ML IVPB IV SCH ×2 (12:06→14:43)
--- NOTE | 2019-08-27 15:10 | PROGRESS NOTE ---
DATE: 07/31/2019 SUBJECTIVE: Patient has no major complaints. OBJECTIVE: Blood pressure is 102/54, heart rate of 118, respiratory rate of 97, 97.9 degrees, 100% on room air.Cardiovascular: Regular rate and rhythm. Pulmonary: Bilateral breath sounds clear to auscultation. GI: Soft, nontender, nondistended. Bowel sounds were positive. LABORATORY DATA: White count 6, hemoglobin and hematocrit 8 and 27, platelets 230,000. Potassium 3.4. PROBLEM LIST: 1. Acute kidney injury. That is resolved. 2. Global encephalopathy. It is slowly improving. 3. Hypernatremia is better. I think just getting him out of the unit and maybe on a more normal sleep schedule may be helpful. 4. Severe dysphagia with possible radiation esophagitis versus primary dysphagia. He is too high an aspiration risk. Discussed at length with the family which initially they accepted the PEG tube then they wanted to see if he could try to swallow without the NG tube. Swallowing study was the same and then was going to let him eat despite risk of aspiration. Now they have decided to go back and do the PEG tube. I appreciate Dr. Arriola discussing further with the family because I have discussed it with Yolie Aguilar the speech therapist, but I do not know there is a little bit of insider or cognitive discordance as far as understanding the risk of him aspirating. I think the thing is that he had refused a feeding tube before per the and had gotten through after chemo and radiation, but this is not the same issue. He did not have dysphagia at that time as far as a swallowing mechanism difficulty and she just simply does not understand the difference. 5. Atrial fibrillation with rapid ventricular response. I will put him back on his Lopressor once his tube is placed. 6. Leukocytosis without clear etiology. He does have a fungemia for which we are giving micafungin for another 7 days. He is off of daptomycin. 7. Disposition. He is going to need rehab so we need to start working on that. Of course it is the weekend so nothing is going to happen but we will continue to follow. cc: Earnest Blake MD
--- NOTE | 2019-08-27 15:27 | Diag Imaging Result Doc PS360 ---
EXAM: CHEST-PORTABLE HISTORY: NG tube placement TECHNIQUE: Chest abdomen single view COMPARISON: 08/24/2019 FINDINGS: There is a nasogastric tube overlying the esophagus and stomach. This appears to be in good position. No free air beneath the diaphragm. There is contrast within bowel loops. IMPRESSION: Nasogastric tube appears to be in good position Electronically signed by Xavier Valladares 08/27/2019 3:25 PM
--- NOTE | 2019-08-27 16:35 | PULMONOLOGY PROGRESS NOTE ---
DATE: 08/27/2019 SUBJECTIVE: The patient is lying in bed. TV he is on. When asked how he was feeling he answered I am doing great. OBJECTIVE: Vital Signs: Blood pressure is 118/61 with heart rate of 94, respirations 18, temperature is 97.4 degrees with room air saturations 95 to 100 percent. HEENT: Pupils equal, round, react to light. Sclerae are anicteric. Head is normocephalic, atraumatic. Mucous membranes are moist. Neck: Supple with trachea midline. No JVD noted Cardiovascular: Regular rate and rhythm. S1 and S2 are appreciated. He has no lower extremity edema. Calves are nontender bilateral, peripheral pulses palpable x4 extremities. Pulmonary: Breath sounds are coarse throughout. Chest rises and falls symmetric respiration. Gastrointestinal: Abdomen soft, nondistended with bowel sounds in all 4 quadrants. : Ovalles is patent with chuck urine noted. Chest x-ray revealed NG tube in good position. No free air beneath the diaphragm. ASSESSMENT AND PLAN: 1. Acute respiratory failure. Patient was intubated on August 04, extubated on August 11. He continues to maintain good saturations on room air. 2. Bibasilar pneumonia. Chest x-ray remains clear. Antibiotics were discontinued by Infectious Disease on August 24. 3. Urinary tract infection with yeast. Continue micafungin as per Infectious Disease. 4. Acute kidney injury secondary to acute tubular necrosis. The patient is currently on SLED followed by Dr. Montero, Nephrology. 5. Altered mental status secondary to global encephalopathy. This is improving. Neurology is following. 6. Cholelithiasis with choledocholithiasis status post laparoscopic cholecystectomy and operative cholangiogram on 08/01/2019 general surgery is following. 7. Protein calorie malnutrition. Patient discontinued his nasogastric tube. A barium swallow on August 23 showed dysphagia with significant penetration with ingesting thin liquids. Percutaneous endoscopic gastrostomy tube placement was scheduled for August 26, family refused asking for a barium swallow to be repeated which revealed moderate penetration with pureed solid consistencies and several penetrations and a few aspirations with thin liquids. He will remain n.p.o. at present. 8. Atrial fibrillation with rapid ventricular response. Plan will be per GI and primary team. 9. Code status. Patient is a do not resuscitate level 1 with a guarded prognosis. Dictated by PEGGY Garg for Familia Hinojosa MD cc: PEGGY Garg MD
[2019-08-27] MEDS: MYCAMINE 100 MG in NS 100 ML IV SCH (18:27)
[2019-08-27] MEDS ORDERED: CARDIZEM PO SCH (20:00)
--- NOTE | 2019-08-27 22:44 | PROVIDER PROGRESS NOTE ---
Progress Note S: No acute overnight events. No N/V/F. Failed MBS yesterday. Family would like to pursue PEG tube placement. O: Last Vital Signs Temp 97.2 F L 08/27/19 19:21 Pulse 108 H 08/27/19 19:21 Resp 19 08/27/19 19:21 BP 117/67 08/27/19 19:21 Pulse Ox 97 08/27/19 19:21 Height 5 ft 7 in Weight 146 lb 11.2 oz GEN: awake, alert, NAD HEENT: anicteric, MMM NECK: supple no JVD PULM: CTAB no wheezing CV: mild tachycardia, regular ABD: soft NT/ND EXT: no cce NEURO: confused, moving all extremities symmetrically 08/27/19 08/27/19 05:23 05:23 WBC 6.49 Hgb 8.3 L Plt Count 230 Sodium 142 Potassium 3.4 L D Chloride 107 Carbon Dioxide 20 L BUN 19 Creatinine 0.8 EXAM: CHEST-PORTABLE HISTORY: NG tube placement TECHNIQUE: Chest abdomen single view COMPARISON: 08/24/2019 FINDINGS: There is a nasogastric tube overlying the esophagus and stomach. This appears to be in good position. No free air beneath the diaphragm. There is contrast within bowel loops. IMPRESSION: Nasogastric tube appears to be in good position IMPRESSION AND PLAN: - Dysphagia - Decompensated ETOH cirrhosis - Encephalopathy - AFIB - Acute blood loss anemia - MEDARDO - s/p HD, resolved - Acute cholecystitis s/p CCY A/P: Mr. Mcgowan is a 78 year old man with EOTH cirrhosis who presented with acute cholecystitis s/p CCY whose course was complicated with acute blood loss anemia from surgery, HAP, hypoxic respiratory failure s/p intubation, MEDARDO from ATN s/p HD, encephalopathy, and oropharyngeal dysphagia. GI was asked to see patient again for evaluation for PEG, which the family initially refused. He has failed second attempted MBS. I spent a considerable amount of time discussing the risks and benefits of PEG tube placement. They were ultimately amendable with the plan. I asked that at NGT be replaced and restart tube feeds at prior rate. Will follow with you.
[2019-08-27] MEDS: PROTONIX IV SCH (23:01)
[2019-08-27] MEDS: MORPHINE IV PRN (23:02)
[2019-08-27] MEDS: ZYLOPRIM PO SCH (23:33)
[2019-08-28 06:25] LABS: BASO# 0.02 X1000 (0.0-0.2); BASO% 0.3 % (0.0-0.8); EOS% 1.4 % (0.0-10.0); HEMATOCRIT 23.2 % (42.0-52.0); HEMOGLOBIN 7.2 g/dL (14.0-18.0); IMM GRAN# 0.02 X1000 (0.0-0.04); IMM GRAN% 0.3 % (0.0-0.5); MCH 27.2 PG (27-31); MCV 87.5 FL (81-99); MONO# 0.41 X1000 (0.11-0.59); MONO% 5.9 % (1.7-9.3); MPV 10.7 FL (7.4-10.4); NEUT# 5.46 X1000 (1.4-6.5); NEUT% 79.1 % (42.2-75.2); PLT 224 X1000 (130-400); RBC 2.65 XMIL (4.7-6.1); RDW 20.9 % (11.5-14.5); WBC 6.91 X1000 (4.8-10.8)
[2019-08-28 06:40] LABS: AGAP 11; BUN 23 mg/dL (8-22); CALCIUM 7.3 mg/dL (8.8-10.2); CHLORIDE 104 mmol/L (98-107); COSMO 280; ESTIMATED GFR > 60; GLUCOSE 137 mg/dL (70-104); POTASSIUM 2.7 mmol/L (3.5-5.1); SODIUM 137 mmol/L (136-145); TCO2 22 mmol/L (25-35)
[2019-08-28] MEDS: MYCOSTATIN POWDER TOP SCH ×2 (08:24→20:45)
[2019-08-28] MEDS ORDERED: POTASSIUM CHLORIDE 20% LIQUID PO ONE (12:42)
--- NOTE | 2019-08-28 14:15 | PULMONOLOGY PROGRESS NOTE ---
DATE: 08/28/2019 SUBJECTIVE: The patient is sitting up in the bed, watching TV. He denies any complaints. OBJECTIVE: Vital Signs: Blood pressure is 160/48, heart rate of 96, respirations 18, temperature is 98.2 degrees axillary, with room air saturation of 97% to 99%. HEENT: Head is normocephalic, atraumatic. Mucous membranes are moist. Pupils equal, round, react to light. Sclerae are anicteric. Neck: Supple with trachea midline. Cardiovascular: Regular rate and rhythm. S1 and S2 appreciated. He has no lower extremity edema. Both his calves are nontender bilaterally, with peripheral pulses palpable x4 extremities. Pulmonary: Breath sounds are coarse throughout. Chest rises and falls symmetric with respiration. There is no increased work of breathing noted. Gastrointestinal: Abdomen is soft, nontender, nondistended with bowel sounds in all 4 quadrants. Genitourinary: Ovalles is patent with chuck urine noted. Neurologic: He is alert and oriented. LABORATORY DATA: WBC is 6.9, with hemoglobin 7.2, hematocrit 23.2, and platelets of 224,000. Sodium 137, potassium 2.7, BUN 23, creatinine 1, with a glucose of 137. IMPRESSION: This is a 79-year-old gentleman with: 1. Acute respiratory failure. The patient was intubated on 08/04/2019, extubated 08/11/2019. He is maintaining good room air saturations. 2. Bibasilar pneumonia. Antibiotics were discontinued by Infectious Disease on 08/24/2019. 3. Yeast urinary tract infection. 4. Acute kidney injury secondary to acute tubular necrosis in a patient on this sustained low- efficiency dialysis, followed by Dr. Montero of Nephrology. 5. Altered mental status secondary to global encephalopathy. This is improving. Neurology is on board. 6. Cholelithiasis with choledocholithiasis, status post laparoscopic cholecystectomy and operative cholangiogram on 08/01/2019. General Surgery is following. 7. Protein calorie malnutrition. The patient has failed a barium swallow twice. Family had initially refused a percutaneous endoscopic gastrostomy, although today, it appears that they are agreeable now, and Gastroenterology is scheduling this. 8. Atrial fibrillation with rapid ventricular spots. Rate is controlled. 9. Code status. The patient is a DO NOT RESUSCITATE level 1 with guarded prognosis. Dictated by PEGGY Garg for Familia Hinojosa MD cc: PEGGY Garg MD
--- NOTE | 2019-08-28 15:34 | PROGRESS NOTE ---
DATE: 08/28/2019 SUBJECTIVE: He is much more awake today. OBJECTIVE: Blood pressure is 98/62, heart rate of 102, respiratory rate of 22, temperature 98.3 degrees, 97% on room air. Cardiovascular: Regular rate and rhythm. Pulmonary: Bilateral breath sounds clear to auscultation. GI: Soft, nontender, nondistended. Bowel sounds were positive. Laboratory Data: White count 6.9, hemoglobin and hematocrit of 7 and 23, platelets 224,000. Potassium of 2.7. PROBLEM LIST: 1. Most recent issue is dysphagia, which is high risk for aspiration. They have decided now to pursue feeding tube, percutaneous endoscopic gastrostomy tube. I appreciate Dr. Arriola working with the patient and family about this. Plan is to do that tomorrow. 2. Acute kidney injury, seems to be doing better. 3. Hypokalemia. We will supplement and follow. He is tolerating tube feeds now. 4. Atrial fibrillation. He is on Lopressor. Seems to be doing okay from that standpoint. 5. Leukocytosis with funguria. He is on micafungin. I think this will be day 8. 6. Encephalopathy. That also seems to be better, although I am suspicious he probably has some degree of dementia that has not been fully characterized. 7. Steatohepatitis versus cirrhosis, seems to be stable. We will continue to monitor. There was no evidence of hyperammonemia when he was tested previously so I think we need to work on placement, which I wrote a consult for rehab yesterday but it is the weekend so hopefully, tomorrow we will start working on that. cc: Earnest Blake MD
[2019-08-28] MEDS: MYCAMINE 100 MG in NS 100 ML IV SCH (16:04)
[2019-08-28] MEDS: PROTONIX IV SCH (20:54)
--- NOTE | 2019-08-28 23:47 | PROVIDER PROGRESS NOTE ---
Progress Note S: No acute overnight events. He has worsening anemia. NGT in place and patient is receiving tube feeds. O: Last Vital Signs Temp 98.3 F 08/28/19 23:43 Pulse 97 H 08/28/19 23:43 Resp 16 08/28/19 23:43 BP 121/62 08/28/19 23:43 Pulse Ox 100 08/28/19 23:43 Height 5 ft 7 in Weight 145 lb 9.6 oz GEN: awake, alert, NAD, confused HEENT: anicteric, MMM, NGT in place NECK: supple no JVD PULM: CTAB no wheezing CV: mild tachycardia, regular ABD: soft NT/ND EXT: no cce NEURO: confusion mildly improved; moving all extremities symmetrically LABS: 08/28/19 08/28/19 05:26 05:26 WBC 6.91 Hgb 7.2 L Plt Count 224 Sodium 137 Potassium 2.7 L D Chloride 104 Carbon Dioxide 22 L BUN 23 H Creatinine 1.0 Glucose 137 H A/P: Mr. Mcgowan is a 78 year old man with EOTH cirrhosis who presented with acute cholecystitis s/p CCY whose course was complicated with acute blood loss anemia from surgery, HAP, hypoxic respiratory failure s/p intubation, MEDARDO from ATN s/p HD, encephalopathy, and oropharyngeal dysphagia. GI was asked to see patient again for evaluation for PEG. Anemia noted. Recommend transfusing 1 unit pRBC to maintain hgb closer to 8 and repleting potassium. We will hold off on doing PEG until Thursday. Continue tube feeds per nutrition recs - Oropharyngeal dysphagia - Acute blood loss anemia - Hypokalemia - Decompensated ETOH cirrhosis - Encephalopathy - AFIB - MEDARDO - s/p HD, resolved - Acute cholecystitis s/p CCY Will follow with you.
[2019-08-29] MEDS: TYLENOL LIQUID PO PRN ×2 (00:09→22:41)
[2019-08-29] MEDS: ZYLOPRIM PO SCH (01:44)
--- NOTE | 2019-08-29 04:27 | NEUROLOGY PROGRESS NOTE ---
DATE: 08/26/2019 Mr. Iqbal is a little bit brighter today. He answered some questions appropriately. He followed some simple commands. I observed him having a little bit of conversation with his at the bedside. Neck continues supple. He moved all of his limbs purposefully. He has good lateral eye movement. Speech is a little bit dysarthric but easily understood. reports she believes some of his current inconsistent responsiveness is because "he is stubborn." She believes he has become frustrated and that he is also mad at her. She believes some of this is his baseline personality. I do not have any new thoughts or new suggestions from Neurology standpoint. He has a global encephalopathy which has improved daily in recent days. Thanks for asking us to see Mr. Iqbal . cc: Luis Manuel Riley III, MD
[2019-08-29 06:37] LABS: BASO# 0.01 X1000 (0.0-0.2); BASO% 0.2 % (0.0-0.8); EOS# 0.08 X1000 (0.0-0.7); EOS% 1.3 % (0.0-10.0); HEMATOCRIT 23.7 % (42.0-52.0); HEMOGLOBIN 7.2 g/dL (14.0-18.0); IMM GRAN# 0.03 X1000 (0.0-0.04); IMM GRAN% 0.5 % (0.0-0.5); LYMPH# 0.65 X1000 (1.2-3.4); LYMPH% 10.4 % (20.5-51.1); MCH 26.7 PG (27-31); MCHC 30.4 g/dL (33-37); MCV 87.8 FL (81-99); MONO% 4.8 % (1.7-9.3); MPV 10.5 FL (7.4-10.4); NEUT# 5.18 X1000 (1.4-6.5); NEUT% 82.8 % (42.2-75.2); PLT 203 X1000 (130-400); RDW 20.5 % (11.5-14.5); WBC 6.25 X1000 (4.8-10.8)
[2019-08-29 06:50] LABS: AGAP 12; BUN 19 mg/dL (8-22); CALCIUM 8.7 mg/dL (8.8-10.2); CHLORIDE 105 mmol/L (98-107); COSMO 282; CREATININE 0.8 mg/dL (0.7-1.2); ESTIMATED GFR > 60; GLUCOSE 108 mg/dL (70-104); POTASSIUM 2.8 mmol/L (3.5-5.1); SODIUM 140 mmol/L (136-145); TCO2 23 mmol/L (25-35)
[2019-08-29] MEDS: MYCOSTATIN POWDER TOP SCH ×2 (08:33→22:42)
--- NOTE | 2019-08-29 09:48 | GASTROENTEROLOGY PROGRESS NOTE ---
DATE: 08/29/2019 SUBJECTIVE: Mr. Mcgowan is a 79-year-old male resting in bed. The patient was able to tell his name. He could briefly tell his birthday. He is awake and alert. The patient is currently NPO. He has an NG tube and is receiving his feedings through his NG tube. OBJECTIVE: Vital Signs: Temperature is 98.2 degrees, pulse 96, respirations 18, blood pressure 131/64, oxygen saturation is 99% on room air. The patient's weight is 147 pounds, BMI is 23.0 kg/m2. General: He is alert and oriented x1, and in no acute distress. HEENT: Pale conjunctivae. No icterus. PERRL. NG tube in place. Neck: Supple. Lungs: Clear to auscultation. Cardiovascular: The patient is tachycardic. Abdomen: Soft, nontender, nondistended. Active bowel sounds heard in all 4 quadrants. Extremities: No clubbing, no cyanosis, no edema. Pedal pulses 2+ present bilaterally. Neurologic: He is alert and oriented x1. LABORATORY DATA: WBC is 6.25, RBC is 2.70, hemoglobin 7.2, hematocrit is 23.7, platelet count is 203,000. Sodium 140, potassium 2.8, chloride 105 carbon dioxide 23, anion gap 12, BUN 19, creatinine is 0.8, glucose 108, calcium is 8.7. IMPRESSION AND PLAN: Oropharyngeal dysphagia Acute blood loss anemia Hypokalemia Decompensated alcoholic cirrhosis Encephalopathy Atrial fibrillation MEDARDO s/p dialysis resolved Acute cholecystitis s/p cholecystectomy PLAN: Mr. Mcgowan is a 79-year-old male with a history of alcoholic cirrhosis and a recent cholecystectomy. GI is following him for placement of his PEG tube. The patient's hemoglobin and hematocrit today is 7.2 and 23.7, so far the patient has received 2 units of packed red blood cells. We will continue to monitor his hemoglobin and hematocrit and transfuse as needed with a goal of keeping it between 7 and 8 g/dL. The patient is n.p.o. and is currently receiving feeding through his NG tube. We plan to do an EGD with a PEG placement tomorrow if the patients potassium levels are WNL and his Hemoglobin is up to 8 g/dl. We discussed the risks, benefits and alternatives of the procedure with the family. We will continue to monitor the patient and follow the plan of care per PCP. This plan was discussed with Dr. Arriola. Please call us for any further questions or concerns. Dictated by PEGGY Gomez for Cristhian Arriola MD Physician Attestation I have seen and examined the patient. I have discussed and reviewed the note by Loni WOODS and agree with findings and plan as documented. Replete K. Receiving transfusion. Goal hgb closer to 8. EGD with PEG Thursday MTDD
[2019-08-29] MEDS ORDERED: POTASSIUM CHLORIDE 20% LIQUID PO SCH (10:00)
[2019-08-29] MEDS ORDERED: NS 500 ML IV ONE (10:08)
[2019-08-29] MEDS: POTASSIUM CHLORIDE 20 MEQ/SWI 20 MEQ/100 ML IVPB IV SCH ×2 (11:15→13:20)
[2019-08-29] MEDS: XOPENEX NEB INH PRN (11:31)
[2019-08-29] MEDS ORDERED: FERRLECIT 125 MG in NS 100 ML IV ONE (11:53)
--- NOTE | 2019-08-29 14:13 | PROVIDER PROGRESS NOTE ---
Progress Note Dr. Roth Progress Note/Pulmonary and or critical care Subjective: The patient is lying in bed on room air. He is awake and alert. He is on NG tube feeding. He reports some cough with production at times. He also has some chest congestion at this time. Patients and a friend are at the bedside. Input is appreciated from Dr. Blake and other teams on the case. Objective: Vital Signs: 98.2 (no fever in last 24 hours), WV 96, RR 18, BP 131/64 and SaO2 99% on room air. Physical Examination: General: Lying in bed with no acute distress noted. HEENT: Normocephalic. Trachea midline. Mucosa pink and moist. NG tube in place. Chest: Even and unlabored. Symmetrical excursion. Good air entry bilaterally. CVS: S1 and S2 with murmur noted. Abdomen: Soft. Normoactive bowel sounds noted. Extremities: No pedal edema. Chronic stasis noted. 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 Neuro: Awake and alert with confusion at times. Speech fluent. Answer questions. Follow commands. Labs and Radiology: Laboratory Results 08/29/19 08/29/19 08/29/19 05:34 05:34 05:34 WBC 6.25 RBC 2.70 L Hgb 7.2 L Hct 23.7 L MCV 87.8 MCH 26.7 L MCHC 30.4 L RDW Std Deviation 20.5 H Plt Count 203 MPV 10.5 H Immature Gran % (Auto) 0.5 Neut % (Auto) 82.8 H Lymph % (Auto) 10.4 L [place] % (Auto) 4.8 Eos % (Auto) 1.3 Baso % (Auto) 0.2 Immature Gran # (Auto) 0.03 Neut # (Auto) 5.18 Lymph # (Auto) 0.65 L Oxford # (Auto) 0.30 Eos # (Auto) 0.08 Baso # (Auto) 0.01 Sodium 140 Potassium 2.8 L Chloride 105 Carbon Dioxide 23 L Anion Gap 12 BUN 19 Creatinine 0.8 Estimated GFR/1.73 m2 > 60 BUN/Creatinine Ratio 24 Glucose 108 H Calculated Osmolality 282 Calcium 8.7 L D Vitamin B12 Folate Blood Type O POSITIVE Antibody Screen POSITIVE Antibody Identification Cold Antibody Crossmatch See Detail 08/29/19 08/29/19 05:34 05:34 WBC RBC Hgb Hct MCV MCH MCHC RDW Std Deviation Plt Count MPV Immature Gran % (Auto) Neut % (Auto) Lymph % (Auto) Oxford % (Auto) Eos % (Auto) Baso % (Auto) Immature Gran # (Auto) Neut # (Auto) Lymph # (Auto) Oxford # (Auto) Eos # (Auto) Baso # (Auto) Sodium Potassium Chloride Carbon Dioxide Anion Gap BUN Creatinine Estimated GFR/1.73 m2 BUN/Creatinine Ratio Glucose Calculated Osmolality Calcium Vitamin B12 325 Folate 6.7 L Blood Type Antibody Screen Antibody Identification Crossmatch Assessment: Acute respiratory failure. Intubated on 08/04/19. Extubated on 08/11/19. Resolved. Mild bibasilar pneumonia. Resolved. Antibiotics discontinued per ID on 08/26/19. Acute kidney injury secondary to acute tubular necrosis. Resolved. Candiduria. Urine culture both on 08/19/19 and 08/23/19 grows yeast. Patient has been on Micafungin since 08/19/19 per ID. Altered mental status secondary to global encephalopathy. Improved. Neurology on board. Cholelithiasis with choledocholithiasis, associated with ascending cholangitis. S/P laparoscopic cholecystectomy with operative cholangiogram on 08/01/19. Severe normocytic anemia. Hgb 7.2 this morning. One unit of RBC transfusion is ordered. s/p transfusion of 2 units of Leuk-reduced RBC and 2 units of Pheresis RBCs since admission. Protein calorie malnutrition. Patient stays on NG tube feeding. He failed a barium swallow twice. PEG placement scheduled tomorrow per Dr. Aldrich. DNR 1. Plan: Continue Bronchodilators. Continue micafungin per ID. Appropriate DVT and GI prophylaxis Physical therapy. Continue NG tube feeding. PEG placement scheduled tomorrow per Dr. Aldrich. We start incentive spirometer and encourage patient to use it routinely. Evaluation time in minutes: 31 minutes.
--- NOTE | 2019-08-29 14:31 | INFECTIOUS DISEASE PROGRESS NO ---
DATE: 08/29/2019 PRESENT ILLNESS: Mr. Iqbal has been treated for a yeast infection in his urinary tract. He is status post cholecystectomy done earlier this month, and there is a significant improvement in his oral candidiasis. MEDICATIONS: Today is day 10 of treatment with micafungin 100 mg IV every 24 hours, and nystatin painted in his mouth 4 times a day. PHYSICAL EXAMINATION: Vital Signs: Temperature is 98.5 degrees, pulse rate 93, respiratory rate 18, blood pressure 125/59, O2 saturation is 98% on room air. General: This is a chronically ill- appearing, elderly gentleman. He is lying in the bed, currently in no acute distress. HEENT: Atraumatic, normocephalic. Oral mucous membranes are pink and moist. Conjunctivae are pale. Neck: Supple. Trachea is midline. Cardiovascular: Irregularly irregular with atrial fibrillation on the monitor. Respiratory: Coarse wheezes noted bilaterally. No work of breathing is noted. Abdomen: Soft, round, and nontender to palpation. There is an NG tube in place, and he is receiving tube feedings at this time. Integumentary: Skin is warm and dry with areas of mild eschar to his abdomen from the previous surgery. No redness or drainage to these sites. The right chest shows a tunneled central venous catheter with Steri- Strips in place, and an occlusive dressing to the site. Neurologic: He is awake, alert, and appropriate. Making eye contact, but using few words. He is able to move all 4 extremities in the bed with generalized weakness noted. IMAGING AND LABORATORY DATA: Today, his white count is 6.25, hemoglobin 7.2, platelet count 203,000. Creatinine is 0.8. Estimated GFR is greater than 60. No imaging reports today. ASSESSMENT AND PLAN: Mr. Iqbal is being treated with micafungin daily, and is now on day 10 treatment, for a yeast that has grown in his urine. We think that the yeast is most likely the cause of his leukocytosis, and he continues to have a normal white blood cell count at this point. He will need 4 more days of treatment in order to finish out a 14-day course for the yeast in his urine. I have spoken to his about this and answered her questions. COMORBIDITIES: for Mr. Iqbal include that he is elderly with some altered mentation, atrial fibrillation, and history of laryngeal cancer. Dictated by PEGGY Monroe for Earnest Blake MD cc: Earnest Blake MD [facility]
--- NOTE | 2019-08-29 15:41 | PROGRESS NOTE ---
DATE: 08/29/2019 SUBJECTIVE: Patient has no major complaints. OBJECTIVE: Vital signs: Blood pressure is 125/59, heart rate 93, respiratory rate 18, temperature 98.5 degrees, 98% on room air. Cardiovascular: Regular rate and rhythm. Pulmonary: Bilateral breath sounds. Clear to auscultation. GI: Soft, nontender, nondistended. Bowel sounds are positive. LABORATORY DATA: White count is 6, hemoglobin and hematocrit 7 and 23, and platelets 203,000. Potassium is 2.8. PROBLEM LIST: 1. Dysphagia with high risk for aspiration. Plan was for a PEG tube today but he is anemic and hypokalemic, so we are going to delay that 1 day. 2. Acute kidney injury. That is resolved. 3. Hypokalemia. We will continue supplementation. This may be an aspect of refeeding syndrome. We will check magnesium and phosphorus levels too. 4. Atrial fibrillation. Heart rate is controlled on Lopressor. 5. Leukocytosis with funguria. He is on micafungin. 6. Encephalopathy. Pt seems to be improving; will continue to follow. DISPOSITION: He is probably getting close to being able to go home. We will see how he does. cc: Earnest Blake MD [facility]
[2019-08-29] MEDS: MYCAMINE 100 MG in NS 100 ML IV SCH (15:49)
[2019-08-29 20:23] LABS: HEMATOCRIT 28.3 % (42.0-52.0)
[2019-08-29] MEDS: POTASSIUM CHLORIDE 20% LIQUID PO SCH (22:42)
[2019-08-29] MEDS: PROTONIX IV SCH (22:43)
[2019-08-29] MEDS: SODIUM CHLORIDE 0.9% INJ SCH (22:43)
[2019-08-30] MEDS: ZYLOPRIM PO SCH (00:16)
[2019-08-30 06:00] LABS: BASO# 0.02 X1000 (0.0-0.2); BASO% 0.3 % (0.0-0.8); EOS# 0.12 X1000 (0.0-0.7); EOS% 1.8 % (0.0-10.0); HEMATOCRIT 29.3 % (42.0-52.0); HEMOGLOBIN 9.2 g/dL (14.0-18.0); IMM GRAN# 0.05 X1000 (0.0-0.04); IMM GRAN% 0.7 % (0.0-0.5); LYMPH# 0.65 X1000 (1.2-3.4); LYMPH% 9.6 % (20.5-51.1); MCH 27.7 PG (27-31); MCHC 31.4 g/dL (33-37); MCV 88.3 FL (81-99); MONO# 0.39 X1000 (0.11-0.59); MONO% 5.8 % (1.7-9.3); MPV 10.5 FL (7.4-10.4); NEUT# 5.51 X1000 (1.4-6.5); NEUT% 81.8 % (42.2-75.2); PLT 209 X1000 (130-400); RBC 3.32 XMIL (4.7-6.1); RDW 19.9 % (11.5-14.5); WBC 6.74 X1000 (4.8-10.8)
[2019-08-30] MEDS ORDERED: DIPRIVAN 1% ONE (06:16)
[2019-08-30 06:25] LABS: AGAP 11; BUN 16 mg/dL (8-22); CALCIUM 8.8 mg/dL (8.8-10.2); CHLORIDE 103 mmol/L (98-107); COSMO 273; CREATININE 0.7 mg/dL (0.7-1.2); ESTIMATED GFR > 60; GLUCOSE 100 mg/dL (70-104); POTASSIUM 3.6 mmol/L (3.5-5.1); SODIUM 136 mmol/L (136-145); TCO2 22 mmol/L (25-35)
[2019-08-30] MEDS ORDERED: KEFZOL 1 GM/D5W 2 GM/100 ML IVPB ONE (08:31)
--- NOTE | 2019-08-30 09:02 | ENDOSCOPY OPERATIVE NOTE ---
[facility] ENDOSCOPY OPERATIVE NOTE , EGD WITH PEG PROCEDURE REPORT EXAM DATE: 08/30/2019 PATIENT NAME: Александр Iqbal MR #: [id number] BIRTHDATE: 1940 ATTENDING: Cristhian Arriola MD STATUS: inpatient LABORATORY TESTER: INDICATIONS: The patient is a 79 yr old male here for an EGD with PEG due to dysphagia, pharyngeal. PROCEDURE PERFORMED: EGD w/ percutaneous gastrostomy tube placement MEDICATIONS: Per Anesthesia TOPICAL ANESTHETIC: Xylocaine 1%, Ancef 2gm IV CONSENT: The patient understands the risks and benefits of the procedure and understands that these r isks include, but are not limited to: sedation, allergic reaction, infection, perforation and/or bleeding. Alternative means of evaluation and treatment include, among others: physical exam, x-rays, and/or surgical intervention. The patient elects to proceed with this endoscopic procedure. HISTORY AND PHYSICAL: 08/30/2019 DESCRIPTION OF PROCEDURE: During pre-op preparation period all mechanical and medical equipment was c hecked for proper function. Hand hygiene and appropriate measures for infection prevention was taken. After the risks, benefits and alternatives of the procedure were thoroughly explained, Informed consent was verified, confirmed and timeout was successfully executed by the treatment team. The patient was anesthetized with topical anesthesia and the [id number]-[id number] ([id number]) endoscope was introduced through the mouth and advanced to the second portion of the duoden um. The instrument was slowly withdrawn as the mucosa was fully examined. ESOPHAGUS: The mucosa of the esophagus appeared normal. STOMACH: The stomach was normal. DUODENUM: The duodenum was normal. The stomach was then inflated with air, and by a combination of transillumination and manual palpatio n, the site for the gastrostomy tube placement was selected and marked on the anterior abdominal wall. The skin of the a nterior abdomen was surgically prepped and draped with sterile towels. Utilizing strict sterile technique, the selected site was then anesthetized with 1% xylocaine by inje ction into the skin and subcutaneous tissue. A 1 cm incision was made through the skin and subcutaneous tissue, and the needle/cannula assembly was then passed through the abdominal wall and through the anterior wall of the stomach, jamarcus ntaining visualization with the endoscope. A snare device previously placed through the instrument channel wa s then opened and placed around the cannula, the needle was removed, and the insertion wire was passed through the moi ana rosa and into the stomach lumen. The snare was then loosened from the cannula, and repositioned to snare the insertion wire. The snare was then pulled up to the endoscope distal tip, and the scope was then withdrawn bringing with it the snare and insertion wire. The insertion wire was then released from the snare, and then loop-attached to the Rudy Cook 24 Fr gastrostomy tube. Using the "pull technique", the G-tube was then pulled into place by traction on the insertion wire a t the abdominal wall end. The G-tube insertion site was then cleansed once again, and the external bolster was placed over the tube to secure it to the abdominal wall at 2cm. A sterile dressing was then applied, and the procedu re terminated. The endoscope was reintroduced and placement was endoscopically verifed. Antibiotic ointment was applied and the PEG site was cleaned and dressed. Abdominal binder was also applied. Retroflexion was performed in the stomach and revealed no abnormalities. The gastroscope was then sl owly withdrawn and removed. ADVERSE EVENT: There were no complications. IMPRESSIONS: 1. The mucosa of the esophagus appeared normal 2. The stomach was normal 3. The duodenum was normal RECOMMENDATIONS: PEG ok to use for water and meds Start tube feeds in 4 hours Monitor for signs of fever and bleeding Routine PEG care Change dressing daily GI to do PEG check in AM REPEAT EXAM: Cristhian Arriola MD eSigned: Cristhian Arriola MD 08/30/2019 9:01 AM cc: CPT CODES: 25624 Upper gastrointestinal endoscopy including esophagus, stomach, and either the du odenum and/or jejunum as appropriate; with directed placement of percutaneous gastrostomy tube ICD CODES: 787.20 Dysphagia,unspecified The ICD and CPT codes recommended by this software are interpretations from the data that the [facility] staff has captured with the software. The verification of the translation of this report to the ICD and CPT co shawanda and modifiers is the sole responsibility of the health care institution and practicing physician where this report was generated. [employer] will not be held responsible for the validity of the ICD and CPT codes i ncluded on this report. AMA assumes no liability for data contained or not contained herein. CPT is a registered tra demark of the [employer]. PATIENT NAME: Александр Iqbal MR#: [id number]
[2019-08-30] MEDS: POTASSIUM CHLORIDE 20% LIQUID PO SCH (09:47)
[2019-08-30] MEDS: MYCOSTATIN POWDER TOP SCH ×2 (09:47→21:55)
[2019-08-30] MEDS: TYLENOL LIQUID PO PRN (09:57)
[2019-08-30] MEDS: SODIUM CHLORIDE 0.9% 10 ML ONE (11:26)
[2019-08-30] MEDS: XOPENEX NEB INH PRN (11:40)
--- NOTE | 2019-08-30 14:59 | NEUROLOGY PROGRESS NOTE ---
DATE: 08/30/2019 Mr. Iqbal had endoscopy earlier and he continues a little bit sedated. Prior to that, he had been noted to be more alert, more attentive. I reviewed history with . Again, she reports no significant baseline cognitive impairment. In that setting, we can continue to be optimistic that he will recover and that the encephalopathy will resolve. Brain MRI few days ago was negative. We do not need further brain imaging now. We might consider EEG if there is fluctuating level of consciousness but I do not think that EEG is necessary now. Thanks for asking Neurology to see Mr. Iqbal. cc: MD LUZ Ybarra III
--- NOTE | 2019-08-30 16:32 | PROGRESS NOTE ---
DATE: 08/30/2019 SUBJECTIVE: The patient has no complaints. A little bit more awake today, a little ornery, but doing okay. He is getting tube feeds through his PEG tube and he is doing fine. OBJECTIVE: Vital Signs: Blood pressure is 135/70, heart rate of 89, respiratory 16, temperature 97.8 degrees, 98% on room air. Cardiovascular: Regular rate and rhythm. Pulmonary: Bilateral breath sounds clear to auscultation. Gastrointestinal: Soft, nontender, nondistended. Bowel sounds are positive. LABORATORY DATA: White count is 6, hemoglobin and hematocrit 9 and 29, platelets 209,000. PROBLEM LIST: 1. 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 He has a PEG. He is getting tube feeds. Greatly appreciate Dr. Arriola's input there with the family and the placement. 2. Acute kidney injury that is resolved. 3. Hypokalemia is still low, but it is better today finally, but he is on scheduled potassium I think twice a day now. 4. Funguria. He is on no change Micafungin. I think we are going to do it for a total of 2 weeks. He is on day 10. We are going to do a 14 day course. I think he has got a PICC line, maybe home in a couple days. 5. Encephalopathy. In any case, he was stable and looking at rehab hopefully in the next day or two. We will have to arrange for IV antibiotics. cc: Earnest Blake MD
[2019-08-30] MEDS: MYCAMINE 100 MG in NS 100 ML IV SCH (17:10)
--- NOTE | 2019-08-30 18:01 | PROVIDER PROGRESS NOTE ---
Progress Note Dr. Roth Progress Note/Pulmonary and or critical care Subjective: The patient is lying in bed on room air. He appears lethargic, but easily arousable. He underwent EGD with percutaneous gastrostomy tube placement this morning. NG tube has been pulled out, but PEG tube feeding hasnt started yet. Patients , daughter and son-in-law are at the bedside. Input is appreciated from Dr. Blake and other teams on the case. Objective: Vital Signs: 98.2 (no fever in last 24 hours), NJ 94, RR 18, BP 136/72 and SaO2 99% on room air. Physical Examination: General: Lying in bed with no acute distress noted. HEENT: Normocephalic. Trachea midline. Mucosa pink and moist. Chest: Even and unlabored. Symmetrical excursion. Good air entry bilaterally. CVS: S1 and S2 with murmur noted. Abdomen: Non-distended. An abdominal binder in place. Extremities: No pedal edema. Chronic stasis noted. 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 Neuro: Awake and alert with confusion at times. Speech fluent. Answer questions. Follow commands. Labs and Radiology: Laboratory Results 08/29/19 08/29/19 08/29/19 05:34 20:08 20:08 WBC RBC Hgb 9.0 L D Hct 28.3 L MCV MCH MCHC RDW Std Deviation Plt Count MPV Immature Gran % (Auto) Neut % (Auto) Lymph % (Auto) [place] % (Auto) Eos % (Auto) Baso % (Auto) Immature Gran # (Auto) Neut # (Auto) Lymph # (Auto) [place] # (Auto) Eos # (Auto) Baso # (Auto) Sodium Potassium 3.0 L Chloride Carbon Dioxide Anion Gap BUN Creatinine Estimated GFR/1.73 m2 BUN/Creatinine Ratio Glucose Calculated Osmolality Calcium Crossmatch See Detail 08/30/19 08/30/19 05:15 05:15 WBC 6.74 RBC 3.32 L Hgb 9.2 L Hct 29.3 L MCV 88.3 MCH 27.7 MCHC 31.4 L RDW Std Deviation 19.9 H Plt Count 209 MPV 10.5 H Immature Gran % (Auto) 0.7 H Neut % (Auto) 81.8 H Lymph % (Auto) 9.6 L [place] % (Auto) 5.8 Eos % (Auto) 1.8 Baso % (Auto) 0.3 Immature Gran # (Auto) 0.05 H Neut # (Auto) 5.51 Lymph # (Auto) 0.65 L [place] # (Auto) 0.39 Eos # (Auto) 0.12 Baso # (Auto) 0.02 Sodium 136 Potassium 3.6 D Chloride 103 Carbon Dioxide 22 L Anion Gap 11 BUN 16 Creatinine 0.7 Estimated GFR/1.73 m2 > 60 BUN/Creatinine Ratio 23 Glucose 100 Calculated Osmolality 273 Calcium 8.8 Crossmatch Assessment: Acute respiratory failure. Resolved. Mild bibasilar pneumonia. Resolved. Antibiotics discontinued per ID on 08/26/19. Acute kidney injury secondary to acute tubular necrosis. Resolved. Candiduria. Urine culture both on 08/19/19 and 08/23/19 grows yeast. Patient has been on Micafungin since 08/19/19 per ID. Altered mental status secondary to global encephalopathy. Resolved. Neurologist on board. Cholelithiasis with choledocholithiasis, associated with ascending cholangitis. S/P laparoscopic cholecystectomy with operative cholangiogram on 08/01/19. Severe normocytic anemia. Improving. s/p transfusion of 3 units of Leuk-reduced RBC and 2 units of Pheresis RBCs since admission. Protein calorie malnutrition. Patient failed a barium swallow twice. He underwent EGD with PEG placement this morning by Dr. Arriola. PEG tube feeding is planning per GI specialist. DNR 1. Plan: Continue Bronchodilators as needed. Continue micafungin per ID. Advance PEG tube feeding per GI specialist. Appropriate DVT and GI prophylaxis Physical therapy. We encourage patient to use incentive spirometer routinely. Evaluation time in minutes: 32 minutes.
--- NOTE | 2019-08-30 18:29 | INFECTIOUS DISEASE PROGRESS NO ---
DATE: 08/30/2019 PRESENT ILLNESS: Mr. Iqbal is being treated for funguria which we think was the cause of his leukocytosis, which has resolved. He also has had an oral candidiasis which is improving. He is status post cholecystectomy done about a month ago. MEDICATIONS: Today is day 11 of treatment with micafungin 100 mg IV every 24 hours and nystatin painted in his mouth 4 times a day. PHYSICAL EXAMINATION: Vital Signs: Temperature is 97.8 degrees, pulse rate 89, respiratory rate 16, blood pressure 135/70, O2 saturation is 98% on room air. General: This is an elderly, chronically ill-appearing, gentleman. He is lying in bed, currently in no acute distress. HEENT: Atraumatic, normocephalic. Oral mucous membranes are pink and moist. Conjunctivae are pale. Neck: Supple. Trachea is midline. Respiratory: He does have mild wheezes bilaterally, but no work of breathing is noted. Cardiovascular: Irregularly irregular with atrial fibrillation on the monitor. Abdomen: Soft and round with a PEG tube in place, that was placed today. The site has an occlusive dressing over top. There is an abdominal binder in place. He is receiving tube feedings at this time. Neurologic: He is awake, alert, and confused. He is conversing more appropriately today but cannot answer basic questions regarding place, time, or situation. He is able to move all 4 extremities with generalized weakness noted. Integumentary: Skin is warm and dry. He has a tunneled central venous catheter with Steri-Strips in place to the right chest. There are also areas of mild eschar to his abdomen from his previous surgery. LABORATORY AND IMAGING: Today, his white count is 6.74, hemoglobin. 9.2, platelet count 209,000. Creatinine is 0.7. Estimated GFR is greater than 60. No imaging reports today. ASSESSMENT AND PLAN: Mr. Iqbal has a funguria and is receiving micafungin daily which he will need to continue for 3 more days. He continues to be afebrile with a normal white blood cell count. His oral candidiasis has improved, so we will continue the nystatin painted in his mouth 4 times a day. COMORBIDITIES: For Mr. Iqbal include that he is elderly with confusion, atrial fibrillation, and history of laryngeal cancer. Dictated by PEGGY Monroe for Earnest Blake MD cc: Earnest Blake MD [facility]
[2019-08-30] MEDS: ZYLOPRIM PEG SCH (21:54)
[2019-08-30] MEDS: PROTONIX IV SCH (21:54)
[2019-08-30] MEDS: POTASSIUM CHLORIDE 20% LIQUID PEG SCH (21:55)
[2019-08-30] MEDS ORDERED: SODIUM CHLORIDE 0.9% 10 ML ONE (21:58)
--- NOTE | 2019-08-30 22:33 | OPERATIVE NOTE ---
PROCEDURE DATE: 08/30/2019 I was asked by the hospitalist to remove his tunneled dialysis catheter. It is not being used anymore for dialysis. I cut the sutures after removing the bandage and then with gentle steady traction pulled the catheter out without any difficulties. It did not break. A gauze dressing was applied. There were no apparent complications. cc: Luciano Cervantes MD
[2019-08-31 07:58] LABS: AGAP 10; ALB/GLOB RATIO 0.8; ALKALINE PHOSPHATASE 138 U/L (32-122); BUN 15 mg/dL (8-22); CALCIUM 8.4 mg/dL (8.8-10.2); CHLORIDE 103 mmol/L (98-107); COSMO 279; CREATININE 0.8 mg/dL (0.7-1.2); ESTIMATED GFR > 60; GLUCOSE 101 mg/dL (70-104); GOT 41 U/L (10-34); GPT 24 U/L (10-44); MAGNESIUM 1.6 mg/dL (1.5-2.7); PHOSPHORUS 2.1 mg/dL (2.7-4.5); POTASSIUM 4.5 mmol/L (3.5-5.1); SODIUM 139 mmol/L (136-145); TCO2 26 mmol/L (25-35); TOTAL BILIRUBIN 1.14 mg/dL (0.20-1.00); TOTAL PROTEIN 6.7 g/dL (6.3-8.3)
[2019-08-31] MEDS ORDERED: XOPENEX NEB ONE (08:01)
[2019-08-31] MEDS ORDERED: NS NEB ONE (08:02)
[2019-08-31] MEDS: XOPENEX NEB INH PRN (08:47)
[2019-08-31] MEDS: POTASSIUM CHLORIDE 20% LIQUID PEG SCH (09:46)
[2019-08-31] MEDS: TYLENOL LIQUID PO PRN (09:52)
--- NOTE | 2019-08-31 12:01 | NEUROLOGY PROGRESS NOTE ---
DATE: 08/31/2019 SUBJECTIVE: Mr. Iqbal has continued to be more alert, more attentive. reports this morning he was having some appropriate conversation. She reports he had visitors last night, recognized them, called them by correct names and had appropriate conversation. She again today confirmed her prior history to me that there was absolutely no cognitive impairment at baseline. OBJECTIVE: On my exam today, he is awake, alert, attentive. He was much more attentive today than at any time I have seen him in the past. He continues disoriented. He was not able to identify this as a hospital, to name the hospital, to name the [facility] or to name the President. He did not answer any questions correctly regarding orientation in time. ASSESSMENT AND PLAN: As discussed with at the bedside this morning, I am optimistic he will continue to improve mentally based on her history of normal baseline cognitive function. I do not have any urgent suggestion. Time will tell. Thanks for asking Neurology to see Mr. Iqbal. cc: MD LUZ Ybarra III
[2019-08-31] MEDS ORDERED: SODIUM PHOSPHATE 40 MEQ in NS 250 ML IV ONE (12:20)
--- NOTE | 2019-08-31 13:27 | GASTROENTEROLOGY PROGRESS NOTE ---
DATE: 08/31/2019 SUBJECTIVE: Mr. Mcgowan is a 79-year-old, male, resting in bed. The patient has a PEG tube in place, with feeding of Jevity at 1.5 Omar @ 40 mL/hour. OBJECTIVE: Vital Signs: Temperature 98.5 degrees, pulse 109, respirations 16, blood pressure 139/85, oxygen saturation 98% on room air. The patient's weight is 147 pounds, BMI is 23.1 kg/m2. General: He is awake, alert. HEENT: Pale conjunctivae. No icterus. PERRL. Neck: Supple. Lungs: Clear to auscultation. Cardiovascular: The patient is tachycardic. Abdomen: Soft, nontender, nondistended. PEG tube in place with abdominal dressing dry and intact, and abdominal binder on it, with feeding going on with Jevity 1.5 calories at 40 mL/hour. Extremities: No clubbing, no cyanosis, no edema. Pedal pulses 2+ present bilaterally. Neurologic: He is awake and alert. LABORATORY DATA: The patient has no new hematology. His chemistries are sodium 139, potassium 4.5, chloride 103, carbon dioxide 26, anion gap is 10, BUN 15, creatinine 0.8, glucose 101, calcium is 8.4. Phosphorus 2.1, magnesium is 1.6. Total bilirubin is 1.14, AST 41, ALT 24, alkaline phosphatase 138, albumin is 3.0. ENDOSCOPY REPORT: The patient had an EGD with a PEG tube placement. Mucosa of the esophagus appeared normal. Stomach was normal. Duodenum was normal. PEG tube was placed with orders to change the dressing daily. IMPRESSION AND PLAN: Acute blood loss anemia Decompensated alcoholic cirrhosis Encephalopathy Atrial fibrillation MEDARDO s/p dialysis - resolved Acute cholecystitis s /p cholecystectomy Oropharyngeal dysphagia s/p PEG placement PLAN: Mr. Mcgowan is a 79-year-old, male with a history of alcoholic cirrhosis and a recent cholecystectomy. GI is following him for his PEG tube placement. We did a PEG tube placement yesterday, dressing changed with abdominal binder on it.. The patient is currently receiving feeding via PEG tube. He is receiving Jevity 1.5 Omar @ 40 mL/hour and is tolerating his tube feedings well. We will sign off for now. Please call us for any further questions or concerns. This plan was discussed with Dr. Arriola. Dictated by PEGGY Gomez for Cristhian Arriola MD Physician Attestation I have seen and examined the patient. I have discussed and reviewed the note by Loni WOODS and agree with findings and plan as documented. PEG working well. MEDARDO resolved. LFTs stable. mental status improved. Anemia stable. No overt bleeding. Patient can be discharged from GI perspective. Will sign off. Please call with questions. Follow-up with Dr. Arriola in 2-4 weeks. MTDD
[2019-08-31] MEDS: MYCAMINE 100 MG in NS 100 ML IV SCH (16:30)
--- NOTE | 2019-08-31 17:04 | PROVIDER PROGRESS NOTE ---
Progress Note Dr. Roth Progress Note/Pulmonary and or critical care Subjective: The patient is lying in bed on room air. He is awake, but appears drowsy and confused. He does not answer my questions appropriately at this time, but he does follow my simple commands. Patients is at the bedside. She reports that patient received Tylenol at an earlier time, which sometimes can make him confused. He still has occasional dry cough with a sensation that something was stuck in his throat. He also has some audible respiratory noise at times. Objective: Vital Signs: 98.8 (no fever in last 24 hours), NM 113, RR 16, BP 143/66 and SaO2 99% on room air. Physical Examination: General: Lying in bed with no acute distress noted. HEENT: Normocephalic. Trachea midline. Mucosa pink and moist. Chest: Even and unlabored. Symmetrical excursion. Good air entry bilaterally. CVS: S1 and S2 with murmur noted. Abdomen: Non-distended. An abdominal binder in place. Extremities: No pedal edema. Chronic stasis noted. 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 Neuro: Awake and alert with confusion and drowsiness at times. Not answer questions properly at this time, but follow simple commands. Labs and Radiology: Laboratory Results 08/31/19 06:40 Sodium 139 Potassium 4.5 D Chloride 103 Carbon Dioxide 26 Anion Gap 10 BUN 15 Creatinine 0.8 Estimated GFR/1.73 m2 > 60 BUN/Creatinine Ratio 19 Glucose 101 Calculated Osmolality 279 Calcium 8.4 L Phosphorus 2.1 L Magnesium 1.6 Total Bilirubin 1.14 H AST 41 H ALT 24 Alkaline Phosphatase 138 H Total Protein 6.7 Albumin 3.0 L Globulin 3.7 Albumin/Globulin Ratio 0.8 Assessment: Acute respiratory failure. Resolved. Mild bibasilar pneumonia. Resolved. Antibiotics discontinued per ID on 08/26/19. Acute kidney injury secondary to acute tubular necrosis. Resolved. Candiduria. Urine culture both on 08/19/19 and 08/23/19 grows yeast. Patient has been on Micafungin since 08/19/19 per ID. Altered mental status secondary to global encephalopathy. Resolved. Neurologist on board. Cholelithiasis with choledocholithiasis, associated with ascending cholangitis. S/P laparoscopic cholecystectomy with operative cholangiogram on 08/01/19. Severe normocytic anemia. Improving. s/p transfusion of 3 units of Leuk-reduced RBC and 2 units of Pheresis RBCs since admission. Protein calorie malnutrition. Patient failed a barium swallow twice. He underwent EGD with PEG placement on 08/30/[address] Arriola. PEG tube feeding is on per GI specialist. Plan: Continue Bronchodilators as needed. Continue micafungin per ID. Advance PEG tube feeding per GI specialist. Appropriate DVT and GI prophylaxis Physical therapy. We encourage patient to use incentive spirometer routinely. Rehab placement planning per hospitalist.
--- NOTE | 2019-08-31 19:45 | INFECTIOUS DISEASE PROGRESS NO ---
DATE: 08/31/2019 PRESENT ILLNESS: Mr. Iqbal is being treated for a funguria which most likely was the cause of his leukocytosis, which has now resolved. His oral candidiasis is also improving. He is status post cholecystectomy done about a month ago, and had a PEG tube placement yesterday. MEDICATION: He is on day 12 of micafungin 100 mg IV every 24 hours. PHYSICAL EXAMINATION: Vital Signs: Temperature is 98.5, pulse rate 99, respiratory rate 18, blood pressure 145/77, O2 saturation 100% on room air. General: This is a chronically-ill- appearing, elderly, confused gentleman. He is lying in bed, currently in no acute distress. HEENT: Atraumatic, normocephalic. Oral mucous membranes are pink and moist. Conjunctivae are pale. Neck: Supple. Trachea is midline. Respiratory: Lung sounds are clear to auscultation bilaterally. No work of breathing is noted. Cardiovascular: Irregularly irregular with atrial fibrillation noted on the monitor. Abdomen: Soft, round. A PEG tube is now in place with an occlusive dressing over top. He is receiving tube feedings, and an abdominal binder is keeping the tube secure. Integumentary: Skin is warm and dry. The tunneled central venous catheter has been removed from his right chest, and there are Steri-Strips in place. Neurologic: He is awake, alert, and nodding his head. Nonverbal at this time, but is following commands. Generalized weakness is noted to all extremities. LABORATORY AND X-RAY: No CBC today. His creatinine is 0.8. Estimated GFR is greater than 60. Total bilirubin is 1.14. AST 41, ALT 24, alkaline phosphatase 138. No imaging reports today. ASSESSMENT AND PLAN: Mr. Iqbal is being treated for funguria and has had 12 days of micafungin. He will need 2 more days, after which the micafungin can be discontinued. His oral candidiasis has improved, and I do not believe that he will need to continue that. It looks as though a chest x-ray has been ordered for tomorrow, which we will follow. COMORBIDITIES: Include that he is elderly and confused with atrial fibrillation and history of laryngeal cancer as well as dysphagia requiring the insertion of a PEG tube. Dictated by PEGGY Monroe for Earnest Blake MD cc: Earnest Blake MD MTDD
[2019-08-31] MEDS: SODIUM CHLORIDE 0.9% 10 ML ONE (20:16)
[2019-08-31] MEDS: ZYLOPRIM PEG SCH (20:16)
[2019-08-31] MEDS: PROTONIX IV SCH (20:16)
--- NOTE | 2019-08-31 20:40 | PROGRESS NOTE ---
DATE: 08/31/2019 SUBJECTIVE: The patient has no major complaints. OBJECTIVE: Blood pressure 145/72, heart rate of 99, respiratory rate of 18, temperature 98.5 degrees, 99% on room air.Cardiovascular: Regular rate and rhythm. Pulmonary: Bilateral breath sounds, clear to auscultation. GI: Soft, nontender, nondistended. Bowel sounds are positive. LABORATORY DATA: Basic was normal. ASSESSMENT AND PLAN: 1. Acute respiratory failure. He seems to be doing okay. 2. Dysphagia. He is on tube feeds. 3. Acute kidney injury, stable. 4. Funguria. He is on micafungin, which I think he has probably completed. I will discuss with Infectious Disease about maybe just stopping it. 5. Encephalopathy, slowly resolving. 6. Disposition: Anticipate discharge to rehabilitation tomorrow if stable. cc: Earnest Blake MD
[2019-09-01] MEDS: POTASSIUM CHLORIDE 20% LIQUID PEG SCH ×2 (02:32→09:24)
--- NOTE | 2019-09-01 07:05 | Diag Imaging Result Doc PS360 ---
EXAM: CHEST-1 VIEW 09/01/2019 HISTORY: SOB TECHNIQUE: AP portable at 0630 COMMENT: compared to 08/24/2019 there has been no significant change in the appearance the chest considering differences in inspiration and technique. IMPRESSION: Stable chest. Electronically signed by Jude Conley 09/01/2019 7:03 AM
[2019-09-01 08:29] LABS: AGAP 11; ALB/GLOB RATIO 0.7; ALBUMIN 2.8 g/dL (3.5-5.0); ALKALINE PHOSPHATASE 135 U/L (32-122); BUN 18 mg/dL (8-22); CALCIUM 8.3 mg/dL (8.8-10.2); CHLORIDE 100 mmol/L (98-107); COSMO 276; CREATININE 0.8 mg/dL (0.7-1.2); ESTIMATED GFR > 60; GLUCOSE 129 mg/dL (70-104); GOT 42 U/L (10-34); GPT 25 U/L (10-44); MAGNESIUM 1.6 mg/dL (1.5-2.7); PHOSPHORUS 2.9 mg/dL (2.7-4.5); POTASSIUM 3.9 mmol/L (3.5-5.1); SODIUM 136 mmol/L (136-145); TCO2 25 mmol/L (25-35); TOTAL BILIRUBIN 1.43 mg/dL (0.20-1.00); TOTAL PROTEIN 6.9 g/dL (6.3-8.3)
[2019-09-01] MEDS ORDERED: PREVNAR 13 IM ONE (09:35)
[2019-09-01] MEDS ORDERED: FLU VACCINE IM ONE (09:45)
--- NOTE | 2019-09-01 12:52 | DISCHARGE SUMMARY ---
ADMISSION DATE: 07/31/2019 DISCHARGE DATE: He looks well. No major complaints. He has tolerated tube feeds. He has not had any agitation. His vital signs are stable. He is a little tachy. For some reason, his Lopressor has been discontinued, which it is unclear to me, so he needs to be back on that, granted his heart rate is 90s to 100s. His blood pressure is 110/62, but it has been normal. I feel he is stable for discharge to rehab today. Chest x-ray is stable. Anticipate discharge today. Full dictation per Radha Jimenez. cc: Earnest Blake MD
--- NOTE | 2019-09-01 13:56 | DISCHARGE SUMMARY ---
ADMISSION DATE: 07/31/2019 DISCHARGE DATE: 09/01/2019 PRIMARY CARE PROVIDER: Dr. Bardales. CONSULTATIONS: Dr. Mason Murphy, Dr. Aldrich, Dr. Roth of Pulmonology, Dr. Montero with Nephrology, Dr. Babar Taylor with Infectious Disease, Dr. Antonio Cantu with Cardiology, and Dr. Riley with Neurology. PERTINENT PROCEDURES: 1. Abdomen and pelvis CT: Focal atelectasis plus or minus mild infiltrate at the right lung base, cirrhotic liver, mild hepatomegaly, cholelithiasis uncomplicated, diverticulosis coli, laparoscopic cholecystectomy with operative cholangiogram performed by Dr. Mason Murphy on 08/01/2019. 2. Limited echo showed an EF of 55%. 3. Femoral vein Vas-Cath placement by Dr. Phillips. 4. Head CT: Moderate cerebral atrophy. No acute process. 5. Modified barium swallow: Dysphagia with significant penetration with ingestion of thin liquids. 6. Brain MRI: No evidence of acute ischemia. Otherwise, no evidence of acute intracranial disease. 7. Abdominal ultrasound, limited study: No evidence of ascites, splenomegaly. Hepatic steatosis versus cirrhosis. 8. Second modified barium swallow: NG tube removed. Otherwise, no change in dysphagia with several penetrations and aspirations. 9. EGD with PEG tube placement performed by Dr. Arriola. DISCHARGE DIAGNOSES: 1. Acute respiratory failure, improved. 2. Dysphagia. The patient is status post percutaneous tube placement and is currently tolerating tube feeds. 3. Acute kidney injury, stable. 4. Funguria. Completed micafungin. 5. Encephalopathy, slowly resolving. Brain imaging has been negative. Followed by Neurology. 6. Cholelithiasis with gallstones status post a laparoscopic cholecystectomy and operative cholangiogram on . 7. Severe normocytic anemia, improved after I believe about total of 5 transfusions. 8. Protein calorie malnutrition. The patient has failed two barium swallows. Again, he is on PEG tube feed. HOSPITAL COURSE: Briefly, Mr. Iqbal is a 79-year-old gentleman, history of coronary artery disease, hyperlipidemia, hypertension, atrial fibrillation, cirrhosis and throat cancer, presented to the ED on 07/31/2019, complaining of abdominal pain and nausea. He underwent a laparoscopic cholecystectomy by Dr. Murphy with operative cholangiogram on 08/01/2019. In the following days, he suffered acute respiratory failure and acute renal failure requiring slow, low efficiency dialysis, and ultimately had to be intubated. He was seen by Pulmonology, GI, Cardiology, General Surgery and Infectious Disease. He was able to be extubated on 08/11/2019. Since his extubation, he has had issues with confusion and lethargy. He was evaluated by Neurology. He underwent a head CT as well as brain MRI that did not show anything acute. His global encephalopathy was multifactorial, and this slowly resolved. He failed two barium swallows and ultimately required a PEG tube with tube feeds, was treated for a bibasilar pneumonia, as well as funguria. His acute kidney injury resolved. He was able to come off his dialysis. He has been working with physical therapy for generalized weakness and deconditioning, and will be discharged to rehab today. VITAL SIGNS: At time of discharge, temperature is 97 degrees, heart rate 109, respirations 18, blood pressure 110/60, O2 is 99% on room air. DISCHARGE DIET: The patient is n.p.o. The patient will be on tube feeds for nutrition. DISCHARGE MEDICATIONS: 1. Cilostazol 100 mg p.o. daily. 2. Eliquis 5 mg p.o. b.i.d. 3. Pravachol 40 mg p.o. daily. 4. Prilosec 20 mg p.o. daily. 5. Allopurinol 300 mg p.o. at bedtime. 6. Lopressor 25 mg PEG tube q. 6 hours. 7. Tylenol with codeine #3 one each p.o. q. 6 hours p.r.n.; this looks to be an old medication from 2018. DISCHARGE DISPOSITION: Mr. qIbal is being discharged to [facility] where he will finish his rehabilitation. He is to follow up with Dr. Aldrich on August 28. Primary care provider, Dr. Cristhian Bardales. He can return to the ED or call 911 for any worsening of symptoms. Dictated by PEGGY Ignacio for Earnest Blake MD cc: MD Cristhian Mchugh MD Manish Arora, MD [facility] CENTERVivienne
[2019-09-01] MEDS ORDERED: LOPRESSOR PO SCH (14:00)
[2019-09-01 16:37] VITALS: BP 130/77
--- NOTE | 2019-09-01 17:24 | PROVIDER PROGRESS NOTE ---
Progress Note Dr. Roth Progress Note/Pulmonary and or critical care Subjective: The patient is lying in bed on room air. He is more alert today and able to answer questions properly. He states he has no complaint at this time and he is waiting to be discharged to rehab. Patients daughter is at the bedside. Objective: Vital Signs: 97.3 (no fever in last 24 hours), WI 109, RR 18, BP 110/62 and SaO2 99% on room air. Physical Examination: General: Lying in bed with no acute distress noted. HEENT: Normocephalic. Trachea midline. Mucosa pink and moist. Chest: Even and unlabored. Symmetrical excursion. Good air entry bilaterally. CVS: S1 and S2 with murmur noted. Abdomen: Non-distended. An abdominal binder in place. Extremities: No pedal edema. Chronic stasis noted. 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 Neuro: A/O x 2. Answer simple questions appropriately and follow simple commands. Labs and Radiology: Laboratory Results 09/01/19 09/01/19 06:50 06:52 Sodium 136 Potassium 3.9 Chloride 100 Carbon Dioxide 25 Anion Gap 11 BUN 18 Creatinine 0.8 Estimated GFR/1.73 m2 > 60 BUN/Creatinine Ratio 23 Glucose 129 H Calculated Osmolality 276 Calcium 8.3 L Phosphorus 2.9 Magnesium 1.6 Total Bilirubin 1.43 H AST 42 H ALT 25 Alkaline Phosphatase 135 H Total Protein 6.9 Albumin 2.8 L Globulin 4.1 Albumin/Globulin Ratio 0.7 Prealbumin 12.0 L Assessment: Acute respiratory failure. Resolved. Mild bibasilar pneumonia. Resolved. Antibiotics discontinued per ID on 08/26/19. Acute kidney injury secondary to acute tubular necrosis. Resolved. Candiduria. Urine culture both on 08/19/19 and 08/23/19 grows yeast. Patient has been on Micafungin since 08/19/19 per ID. Altered mental status secondary to global encephalopathy. Resolved. Neurologist on board. Cholelithiasis with choledocholithiasis, associated with ascending cholangitis. S/P laparoscopic cholecystectomy with operative cholangiogram on 08/01/19. Severe normocytic anemia. Improving. s/p transfusion of 3 units of Leuk-reduced RBC and 2 units of Pheresis RBCs since admission. Protein calorie malnutrition. Patient failed a barium swallow twice. He underwent EGD with PEG placement on 08/30/[address] Arriola. PEG tube feeding has been on per GI specialist. Plan: Continue Bronchodilators as needed. Continue micafungin per ID. Advance PEG tube feeding per GI specialist. Appropriate DVT and GI prophylaxis Physical therapy. We encourage patient to use incentive spirometer routinely. Discharge to Rehab per hospitalist.
== END 2019-09-01 16:41 | DRG 417 ==
LOC: P.ED 06:43 → P.EDIPHOLD 15:46 → SUATTDRO 15:46 → 4N 22:20 → 2N 08-01 17:01 → ICU 08-04 09:57 → 2N 08-26 18:01 → 4N 08-30 18:52
PROVIDERS: ATTEND Internal Medicine

== ENCOUNTER 2019-09-08 20:29 | Inpatient (IN) ==
[2019-09-08] MEDS ORDERED: NS 1,000 ML IV ONE (21:09)
[2019-09-08] MEDS ORDERED: LOPRESSOR IV ONE (21:09)
--- NOTE | 2019-09-08 21:09 | PROVIDER DOCUMENTATION ---
HPI-General Adult - General Chief Complaint: Post Op Complaint Stated Complaint: general Time Seen by Provider: 09/08/19 20:48 Source: patient, family Allergies/Adverse Reactions: Patient Allergies Allergy/AdvReac Type Severity Reaction Status Date / Time No Known Allergies Allergy Verified 09/08/19 20:56 Home Medications: Home Medication List Medication Instructions Recorded Confirmed Last Taken Type Allopurinol [Zyloprim] 300 mg GT HS 07/19/12 09/08/19 12/20/13 07:00 History Omeprazole [Prilosec] 20 mg GT DAILY@0700 07/19/12 09/08/19 12/20/13 07:00 History PRAVAstatin [Pravachol] 40 mg GT DAILY 12/14/12 09/08/19 12/19/13 17:00 History Cilostazol 100 mg GT DAILY 10/17/17 09/08/19 Unknown History Apixaban [Eliquis] 5 mg GT BID 07/31/19 09/08/19 Unknown History Metoprolol [Lopressor] 25 mg PEG Q6H #120 09/01/19 09/08/19 12/20/13 07:00 Rx Acetaminophen with Codeine 1 tab GT Q6HR PRN 09/08/19 09/08/19 Unknown History [Tylenol with Codeine #3] Amino Acids/Protein Hydrolys 30 ml GT BID 09/08/19 09/08/19 Unknown History [Pro-Stat Awc Liquid Packet] - History of Present Illness -Gen Adult Nature of Presenting Problems: Patient comes in for [facility] with drainage around his Gtube. He has recently started eating a soft diet and they stated that when he coughs it refluxes in the tube something the consistency of pudding. Around the site has a lot of erythema and drainage. He has no complaints but the did a majority of the talking. Review of Systems - Adult - REVIEW OF SYSTEMS - ADULT Constitutional: reports: no symptoms reported. denies: chills, fever, fatique, night sweats, weight gain Eyes: reports: no symptoms reported. denies: discharge, dry eyes, decreased vision, blurred vision, eye pain, redness Ears, Nose, Mouth & Throat: reports: no symptoms reported. denies: ear discharge, ear pain, tinnitus, epistaxis, nose pain, loose teeth, mouth/dental pain, mouth swelling, hoarseness, throat pain, throat swelling Cardiovascular: reports: no symptoms reported. denies: chest pain, edema, heart murmur, irregular heart rate, orthopnea, palpitations, poor circulation, PND, syncope Respiratory: reports: no symptoms reported. denies: dyspnea on exertion, excessive sputum production, hemoptysis, pleurisy, shortness of breath, wheezing Gastrointestinal: reports: no symptoms reported. denies: abdominal pain, hematemesis, constipation, diarrhea, frequent heartburn, nausea, poor appetite, rectal bleeding, vomiting Genitourinary: reports: no symptoms reported. denies: dysuria, discharge, frequency, frequent UTI's, hematuria, hesitency, incontinence, urinary retention, urgency Musculoskeletal: reports: no symptoms reported. denies: bone pain, back pain, frequent leg cramps, joint pain, joint swelling, muscle aches, muscle weakness, neck pain Integumentary: reports: no symptoms reported. denies: hives, hair loss, itching, mole changes, nail changes, skin sores/ulcer, skin thickening Neurological: reports: no symptoms reported. denies: ataxia, headache/migraines, loss of balance, paresthesia, seizure, slurred speech, syncope Psychiatric: reports: no symptoms reported. denies: anxiety, anti-depressant use, alcohol/drug dependence, depression, insomnia, panic attacks Endocrine: reports: no symptoms reported. denies: change in skin pigment, excessive sweating, goiter, cold intolerance, increased thirst, polyuria Hematologic/Lymphatic: reports: no symptoms reported. denies: blood clots, easy bruising, low blood count, lymphedema, swollen lymph nodes, transfusions Allergic/Immunologic: reports: no symptoms reported. denies: allergic reactions, allergic rhinitis, asthma, eczema, frequent infections, hay fever, hives, positive PPD, urticaria All Other Systems: Reviewed and Negative Past History - Adult - PAST MEDICAL HISTORY-ADULT Review of Records: reports: Old Records Reviewed, Nursing Assessment Review, Medications Reviewed, Social history reviewed & non-contributory. Major Childhood Illnesses: reports: denies history Cardiovascular: reports: CAD Respiratory: reports: denies history Gastrointestinal: reports: denies history Obstetrical/Gynecological: reports: denies history Genitourinary: reports: denies history Musculoskeletal: reports: denies history Neurological: reports: denies history Endocrine/Immune: reports: denies history Other Conditions: reports: denies history - PRIOR SURGERIES/PROCEDURES Surgical/Procedure History: reports: recent surgery, cholecystectomy, other (gtube placement) - IMMUNIZATION STATUS Childhood Immunizations: See Nurse Assessment Flu Vaccine: See Nurse Assessment - FAMILY HISTORY Family History: reviewed, not pertinent - SOCIAL HISTORY Smoking: denies Substance Use: none/never Alcohol Use Frequency: never Living Situation: care facility Physical Exam-General - PHYSICAL EXAM-ADULT Initial Vital Signs Reviewed: Yes - CONSTITUTIONAL General Appearance: alert, moderate distress, thin - EYES Eyes: PERRL/EOMI, pink conjunctivae - HEAD, EARS, NOSE, MOUTH & THROAT HENMT: normocephalic/atraumatic, normal ENT inspection - NECK Neck: non-tender, full range of motion, supple - RESPIRATORY Respiratory: chest non-tender, lungs clear, normal breath sounds - CARDIOVASCULAR Cardiovascular: normal peripheral pulses, tachycardia, irregularly irregular - GASTROINTESTINAL (ABDOMEN) Abdominal Exam: non tender, soft, abnormal bowel sounds - LYMPHATIC Lymphatic: no adenopathy - MUSCULOSKELETAL Back Exam: normal inspection, no CVA tenderness Extremity: normal range of motion, non-tender - SKIN Integumentary: normal color, normal turgor, warm/dry - NEUROLOGIC Neurologic: bakelite molder II-XII nml as tested, grossly normal - PSYCHIATRIC Psych/Mental Status: normal mood/affect, normal thought content, normal thought process, oriented x 3 Progress - PLAN OF CARE/RESULTS Progress/Plan/Lab Results: Vital Signs - 8 hr 09/08/19 20:46 Temperature 98.8 F Pulse Rate 133 H Respiratory Rate 19 Blood Pressure 108/71 O2 Sat by Pulse Oximetry 95 Orders Category Date Time Status Cardiac Monitoring NOW Care 09/08/19 20:51 Active IV Insertion NOW Care 09/08/19 20:51 Active NEWS Score >or=5:Order NEWS Bundle S.O. NOW Care 09/08/19 20:49 Active Notify Provider of NEWS Score NOW Care 09/08/19 20:51 Active CHEST-1 VIEW [RAD] Stat Exams 09/08/19 20:51 Ordered BLOOD CULTURE [BLDCUL] Stat Lab 09/08/19 20:51 Uncollected CBC WITH DIFF [HEME] Stat Lab 09/08/19 20:51 Uncollected CK PROFILE [SP CHEM] Stat Lab 09/08/19 20:51 Uncollected COMPREHENSIVE METABOLIC PANEL [CHEM] Stat Lab 09/08/19 20:51 Uncollected LACTATE, PLASMA [CHEM] Q3H Lab 09/08/19 21:00 Uncollected LACTATE, PLASMA [CHEM] Q3H Lab 09/09/19 00:00 Uncollected LACTATE, PLASMA [CHEM] Q3H Lab 09/09/19 03:00 Uncollected PROTIME WITH INR [COAG] Stat Lab 09/08/19 20:51 Uncollected PTT [COAG] Stat Lab 09/08/19 20:51 Uncollected ROUTINE CULTURE [RM] Stat Lab 09/08/19 20:51 Uncollected TROPONIN T HIGH SENSITIVITY Stat Lab 09/08/19 20:51 Uncollected URINALYSIS W/POSS RFLX CULT [URINALYSIS] Stat Lab 09/08/19 20:51 Uncollected O2 Per Protocol Stat Oth 09/08/19 20:51 Active EKG [EKG] Stat Ther 09/08/19 20:56 Ordered Result Diagrams: 09/10/19 07:10 09/10/19 07:10 - CONSULTS/PCP/HOSPITALIST Notification #1 *Consult/PCP/Hospitalist*: zonia Time Discussed: 21:17 Consult Disposition: Will see in ED, Admit Departure - Departure Date of Disposition Decision: 09/08/19 Time of Disposition Decision: 21:17 DIAGNOSIS: Sepsis associated hypotension, Anemia Disposition: ADMITTED INPATIENT 09 Certified Medical Emergency: Emergent Condition: Fair - Critical Care Note This patient required my direct & personal management of CC.: Yes Total Time (mins): 30 Critical Care Statement: This patient required my direct personal management to treat or rule out processes, the absence of which, could potentiallly result in sudden, clinically significant life or limb threatening deterioration. Attestation - Physician/ MIKE Attestation Patient care was provided by Advanced Practice Provider:: Yes Advanced Practice Provider:: Nicko Abreu Advanced Practice Provider documentation review:: The Mid-level provider documentation, treatment plan and medical decision making was reviewed by the physician who agrees with all treatment and medical decision making by the MLP. The physician spent face to face time with patient:: No Advanced Practice Provider documentation review:: Supervising physician onsite and consulted in the evaluation and care of this patient. The physician did not have a face to face encounter with the patient.
[2019-09-08] MEDS ORDERED: LANOXIN IV ONE (21:10)
--- NOTE | 2019-09-08 21:15 | Diag Imaging Result Doc PS360 ---
CHEST-1 VIEW - 09/08/2019 INDICATION: sepsis protocol COMPARISON: 09/01/2019 FINDINGS: Stable right hemidiaphragm elevation. No infiltrates or edema. Stable slight atelectasis in the right lung base. Heart size is normal. No pneumothorax or pleural effusion. IMPRESSION: No acute disease or change from prior. Electronically signed by Max Andre 09/08/2019 9:12 PM
[2019-09-08 22:47] LABS: BASO# 0.08 X1000 (0.0-0.2); HEMATOCRIT 19.9 % (42.0-52.0); MCH 28.9 PG (27-31); MCHC 29.6 g/dL (33-37); MCV 97.5 FL (81-99); MPV 10.1 FL (7.4-10.4); PLT 265 X1000 (130-400); RBC 2.04 XMIL (4.7-6.1); RDW 20.5 % (11.5-14.5); WBC 7.67 X1000 (4.8-10.8)
[2019-09-08 22:48] LABS: INR 1.51; PROTIME 18.5 Seconds (11.0-16.0)
[2019-09-08 22:49] LABS: HEMOGLOBIN 5.9 g/dL (14.0-18.0)
[2019-09-08 22:50] LABS: PTT 48.8 Seconds (22.3-41.8)
[2019-09-08 22:58] LABS: AGAP 12; ALB/GLOB RATIO 0.8; ALBUMIN 3.2 g/dL (3.5-5.0); ALKALINE PHOSPHATASE 162 U/L (32-122); BUN 28 mg/dL (8-22); CALCIUM 8.5 mg/dL (8.8-10.2); CHLORIDE 98 mmol/L (98-107); CK PROFILE 66 U/L (24-204); COSMO 283; ESTIMATED GFR > 60; GLUCOSE 124 mg/dL (70-104); GOT 39 U/L (10-34); GPT 38 U/L (10-44); POTASSIUM 4.3 mmol/L (3.5-5.1); SODIUM 138 mmol/L (136-145); TCO2 28 mmol/L (25-35); TOTAL PROTEIN 7.1 g/dL (6.3-8.3)
[2019-09-08 23:33] LABS: LYMPHS 17 % (21-51); SEGS 83 % (42-75)
[2019-09-08 23:35] LABS: URINE SOURCE CLEAN CATCH
[2019-09-08 23:36] LABS: BILIRUBIN URINE NEGATIVE (NEGATIVE); BLOOD URINE NEGATIVE (NEGATIVE); COLOR YELLOW; GLUCOSE URINE NEGATIVE (NEGATIVE); KETONE URINE NEGATIVE (NEGATIVE); LEUKOCYTES URINE NEGATIVE (NEGATIVE); NITRITE URINE NEGATIVE (NEGATIVE); PH URINE 6.5; PROTEIN URINE 50 mg/dL (NEGATIVE); SP GRAVITY URINE 1.019; TURBIDITY URINE CLEAR (CLEAR); UROBILINOGEN URINE 12 mg/dL (NORMAL)
[2019-09-08 23:38] LABS: UR EPITHELIAL CELLS <10 /HPF (<10); URINE BACTERIA NEGATIVE /HPF; URINE RBC <10 /HPF (<10); URINE WBC <10 /HPF (<10)
[2019-09-09] MEDS ORDERED: ZOFRAN IV PRN (00:40)
[2019-09-09] MEDS ORDERED: TYLENOL PO PRN (00:40)
[2019-09-09] MEDS: CARDIZEM 100 MG/NS 100 MG/100 ML IVPB IV SCH ×4 (02:09→21:02)
[2019-09-09] MEDS: PROTONIX IV SCH ×2 (02:11→13:41)
[2019-09-09] MEDS: NS 1,000 ML IV SCH ×2 (02:11→20:01)
[2019-09-09] MEDS: SODIUM CHLORIDE 0.9% INJ SCH ×2 (02:12→13:41)
[2019-09-09 03:33] LABS: URINE SOURCE CATH
[2019-09-09 03:35] LABS: BILIRUBIN URINE NEGATIVE (NEGATIVE); BLOOD URINE NEGATIVE (NEGATIVE); COLOR YELLOW; GLUCOSE URINE NEGATIVE (NEGATIVE); KETONE URINE NEGATIVE (NEGATIVE); LEUKOCYTES URINE NEGATIVE (NEGATIVE); NITRITE URINE NEGATIVE (NEGATIVE); PH URINE 6.5; PROTEIN URINE 50 mg/dL (NEGATIVE); SP GRAVITY URINE 1.018; TURBIDITY URINE CLEAR (CLEAR); UROBILINOGEN URINE 12 mg/dL (NORMAL)
[2019-09-09 03:36] LABS: UR EPITHELIAL CELLS <10 /HPF (<10); URINE BACTERIA NEGATIVE /HPF; URINE RBC <10 /HPF (<10); URINE WBC <10 /HPF (<10)
--- NOTE | 2019-09-09 05:17 | HISTORY AND PHYSICAL ---
PRIMARY CARE PROVIDER: None. CHIEF COMPLAINT: High heart rate, and stomach tube leaking tube feed. HISTORY OF PRESENT ILLNESS: Mr. Iqbal is a 79-year-old male who was discharged from our service on 09/01/2019. At that time, he was discharged with dysphagia, had a PEG tube placed, and was on tube feeds. He briefly had to be on dialysis, and had cholelithiasis with gallstones and a laparoscopic cholecystectomy. Severe anemia that he had 5 transfusions for. and daughter are at bedside with the patient. They report on Thursday he became short of breath after a swallow study with an increase in his heart rate. He was placed on a pureed diet, and they felt like he had been tolerating that well. They felt like tube feeds have been leaking out around his tube. They could hear some gurgling. They stated they had some type of band around his PEG tube. I am unsure if they are talking about the abdominal binder or if something else was placed secondary to the patient pulling at his PEG tube. They reported that his last BM was "stringy", but previous to that he had just had diarrhea type stools. They could not describe them to me. He came to the ED to be evaluated for his heart rate, and was found to be in atrial fibrillation with RVR as well as anemic with an hemoglobin and hematocrit of 5 and 19. He is being typed and screened. We will transfuse 2 units of blood. We will check an occult stool. We will consult GI for his PEG tube issues. We will also have them culture it. It does not appear to be infected, however, there is some reddening to the area and looks more like irritation. They also report breakdown on his right ankle as well as the side of his right foot. He has what appears to be just 2 places on his left toes where it just appears that the skin has been peeled back a little bit. These will need to be documented. Given his continued atrial fibrillation and low blood counts, we will monitor him in the ICU. Continue further evaluation and treatment. PAST MEDICAL HISTORY: 1. Dysphagia. The patient is status post PEG tube placement. He has been getting tube feeds. However, family reports on Thursday he was started on a pureed diet and had been tolerating that well. 2. Severe normocytic anemia. 3. Protein calorie malnutrition. 4. 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 Aware. 5. DNR level 1 PAST SURGICAL HISTORY: PEG tube placement. FAMILY HISTORY: Noncontributory. SOCIAL HISTORY: The patient has been at rehab. and daughter at bedside. No alcohol or illicit drug use. PHYSICAL EXAMINATION: VITAL SIGNS: Temperature 98.5 degrees, heart rate 140, respirations 22, blood pressure 126/64, and O2 is 97% on room air. GENERAL: Mr. Iqbal is a 79-year-old male who is sitting up in the bed in no acute distress. HEENT: Atraumatic, normocephalic. PERRL. NECK: Supple. Trachea midline. CARDIOVASCULAR: Irregularly irregular. GI: Soft, nontender, and nondistended. Positive bowel sounds x4 quadrants. He does have a PEG tube placed. It does appear to be oozing, possibly tube feeds. I do not appreciate any foul smell. There is some irritation, however, they report that the patient pulled at his PEG tube a lot. Positive bowel sounds 4 quadrants. EXTREMITIES: Lower extremities negative for edema. SKIN: He does have some breakdown on the right ankle, outside of the right foot as well as some what looks like scrapes on his left big toe, and I believe his 3rd toe. NEUROLOGIC: No focal deficits noted. DIAGNOSTIC DATA: Abdomen and pelvis CT pending. Chest x-ray shows no acute disease or change from prior. LABORATORY DATA: White count 7, hemoglobin and hematocrit is 5 and 19, and platelet count is 265,000. Sodium 138, potassium 4.3, BUN 28, creatinine 1, blood glucose is 124, and AST is 39. T bilirubin is 2.40. Albumin 3.2. Troponin was 57. Urinalysis is negative. ASSESSMENT AND PLAN: 1. Anemia R/O GIB. Patient to get 2 units of PRBC's. Rehceck H/H in am, check occult stool, consult GI. Hold blood thinners. NPO. 2. A-Fib with RVR, getting tx now in ED will add Cardizem gtt if HR not controlled, trend enzymes, Consult cards. 3. Dysphagia with PEG tube placement. C/O of PEG tube leaking feedings and gurgling. Consult GI. CT of abdomen ordered. Per family patient passed swallow on Thursday for Pureed diet. 4. Protein Calorie Malnutrition, consult dietitian. 5. Laryngeal Cancer S/P Chemo/Rad. Aware 6. DNR1 Further recommendations to follow physician evaluation, laboratory, and diagnostic data. Dictated by PEGGY Ignacio for Jeyson Barbosa MD I have performed a face to face diagnostic evaluation. Labs/xrays- reviewed. Exam- Chest- clear, CV- regular,Abd- soft. A/P- Anemia, PEG tube drainage, Afib with rvr. .- Admit, check H/H, GI consult , Cardizem, Cardiology consult. Dr. Barbosa cc: MD Jose Garcia MD Dr. Kelso MTDD
--- NOTE | 2019-09-09 07:39 | Diag Imaging Result Doc PS360 ---
CHEST-PORTABLE - 09/09/2019 INDICATION: FU COMPARISON: 09/08/2019 FINDINGS: There is no acute disease or change from prior. IMPRESSION: No acute disease or change from prior. Electronically signed by Max Andre 09/09/2019 7:36 AM
--- NOTE | 2019-09-09 08:08 | EKG Report ---
Test Performed on : 09/09/2019 07:09:12 AM Test Reason : AFIB Blood Pressure : / mmHG Vent. Rate : 121 BPM Atrial Rate : 125 BPM P-R Int : 000 ms QRS Dur : 086 ms QT Int : 328 ms P-R-T Axes : 000 -05 032 degrees QTc Int : 465 ms Atrial fibrillation. with rapid ventricular response. Possible Inferior infarct (cited on or before 19-JUL-2012) Abnormal ECG When compared with ECG of 03-AUG-2019 09:16, No significant change was found Confirmed by Zhen Malik MD ([id number]) on 09/11/2019 12:23:29 PM
[2019-09-09 10:22] LABS: BASO# 0.07 X1000 (0.0-0.2); BASO% 1.1 % (0.0-0.8); EOS# 0.05 X1000 (0.0-0.7); EOS% 0.8 % (0.0-10.0); HEMATOCRIT 31.9 % (42.0-52.0); HEMOGLOBIN 9.4 g/dL (14.0-18.0); IMM GRAN# 0.28 X1000 (0.0-0.04); IMM GRAN% 4.5 % (0.0-0.5); LYMPH# 1.28 X1000 (1.2-3.4); LYMPH% 20.7 % (20.5-51.1); MCH 27.6 PG (27-31); MCHC 29.5 g/dL (33-37); MCV 93.5 FL (81-99); MONO# 0.44 X1000 (0.11-0.59); MONO% 7.1 % (1.7-9.3); NEUT# 4.06 X1000 (1.4-6.5); NEUT% 65.8 % (42.2-75.2); PLT 193 X1000 (130-400); RBC 3.41 XMIL (4.7-6.1); RDW 20.1 % (11.5-14.5); WBC 6.18 X1000 (4.8-10.8)
[2019-09-09 10:32] LABS: AGAP 15; ALB/GLOB RATIO 0.7; ALBUMIN 2.9 g/dL (3.5-5.0); ALKALINE PHOSPHATASE 143 U/L (32-122); BUN 22 mg/dL (8-22); CALCIUM 8.3 mg/dL (8.8-10.2); CHLORIDE 102 mmol/L (98-107); COSMO 280; CREATININE 0.8 mg/dL (0.7-1.2); ESTIMATED GFR > 60; GLUCOSE 121 mg/dL (70-104); GOT 42 U/L (10-34); GPT 32 U/L (10-44); MAGNESIUM 1.9 mg/dL (1.5-2.7); SODIUM 138 mmol/L (136-145); TCO2 21 mmol/L (25-35); TOTAL PROTEIN 7.2 g/dL (6.3-8.3)
--- NOTE | 2019-09-09 11:36 | CARDIOLOGY CONSULTATION ---
DATE: 09/09/2019 CHIEF COMPLAINT ON PRESENTATION: High heart rate, PEG tube leaking food. HISTORY OF PRESENT ILLNESS: is a 79-year-old white male with a prolonged hospitalization, recently being discharged 1 week ago. At that time, he had briefly been on dialysis, had issues with infections after a cholecystectomy. His hospitalization was complicated somewhat by his atrial fibrillation which is chronic. Over the last 2 to 3 days, he has been having elevated heart rates and early fatigue during his usual physical therapy. The patient is not aware of any bright red blood per rectum, melena or hematemesis. He has been gating apixaban through his PEG tube. In addition, there has been some purulent drainage from around the PEG tube site. No obvious fevers. The patient denies any chest pain. PAST MEDICAL HISTORY: 1. Chronic atrial fibrillation. 2. Hypertension. 3. Hyperlipidemia. 4. Peripheral vascular disease. 5. Gastroesophageal reflux disease. SOCIAL HISTORY: Recent resident of a longterm/rehab. His is present at the bedside. No current tobacco use. FAMILY HISTORY: Significant for hypertension. REVIEW OF SYSTEMS: A 10 system review of systems is negative except for those things mentioned in HPI. PHYSICAL EXAMINATION: Vital signs: He is afebrile. His heart rates more recently have been in the 110s to 120s. His blood pressure is 125/96. General: He is in no acute distress. HEENT: Oropharynx is moist. Poor dentition. Eye examination, pink conjunctivae. White sclerae. Neck: Examination shows no obvious thyromegaly or thyroid tenderness. Cardiovascular: He is in a mildly tachycardic, irregularly irregular rhythm. He has no obvious murmurs. He has no S3. He has no lower extremity edema. Chest: Exam sounds clear bilaterally. He has no increased work of breathing. Abdomen: Soft, nontender. He has a PEG tube in place with some mild purulent drainage around the insertion site as well as minimal erythema noted around the insertion site. Skin: Warm and dry throughout without any rashes. Neurological: He is moving all extremities well. He has no lateralizing deficits. PERTINENT DATA: He had an echo checked on August 05 that shows a normal ejection fraction. He had an echo checked on the as well that showed a preserved EF of around 50%. His EKG tracing reviewed by me shows probable atrial fibrillation, rate of 121 beats per minute, that was at 7:09 this morning, and his chest x-ray shows no evidence of acute findings. His lab data shows a white count of 6.1, his hematocrit is 31.9 today, yesterday it was 19.9, his platelet count is 193,000. His sodium is 138, potassium 4, his BUN is 22, creatinine 0.8. His troponins were checked and have been elevated anywhere from 48 to 57. ASSESSMENT: Mr. Iqbal is a 79-year-old gentleman with a recent prolonged hospitalization, who came in with the hospitalization anemia. His atrial fibrillation is somewhat elevated. PLAN: At this point, I do not have any acute cardiovascular recommendations. His anemia needs to be fully worked up. It is likely driving the heart rate. In addition, his heart rate is being driven by his profound physical weakness/deconditioning. We will continue him on current heart rate controlled. His anticoagulation is being held secondary to his anemia. cc: Antonio Cantu MD
--- NOTE | 2019-09-09 12:05 | Diag Imaging Result Doc PS360 ---
EXAM: CT ABDOMEN/PELVIS W/WO CONTRAS 09/09/2019 HISTORY: r/o bleed TECHNIQUE: This exam was performed using automated exposure control, adjustment of mA or kV according to patient size, and/or use of iterative reconstruction technique. COMMENT: The current study is compared with 07/31/2019. There is atelectasis or fibrosis in the right lower lobe and middle lobe. This was also present on the previous study. There is platelike atelectasis in the posterior costophrenic sulcus of the left lower lobe which is worse than on the previous study. There has been cholecystectomy since the previous study. The adrenal glands are nonenlarged. The spleen is enlarged measuring over 16 cm in superior-inferior dimension. This has increased from 14.6 cm at the time the previous study. There is some fluid density lucency present in the upper portion of the spleen measuring over 26 Hounsfield units on the nonenhanced study. This was not visible on the previous examination and may represent a hematoma. There is some fluid in the subphrenic space on the left which was not present previously. There is no evidence of nephrolithiasis. There are some atherosclerotic calcifications in the aorta. The aorta is not distended. The renal and mesenteric vessels are patent. There is an accessory right renal artery. There is marked inhomogeneity of the liver with nodularity and enlargement of the left lobe. There are numerous calcifications seen in the posterior right subphrenic space which have the appearance of gallstones which were not present at the time of the previous study, which was prior to the cholecystectomy. The pancreas is normal in appearance. There is no evidence of bowel obstruction. There is a small amount of fluid and stranding in the fat around the descending colon. This was not present at the time the previous study and may indicate minimal ascites. Pelvis: There is some stool in the rectosigmoid colon. There is no appreciable free fluid. There is a Ovalles catheter in the bladder. There has been internal fixation of the right femur. There are degenerative disc changes in the lumbar spine with spinal stenosis at L3-4. IMPRESSION: 1. Worsened atelectasis in the left lower lobe. 2. Increased splenomegaly with apparent intraparenchymal splenic hematoma. 3. Gallstones in the posterior subphrenic space. 4. Minimal ascites. Electronically signed by Jude Conley 09/09/2019 12:02 PM
--- NOTE | 2019-09-09 14:42 | PROGRESS NOTE ---
DATE: 09/09/2019 SUBJECTIVE: Mr. Iqbal came in yesterday. His heart rate was elevated. He has had some leaking around his J-tube. Apparently, his family wanted to take him out of [facility] and rehab and bring him home. Concerned about his J-tube, so brought him here to the hospital. He did have an elevated heart rate apparently. He was discharged from our service on 09/01/2019. At that time, his discharge with dysphagia, had a PEG tube placed and was getting tube feeding and he has had trouble with the J-tube and there is some leaking around it. stated there was a pretty purulent smell and he has been swallowing ice by report and eating some. He had to be briefly on dialysis. He had cholelithiasis and gallstones and a laparoscopic cholecystectomy. Severe anemia, 5 units of packed red blood cells. He was more short of breath. The swallow study had improved. Apparently he was placed on pureed diet, felt he had been tolerating that well. [place] like he had tube feeds that were leaking and he stated that he had some type of band around his PEG. Reported his last bowel movement was stringy and that he had just had some diarrhea type stools but could not describe them. He was in atrial fibrillation with rapid ventricular rate and anemia. Hemoglobin hematocrit was 5 and 19. He was typed and screened, transfused 2 units of packed red blood cells and Gastroenterology was asked to see, moved up the unit. We also have gotten a culture around the NG tube and sent it off for ID. PAST MEDICAL HISTORY: 1. Dysphagia, status post PEG tube placement. Getting some tube feedings. Recently had trouble with leaking around the J-tube insertion. He has been started on pureed diet and apparently he has done doing well. 2. Severe normocytic anemia. 3. Protein calorie malnutrition. 4. 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 5. DNR Level 1. OBJECTIVE: General: The patient appears comfortable. is at the bedside in ICU. Vital signs: Remains afebrile. Temperature 98.5 degrees, pulse 99, respirations 24, blood pressure 126/68. HEENT: Pupils are equal and round. Lungs: Clear in all lung ventura. Cardiovascular: Regular rhythm and rate without murmur or S3. Abdomen: Soft. Skin: Warm and dry. Weight 141 pounds. LABORATORY DATA: Review of labs from admission yesterday, white count was 7670 hematocrit is 5900, platelet count 265,000. Was given 2 units packed red blood cells. Sodium 138, potassium 4.3, chloride 98, BUN 28, creatinine 1.0. AST is 39, ALT is 38, alkaline phosphatase 162. Protime is 18.5, INR is 1.5. Urinalysis unremarkable. IMAGING: Abdominal and pelvic CT, worsened atelectasis in the left lower lobe, increased splenomegaly, apparent intraparenchymal splenic hematoma, gallstones in the posterosuperior phrenic space, minimal ascites. PLAN: Dr. Cantu, cardiology following atrial fibrillation with elevated rate. His anemia needs to be fully worked up is likely driving his heart rate, and Dr. Arriola is going to be following. REVIEW OF HIS ORDERS: He is on diltiazem, a Cardizem drip and Prilosec 20 mg through G-tube daily, Protonix 40 mg IV q.12. Following his transfusion, hematocrit 31 hemoglobin 9.4. cc: Hunter Lundberg MD [facility]PITALVivienne
--- NOTE | 2019-09-09 16:00 | GASTROENTEROLOGY CONSULTATION ---
DATE: 09/09/2019 REASON FOR CONSULTATION: Anemia. Ruling out GI bleed. Assessing the PEG tube drainage. HISTORY OF PRESENT ILLNESS: Mr. Mcgowan is a 79-year-old male who was recently discharged from the hospital. The patient had dysphagia. He had a PEG tube placed with tube feedings. The patient also had a recent laparoscopic cholecystectomy done. He is back in the hospital. He came in yesterday complaining that his PEG tube was draining when he was getting the tube feeding. They could hear some bubbling noise coming out. The patient has around the PEG tube, redness and some drainage with some foamy drainage. As per the family, patient had some stringy and watery bowel movements. The patient is severely anemic. His hemoglobin and hematocrit on admission was 5.9 and 19.9. Currently it is 9.4 and 31.9. The patient has received two units of blood so far. PAST MEDICAL HISTORY: Dysphagia, anemia, cirrhosis of the liver, hyperlipidemia, chronic reflux, hypertension, gout, atrial fibrillation, protein calorie malnutrition and laryngeal cancer status post chemotherapy and radiation. PAST SURGICAL HISTORY: A hernia repair, polypectomy, and PEG tube placement. FAMILY HISTORY: His dad had lung cancer and his mom had heart problems. SOCIAL HISTORY: The patient is . He was a past alcoholic and a smoker. He has denied any illicit drugs. The patient has got three kids. ALLERGIES: No known drug allergies. MEDICATIONS: Esomeprazole 20 mg via G-tube, allopurinol 30 mg via G-tube, pravastatin 40 mg via G- tube, cilostazol 100 mg via G-tube, Eliquis 5 mg via G- tube twice a day, metoprolol 25 mg via G- tube, acetaminophen with codeine one tablet via G-tube every six hours as needed, amino acids/protein hydrolysis 30 mL per G-tube twice a day. REVIEW OF SYSTEMS: As per HPI. Otherwise, 12 point review of system is negative. PHYSICAL EXAMINATION: Vital Signs: Temperature 98.5 degrees, pulse 99, respirations 24, blood pressure 126/58, oxygen saturation 97% on room air. Patient's weight is 141 pounds. BMI is 22.9 kg/m2 General: He is alert, oriented x3 and in no acute distress. HEENT: Pale conjunctivae. No icterus. PERRL. Neck: Supple. Lungs: Clear to auscultation. Cardiovascular: Patient is tachycardic and tachypneic. Abdomen: Soft, nontender, nondistended. Active bowel sounds heard in all four quadrants. PEG tube in place with redness and drainage. Extremities: No clubbing, no cyanosis, no edema. Pedal pulses 2+ present bilaterally. Neurologic: He is alert and oriented x3. Nonfocal. Cranial nerves II-XII grossly intact. LABS: WBCs are 6.18, RBC 3.41, hemoglobin 9.4, hematocrit is 31.9, platelet count is 193,000. Sodium is 138, potassium 4.0, chloride 102, carbon dioxide 21, anion gap 15, BUN 22, creatinine 0.8, glucose is 121, calcium 8.3, magnesium is 1.0, total bilirubin is 2.90, AST is 42, ALT is 32, alkaline 143, albumin is 2.9. Plasma lactate is 1.3. Urinalysis showed protein of 50. IMAGING: Chest x-ray has shown no acute disease or change from prior. Abdomen and pelvis CT has shown worsened atelectasis in the left lower lobe, increased splenomegaly without apparent intraparenchymal splenic hematoma, gallstones in the posterior subphrenic space, and minimal ascites. IMPRESSION AND PLAN: - PEG tube infection - Dysphagia - Cirrhosis with ascites - Severe protein calorie malnutrition - Splenic hematoma - Chronic blood loss anemia PLAN: Mr. Mcgowan is a 79-year-old male with a history of laryngeal cancer and dysphagia. The patient currently has a PEG tube placed. GI has been consulted for his PEG tube drainage. The patient's family does not know whether he has tried to pull the PEG tube out. The patient is currently receiving IV fluids of normal saline at 50 mL/hour. He is on PPIs twice a day. The patient's CT scan has shown today that he has got minimal ascites.; he has gallstone in the posterior subphrenic space; increased splenomegaly with apparent intraparenchymal splenic hematoma and worsened atelectasis in the left lower lobe. His PEG tube site is having erythema and pus with drainage. He will need antibiotics for the infection. His cultures are pending. We will continue to monitor the patient's PEG tube and will follow the plan of care per PCP. This plan was discussed with Dr. Arriola. Please call us for any further questions or concerns. Dictated by PEGGY Gomez for Cristhian Arriola MD Physician Attestation I have seen and examined the patient. I have discussed and reviewed the note by Loni WOODS and agree with findings and plan as documented. Agree with antibiotics. Will need to keep PEG tube in place for at least 4 weeks to allow tract to mature and thus decrease risk of peritonitis. Recommend wound RN to evaluate PEG site. Will follow with you. LUZ
[2019-09-10] MEDS: PROTONIX IV SCH ×2 (02:28→12:58)
[2019-09-10] MEDS: CARDIZEM 100 MG/NS 100 MG/100 ML IVPB IV SCH (07:15)
[2019-09-10 07:51] LABS: BASO# 0.03 X1000 (0.0-0.2); BASO% 0.6 % (0.0-0.8); EOS# 0.05 X1000 (0.0-0.7); HEMOGLOBIN 8.7 g/dL (14.0-18.0); IMM GRAN# 0.22 X1000 (0.0-0.04); IMM GRAN% 4.2 % (0.0-0.5); LYMPH# 0.84 X1000 (1.2-3.4); LYMPH% 16.1 % (20.5-51.1); MCH 28.2 PG (27-31); MCV 93.9 FL (81-99); MONO# 0.38 X1000 (0.11-0.59); MONO% 7.3 % (1.7-9.3); MPV 9.6 FL (7.4-10.4); NEUT# 3.71 X1000 (1.4-6.5); NEUT% 70.8 % (42.2-75.2); PLT 196 X1000 (130-400); RBC 3.09 XMIL (4.7-6.1); RDW 20.6 % (11.5-14.5); WBC 5.23 X1000 (4.8-10.8)
[2019-09-10 08:19] LABS: AGAP 10; BUN 17 mg/dL (8-22); CHLORIDE 102 mmol/L (98-107); COSMO 276; CREATININE 0.7 mg/dL (0.7-1.2); ESTIMATED GFR > 60; GLUCOSE 145 mg/dL (70-104); MAGNESIUM 1.8 mg/dL (1.5-2.7); POTASSIUM 3.1 mmol/L (3.5-5.1); SODIUM 136 mmol/L (136-145); TCO2 24 mmol/L (25-35)
[2019-09-10] MEDS: POTASSIUM CHLORIDE 20 MEQ/SWI 20 MEQ/100 ML IVPB IV SCH ×2 (09:51→12:52)
--- NOTE | 2019-09-10 09:55 | PROGRESS NOTE ---
DATE: 09/10/2019 SUBJECTIVE: He is feeling better. He is not leaking through the J-tube. He received a couple units of packed red blood cells and he was able to swallow pureed diet, so his family was pretty excited about that. So overall, I think he is feeling better. OBJECTIVE: Vital signs: He remains afebrile, temperature 97.4 degrees, pulse 88, respirations 24, blood pressure 111/55. HEENT: Pupils are equal and round. Lungs: Clear in all lung ventura. Cardiovascular: Regular rhythm and rate without murmur or S3. Abdomen: Soft. Skin: Warm and dry. URINE OUTPUT: 1900 mL. ASSESSMENT AND PLAN: 1. Atrial fibrillation. Rate appears controlled. 2. Percutaneous endoscopic gastrostomy tube drainage, and that was tightened down a little bit and no longer draining around the tube. 3. Hypertension. Blood pressure controlled. 4. Severe protein calorie malnutrition. He is he is able to swallow pureed food and so we are going to continue tube feeding and a pureed diet. 5. Anemia. I suspect he has had a history of iron deficiency in the past and has had some iron infusions, so we are going to treat him for stress gastritis and continue high-dose proton pump inhibitor. He has gallstones in the posterior subphrenic space, increased splenomegaly and apparently intraparenchymal splenic hematoma and worsened atelectasis in the left lower lobe. We will keep him in the ICU today. Maybe he can go to the floor tomorrow, begin some physical therapy. REVIEW OF HIS ORDERS: His potassium was a little low so I will give him some IV potassium. He is getting IV Cardizem right now for rate control. He is on Prilosec 20 mg through his G-tube, but he is also getting Protonix 40 mg IV q.12. We are going to check some iron studies, B12 and folate, probably ought to check his thyroid functions as well. cc: Hunter Lundberg MD
[2019-09-10] MEDS ORDERED: BACITRACIN OINTMENT TOP ONE (10:30)
[2019-09-10 10:46] LABS: IRON SATURATION 39 %; TIBC 128 ug/dL; TOTAL IRON 50 ug/dL (53-167); UNBOUND IRON 78 ug/dL (112-346)
[2019-09-10 10:47] LABS: PHOSPHORUS 2.6 mg/dL (2.7-4.5); PREALBUMIN 8.4 mg/dL (20-40)
[2019-09-10 11:04] LABS: FERRITIN 1006 ng/mL (30-400)
--- NOTE | 2019-09-10 11:59 | CARDIOLOGY PROGRESS NOTE ---
DATE: 09/10/2019 CHIEF COMPLAINT: Weakness and dysphagia. Irregular heartbeat. SUBJECTIVE: Mr. Iqbal is feeling a little better today. He has been given blood at least 2 units. His hemoglobin has risen from the admission of 5.9 to 9.4. He denies having any chest pain. His gastrostomy tube seems to be working properly. He has been kept on IV Cardizem. OBJECTIVE: Vital signs: Blood pressure is 124/77, pulse 90 per minute, temperature 97.4 degrees, respirations 26. General: The patient is awake, follows commands. is at the bedside. HEENT: Unremarkable. Chest: Diminished breath sounds at both bases. Heart: Sounds are irregularly irregular. Abdomen: Shows the presence of a gastrostomy tube. Bowel sounds diminished. Extremities: Showed decreased pulses especially in the left leg. Neurologic exam: He follows commands, moves all 4 extremities. BLOOD WORK: Sodium 136, potassium 3.1, BUN 17, creatinine 0.7. Magnesium is 1.8. Iron saturation is 39%. IMPRESSION: 1. Patient who presented with weakness and a leaking percutaneous gastrostomy tube. This has been reviewed already by splitter operator and apparently the tube is working fine. 2. Atrial fibrillation with rapid response. This was evidently secondary to the patient's severe anemia. What we need to do is probably optimize his hemoglobin with blood transfusions and the heart rate should slow down. 3. History of coronary heart disease. A CT scan of the chest shows extensive coronary calcification. 4. Peripheral vascular disease. 5. Hypertension. 6. Cirrhosis of the liver. This was noted at the time of recent laparoscopic cholecystectomy by Dr. Murphy. He has splenomegaly. Now he has developed a hematoma of the spleen. The patient had been prescribed Eliquis before. RECOMMENDATIONS: At this time, I would suggest to switch from IV Cardizem to oral Cardizem. We will correct potassium. We will add some digoxin to optimize control of the heart rate. We will check with General Surgery about the spleen hematoma. The patient cannot be put back on any anticoagulant because of that. This is a deep-seated bleed and it has to be monitored carefully. We will see the patient as needed. At this time, the heart issue is really completely secondary to other problems. cc: Rito So MD
[2019-09-10] MEDS: POTASSIUM CHLORIDE 20% LIQUID PO SCH ×2 (12:57→20:48)
[2019-09-10] MEDS: LANOXIN IV SCH ×2 (12:58→17:29)
[2019-09-10] MEDS: CARDIZEM PO SCH ×2 (13:00→20:48)
[2019-09-10] MEDS ORDERED: ZOSYN 2.25 GM in NS 50 ML IV SCH (15:30)
[2019-09-10] MEDS ORDERED: VANCOMYCIN 1 GM/NS 1 GM/250 ML IVPB IV SCH (15:30)
[2019-09-10] MEDS ORDERED: VANCOMYCIN IV PER PHARMACY MISC SCH (15:30)
[2019-09-10] MEDS ORDERED: CALMOSEPTINE OINTMENT TOP PRN (15:57)
[2019-09-10] MEDS: ZOSYN 3.375 GM in NS 50 ML IV SCH ×2 (16:40→20:48)
[2019-09-10] MEDS: NS 1,000 ML IV SCH (16:41)
[2019-09-10] MEDS ORDERED: VANCOMYCIN 1,300 MG in NS 250 ML IV ONE (17:00)
[2019-09-10 17:45] LABS: AGAP 9; BUN 17 mg/dL (8-22); CALCIUM 8.1 mg/dL (8.8-10.2); CHLORIDE 106 mmol/L (98-107); COSMO 277; CREATININE 0.8 mg/dL (0.7-1.2); ESTIMATED GFR > 60; GLUCOSE 122 mg/dL (70-104); POTASSIUM 4.9 mmol/L (3.5-5.1); SODIUM 137 mmol/L (136-145); TCO2 22 mmol/L (25-35)
--- NOTE | 2019-09-10 18:43 | GASTROENTEROLOGY PROGRESS NOTE ---
DATE: 09/10/2019 SUBJECTIVE: The patient is resting in bed. He is awake, alert. Answers all my questions. I also talked to the patient's nurse at bedside. The patient's PEG tube site is still showing erythema and pus drainage, suggesting PEG tube site infection. The patient is able to eat pureed diet and is tolerating well. The patient is continuing on bacitracin ointment. We will start the patient on Zosyn and vancomycin for PEG tube site infection. OBJECTIVE: Temperature of 98.6 degrees, pulse rate of 85, respiratory rate 22, blood pressure 124/77, saturating 98% on room air. Body weight of 141 pounds 9.6 ounces. BMI 22.9 kg/m2. Generally the patient is thinly built, lying in bed, in no acute distress. HEENT: Mild pallor. No icterus. Neck is supple. Abdomen: PEG tube in place. There is erythema around the external bumper, as there is evidence of pus drainage at the PEG tube site suggesting active site infection. Otherwise the abdomen is soft, nontender, nondistended. No guarding or rebound. Extremities: No cyanosis or clubbing. Neurologic-villegas, he is awake, alert. Answers questions. LABORATORY DATA: Hemoglobin and hematocrit are 8.7 and 29, white count of 5.22, platelet count of 196,000. Sodium of 130, potassium 3.1, chloride 102, bicarbonate 24, anion gap 10, BUN of 17, creatinine 0.7, glucose of 145, calcium is 8, phosphorus 2.6, magnesium 1.8. Percent saturation of 39. Total bilirubin is 2.9, AST 42, ALT 32, alkaline phosphatase 140, total protein is 7.2, albumin of 3.9. Prealbumin 8.4. Blood culture negative at 48 hours. Drainage fluid preliminary showing no growth. Wound culture from the PEG site has been ordered. IMPRESSION AND PLAN: 1. Percutaneous endoscopic gastrostomy tube site infection causing percutaneous endoscopic gastrostomy tube drainage. 2. Atrial fibrillation with rapid ventricular response. 3. History of coronary disease, and CT scan of the chest showed extensive coronary artery disease. 4. Peripheral vascular disease. 5. Hypertension. 6. Cirrhosis of liver. 7. Hematoma of the spleen on imaging and splenomegaly. 8. Status post cholecystectomy by Dr. Murphy a few months ago, complicated with extensive intensive care unit stay. 9. Malnutrition. He is able to tolerate pureed food. 10. Iron-deficiency anemia. He is status post 2 units of blood transfusion and his blood count has improved appropriately. RECOMMENDATIONS: We will start the patient on IV vancomycin and Zosyn for PEG tube site infection. Hopefully this will help treat the PEG tube site. We will continue local bacitracin ointment. We will try to keep the site clean and dry. I spoke to the patient's nurse in that regard. PEG tube site wound culture has been ordered. He is tolerating a pureed diet well. He continues on PPI b.i.d. Continue to watch his blood count, transfuse as needed. The CT scan showed evidence of possible gallstones in the posterior subphrenic space and increased splenomegaly, with apparent intraparenchymal splenic hematoma and worsened atelectasis in the left lower lobe. This is being managed by the primary care team. The patient does have evidence of constipation and receiving Dulcolax 10 mg once at bedtime. We will follow along. The above plan was discussed with the patient and the nursing staff, and all questions answered. Please call us with any further questions. cc: Elder Aldrich MD MTDD
--- NOTE | 2019-09-10 19:54 | GENERAL SURGERY CONSULTATION ---
DATE: 09/10/2019 REASON FOR CONSULTATION: Splenic hematoma. BRIEF HISTORY: This patient is well known to our practice after a recent prolonged hospitalization after laparoscopic cholecystectomy. He had an extensive stay in the ICU. He had acute kidney failure and respiratory failure. He eventually was able to be discharged. However, he came back in this admission now with erythema and drainage around his PEG tube site and is thought to have a PEG site infection. In addition he has had a CT scan which suggests a hematoma of the spleen and some gallstones in the posterior subphrenic space. On my history, the patient denies abdominal pain, nausea or vomiting, or fever. PAST MEDICAL HISTORY: Anemia, cirrhosis of the liver, hyperlipidemia, chronic reflux, hypertension, protein calorie malnutrition, atrial fibrillation, laryngeal cancer status post chemotherapy and radiation. PAST SURGICAL HISTORY: Laparoscopic cholecystectomy, hernia repair, PEG tube placement. FAMILY HISTORY: Lung cancer and heart problems. SOCIAL HISTORY: He is a previous alcoholic and smoker but currently not using. ALLERGIES: No known drug allergies. HOME MEDICATIONS: Esomeprazole, allopurinol, pravastatin, cilostazol, Eliquis, metoprolol, acetaminophen with codeine, amino acids. REVIEW OF SYSTEMS: Ten systems reviewed and negative except as noted above. PHYSICAL EXAMINATION: Vital Signs: Temperature 98.6, pulse 83, respirations 34, blood pressure 133/65, O2 saturation 96%. General: Elderly, frail-appearing, chronically ill-appearing male, but in no acute distress. HEENT: Normocephalic, atraumatic. Extraocular muscles intact. Pupils equal, round, and reactive to light. Sclerae anicteric. Moist mucous membranes. Neck: Supple. No thyromegaly. CV: Regular rate and rhythm. Respiratory: Bilateral breath sounds. No work of breathing. GI: Soft, nondistended, nontender. No organomegaly or mass. Laparoscopic incisions well healed. PEG tube is intact. I did not take down the dressing. The tube feeds are going at 40 mL an hour. Extremities: No clubbing, cyanosis, or edema. Musculoskeletal: He does move all extremities. LABORATORY: White blood cell count 5, hemoglobin 8.7, hematocrit 29. Of note, his hemoglobin and hematocrit on admission were 5.9 and 19.9. He has had 2 units of blood. INR was 1.5 on admission. Metabolic profile reviewed and unremarkable. IMAGING: CT of abdomen pelvis was reviewed with findings as noted above. ASSESSMENT AND PLAN: A 79-year-old male with PEG tube site infection. Continue antibiotics as currently ordered per the GI team. His tube feeds should be ongoing as tolerated. The splenic hematoma I do not think is a clinical concern acutely, but I do think he has to be off anticoagulants. We will monitor for any signs of ongoing bleeding with dropping of his hemoglobin/hematocrit, abdominal pain or signs of infection such as a splenic abscess. In regards to the gallstones in the subphrenic space, they do not appear to be infected or causing an abscess and are likely not clinically relevant at this time, and there is no acute indication for surgical management of this. cc: Luciano Cervantes MD
[2019-09-10] MEDS: DULCOLAX PR SCH (20:48)
[2019-09-11] MEDS: LANOXIN IV SCH (01:45)
[2019-09-11] MEDS: CARDIZEM PO SCH ×4 (01:45→21:37)
[2019-09-11] MEDS: ZOSYN 3.375 GM in NS 50 ML IV SCH ×4 (04:28→21:38)
[2019-09-11] MEDS ORDERED: PRILOSEC GT SCH (07:00)
[2019-09-11 10:46] LABS: AGAP 8; ALB/GLOB RATIO 0.5; ALBUMIN 2.2 g/dL (3.5-5.0); ALKALINE PHOSPHATASE 145 U/L (32-122); BUN 13 mg/dL (8-22); CALCIUM 7.7 mg/dL (8.8-10.2); CHLORIDE 104 mmol/L (98-107); COSMO 272; CREATININE 0.7 mg/dL (0.7-1.2); ESTIMATED GFR > 60; GLUCOSE 138 mg/dL (70-104); GOT 32 U/L (10-34); GPT 20 U/L (10-44); MAGNESIUM 1.7 mg/dL (1.5-2.7); POTASSIUM 4.7 mmol/L (3.5-5.1); SODIUM 135 mmol/L (136-145); TCO2 23 mmol/L (25-35); TOTAL BILIRUBIN 1.85 mg/dL (0.20-1.00); TOTAL PROTEIN 6.4 g/dL (6.3-8.3)
--- NOTE | 2019-09-11 11:05 | CARDIOLOGY PROGRESS NOTE ---
DATE: 09/11/2019 CHIEF COMPLAINT: Leaking percutaneous gastrostomy tube and irregular heartbeat. SUBJECTIVE: Mr. Iqbal has had an uneventful night. He has not had any further bouts of irregular heartbeat. He was seen by Dr. Luciano Cervantes in consultation, and that is appreciated. Otherwise, the patient is feeling better now. His electrolytes were replaced yesterday. OBJECTIVE: Blood pressure is 138/54, temperature is 97.5, pulse 70, respirations 26. He is awake, follows commands. HEENT is unremarkable. He appears to be slightly jaundiced. Chest shows diminished breath sounds at the bases. Heart sounds are regular and rhythmic. Examination of the heart shows a prominent 2 to 3/6 holosystolic murmur at the apex. It does seem to radiate to the sternal border also. Abdomen is nontender. He has a gastrostomy tube there. Extremities showed decreased pulses. No obvious edema. Neurologic: Follows commands. IMPRESSION: 1. The patient presented with paroxysmal atrial fibrillation. 2. Leaking percutaneous gastrostomy tube. That is taken care of. 3. Peripheral vascular disease. 4. Cirrhosis of the liver with spleen hematoma and status post cholecystectomy. 5. Peripheral vascular disease. 6. Coronary atherosclerosis. RECOMMENDATIONS: At this time, we will continue all present therapies. His potassium is stable. His pulse is regular. He is tolerating oral diltiazem. We will follow him as needed. cc: Rito So MD
[2019-09-11] MEDS: BACITRACIN OINTMENT TOP SCH (11:32)
[2019-09-11] MEDS: NS 1,000 ML IV SCH (12:15)
[2019-09-11] MEDS: PROTONIX IV SCH (13:24)
[2019-09-11 14:38] LABS: HEMATOCRIT 27.8 % (42.0-52.0); HEMOGLOBIN 8.2 g/dL (14.0-18.0); MCH 28.2 PG (27-31); MCHC 29.5 g/dL (33-37); MCV 95.5 FL (81-99); PLT 180 X1000 (130-400); RBC 2.91 XMIL (4.7-6.1); RDW 21.1 % (11.5-14.5); WBC 5.72 X1000 (4.8-10.8)
[2019-09-11 15:38] LABS: ANISOCYTOSIS 2+; BANDS 4 % (0-1); HYPOCHROM 2+; LYMPHS 6 % (21-51); MONO 2 % (1-9); SEGS 80 % (42-75)
--- NOTE | 2019-09-11 15:41 | PROGRESS NOTE ---
DATE: 09/11/2019 SUBJECTIVE: Mr. Iqbal was resting, sleeping comfortably. He is breathing comfortably. He is eating still and getting food down okay. He has not had any further fever. OBJECTIVE: Vital Signs: Temperature 98.1 degrees, pulse 73, respirations 25, blood pressure 115/43. HEENT: Pupils are equal and round. Lungs: Clear in all lung ventura. Cardiovascular: Regular rate without murmur or S3. Urine output was 2900 mL. ASSESSMENT AND PLAN: 1. The patient presented with paroxysmal atrial fibrillation, rate is controlled. 2. Leaking around the gastrostomy tube. Some adjustments were made. He should not have any further leakage. We are going to re-culture around that tube. 3. Peripheral vascular disease. 4. Cirrhosis of the liver with a spleen hematoma status post cholecystectomy. 5. Peripheral vascular disease. 6. Coronary atherosclerosis. 7. Trouble with dysphagia. His swallowing is better. 8. We are going to need to begin physical therapy and make sure we get him walking in and standing. Family would like to take him home, I think with the help of home health. 9. Review of his orders at this time he is getting Dulcolax suppository 10 mg per rectum at bedtime, Cardizem 60 mg p.o. q.6 hours. He is on a diltiazem drip. Getting normal saline at 50 mL an hour, Protonix 40 mg IV q.12, Zosyn 3.375 g IV q.6 hours. cc: Hunter Lundberg MD
--- NOTE | 2019-09-11 17:22 | GASTROENTEROLOGY PROGRESS NOTE ---
DATE: 09/11/2019 SUBJECTIVE: Patient is resting in bed with eyes closed. The patient's and nursing staff at bedside. The patient has a PEG tube site infection. There was some pus noted at the external bumper. We sent a repeat culture of the PEG tube site drainage. He continues on vancomycin and Zosyn and local bacitracin ointment. Patient has been eating a pureed diet by mouth. He is having soft brown stools. OBJECTIVE: Vital signs: Temperature 98.1 degrees, pulse rate 73, respiratory rate 25, blood pressure 115/43, saturating 94% on room air. Body weight of 146 pounds 5 ounces. BMI 23.6 kg/m2. General appearance: Moderately built, moderately nourished, lying in bed, in no acute distress. HEENT: Pale conjunctivae. No icterus. Neck: Supple. Abdomen: PEG tube in place. There is erythema around the PEG tube site. There is pus at the PEG tube site suggesting PEG tube site infection. Otherwise, abdomen is soft, nontender, nondistended. No guarding. Extremities: No cyanosis, clubbing. Neurologic: He is currently sleeping at this time. LABS: Hemoglobin and hematocrit is 8.2 and 27.8, white count of 5.72 platelet count 180,000. Sodium 130, potassium 4.7, chloride 104, bicarb 23, anion gap of 8, BUN of 13, creatinine 0.7, glucose of 138, calcium is 7.7, phosphorus 2.0, magnesium 1.7. Total bilirubin is 1.85, AST 32, ALT 20, alkaline phosphatase 144, total protein 6.4, albumin of 2.2. The wound culture from the PEG tube site is currently pending. Stool for occult blood was positive. Blood culture x2 negative at 48 hours from 09/08/2019. IMPRESSION AND PLAN: 1. Percutaneous endoscopic gastrostomy tube site infection. He will continue on broad-spectrum antibiotics. We will continue bacitracin ointment locally once daily for 10 days. We will follow up on the wound culture and adjust antibiotics appropriately. If the patient has no response to antibiotics, may have to remove the PEG tube. 2. Malnutrition. The patient will continue on a pureed diet. He will continue on aspiration precautions. 3. Cirrhosis of the liver. Aware. 4. Splenic hematoma. This is being monitored by Dr. Cervantes. This could have contributed to the patient's anemia as well. 5. The patient had a recent cholecystectomy. Per the imaging, it showed evidence of some remaining gallstones in the subphrenic space. This is being monitored by Surgery team. 6. Peripheral vascular disease. Aware. 7. Atrial fibrillation with rapid ventricular response. Being monitored by Primary Care team. 8. Iron-deficient anemia. Continue to watch for now, transfuse as needed. 9. Gastrointestinal prophylaxis. PPIs b.i.d. 10. Constipation. Patient will continue on Dulcolax per rectal at bedtime. 11. The above plan was discussed with the patient's family and the nursing staff and all questions answered. Please call with any further questions. cc: MD Hunter Eason MD
[2019-09-11] MEDS: VANCOMYCIN 1 GM/NS 1 GM/250 ML IVPB IV SCH (17:49)
[2019-09-11] MEDS: DULCOLAX PR SCH (21:19)
[2019-09-12] MEDS: PROTONIX IV SCH ×2 (01:02→13:43)
[2019-09-12] MEDS: CARDIZEM PO SCH ×4 (03:00→21:24)
[2019-09-12] MEDS: ZOSYN 3.375 GM in NS 50 ML IV SCH ×4 (03:00→21:23)
[2019-09-12] MEDS: NS 1,000 ML IV SCH (07:48)
[2019-09-12 09:08] LABS: HEMATOCRIT 28.9 % (42.0-52.0); HEMOGLOBIN 8.6 g/dL (14.0-18.0); MCH 28.6 PG (27-31); MCHC 29.8 g/dL (33-37); MPV 9.5 FL (7.4-10.4); PLT 171 X1000 (130-400); RBC 3.01 XMIL (4.7-6.1); RDW 21.2 % (11.5-14.5); WBC 5.96 X1000 (4.8-10.8)
[2019-09-12 09:13] LABS: BANDS 4 % (0-1); EOS 2 % (1-10); HYPOCHROM 1+; LYMPHS 8 % (21-51); MONO 4 % (1-9); SEGS 82 % (42-75)
[2019-09-12] MEDS: BACITRACIN OINTMENT TOP SCH (10:00)
--- NOTE | 2019-09-12 10:07 | PROGRESS NOTE ---
DATE: 09/12/2019 SUBJECTIVE: He feels good. Had a good night's sleep. He remains afebrile. He is eating better. Plan is to move him to the floor, get some physical therapy, and see if we get him home. OBJECTIVE: Temperature is 98.1 degrees, pulse 77, respirations 27, blood pressure 154/61. Pupils are equal and round. Lungs are clear in all lung ventura. Cardiovascular Examination: Regular rhythm and rate without murmur or S3. Abdomen is soft. Skin is warm and dry. Urine output was 4300 mL. ASSESSMENT AND PLAN: 1. Percutaneous endoscopic gastrostomy tube site infection so continue broad-spectrum antibiotics. Continue Bactrim ointment locally once a day for 10 days. We will move him to a regular floor. We need to start on physical therapy and make sure he can do weightbearing. They would like to take him home. 2. Malnutrition. He will continue pureed diet and aspiration precautions. 3. Cirrhosis of the liver. Aware. 4. Splenic hematoma. It is being monitored by Dr. Cervantes. It could have contributed to the patient's anemia as well. 5. Had a recent cholecystectomy. Per imaging, it showed evidence of some remaining gallstones in the subphrenic space. Being monitored by surgery as well. 6. Peripheral vascular disease. Aware. 7. Atrial fibrillation, rapid ventricular response. His rate is controlled. 8. Iron deficiency anemia. Continue to watch. Consider giving him an iron infusion, may do that today. 9. Proton pump inhibitors, getting twice a day for gastrointestinal prophylaxis. 10. Constipation. Continue Dulcolax per rectum at bedtime. 11. We will move him to the floor and begin physical therapy. REVIEW OF HIS ORDERS: Dulcolax suppository 10 mg per rectum at bedtime, Cardizem 60 mg p.o. q.6 hours, Bactrim ointment at the gastrostomy site, normal saline at 50 mL an hour, Protonix 40 mg IV q.12, vancomycin 1 g IV q.24 hours, and Zosyn 3.375 g IV q.6. We will plan to give him some iron infusion today. His lab, hematocrit 28, hemoglobin 8.6, and MCV was 96. cc: Hunter Lundberg MD
[2019-09-12 10:17] LABS: AGAP 9; ALB/GLOB RATIO 0.5; ALBUMIN 2.3 g/dL (3.5-5.0); ALKALINE PHOSPHATASE 147 U/L (32-122); BUN 12 mg/dL (8-22); CALCIUM 7.9 mg/dL (8.8-10.2); CHLORIDE 103 mmol/L (98-107); COSMO 276; CREATININE 0.6 mg/dL (0.7-1.2); ESTIMATED GFR > 60; GLUCOSE 179 mg/dL (70-104); GOT 28 U/L (10-34); GPT 20 U/L (10-44); MAGNESIUM 1.7 mg/dL (1.5-2.7); PHOSPHORUS 2.2 mg/dL (2.7-4.5); POTASSIUM 3.8 mmol/L (3.5-5.1); SODIUM 136 mmol/L (136-145); TCO2 24 mmol/L (25-35); TOTAL BILIRUBIN 1.37 mg/dL (0.20-1.00)
--- NOTE | 2019-09-12 10:53 | GENERAL SURGERY PROGRESS NOTE ---
DATE: 09/11/2019 SUBJECTIVE: The patient denies abdominal pain, nausea, or vomiting. OBJECTIVE: Vital Signs: He was afebrile. Vital signs are stable on 09/11/2019. General: He is awake and alert. No acute distress. GI: Soft, nontender, nondistended. No palpable mass in the abdomen. LABORATORY DATA: Hemoglobin 8.2, hematocrit 27.8. ASSESSMENT AND PLAN: A 80-year-old male with splenic hematoma. He appears to be stable. No acute surgical plans. It does not appear to be an infected hematoma or expanding. I would continue to recommend avoidance of anticoagulants right now. cc: Luciano Cervantes MD
[2019-09-12] MEDS ORDERED: VENOFER 200 MG in NS 150 ML IV ONE (11:00)
[2019-09-12] MEDS: MYCOSTATIN POWDER TOP SCH ×2 (11:15→21:24)
--- NOTE | 2019-09-12 11:46 | GASTROENTEROLOGY PROGRESS NOTE ---
DATE: 09/12/2019 SUBJECTIVE: Mr. Mcgowan is a 79-year-old, male, resting in bed. The patient has a PEG tube, and there is some redness and mild pus noted around the PEG tube. The patient has denied any abdominal pain, nausea, vomiting. OBJECTIVE: Vital Signs: Temperature 97.9 degrees, pulse 72, respirations 25, blood pressure 122/64, oxygen saturation 94% on room air. The patient's weight is 146 pounds. BMI is 23.6 kg/m2. General: He is alert and oriented x3, and in no acute distress. HEENT: Pale conjunctivae. No icterus. PERRL. Neck: Supple. Lungs: Clear to auscultation. Cardiovascular: Regular rate and rhythm. The patient is tachypneic. Abdomen: Soft, nontender, nondistended. PEG tube in the left quadrant has got some erythema and mild pus. Extremities: No clubbing, no cyanosis, no edema. Pedal pulses 2+ present bilaterally. Neurologic: He is alert and oriented x3. LABORATORY DATA: WBCs are 5.96, RBCs 3.01, hemoglobin is 8.6, hematocrit is 28.9, platelet count is 171,000. Sodium 136, potassium 3.8, chloride 103, carbon dioxide 24, anion gap 9, BUN 12, creatinine 0.6, glucose is 179, calcium 7.9. Phosphorus 2.2. Total bilirubin is 1.37, AST 28, ALT 20, alkaline phosphatase is 147, albumin is 2.3. The patient's wound culture has shown positive for white blood cells and positive for gram-negative rods. His occult stool blood is positive. Blood cultures have shown no growth. IMPRESSION AND PLAN: PEG tube site infection A-fib Anemia Malnutrition Cirrhosis Constipation PLAN: Mr. Mcgowan is a 79-year-old, male, who had a recent cholecystectomy done. The patient does have a PEG tube, which has been infected. He is currently receiving Zosyn and vancomycin antibiotic. The patient is also receiving intravenous fluids, normal saline at 50 mL/h. He is on bacitracin ointment to be applied on the PEG tube site. He is on PPI's twice a day. Patient is receiving venefor for his anemia. We will continue to monitor the patient, and continue to monitor the PEG tube site, and if the patient still continues to have infection, we will plan to take the PEG tube out. This plan was discussed with Dr. Aldrich. Please call us for any further questions or concerns. Dictated by PEGGY Gomez for Elder Aldrich MD cc: Elder Aldrich MD I have seen and examined the patient myself and I agree with the above plan of care. Please call us with any further questions. MTDD
[2019-09-12] MEDS: VANCOMYCIN 1 GM/NS 1 GM/250 ML IVPB IV SCH (17:48)
[2019-09-12] MEDS: DULCOLAX PR SCH (21:24)
[2019-09-13] MEDS: PROTONIX IV SCH ×2 (00:30→12:54)
[2019-09-13] MEDS: CARDIZEM PO SCH ×4 (02:54→20:45)
[2019-09-13] MEDS: ZOSYN 3.375 GM in NS 50 ML IV SCH ×4 (02:54→20:45)
[2019-09-13] MEDS: NS 1,000 ML IV SCH (05:57)
[2019-09-13 07:24] LABS: BASO# 0.04 X1000 (0.0-0.2); BASO% 0.7 % (0.0-0.8); EOS# 0.09 X1000 (0.0-0.7); EOS% 1.5 % (0.0-10.0); HEMATOCRIT 28.6 % (42.0-52.0); HEMOGLOBIN 8.4 g/dL (14.0-18.0); IMM GRAN# 0.11 X1000 (0.0-0.04); IMM GRAN% 1.9 % (0.0-0.5); LYMPH# 1.07 X1000 (1.2-3.4); MCH 28.6 PG (27-31); MCHC 29.4 g/dL (33-37); MCV 97.3 FL (81-99); MONO# 0.39 X1000 (0.11-0.59); MONO% 6.6 % (1.7-9.3); MPV 9.8 FL (7.4-10.4); NEUT# 4.24 X1000 (1.4-6.5); NEUT% 71.3 % (42.2-75.2); PLT 162 X1000 (130-400); RBC 2.94 XMIL (4.7-6.1); RDW 21.2 % (11.5-14.5); WBC 5.94 X1000 (4.8-10.8)
--- NOTE | 2019-09-13 08:45 | GENERAL SURGERY PROGRESS NOTE ---
DATE: 09/13/2019 SUBJECTIVE: The patient denies abdominal pain, fever, nausea or vomiting. OBJECTIVE: Vital signs: He is afebrile. Vital signs are stable. General: Awake and alert. No acute distress. Gastrointestinal: Soft, nontender, nondistended. LABORATORY DATA: White cell count 5.9, hemoglobin 8.4, hematocrit 28.6. ASSESSMENT AND PLAN: A 79-year-old male with a splenic hematoma. This is stable. No signs of abscess or ongoing bleeding. We will sign off and be available as needed. cc: Luciano Cervantes MD
[2019-09-13 09:02] LABS: AGAP 11; ALB/GLOB RATIO 0.7; ALBUMIN 2.6 g/dL (3.5-5.0); ALKALINE PHOSPHATASE 144 U/L (32-122); BUN 13 mg/dL (8-22); CALCIUM 7.8 mg/dL (8.8-10.2); CHLORIDE 100 mmol/L (98-107); COSMO 273; CREATININE 0.7 mg/dL (0.7-1.2); ESTIMATED GFR > 60; GLUCOSE 140 mg/dL (70-104); GOT 26 U/L (10-34); GPT 17 U/L (10-44); MAGNESIUM 1.7 mg/dL (1.5-2.7); POTASSIUM 3.7 mmol/L (3.5-5.1); SODIUM 135 mmol/L (136-145); TCO2 24 mmol/L (25-35); TOTAL BILIRUBIN 1.18 mg/dL (0.20-1.00); TOTAL PROTEIN 6.2 g/dL (6.3-8.3)
[2019-09-13] MEDS ORDERED: SODIUM PHOSPHATE 30 MMOL in NS 250 ML IV ONE (12:17)
--- NOTE | 2019-09-13 15:17 | GASTROENTEROLOGY PROGRESS NOTE ---
DATE: 09/13/2019 SUBJECTIVE: Mr. Iqbal is a 79-year-old, male resting in bed. is at the bedside. The patient has a PEG tube with feeding of Jevity at 50 mL per hour. The patient has denied any abdominal pain, nausea, or vomiting. He did have 2 bowel movements today. OBJECTIVE: Vital Signs: Temperature 98.1 degrees, pulse 77, respirations 18, blood pressure 144/65, oxygen saturation 98% on room air. The patient's weight is 146 pounds. BMI is 23.6 kg/m2. General: He is alert, oriented x3, and in no acute distress. HEENT: Pale conjunctivae. No icterus. PERRL. Neck: Supple. Lungs: Clear to auscultation. Cardiovascular: Regular rate and rhythm. Abdomen: Soft, nontender, nondistended, with a PEG tube in the left quadrant, has got some erythema and mild pus. Extremities: No clubbing, no cyanosis, no edema. Pedal pulses 2+ present bilaterally. Neurologic: He is alert and oriented x3. Labs: WBCs of 5.94, RBCs 2.94, hemoglobin is 8.4, hematocrit is 28.6, platelet count is 162,000. Sodium is 135, potassium is 3.7, chloride is 100, carbon dioxide is 24, anion gap is 11, BUN is 13, creatinine is 0.7, glucose is 140, calcium is 7.8, phosphorus is 2.1, magnesium is 1.7. Total bilirubin is 1.18, AST 26, ALT 17, alkaline phosphatase 144, albumin is 2.6. IMPRESSION AND PLAN: 1. PEG tube site infection. 2. Atrial fibrillation. 3. Anemia. 4. Malnutrition. 5. Cirrhosis. 6. Splenic hematoma PLAN: Mr. Iqbal is a 79-year-old, male who recently had a PEG tube placed. GI is following him because of his active PEG tube site infection. The patient is currently on antibiotics, Zosyn and vancomycin. He does have bacitracin ointment to be placed at the infected site around the PEG tube. The patient is also on IV fluids, normal saline at 50 mL per hour. We have asked the wound nurse to look at the patient's infected site. From the GI standpoint, his PEG tube needs to remain at least for 4 weeks after the placement to avoid the risk of peritonitis. We will continue to monitor the patient and follow the plan of care per PCP. This plan was discussed with Dr. Arriola. Please call us for any further questions or concerns. Dictated by PEGGY Gomez for Cristhian Arriola MD Physician Attestation I have seen and examined the patient. I have discussed and reviewed the note by Loni WOODS and agree with findings and plan as documented. [facility]
[2019-09-13] MEDS: BACITRACIN OINTMENT TOP SCH (16:43)
[2019-09-13] MEDS: MYCOSTATIN POWDER TOP SCH ×2 (16:44→20:45)
[2019-09-13] MEDS: VANCOMYCIN 1 GM/NS 1 GM/250 ML IVPB IV SCH (20:45)
[2019-09-13] MEDS: DULCOLAX PR SCH (20:45)
--- NOTE | 2019-09-13 21:57 | PROGRESS NOTE ---
DATE: 09/13/2019 SUBJECTIVE: The patient is resting comfortably in bed. He states that he feels much better today. No acute events noted overnight. OBJECTIVE: Vital Signs: Temperature 97.9 degrees, blood pressure 132/59, heart rate 99, respirations 28, O2 saturations 100% on room air. General: This is a chronically ill-appearing elderly male lying in bed in no acute distress. Heart: S1, S2 normal. Lungs: Clear to auscultation bilaterally. Abdomen: Positive bowel sounds. Soft. There is a PEG tube in place, a small area of erythema around the PEG tube site. Extremities: No edema, no cyanosis. Neurologic: The patient is alert and oriented x3. LABORATORY DATA: White blood cell count 5.9, hemoglobin 8.4, hematocrit 28, platelets 162,000, sodium 135, potassium 3.7, chloride 100, CO2 24, BUN 13, creatinine 0.7, glucose 140, phos 2.1, alkaline phosphatase 144. ASSESSMENT AND PLAN: 1. Infected percutaneous endoscopic gastrostomy tube. The infection appears to be improving. The area of erythema is slowly decreasing. The patient also is afebrile with a normal white blood cell count. Gastroenterology is following. Continue with IV antibiotic therapy. 2. Splenic hematoma. Stable. 3. Paroxysmal atrial fibrillation. The patient is rate controlled. We will defer to Cardiology regarding further anticoagulation. 4. Hypertension. Stable. 5. Severe protein calorie malnutrition. Continue with tube feeds. 6. Iron deficiency anemia. We will start the patient on iron supplementation. 7. Deep vein thrombosis prophylaxis. Continue with sequential compression devices. 8. Disposition. The patient should be able to be discharged home in the next 24 to 48 hours. cc: Opal Aquino MD [facility]
[2019-09-14] MEDS: CARDIZEM PO SCH ×4 (03:31→21:17)
[2019-09-14] MEDS: SODIUM CHLORIDE 0.9% INJ SCH (03:31)
[2019-09-14] MEDS: PROTONIX IV SCH ×2 (03:31→14:29)
[2019-09-14] MEDS: ZOSYN 3.375 GM in NS 50 ML IV SCH ×4 (03:31→21:17)
[2019-09-14 08:09] LABS: BASO# 0.03 X1000 (0.0-0.2); BASO% 0.5 % (0.0-0.8); EOS# 0.11 X1000 (0.0-0.7); EOS% 1.8 % (0.0-10.0); HEMATOCRIT 29.6 % (42.0-52.0); HEMOGLOBIN 8.7 g/dL (14.0-18.0); IMM GRAN% 1.7 % (0.0-0.5); LYMPH# 1.21 X1000 (1.2-3.4); LYMPH% 20.3 % (20.5-51.1); MCH 28.9 PG (27-31); MCHC 29.4 g/dL (33-37); MCV 98.3 FL (81-99); MONO# 0.34 X1000 (0.11-0.59); MONO% 5.7 % (1.7-9.3); MPV 9.7 FL (7.4-10.4); NEUT# 4.16 X1000 (1.4-6.5); PLT 159 X1000 (130-400); RBC 3.01 XMIL (4.7-6.1); RDW 21.4 % (11.5-14.5); WBC 5.95 X1000 (4.8-10.8)
[2019-09-14 08:29] LABS: AGAP 11; ALBUMIN 2.4 g/dL (3.5-5.0); BUN 14 mg/dL (8-22); CALCIUM 7.9 mg/dL (8.8-10.2); CHLORIDE 104 mmol/L (98-107); COSMO 284; CREATININE 0.6 mg/dL (0.7-1.2); ESTIMATED GFR > 60; GLUCOSE 148 mg/dL (70-104); PHOSPHORUS 2.6 mg/dL (2.7-4.5); POTASSIUM 3.7 mmol/L (3.5-5.1); SODIUM 141 mmol/L (136-145); TCO2 26 mmol/L (25-35)
[2019-09-14] MEDS: ICAR-C PO SCH ×2 (09:23→21:17)
--- NOTE | 2019-09-14 12:02 | GASTROENTEROLOGY PROGRESS NOTE ---
DATE: 09/14/2019 SUBJECTIVE: Mr. Iqbal is a 79-year-old male. He is resting in bed and is at the bedside. The patient denied any abdominal pain, nausea or vomiting, but patient does complain of having diarrhea. The patient has so far had 2 bowel movements today. He is having PEG tube with a feeding of Jevity 1.5 at 50 mL/hour, and patient is also having PO intake. OBJECTIVE: Vital Signs: Temperature 97.9 degrees, pulse 89, respirations 17, blood pressure 136/59, oxygen saturation 95% on room air. The patient's weight is 146 pounds. BMI is 23.6 kg/m2. General: He is alert, oriented x3, and in no acute distress. HEENT: Pale conjunctivae, no icterus. PERRL. Neck: Supple. Lungs: Clear to auscultation. Cardiovascular: Regular rate and rhythm. Abdomen: Soft, nontender, nondistended with PEG tube in the left quadrant. Has mild erythema with dressing on it. Extremities: No clubbing, no cyanosis, no edema. Pedal pulses 2+ present bilaterally. Neurologic: He is alert, oriented x3. LABS: WBCs 5.95, RBCs 3.01, hemoglobin is 8.7, hematocrit is 29.6, platelet count is 159. Sodium 141, potassium 3.7, chloride 104, carbon dioxide 26, anion gap 11. BUN 14, creatinine 0.6, glucose is 148, calcium is 7.9, phosphorus is 2.6, magnesium is 1.8. Total bilirubin is 1 and albumin is 2.4. IMPRESSION AND PLAN: 1. PEG tube infection 2. Diarrhea 3. Anemia 4. Malnutrition 5. A-fib 6. Cirrhosis PLAN: Mr. Iqbal is a 79-year-old male, who recently had a PEG tube placed. GI has been following him for his PEG tube site infection. The patient has been complaining of having diarrhea, stool cultures are pending, stool WBC were few, C-diff toxin and antigen is negative. He is on antibiotic Zosyn and vancomycin. Patient is receiving iron tablets for his anemia. He is on PPIs twice a day. As per wound nurse, patient has small ulceration. She has recommended to put Triad on the infected site. We will continue to monitor the patient and follow the plan of care per PCP. This plan was discussed with Dr. Arriola. Dictated by PEGGY Gomez for Cristhian Arriola MD Physician Attestation I have seen and examined the patient. I have discussed and reviewed the note by Loni WOODS and agree with findings and plan as documented. Holding tube feeds in setting of diarrhea. Cdiff negative. Encourage PO intake. Will hold off on removing PEG until tract matures. This would be 4 weeks from date of procedure. Ok to transition antibiotics to oral meds per primary team. Will follow with you. Maintain dysphagia precautions. MTDD
[2019-09-14] MEDS: MYCOSTATIN POWDER TOP SCH ×2 (12:20→22:00)
[2019-09-14] MEDS: BACITRACIN OINTMENT TOP SCH (12:21)
[2019-09-14] MEDS: VANCOMYCIN 1 GM/NS 1 GM/250 ML IVPB IV SCH (12:46)
[2019-09-14] MEDS ORDERED: IMODIUM PO ONE (13:09)
[2019-09-14] MEDS ORDERED: IMODIUM PO PRN (19:53)
--- NOTE | 2019-09-14 20:38 | PROGRESS NOTE ---
DATE: 09/14/2019 SUBJECTIVE: The patient continues to complain of copious amounts of diarrhea. He states that he wants to go home. OBJECTIVE: Vital Signs: Temperature 98.6 degrees, blood pressure 142/60, heart rate 87, respirations 18, O2 saturation 98% on room air. General: This is a chronically ill-appearing elderly male lying in bed in no acute distress. Heart: S1, S2 normal. Regular rate and rhythm. Lungs: Equal air entry bilaterally. Abdomen: The PEG tube is in place. There is an area of erythema surrounding the PEG tube. Neurologic: The patient is alert and oriented x3. LABS: Hemoglobin 8.7, hematocrit 29 platelets 159,000. Sodium 141, potassium 3.7, chloride 104, CO2 26, BUN 14, creatinine 0.6 glucose 148. C. Difficile toxin negative. C. Difficile antigen negative. ASSESSMENT AND PLAN: 1. Infected percutaneous endoscopic gastrostomy tube. The infection is slowly improving. The patient is currently on IV antibiotic therapy. We will plan to transition the patient to oral antibiotic therapy on the day of discharge. The patient will likely have his percutaneous endoscopic gastrostomy tube removed in about a month. Gastroenterology is following. 2. Splenic hematoma. Stable. 3. Paroxysmal atrial fibrillation. The patient is rate controlled. The patient has stated that he does not want to be restarted on Eliquis. 4. Hypertension. Stable. 5. Diarrhea. We will start the patient on Imodium as needed. The patient has also requested that the tube feed be stopped because he feels like it is giving him diarrhea. 6. Severe protein calorie malnutrition. The patient states that he wants to try and drink Ensure rather than be given tube feeds. We will monitor the patient's oral intake closely. 7. Iron deficiency anemia. The patient has been started on iron supplementation. 8. Disposition. We will plan to discharge the patient home once his diarrhea resolves. cc: Opal Aquino MD
[2019-09-14] MEDS: DULCOLAX PR SCH (21:18)
[2019-09-15] MEDS: PROTONIX IV SCH ×2 (01:16→15:32)
[2019-09-15] MEDS: CARDIZEM PO SCH ×4 (01:16→22:05)
[2019-09-15] MEDS: ZOSYN 3.375 GM in NS 50 ML IV SCH ×4 (03:44→22:05)
[2019-09-15] MEDS: VANCOMYCIN 1 GM/NS 1 GM/250 ML IVPB IV SCH (06:26)
[2019-09-15 07:39] LABS: BASO# 0.04 X1000 (0.0-0.2); BASO% 0.7 % (0.0-0.8); EOS# 0.09 X1000 (0.0-0.7); EOS% 1.7 % (0.0-10.0); HEMATOCRIT 30.4 % (42.0-52.0); HEMOGLOBIN 8.7 g/dL (14.0-18.0); IMM GRAN# 0.07 X1000 (0.0-0.04); IMM GRAN% 1.3 % (0.0-0.5); LYMPH# 1.06 X1000 (1.2-3.4); LYMPH% 19.8 % (20.5-51.1); MCH 28.3 PG (27-31); MCHC 28.6 g/dL (33-37); MONO# 0.33 X1000 (0.11-0.59); MONO% 6.2 % (1.7-9.3); MPV 9.8 FL (7.4-10.4); NEUT# 3.77 X1000 (1.4-6.5); NEUT% 70.3 % (42.2-75.2); PLT 161 X1000 (130-400); RBC 3.07 XMIL (4.7-6.1); RDW 21.7 % (11.5-14.5); WBC 5.36 X1000 (4.8-10.8)
[2019-09-15 08:16] LABS: AGAP 10; ALBUMIN 2.4 g/dL (3.5-5.0); BUN 14 mg/dL (8-22); CALCIUM 8.1 mg/dL (8.8-10.2); CHLORIDE 104 mmol/L (98-107); COSMO 277; CREATININE 0.6 mg/dL (0.7-1.2); ESTIMATED GFR > 60; GLUCOSE 105 mg/dL (70-104); POTASSIUM 3.8 mmol/L (3.5-5.1); SODIUM 138 mmol/L (136-145); TCO2 24 mmol/L (25-35)
[2019-09-15] MEDS: ASPIRIN PO SCH (09:53)
[2019-09-15] MEDS: ICAR-C PO SCH ×2 (09:54→22:05)
--- NOTE | 2019-09-15 12:07 | GASTROENTEROLOGY PROGRESS NOTE ---
DATE: 09/15/2019 SUBJECTIVE: Mr. Iqbal is a 79-year-old male. The patient had 1 bowel movement, and his diarrhea is under control. His tube feedings have been on hold. Patient is tolerating diet and medications orally well. OBJECTIVE: Vital Signs: Temperature 97.6 degrees, pulse 101, respirations 20, blood pressure 129/72, oxygen saturation 96% on room air. Patient's weight is 146 pounds, BMI is 23.6 kg/m2. General: He is alert, oriented x3, and in no acute distress. HEENT: Pale conjunctivae, no icterus. PERRL. Neck: Supple. Lungs: Clear to auscultation. Cardiovascular: He is tachycardic. Abdomen: Soft, nontender, nondistended. PEG tube in the left quadrant. The patient has mild ulceration around the PEG tube. Extremities: No clubbing, no cyanosis, no edema. Pedal pulses 2+ present bilaterally. Neurologic: He is alert and oriented x3. LABORATORY DATA: WBCs are 5.36, RBC is 3.07, hemoglobin is 8.7, hematocrit is 30.4, platelet count is 161,000. Sodium is 138, potassium is 3.8, chloride is 104, carbon dioxide is 24, anion gap is 10, BUN is 14, creatinine 0.6, calcium is 8.1. Phosphorus is 3.0, albumin is 2.4. IMPRESSION AND PLAN 1. PEG tube site infection. 2. Diarrhea. 3. Anemia. 4. Malnutrition. 5. Atrial fibrillation. 6. Cirrhosis. PLAN: Mr. Iqbal is a 79-year-old male who is here in the hospital for tube site PEG infection. The patient's PEG tube feeding is on hold since it was causing him to have diarrhea. His Clostridium difficile toxin and antigens were negative and stool cultures were also negative. The patient has been encouraged to have p.o. intake. Patient's PEG tube can be taken out only after 4 weeks of putting it in to avoid peritonitis. The patient can be transitioned to oral medications on discharge. We will continue to monitor the patient and follow the plan of care per PCP. This plan was discussed with Dr. Aldrich. Please call us for any further questions or concerns. Dictated by PEGGY Gomez for Elder Aldrich MD cc: Elder Aldrich MD I have seen and examined the patient myself and I agree with the above plan of care. Please call us with any further questions or concerns. MTDD
[2019-09-15] MEDS: SODIUM CHLORIDE 0.9% INJ SCH (15:32)
--- NOTE | 2019-09-15 15:56 | PROGRESS NOTE ---
DATE: 09/15/2019 SUBJECTIVE: The patient states that he feels much better today. He states that he is not having diarrhea anymore since the Jevity was stopped. He is afebrile. No acute events noted overnight. OBJECTIVE: Vital Signs: Temperature 98 degrees, blood pressure 133/53, heart rate 89, respirations 20, O2 saturation 96% on room air. Intake 400 mL, output 700 mL. General: This is a chronically ill-appearing, elderly male lying in bed in no acute distress. Heart: S1, S2 normal. Regular rate and rhythm. Lungs: Equal air entry bilaterally. No wheezing. No rales. No rhonchi. Abdomen: Positive bowel sounds. Soft. There is a PEG tube in place. There is erythema surrounding the insertion site of the PEG tube. Extremities: No edema, no cyanosis, no calf tenderness. Neurologic: The patient is alert and oriented x3. LABS: White blood cell count 5.3, hemoglobin 8.7, hematocrit 30, platelets 161,000, sodium 138, potassium 3.8, BUN 14, creatinine 0.6, glucose 105, calcium 8.1, albumin 2.4. ASSESSMENT AND PLAN: 1. Infected percutaneous endoscopic gastrostomy tube site. Slowly improving. Continue with IV antibiotics while hospitalized. We will transition to oral antibiotic therapy upon discharge. 2. Splenic hematoma. Stable. 3. Paroxysmal atrial fibrillation. Continue on Cardizem and aspirin. 4. Hypertension. Stable. 5. Diarrhea. Improved. 6. Severe protein-calorie malnutrition. Continue with Ensure. 7. Iron deficiency anemia. Continue on Icar C. 8. Disposition. The patient will likely be discharged home tomorrow. cc: Opal Aquino MD
[2019-09-15] MEDS: MYCOSTATIN POWDER TOP SCH ×2 (19:38→23:44)
[2019-09-15] MEDS: BACITRACIN OINTMENT TOP SCH (19:38)
[2019-09-15] MEDS: DULCOLAX PR SCH (22:05)
[2019-09-16] MEDS: PROTONIX IV SCH (01:04)
[2019-09-16] MEDS: CARDIZEM PO SCH ×2 (01:04→10:19)
[2019-09-16] MEDS: VANCOMYCIN 1 GM/NS 1 GM/250 ML IVPB IV SCH (01:04)
[2019-09-16] MEDS: ZOSYN 3.375 GM in NS 50 ML IV SCH ×2 (03:43→10:19)
[2019-09-16 07:08] LABS: BASO# 0.02 X1000 (0.0-0.2); BASO% 0.4 % (0.0-0.8); EOS# 0.09 X1000 (0.0-0.7); EOS% 1.6 % (0.0-10.0); HEMATOCRIT 32.6 % (42.0-52.0); HEMOGLOBIN 9.6 g/dL (14.0-18.0); IMM GRAN# 0.05 X1000 (0.0-0.04); IMM GRAN% 0.9 % (0.0-0.5); LYMPH% 20.1 % (20.5-51.1); MCH 29.1 PG (27-31); MCHC 29.4 g/dL (33-37); MCV 98.8 FL (81-99); MONO# 0.54 X1000 (0.11-0.59); MONO% 9.9 % (1.7-9.3); MPV 9.5 FL (7.4-10.4); NEUT# 3.68 X1000 (1.4-6.5); NEUT% 67.1 % (42.2-75.2); PLT 178 X1000 (130-400); RDW 21.2 % (11.5-14.5); WBC 5.48 X1000 (4.8-10.8)
[2019-09-16 07:39] LABS: AGAP 6; ALBUMIN 2.6 g/dL (3.5-5.0); BUN 16 mg/dL (8-22); CALCIUM 8.9 mg/dL (8.8-10.2); CHLORIDE 102 mmol/L (98-107); COSMO 275; CREATININE 0.8 mg/dL (0.7-1.2); ESTIMATED GFR > 60; GLUCOSE 101 mg/dL (70-104); PHOSPHORUS 3.5 mg/dL (2.7-4.5); POTASSIUM 4.6 mmol/L (3.5-5.1); SODIUM 137 mmol/L (136-145); TCO2 29 mmol/L (25-35)
[2019-09-16 07:53] VITALS: BP 121/65
[2019-09-16] MEDS: ICAR-C PO SCH (10:18)
[2019-09-16] MEDS: ASPIRIN PO SCH (10:18)
[2019-09-16] MEDS: BACITRACIN OINTMENT TOP SCH (10:39)
[2019-09-16] MEDS: MYCOSTATIN POWDER TOP SCH (10:40)
--- NOTE | 2019-09-23 15:51 | DISCHARGE SUMMARY ---
ADMISSION DATE: 09/08/2019 DISCHARGE DATE: 09/16/2019 FINAL DISCHARGE DIAGNOSES: 1. Infected percutaneous endoscopic gastrostomy tube site . 2. Splenic hematoma. 3. Paroxysmal atrial fibrillation. 4. Hypertension. 5. Diarrhea. 6. Severe protein calorie malnutrition. 7. Iron deficiency anemia. CONSULTATIONS: 1. GI consultation with Dr. Aldrich. 2. General Surgery consultation with Dr. Cervantes. HOSPITAL COURSE: Mr. Iqbal is a 79-year-old male with a history of multiple medical problems who presented to the ER with a PEG tube infection. On admission, a CT of the abdomen and pelvis was done that revealed increased splenomegaly with a splenic hematoma. On examination, the patient was noted to have an infection of the PEG tube site. The patient was admitted to the hospitalist service. Cardiology was also consulted for further recommendations given the patient's history of atrial fibrillation on chronic an anticoagulation. During the hospital stay, the patient's Eliquis was discontinued due to the splenic hematoma. The patient was monitored closely. The patient was seen by the GI service and IV antibiotics were initiated for the PEG tube site infection. The patient responded well to antibiotic therapy. Conservative management was recommended by General Surgery for the splenic hematoma. Over the course of the hospitalization, the patient stated that he no longer wanted to be on tube feeds and preferred to try and drink Ensure which was provided for the patient during each meal. The patient did suffer from diarrhea during the initiation of tube feeds as well. Slowly over the course of the hospitalization, the PEG tube site slowly improved. The patient continued to improve clinically and was ultimately cleared for discharge home on 09/16/2019. DISCHARGE MEDICATIONS: 1. Icar C 1 tab oral twice a day. 2. Aspirin 81 mg oral daily. 3. Augmentin 500/125 one tab oral twice a day x5 days. 4. Cardizem CD 240 mg oral daily. 5. Imodium 2 mg oral every 6 hours p.r.n. for diarrhea. 6. Prilosec 20 mg oral daily. 7. Allopurinol 300 mg oral at bedtime. 8. Pravachol 40 mg oral at bedtime. 9. Cilostazol 100 mg via the PEG tube once a day. DISCHARGE DIET: Ensure with each meal. ACTIVITY: As tolerated. FOLLOWUP INSTRUCTIONS: The patient will need to follow up with Dr. Arriola in 1 week. cc: Opal Aquino MD [facility]
== END 2019-09-16 12:25 | disposition home health service (06) | DRG 393 ==
LOC: ED 20:29 → SUATTDRO 23:23 → ICU 23:23 → 3N 09-12 17:12
PROVIDERS: ATTEND Internal Medicine